=== PATIENT | female | born 1995 | race Caucasian/White ===

== ENCOUNTER 2022-03-11 05:21 | Emergency (ER) | payer BC, MEDICAID, SELFPAY ==
[2022-03-11 05:24] VITALS: BP 110/74; PULSE 99; RESP 16; TEMP 36.9; O2SAT 98; BMI 30.9
--- NOTE | 2022-03-11 05:40 | XR_ITS ---
PROCEDURE INFORMATION: Exam: XR Chest Exam date and time: 03/11/2022 5:35 AM Age: 27 years old Clinical indication: Cough and fever TECHNIQUE: Imaging protocol: Radiologic exam of the chest. Views: 2 views. COMPARISON: No relevant prior studies available. FINDINGS: Lungs: There is some peribronchial cuffing which may be seen with reactive airway disease. There is no focal consolidation/pneumonia. Pleural spaces: No pleural effusion. No pneumothorax. Heart/Mediastinum: No cardiomegaly. Bones/joints: Unremarkable for age. IMPRESSION: There is no focal consolidation/pneumonia.
[2022-03-11 05:46] LABS: Coronavirus 19, PCR Not Detected (NotDetected); Influenza B, PCR Not Detected (NotDetected)
--- NOTE | 2022-03-11 05:49 | HMH.EDURI ---
Discharge Plan Disposition Patient Disposition: Home, Self-Care Prescriptions Prescriptions: New benzonatate 100 mg Capsule 100 mg PO Q8H Qty: 20 0RF prednisone [prednisone] 20 mg tablet 20 mg PO BID Qty: 10 0RF oseltamivir [Tamiflu] 75 mg capsule 75 mg PO BID 5 Days Qty: 10 0RF Referrals Follow up/Referrals: Anita Faye [Primary Care Provider] - See instructions Clinical Impressions Clinical Impression: Influenza A Instructions Patient Instructions: DI for Influenza -- Adult Discharge ED Provider: Edin Head URI/Sore Throat HPI General Chief Complaint: Upper Respiratory Infection Stated Complaint: SOA, fever, body aches Time Seen by Provider: 03/11/22 05:49 Mode of Arrival: Ambulatory Source of Information: Patient and Medical Record Limitations: No Limitations Description of Symptoms (Recalled from ER Triage Doc. by RN): Pt c/o cough, congestion, body aches, fever of 103 since thursday. Pt has had known contact with flu+ relative. Pt denies N/V/D, chest pain, SOA. Pt reports taking tylenol and hour ago and motrin at 1230. History of Present Illness HPI Narrative: uri sx with cough and achey with temp elevated MD Complaint: fever, cough and nasal congestion Onset (ago): day(s) Severity: moderate Context: sick contacts Associated symptoms: denies other symptoms Treatments prior to arrival: none Related Data Previous Rx's Medication Instructions Recorded benzonatate 100 mg capsule 100 mg PO Q8H #20 caps 03/11/22 oseltamivir 75 mg capsule (Tamiflu) 75 mg PO BID 5 days #10 caps 03/11/22 prednisone 20 mg tablet 20 mg PO BID #10 tabs 03/11/22 Allergies Allergy/AdvReac Type Severity Reaction Status Date / Time acetaminophen [From Percocet] AdvReac Verified 03/11/22 05:40 oxycodone [From Percocet] AdvReac Verified 03/11/22 05:40 PFSH PFSH Social History Smoking Status: Current every day smoker alcohol intake: never current occupational status: employed Travel in the last 8 weeks: None ROS Obtained: Yes All systems reviewed & no additional complaints except as documented Physical Exam General General appearance: alert Head Head exam: normocephalic Eye Eye exam: Present PERRL and EOMI ENT ENT exam: Present mucous membranes moist Neck Neck exam: Present trachea midline Respiratory Respiratory exam: Present other (rhonchi ); Absent respiratory distress Cardiovascular Cardiovascular exam: Present regular rate Abdominal Exam Abdominal exam: Present soft Extremities Exam Extremities exam: Present full ROM Neurological Exam Neurological exam: Present alert, oriented X3 and CN II-XII intact Psychiatric Psychiatric exam: Present normal affect Skin Skin exam: Absent rash Medical Decision Making Medical Records Medical records reviewed: Yes I reviewed the patient's medical records. John Inquiry Pt receiving controlled substance: No Vital Signs: 03/11/22 05:24 Temperature 98.4 F Temperature Source Oral Pulse Rate [Right Radial] 99 H Respiratory Rate 16 Blood Pressure [Right Arm] 110/74 Blood Pressure Mean [Right Arm] 86 Blood Pressure Source [Right Arm] Automatic Cuff Blood Pressure Position [Right Arm] Supine 02 Sat by Pulse Oximetry 98 Oxygen Delivery Method Room Air Lab Data Lab results reviewed: Yes I reviewed the patient's lab results. Lab Results 03/11/22 05:33: SARS-CoV-2 (PCR) Not detected, Influenza A Untype (PCR) Detected A, Influenza Type B (PCR) Not detected Orders (Tests/Meds): ED MEDICATIONS Generic Name Dose Route Start Last Admin Trade Name Freq PRN Reason Stop Dose Admin Albuterol Sulfate 2 puff 03/11/22 06:00 Albuterol-Hfa 90mcg/Puff Inhaler 8gm 04/10/22 05:59 Q6RT GABO Discontinued Medications Generic Name Dose Route Start Last Admin Trade Name Freq PRN Reason Stop Dose Admin Levalbuterol HCl 1.25 mg 03/11/22 05:48 Levalbuterol 1.25mg/3ml Neb 03/11/22 05:49 ONCE O
[2022-03-11 06:54] LABS: Influenza A, PCR Detected (NotDetected)
[2022-03-11 07:03] VITALS: BP 110/74; PULSE 97; RESP 16; TEMP 36.9; O2SAT 100
== END 2022-03-11 07:08 | disposition home or self-care (01) ==
PROVIDERS: Emergency Provider Emergency Medicine; PCP Nurse Practitioner Family
DX: J10.1 Influenza due to other identified influenza virus with other respiratory manifestations (principal); R50.9 Fever, unspecified; R05.9 Cough, unspecified; M79.10 Myalgia, unspecified site; F17.200 Nicotine dependence, unspecified, uncomplicated; Z79.52 Long term (current) use of systemic steroids; Z88.5 Allergy status to narcotic agent; Z88.6 Allergy status to analgesic agent
CPT/HCPCS: 71046; 99283; C9803; U0003; U0005

== ENCOUNTER 2022-04-02 19:37 | Emergency (ER) | payer OTHER, MEDICAID, SELFPAY ==
[2022-04-02 19:39] VITALS: BP 150/106; PULSE 96; RESP 18; TEMP 36.9; O2SAT 98; BMI 30.9
--- NOTE | 2022-04-02 20:06 | HMH.EDGENADL ---
Discharge Plan Disposition Patient Disposition: Home, Self-Care Condition: Good Prescriptions Prescriptions: No Action benzonatate 100 mg Capsule 100 mg PO Q8H Qty: 20 0RF prednisone [prednisone] 20 mg tablet 20 mg PO BID Qty: 10 0RF oseltamivir [Tamiflu] 75 mg capsule 75 mg PO BID 5 Days Qty: 10 0RF Referrals Follow up/Referrals: Anita Faye [Primary Care Provider] - See instructions Clinical Impressions Clinical Impression: Concussion Instructions Patient Instructions: DI for Concussion Discharge ED Provider: Shalom Helms General Adult HPI General Chief complaint: Headache Stated complaint: WC [id number]@2300 injured Head Time Seen by Provider: 04/02/22 19:50 Mode of Arrival: Ambulatory Source of Information: Patient Limitations: No Limitations Description of Symptoms (Recalled from ER Triage Doc. by RN): pt was struck by a machine in the head thursday night and was seen at s [place] [facility] and diagnosed with a concussion, pt c/o Ledesma, dizziness and nauesa and was told by workplace to be reeveluatetd. History of Present Illness HPI narrative: Patient is a 27-year-old female with no pertinent past medical history who presents with headache, dizziness, nausea. She says that on Thursday she was at [employer] at work when she subsequently hit her head on a piece of machinery. She said she felt very dizzy and lightheaded and started to get a headache. She did not have a loss consciousness. She was sent to [facility] for evaluation where she had a CT scan which was ultimately negative. She says that she tried to go back to work today and started to have return of her symptoms. She says she continues to feel very nauseous. She feels dizzy and has a headache. She was told to come back here for evaluation. She denies any numbness or tingling to her extremities. Denies any neck pain. Related Data Previous Rx's Medication Instructions Recorded benzonatate 100 mg capsule 100 mg PO Q8H #20 caps 03/11/22 oseltamivir 75 mg capsule (Tamiflu) 75 mg PO BID 5 days #10 caps 03/11/22 prednisone 20 mg tablet 20 mg PO BID #10 tabs 03/11/22 Allergies Allergy/AdvReac Type Severity Reaction Status Date / Time acetaminophen [From Percocet] AdvReac Verified 03/11/22 05:40 oxycodone [From Percocet] AdvReac [facility]11[facility]22 [facility]: The information contained in this section may have been updated after the patient was seen, as this information can be updated by other users. Social History (Updated 03/11/22 @ 07:02 by Edin Head MD) Smoking Status: Current every day smoker alcohol intake: never current occupational status: employed Travel in the last 8 weeks: None ROS Obtained: Yes All systems reviewed & no additional complaints except as documented A 14 point review of system was obtained and otherwise negative except per HPI Physical Exam General General appearance: alert and in no apparent distress Head Head exam: atraumatic, normocephalic and normal inspection Eye Eye exam: Present normal appearance, PERRL and EOMI ENT ENT exam: Present normal exam, normal oropharynx, mucous membranes moist, TM's normal bilaterally and normal external ear exam Neck Neck exam: Present normal inspection, full ROM and trachea midline; Absent meningismus or lymphadenopathy Chest Chest inspection: Present normal inspection and symmetric chest wall rise; Absent tenderness Respiratory Respiratory exam: Present normal lung sounds bilaterally; Absent respiratory distress Cardiovascular Cardiovascular exam: Present regular rate and normal rhythm; Absent JVD Abdominal Exam Abdominal exam: Present soft and normal bowel sounds; Absent distention, tenderness or guarding Extremities Exam Extremities exam: Present normal inspection, full ROM and normal capillary refill; Absent calf tenderness Back Exam Back exam: Present normal inspection; Absent tenderness Neurological Exam Neurol
[2022-04-02 20:32] VITALS: BP 150/89; PULSE 81; RESP 18; TEMP 36.9; O2SAT 98
== END 2022-04-02 20:33 | disposition home or self-care (01) ==
PROVIDERS: Emergency Provider Student in an Organized Health Care Education/Training Program; PCP Nurse Practitioner Family
DX: R51.9 Headache, unspecified (principal); R42 Dizziness and giddiness; R11.2 Nausea with vomiting, unspecified; F17.200 Nicotine dependence, unspecified, uncomplicated; Z79.52 Long term (current) use of systemic steroids; Z79.899 Other long term (current) drug therapy; Z88.5 Allergy status to narcotic agent; Z88.6 Allergy status to analgesic agent
CPT/HCPCS: 99283

== ENCOUNTER 2022-08-13 22:33 | Emergency (ER) | payer BC, MEDICAID, SELFPAY ==
[2022-08-13 22:33] VITALS: BMI 31.6
--- NOTE | 2022-08-13 22:35 | CT_ITS ---
PROCEDURE INFORMATION: Exam: CT Head Without Contrast Exam date and time: 08/13/2022 11:15 PM Age: 27 years old Clinical indication: Injury or trauma; Fall; Additional info: Trauma r/t to falling down 15 steps TECHNIQUE: Imaging protocol: Computed tomography of the head without contrast. Radiation optimization: All CT scans at this facility use at least one of these dose optimization techniques: automated exposure control; mA and/or kV adjustment per patient size (includes targeted exams where dose is matched to clinical indication); or iterative reconstruction. REPORTING DATA: Count of CT and Cardiac NM exams in prior 12 months: This patient has received 0 known CTs and 0 known cardiac nuclear medicine studies in the 12 months prior to the current study. COMPARISON: No relevant prior studies available. FINDINGS: Brain: Normal. No hemorrhage. Unremarkable white matter. No mass effect. Cerebral ventricles: No ventriculomegaly. Paranasal sinuses: Moderate mucosal thickening in the right maxillary sinus. No air-fluid levels. Mastoid air cells: Visualized mastoid air cells are well aerated. Bones/joints: No acute fracture. Postsurgical changes in the anterior wall of both maxillary sinuses. Soft tissues: Unremarkable. IMPRESSION: No acute intracranial abnormality.
--- NOTE | 2022-08-13 22:35 | CT_ITS ---
PROCEDURE INFORMATION: Exam: CT Abdomen And Pelvis With Contrast Exam date and time: 08/13/2022 11:28 PM Age: 27 years old Clinical indication: Injury or trauma; Fall; Additional info: Trauma r/t to falling down 15 steps TECHNIQUE: Imaging protocol: Computed tomography of the abdomen and pelvis with contrast. Radiation optimization: All CT scans at this facility use at least one of these dose optimization techniques: automated exposure control; mA and/or kV adjustment per patient size (includes targeted exams where dose is matched to clinical indication); or iterative reconstruction. Contrast material: ISOVUE; Contrast volume: 75 ml; Contrast route: IV; REPORTING DATA: Count of CT and Cardiac NM exams in prior 12 months: This patient has received 0 known CTs and 0 known cardiac nuclear medicine studies in the 12 months prior to the current study. COMPARISON: CR XR PELVIS 1-2V 08/13/2022 11:28 PM FINDINGS: Liver: Hepatomegaly measures 25 cm. Gallbladder and bile ducts: Normal. No calcified stones. No ductal dilation. Pancreas: Normal. No ductal dilation. Spleen: Normal. No splenomegaly. Adrenal glands: Normal. No mass. Kidneys and ureters: Normal. No hydronephrosis. Stomach and bowel: There is colonic intramural fat deposition likely secondary to prior inflammatory change. No acute pericolonic inflammation. Appendix: Normal appendix. Intraperitoneal space: Unremarkable. No free air. No significant fluid collection. Vasculature: Unremarkable. No abdominal aortic aneurysm. Lymph nodes: Unremarkable. No enlarged lymph nodes. Urinary bladder: Unremarkable as visualized. Reproductive: Unremarkable as visualized. Bones/joints: Unremarkable. No acute fracture. Soft tissues: Small fat containing umbilical hernia. IMPRESSION: No acute abnormality.
--- NOTE | 2022-08-13 22:35 | CT_ITS ---
PROCEDURE INFORMATION: Exam: CT Lumbar Spine Without Contrast Exam date and time: 08/13/2022 11:22 PM Age: 27 years old Clinical indication: Injury or trauma; Fall; Additional info: Trauma r/t to falling down 15 steps TECHNIQUE: Imaging protocol: Computed tomography of the lumbar spine without contrast. Radiation optimization: All CT scans at this facility use at least one of these dose optimization techniques: automated exposure control; mA and/or kV adjustment per patient size (includes targeted exams where dose is matched to clinical indication); or iterative reconstruction. REPORTING DATA: Count of CT and Cardiac NM exams in prior 12 months: This patient has received 0 known CTs and 0 known cardiac nuclear medicine studies in the 12 months prior to the current study. COMPARISON: CT THORACIC SPINE WO CON 08/13/2022 11:19 PM FINDINGS: Bones/joints: No acute fracture. Normal alignment. No significant disc bulge or herniation. No severe spinal canal stenosis. No significant neural foraminal narrowing. Soft tissues: Unremarkable. IMPRESSION: No acute findings.
--- NOTE | 2022-08-13 22:35 | XR_ITS ---
PROCEDURE INFORMATION: Exam: XR Pelvis Exam date and time: 08/13/2022 11:28 PM Age: 27 years old Clinical indication: Injury or trauma; Fall; Blunt trauma (contusions or hematomas); Left; Hip and pelvic region; Additional info: Trauma r/t to falling down 15 steps TECHNIQUE: Imaging protocol: Radiologic exam of the pelvis. Views: 1 or 2 view. COMPARISON: CT LUMBAR SPINE WO CON 08/13/2022 11:22 PM FINDINGS: Bones/joints: Unremarkable. No acute fracture. Soft tissues: Unremarkable. Organs: There is contrast within both ureters. Contrast within the urinary bladder. IMPRESSION: No acute osseous abnormality.
--- NOTE | 2022-08-13 22:35 | XR_ITS ---
PROCEDURE INFORMATION: Exam: XR Chest Exam date and time: 08/13/2022 11:27 PM Age: 27 years old Clinical indication: Injury or trauma; Fall; Blunt trauma (contusions or hematomas); Additional info: Trauma r/t to falling down 15 steps TECHNIQUE: Imaging protocol: Radiologic exam of the chest. Views: 1 view. COMPARISON: CT CHEST WO CON 08/13/2022 11:24 PM FINDINGS: Lungs: Unremarkable. No consolidation. Pleural spaces: Unremarkable. No pleural effusion. No pneumothorax. Heart/Mediastinum: Unremarkable. No cardiomegaly. Bones/joints: Unremarkable. Soft tissues: Bilateral nipple rings. Organs: Bilateral renal excretion of contrast. IMPRESSION: No acute process.
--- NOTE | 2022-08-13 22:35 | CT_ITS ---
PROCEDURE INFORMATION: Exam: CT Cervical Spine Without Contrast Exam date and time: 08/13/2022 11:17 PM Age: 27 years old Clinical indication: Injury or trauma; Fall; Additional info: Trauma r/t to falling down 15 steps TECHNIQUE: Imaging protocol: Computed tomography of the cervical spine without contrast. Radiation optimization: All CT scans at this facility use at least one of these dose optimization techniques: automated exposure control; mA and/or kV adjustment per patient size (includes targeted exams where dose is matched to clinical indication); or iterative reconstruction. REPORTING DATA: Count of CT and Cardiac NM exams in prior 12 months: This patient has received 0 known CTs and 0 known cardiac nuclear medicine studies in the 12 months prior to the current study. COMPARISON: CT HEAD/BRAIN WO CON 08/13/2022 11:15 PM FINDINGS: Bones/joints: Vertebral body height and AP alignment is preserved. No acute cervical spine fracture. No definite significant central canal stenosis within limitations of technique. Lungs: Lung apices are normal. Pleural spaces: No visible pneumothorax. Soft tissues: Unremarkable. IMPRESSION: No acute cervical spine fracture.
--- NOTE | 2022-08-13 22:35 | CT_ITS ---
PROCEDURE INFORMATION: Exam: CT Chest Without Contrast; Diagnostic Exam date and time: 08/13/2022 11:24 PM Age: 27 years old Clinical indication: Injury or trauma; Fall; Patient HX: C/O left side pain; Additional info: Trauma r/t to falling down 15 steps TECHNIQUE: Imaging protocol: Diagnostic computed tomography of the chest without contrast. Radiation optimization: All CT scans at this facility use at least one of these dose optimization techniques: automated exposure control; mA and/or kV adjustment per patient size (includes targeted exams where dose is matched to clinical indication); or iterative reconstruction. REPORTING DATA: Count of CT and Cardiac NM exams in prior 12 months: This patient has received 0 known CTs and 0 known cardiac nuclear medicine studies in the 12 months prior to the current study. COMPARISON: CR XR CHEST 2V 03/11/2022 5:35 AM FINDINGS: Lungs: Right middle lobe pulmonary nodule measures 4 mm. Minimal bilateral posterior dependent hypoventilatory change. No airspace consolidation. No pulmonary contusion or laceration. Pleural spaces: Unremarkable. No pneumothorax. No pleural effusion. Heart: Unremarkable. No cardiomegaly. No pericardial effusion. Coronary arteries: No coronary artery calcification. Lymph nodes: Unremarkable. No enlarged lymph nodes. Vasculature: Unremarkable. No aortic aneurysm. Bones/joints: Unremarkable. No acute fracture. Soft tissues: Unremarkable. IMPRESSION: 1. No acute abnormality involving the chest. 2. 4 mm right middle lobe pulmonary nodule. If the patient does not have known cancer, follow up should be based on clinical information because of the low risk of cancer in this age group. (Reference: Sascha) REFERENCES: Sascha Gonzalez, et al. Guidelines for Management of Incidental Pulmonary Nodules Detected on CT Images: From the Fleischner Society 2017. Radiology. 2017;284(1):228-243.
--- NOTE | 2022-08-13 22:35 | CT_ITS ---
PROCEDURE INFORMATION: Exam: CT Thoracic Spine Without Contrast Exam date and time: 08/13/2022 11:19 PM Age: 27 years old Clinical indication: Injury or trauma; Fall; Additional info: Trauma r/t to falling down 15 steps TECHNIQUE: Imaging protocol: Computed tomography of the thoracic spine without contrast. Radiation optimization: All CT scans at this facility use at least one of these dose optimization techniques: automated exposure control; mA and/or kV adjustment per patient size (includes targeted exams where dose is matched to clinical indication); or iterative reconstruction. REPORTING DATA: Count of CT and Cardiac NM exams in prior 12 months: This patient has received 0 known CTs and 0 known cardiac nuclear medicine studies in the 12 months prior to the current study. COMPARISON: CT CERVICAL SPINE WO CON 08/13/2022 11:17 PM FINDINGS: Bones/joints: No acute fracture. Normal alignment. No significant disc bulge or herniation. No severe spinal canal stenosis. No significant neural foraminal narrowing. Soft tissues: Unremarkable. IMPRESSION: Unremarkable CT Spine.
[2022-08-13 22:45] VITALS: BP 119/82; PULSE 90; RESP 16; TEMP 36.6; O2SAT 98; BMI 30.9
[2022-08-13 22:48] VITALS: BP 119/82; PULSE 94; O2SAT 98
[2022-08-13 22:49] LABS: Blood Urea Nitrogen 13 mg/dl (7-17); Creatinine Clearance Estimated 214 mL/min (50-200); Estimated Glomerular Filt Rate 146 ml/min (>60); GFR (African American) 177 ML/MIN (>60)
--- NOTE | 2022-08-13 22:51 | XR_ITS ---
PROCEDURE INFORMATION: Exam: XR Left Knee Exam date and time: 08/13/2022 11:29 PM Age: 27 years old Clinical indication: Injury or trauma; Fall; Blunt trauma; Knee; Left TECHNIQUE: Imaging protocol: Radiologic exam of the left knee. Views: 3 views. COMPARISON: No relevant prior studies available. FINDINGS: Bones/joints: Normal. Soft tissues: Normal. IMPRESSION: No acute findings.
[2022-08-13 22:57] LABS: Basophils # 0.1 K/mm3 (0-0.2); Basophils % 1.1 % (0.1-2.0); Chloride 101 mmol/L (98-107); Eosinophils # 0.5 K/mm3 (0.0-0.4); Eosinophils % 3.8 % (0.1-12.0); Hemoglobin 14.8 g/dL (12.2-16.2); Lymphocytes # 4.8 K/mm3 (0.7-4.5); Lymphocytes % 36.4 % (10-50); Mean Corpuscular HGB Conc 34.5 g/dL (31.8-35.4); Mean Corpuscular Hemoglobin 31.3 pg (27.0-31.2); Mean Corpuscular Volume 90.8 fl (81-99); Monocytes # 0.8 K/mm3 (0.1-1.0); Monocytes % 5.9 % (1.7-9.3); Neutrophils % 52.9 % (37.0-80.0); Platelet Count 355 K/mm3 (142-424); Red Blood Count 4.74 M/mm3 (4.20-5.40); Red Cell Distribution Width 12.6 % (11.5-17.5); White Blood Count 13.3 K/mm3 (4.8-10.8)
[2022-08-13 22:58] LABS: Potassium 4.2 mmoL/L (3.5-5.1); Sodium 135 mmol/L (136-145)
[2022-08-13 23:00] VITALS: BP 127/86; PULSE 98; O2SAT 97
[2022-08-13 23:00] LABS: Alanine Aminotransferase 62 U/L (12-78); Albumin Level 4.3 g/dl (3.5-5.0); Albumin/Globulin Ratio 1.4 (1.1-1.8); Alkaline Phosphatase 80 U/L (38-126); Anion Gap 15.2 mEq/L (5-15); Aspartate Amino Transferase 48 U/L (14-36); Bilirubin,Total 0.5 mg/dl (0.2-1.3); Blood Urea Nitrogen 13 mg/dl (7-17); Carbon Dioxide 23 mmol/L (22.0-30.0); Creatinine Clearance Estimated 214 mL/min (50-200); Estimated Glomerular Filt Rate 146 ml/min (>60); GFR (African American) 177 ML/MIN (>60); Globulin 3.1 g/dL (1.3-3.2); Total Protein,Serum 7.4 g/dl (6.3-8.2)
[2022-08-13 23:01] LABS: Glucose 323 mg/dl (74-100)
[2022-08-13 23:03] LABS: HCG Qualitative, Serum Negative (Negative)
--- NOTE | 2022-08-13 23:59 | HMH.EDFALL ---
Discharge Plan Disposition Patient Disposition: Home, Self-Care Chief Complaint: Fall Prescriptions Prescriptions: No Action atorvastatin 40 mg tablet 40 mg PO DAILY Label Comments: TAKE 1 TABLET BY MOUTH ONCE DAILY atenolol 100 mg tablet 100 mg PO DAILY Label Comments: TAKE 1 TABLET BY MOUTH ONCE DAILY norethindrone ac-eth estradiol [Microgestin 1.5 (21)] 1.5-30 mg-mcg tablet 1 tab PO DAILY Label Comments: TAKE 1 TABLET BY MOUTH ONCE DAILY amitriptyline 10 mg tablet 10 mg PO HS Label Comments: TAKE 1 TABLET BY MOUTH ONCE DAILY AT BEDTIME FOR 30 DAYS levothyroxine 150 mcg tablet 150 mcg PO AM Label Comments: TAKE 1 TABLET BY MOUTH ONCE DAILY losartan 25 mg tablet 25 mg PO DAILY Label Comments: TAKE 1 TABLET BY MOUTH ONCE DAILY ergocalciferol (vitamin D2) 1,250 mcg (50,000 unit) capsule 1,250 mcg PO WEEKLY Label Comments: TAKE 1 CAPSULE BY MOUTH ONCE A WEEK escitalopram oxalate 20 mg tablet 20 mg PO DAILY Label Comments: TAKE 1 TABLET BY MOUTH ONCE DAILY duloxetine 60 mg capsule,delayed release(DR/EC) 60 mg PO DAILY Label Comments: TAKE 1 CAPSULE BY MOUTH ONCE DAILY DO NOT CRUSH OR CHEW fenofibrate nanocrystallized 145 mg tablet 145 mg PO DAILY Label Comments: TAKE 1 TABLET BY MOUTH ONCE DAILY Referrals Follow up/Referrals: Krystina Bear [Primary Care Provider] - See instructions Annamaria Gallegos DPM [Staff Physician] - See instructions Clinical Impressions Clinical Impression: Concussion, Fall, Foot fracture, left, Lumbar back sprain, Concussion without loss of consciousness Instructions Patient Instructions: Foot Fracture Discharge ED Provider: Adilene YoungED)Edin Fall HPI General Chief Complaint: Fall Stated Complaint: Fell down 15 steps Time Seen by Provider: 08/13/22 23:59 Mode of Arrival: Ambulatory Source of Information: Patient, Spouse and Medical Record Limitations: No Limitations Description of Symptoms (Recalled from ER Triage Doc. by RN): Pt states that she was carrying a basket of laundry into her basement when she tripped and fell down 15 steps. States that she didnt lose consciousness. Does report that a bottle of bleach opened and spilled on her and into her mouth and eyes. States that she didnt ingest any bleach and immediately bathed and rinsed her eyes. Denies any eye pain or vision deficits. History of Present Illness HPI Narrative: trip injury nd fell down basement steps has lt foot/neck and back injury - no loc - has head and llt knee pain MD complaint: fall Onset (ago): hour(s) Fall from: down stairs (#) Fall witnessed: yes, by family Place fall occurred: home Loss of consciousness: none Prolonged down time: no Context: tripped/slipped Location of injury: head, neck and back Location of injury - extremities: Left: knee and foot Severity: severe Related Data Home Medications Medication Instructions Recorded Confirmed amitriptyline 10 mg tablet 10 mg PO HS Insomnia 08/13/22 08/13/22 atenolol 100 mg tablet 100 mg PO DAILY Heart rhythm 08/13/22 08/13/22 atorvastatin 40 mg tablet 40 mg PO DAILY Cholesterol 08/13/22 08/13/22 duloxetine 60 mg capsule,delayed 60 mg PO DAILY Mood 08/13/22 08/13/22 release ergocalciferol (vitamin D2) 1,250 1,250 mcg PO WEEKLY Supplement 08/13/22 08/13/22 mcg (50,000 unit) capsule escitalopram oxalate 20 mg tablet 20 mg PO DAILY Mood 08/13/22 08/13/22 fenofibrate nanocrystallized 145 145 mg PO DAILY Cholesterol 08/13/22 08/13/22 mg tablet levothyroxine 150 mcg tablet 150 mcg PO AM Thyroid 08/13/22 08/13/22 losartan 25 mg tablet 25 mg PO DAILY High blood pressure 08/13/22 08/13/22 norethindrone acetate 1.5 1 tab PO DAILY control 08/13/22 08/13/22 mg-ethinyl estradiol 30 mcg tablet (Microgestin) Allergies Allergy/AdvReac Type Severity Reaction Status Date / Time acetaminophen [From Percocet] AdvReac
[2022-08-14] VITALS: BP 114/78; PULSE 106; O2SAT 97
--- NOTE | 2022-08-14 00:24 | XR_ITS ---
PROCEDURE INFORMATION: Exam: XR Left Foot Exam date and time: 08/14/2022 1:12 AM Age: 27 years old Clinical indication: Injury or trauma; Fall; Blunt trauma; Toes; Left lesser toe(s); Patient HX: States she hit her 4th digit left foot TECHNIQUE: Imaging protocol: Radiologic exam of the left foot. Views: 3 or more views. COMPARISON: CR XR KNEE LT 3V 08/13/2022 11:29 PM FINDINGS: Bones/joints: There is lucency at the proximal aspect of the 4th digit metatarsal bone imaged on frontal film. Remainder appears intact. Soft tissues: Normal. IMPRESSION: Suspect nondisplaced fracture of the proximal aspect of the 4th metatarsal imaged on the frontal film.
[2022-08-14 00:30] VITALS: BP 114/72; PULSE 96; O2SAT 97
[2022-08-14 01:00] VITALS: BP 112/75; PULSE 94; O2SAT 96
[2022-08-14 01:30] VITALS: BP 128/86; PULSE 92; O2SAT 98
[2022-08-14 02:00] VITALS: BP 125/85; PULSE 89; O2SAT 97
[2022-08-14 02:05] VITALS: BP 134/80; PULSE 81; RESP 18; TEMP 36.8
== END 2022-08-14 02:11 | disposition home or self-care (01) ==
PROVIDERS: Emergency Provider Emergency Medicine; PCP Nurse Practitioner Family
DX: S06.0X0A Concussion without loss of consciousness, initial encounter (principal); S33.5XXA Sprain of ligaments of lumbar spine, initial encounter; S92.302A Fracture of unspecified metatarsal bone(s), left foot, initial encounter for closed fracture; W10.9XXA Fall (on) (from) unspecified stairs and steps, initial encounter
CPT/HCPCS: 70450; 71045; 71250; 72125; 72128; 72131; 72170; 73562; 73630; 74177; 80053; 82565; 84520; 84703; 85025; 96374; 96375; 96376; 99285; J2405; Q9967

== ENCOUNTER → 2022-08-15 13:13 | Outpatient (CLI) | payer BC, MEDICAID, SELFPAY ==
--- NOTE | 2022-08-15 13:17 | XR_ITS ---
FINAL REPORT CLINICAL HISTORY: Left wrist pain COMPARISON: None FINDINGS: LEFT WRIST Three views demonstrate no acute fracture or dislocation. The visualized joint spaces are normally aligned. The soft tissues are unremarkable. IMPRESSION: No acute bony abnormality. Reviewed, Interpreted and Dictated by Guilherme iRncon III, MD Transcribed by Fernanda Rivera Authenticated and [facility]
== END ==
PROVIDERS: PCP Nurse Practitioner Family; Visit Provider Orthopaedic Surgery
DX: M25.532 Pain in left wrist (principal)
CPT/HCPCS: 73110

== ENCOUNTER 2022-08-15 13:29 | Outpatient (RCR) | payer BC, MEDICAID, SELFPAY | END 2022-08-15 14:25 | disposition home or self-care (01) | LOC: PT 13:29 | PROVIDERS: Visit Provider Orthopaedic Surgery | DX: M79.672 Pain in left foot (principal); S92.902A Unspecified fracture of left foot, initial encounter for closed fracture | CPT/HCPCS: 97760 ==

== ENCOUNTER 2022-08-25 11:00 | Outpatient (RCR) | payer OTHER, SELFPAY | END 2022-08-25 11:05 | disposition home or self-care (01) | LOC: OT 11:00 | PROVIDERS: Visit Provider Plastic Surgery Surgery of the Hand | DX: M79.641 Pain in right hand (principal); S69.91XA Unspecified injury of right wrist, hand and finger(s), initial encounter | CPT/HCPCS: 97010; 97014; 97035; 97110; 97140; 97166; 97530; G0283 ==

== ENCOUNTER → 2022-08-29 08:52 | Outpatient (CLI) | payer OTHER, MEDICAID, SELFPAY ==
--- NOTE | 2022-08-29 08:55 | XR_ITS ---
FINAL REPORT CLINICAL HISTORY: f/u left foot fx COMPARISON: None available FINDINGS: Three views of the left foot show no evidence of acute displaced fracture or dislocation of the visualized bony architecture. Previously described fracture 4th metatarsal not appreciated on the current exam. The joint spaces appear normal. IMPRESSION: Unremarkable exam Reviewed, Interpreted and Dictated by Dwayne Jones MD Transcribed by Fernanda Rivera Authenticated and [facility]
== END ==
PROVIDERS: PCP Nurse Practitioner Family; Visit Provider Orthopaedic Surgery
DX: M79.672 Pain in left foot (principal); S92.902A Unspecified fracture of left foot, initial encounter for closed fracture
CPT/HCPCS: 73630

== ENCOUNTER 2022-09-06 23:22 | Emergency (ER) | payer BC, MEDICAID, SELFPAY ==
[2022-09-06 23:24] VITALS: BP 110/67; PULSE 101; RESP 17; TEMP 36.5; O2SAT 100; BMI 26.6
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
--- NOTE | 2022-09-07 00:52 | PC.NURSE ---
pt finger stick is 309 at this time
[2022-09-07 00:58] LABS: POC Glucose,Bedside 309 (70-110)
[2022-09-07 01:12] VITALS: BP 121/63; PULSE 73; RESP 19; TEMP 36.8; O2SAT 98
== END 2022-09-07 01:27 | disposition home or self-care (01) ==
PROVIDERS: Emergency Provider Emergency Medicine; PCP Nurse Practitioner Family
DX: M54.16 Radiculopathy, lumbar region (principal); E11.9 Type 2 diabetes mellitus without complications
CPT/HCPCS: 82962; 96372; 99283; 99284

== ENCOUNTER → 2022-10-08 08:26 | Outpatient (POV) | payer BC, MEDICAID, SELFPAY ==
--- NOTE | 2022-10-08 08:43 | EXP.PAIN.OV ---
HPI Data of Consult Patient: new to practice Consult date: 10/08/22 Requesting Physician: Christy Jama APRN Consult Narrative Reason for consult: Low back pain History of present illness: Ms. Friedman is a 27 year old female who presents today as a new patient. She is a referral from [facility]. Today she rates her pain a 7 out of 10. Patient states her pain is all in her low back with some radiating symptoms to her buttocks. Patient does describe this as a constant achy, throbbing sensation that is worse with increased activity. Patient states she did have a fall that initially started the symptoms back on August 14. Patient states that she fell down her stairs and hit her lower back on the bottom. Patient states she had no prior issues to this event. She does state the pain interferes with her ability perform activities of daily living such as cooking and cleaning. Patient denies any prior surgery. She does state that occasionally she feels like her back just needs to be popped and that with adding pressure onto her back the pain does seem to help. She does state that her pain is worse when she is standing or walking. She does state with this fall she did have a hairline fracture to her wrist as well as a fracture to her foot and a contusion however she states these of all healed except for her back. Patient has tried [id number] medications such as Tylenol and ibuprofen along with heat and ice and topicals with no additional relief. She states she has even had muscle relaxer cyclobenzaprine however she has not noticed significant relief with this either patient is currently in physical therapy and states she has not noticed any additional improvement. Patient is prescribed gabapentin 300 mg twice a day and was also given Stewart 7.5 mg with 30 tablets in August. Patient denies any side effects from these medications. Her John is [phone]. Has been reviewed and appropriate. CC: Christy Jama APRN [facility] Disclaimer: The information contained in this section may have been updated after the patient was seen, as this information can be updated by other users. 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 Foot fracture, left Surgical History History of carpal tunnel release History of facial fracture repair History of left knee surgery History of surgical removal of ganglion cyst History of tonsillectomy and adenoidectomy Social History Smoking Status: Never smoker alcohol intake: never current occupational status: employed Travel in the last 8 weeks: None Review of Systems Review of Systems Review of systems:: pertinent systems reviewed and negative unless documented below Review of systems (narrative): Review of Systems: General: No recent weight changes, no fever, no sleep disturbances Respiratory: No cough, no shortness of air, no recurring pulmonary infections Cardiovascular/peripheral vascular: No chest pain, no palpitations, no edema, no shortness of breath Gastrointestinal: No new onset incontinence, normal bowel movements reported Genitourinary: No new onset incontinence Musculoskeletal: Low back pain Psychiatric: [Normal mood/affect] Neurological: [Denies weakness in extremities], [denies balance issues] Meds Home Medications and Allergies Home Medications Medication Instructions Recorded Confirmed Type amitriptyline 10 mg tablet 10 mg PO HS Insomnia 08/13/22 08/29/22 History atenolol 100 mg tablet 100 mg PO DAILY Heart rhythm 08/13/22 08/29/22 History atorvastatin 40 mg tablet 40 mg PO DAILY Cholesterol 08/13/22 08/29/22 History duloxetine 60 mg capsule,delayed 60 mg PO DAILY Mood 08/13/22 08/29/22 History release ergocalciferol (vitamin D2) 1,250 1,250 mcg PO WEEKLY Supplement 08/13/22 08/29/22 History mcg (50,000 unit) capsule escitalopram
[2022-10-08 09:41] VITALS: BP 138/101; PULSE 100; RESP 18; O2SAT 97; BMI 30.9
== END | disposition home or self-care (01) ==
PROVIDERS: Visit Provider Nurse Practitioner Family
DX: M54.50 Low back pain, unspecified (principal); M54.16 Radiculopathy, lumbar region
CPT/HCPCS: 99202; G0463

== ENCOUNTER → 2022-10-20 14:36 | Outpatient (CLI) | payer BC, SELFPAY | LOC: RT 14:39 | PROVIDERS: PCP Nurse Practitioner Family; Visit Provider Nurse Practitioner Family | DX: R01.1 Cardiac murmur, unspecified (principal) | CPT/HCPCS: 93306 ==

== ENCOUNTER 2023-02-09 21:28 | Emergency (ER) | payer MEDICAID, SELFPAY ==
[2023-02-09 21:28] VITALS: PULSE 107
--- NOTE | 2023-02-09 21:29 | ECG_ITS ---
APPROVED REPORT Exam: Resting ECG HR:103 bpm ECG Measurements Heart Rate 103 AXES ID 134 P 36 QRSd 90 QRS -16 QT 338 T 50 QTc 397 Conclusion SINUS TACHYCARDIA POSSIBLE LEFT ATRIAL ENLARGEMENT [-0.1mV P-WAVE IN V1/V2] POSSIBLE LEFT VENTRICULAR HYPERTROPHY [VOLTAGE CRITERIA PLUS LAE OR QRS WIDENING] ABNORMAL ECG UNCONFIRMED REPORT Electronically signed by : Davis Fink MD 02/10/2023 14:41:16
[2023-02-09 21:31] VITALS: BP 144/97; PULSE 107; RESP 20; TEMP 36.8; O2SAT 99; BMI 31.2
--- NOTE | 2023-02-09 21:33 | PC.NURSE ---
in room talking with patient at this time.
--- NOTE | 2023-02-09 21:36 | XR_ITS ---
PROCEDURE INFORMATION: Exam: XR Chest Exam date and time: 02/09/2023 10:04 PM Age: 27 years old Clinical indication: Sternal or substernal pain; Patient HX: States chest pain started approx. 8pm tonight. HX of heart murmur; Additional info: Cp/soa TECHNIQUE: Imaging protocol: Radiologic exam of the chest. Views: 2 views. COMPARISON: CR XR CHEST PORTABLE 08/13/2022 11:27 PM FINDINGS: Lungs: Normal. Pleural spaces: Normal No pleural effusion. No pneumothorax. Heart/Mediastinum: Normal. No cardiomegaly. Bones/joints: Unremarkable. Soft tissues: Bilateral nipple jewelry in place. IMPRESSION: No acute findings.
--- NOTE | 2023-02-09 21:37 | HMH.EDGENADL ---
Discharge Plan Disposition Patient Disposition: Home, Self-Care Condition: Good Prescriptions Prescriptions: No Action gabapentin 300 mg capsule 300 mg PO HS Ozempic 0.25 mg or 0.5 mg (2 mg/3 mL) pen injector 0.25 mg SQ metformin 1,000 mg tablet 1,000 mg PO BID losartan 100 mg tablet 100 mg PO DAILY carvedilol [Coreg] 12.5 mg tablet 12.5 mg PO BID Qty: 60 3RF Rx Instructions: must administer with a meal/food atorvastatin 40 mg tablet 40 mg PO DAILY Patient Comments: TAKE 1 TABLET BY MOUTH ONCE DAILY amitriptyline 10 mg tablet 10 mg PO HS Patient Comments: TAKE 1 TABLET BY MOUTH ONCE DAILY AT BEDTIME FOR 30 DAYS levothyroxine 150 mcg tablet 150 mcg PO AM Patient Comments: TAKE 1 TABLET BY MOUTH ONCE DAILY ergocalciferol (vitamin D2) 1,250 mcg (50,000 unit) capsule 1,250 mcg PO WEEKLY Patient Comments: TAKE 1 CAPSULE BY MOUTH ONCE A WEEK escitalopram oxalate 20 mg tablet 20 mg PO DAILY Patient Comments: TAKE 1 TABLET BY MOUTH ONCE DAILY duloxetine 60 mg capsule,delayed release(DR/EC) 60 mg PO DAILY Patient Comments: TAKE 1 CAPSULE BY MOUTH ONCE DAILY DO NOT CRUSH OR CHEW fenofibrate nanocrystallized 145 mg tablet 145 mg PO DAILY Patient Comments: TAKE 1 TABLET BY MOUTH ONCE DAILY methocarbamol 500 mg tablet 500 mg PO BID Qty: 28 0RF Referrals Follow up/Referrals: Krystina Bear [Primary Care Provider] - See instructions Activity Restrictions/Add. Instructions Additional Instructions/Restrictions: You were evaluated in the emergency department today. Please keep an eye on your blood sugar at home. Follow-up with your primary care provider over the next 3 days for reassessment. Return to the emergency department for new or worsening symptoms. Clinical Impressions Clinical Impression: Chest pain, Acute dyspnea, Hyperglycemia Instructions Patient Instructions: DI for Atypical Chest Pain Discharge ED Provider: Christy Lindsay General Adult HPI <Theo Soto MD - Last Filed: 02/09/23 23:14> General Chief complaint: Chest Pain Stated complaint: Chest Pain Time Seen by Provider: 02/09/23 21:32 Mode of Arrival: Ambulatory Source of Information: Patient Limitations: No Limitations Description of Symptoms (Recalled from ER Triage Doc. by RN): Patient started having Chest pain that started tonight aroung 2000 that is minsternal. History of Present Illness HPI narrative: Patient is a 27-year-old female with past medical history of hypertension, chronic tachycardia of undetermined etiology who presents emergency department for evaluation of chest pain. Onset was acute, occurring at approximately 8 PM, substernal with associated shortness of breath. No other acute complaints at this time. Related Data Home Medications Medication Instructions Recorded Confirmed amitriptyline 10 mg tablet 10 mg PO HS Insomnia 08/13/22 10/13/22 atorvastatin 40 mg tablet 40 mg PO DAILY Cholesterol 08/13/22 10/13/22 duloxetine 60 mg capsule,delayed 60 mg PO DAILY Mood 08/13/22 10/13/22 release ergocalciferol (vitamin D2) 1,250 1,250 mcg PO WEEKLY Supplement 08/13/22 10/13/22 mcg (50,000 unit) capsule escitalopram oxalate 20 mg tablet 20 mg PO DAILY Mood 08/13/22 10/13/22 fenofibrate nanocrystallized 145 145 mg PO DAILY Cholesterol 08/13/22 10/13/22 mg tablet levothyroxine 150 mcg tablet 150 mcg PO AM Thyroid 08/13/22 10/13/22 gabapentin 300 mg capsule 300 mg PO HS 10/13/22 10/13/22 losartan 100 mg tablet 100 mg PO DAILY 10/13/22 10/13/22 metformin 1,000 mg tablet 1,000 mg PO BID 10/13/22 10/13/22 semaglutide 0.25 mg or 0.5 mg (2 0.25 mg SQ 10/13/22 10/13/22 mg/3 mL) subcutaneous pen injector (Ozempic) Previous Rx's Medication Instructions Recorded methocarbamol 500 mg tablet 500 mg PO BID #28 tabs 10/08/22 carvedilol 12.5 mg tablet (Coreg) 12.5 mg PO BID #60 tabs 10/13/22
[2023-02-09 21:46] LABS: Basophils # 0.1 K/mm3 (0-0.2); Basophils % 1.1 % (0.1-2.0); Eosinophils # 0.4 K/mm3 (0.0-0.4); Eosinophils % 4.1 % (0.1-12.0); Hematocrit 38.6 % (37.0-47.0); Hemoglobin 14.8 g/dL (12.2-16.2); Lymphocytes # 3.6 K/mm3 (0.7-4.5); Lymphocytes % 38.2 % (10-50); Mean Corpuscular HGB Conc 38.3 g/dL (31.8-35.4); Mean Corpuscular Hemoglobin 34.2 pg (27.0-31.2); Mean Corpuscular Volume 89.3 fl (81-99); Mean Platelet Volume 7.9 fl (7.4-10.4); Monocytes # 0.5 K/mm3 (0.1-1.0); Monocytes % 5.5 % (1.7-9.3); Neutrophils # 4.8 K/mm3 (1.8-7.8); Neutrophils % 51.1 % (37.0-80.0); Platelet Count 290 K/mm3 (142-424); Red Blood Count 4.32 M/mm3 (4.20-5.40); Red Cell Distribution Width 12.5 % (11.5-17.5); White Blood Count 9.5 K/mm3 (4.8-10.8)
[2023-02-09 21:53] LABS: D-Dimer 2.88 ug/mL (0.0-0.5)
[2023-02-09 21:58] LABS: Alanine Aminotransferase 54 U/L (12-78); Albumin Level 4.2 g/dl (3.5-5.0); Albumin/Globulin Ratio 1.4 (1.1-1.8); Alkaline Phosphatase 83 U/L (38-126); Anion Gap 18.3 mEq/L (5-15); Aspartate Amino Transferase 45 U/L (14-36); Bilirubin,Total 0.4 mg/dl (0.2-1.3); Blood Urea Nitrogen 11 mg/dl (7-17); Carbon Dioxide 18 mmol/L (22.0-30.0); Chloride 103 mmol/L (98-107); Creatinine Clearance Estimated 270 mL/min (50-200); Estimated Glomerular Filt Rate 189 ml/min (>60); GFR (African American) 228 ML/MIN (>60); Globulin 3.1 g/dL (1.3-3.2); Glucose 282 mg/dl (74-100); NT Pro Brain Natriuretic Pep. 68.6 pg/mL (0-125); Potassium 4.3 mmoL/L (3.5-5.1); Sodium 135 mmol/L (136-145); Total Protein,Serum 7.3 g/dl (6.3-8.2)
--- NOTE | 2023-02-09 22:31 | CT_ITS ---
PROCEDURE INFORMATION: Exam: CTA Chest With Contrast Exam date and time: 02/09/2023 10:48 PM Age: 27 years old Clinical indication: Abnormal findings; Abnormal diagnostic tests; Elevated d-dimer; Patient HX: HX heart murmur; Additional info: Chest pain, tachy, elevated dimer TECHNIQUE: Imaging protocol: Computed tomographic angiography of the chest with contrast. Exam focused on the arteries. 3D rendering (Not supervised by radiologist): MIP and/or 3D reconstructed images were created by the technologist. Radiation optimization: All CT scans at this facility use at least one of these dose optimization techniques: automated exposure control; mA and/or kV adjustment per patient size (includes targeted exams where dose is matched to clinical indication); or iterative reconstruction. Contrast material: ISOVUE; Contrast volume: 70 ml; Contrast route: INTRAVENOUS (IV); REPORTING DATA: Count of CT and Cardiac NM exams in prior 12 months: This patient has received 6 known CTs and 0 known cardiac nuclear medicine studies in the 12 months prior to the current study. COMPARISON: CT CHEST WO CON 08/13/2022 11:24 PM FINDINGS: Pulmonary arteries: Normal. No pulmonary emboli. Aorta: Unremarkable. No aortic aneurysm. No aortic dissection. Lungs: Unremarkable. No consolidation. No masses. Pleural spaces: Unremarkable. No pneumothorax. No pleural effusion. Heart: Unremarkable. No cardiomegaly. No pericardial effusion. Lymph nodes: Unremarkable. No enlarged lymph nodes. Liver: Hepatic steatosis. Bones/joints: Unremarkable. No acute fracture. Soft tissues: Unremarkable. IMPRESSION: 1. No acute findings. 2. Large amount of food in the stomach.
[2023-02-09 23:32] LABS: Troponin I < 0.01 ng/ml (0.00-0.034)
[2023-02-09 23:33] LABS: VBG Base Excess -5.4 mmol/L (-2.4-2.3); VBG HCO3 19.9 mmol/L (23-30); VBG Oxygen Saturation 95.3 % (50-70); VBG PCO2 35.7 mmol/L (35-51); VBG PH 7.37 mmol/L (7.31-7.41); VBG PO2 77.6 mmol/L (28-40)
[2023-02-10 00:34] LABS: Troponin I < 0.01 ng/ml (0.00-0.034)
--- NOTE | 2023-02-10 00:43 | PC.NURSE ---
in room talking with patient at this time.
[2023-02-10 00:48] VITALS: BP 117/78; PULSE 85; RESP 18; TEMP 36.6; O2SAT 97
== END 2023-02-10 00:49 | disposition home or self-care (01) ==
PROVIDERS: Emergency Medicine; Emergency Provider Emergency Medicine; PCP Nurse Practitioner Family
DX: R07.89 Other chest pain (principal); R00.0 Tachycardia, unspecified; R06.02 Shortness of breath; I10 Essential (primary) hypertension; E78.5 Hyperlipidemia, unspecified; F17.210 Nicotine dependence, cigarettes, uncomplicated
CPT/HCPCS: 71046; 71275; 80053; 82803; 83880; 84484; 85025; 85378; 93005; 96360; 99285; Q9967

== ENCOUNTER 2023-05-08 16:18 | Emergency (ER) | payer MEDICAID, SELFPAY ==
[2023-05-08 16:19] VITALS: BP 142/94; PULSE 87; RESP 17; TEMP 36.8; O2SAT 98; BMI 30.9
[2023-05-08] MEDS: IBUPROFEN 600 MG TABLET PO (17:11)
[2023-05-08] MEDS: ACETAMINOPHEN 500MG TAB 1000 MG PO (17:11)
[2023-05-08] MEDS: ONDANSETRON 4MG ODT 4 MG SL (17:12)
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
[2023-05-08 17:53] VITALS: BP 131/97; PULSE 82; RESP 18; TEMP 36.8; O2SAT 96
== END 2023-05-08 17:54 | disposition home or self-care (01) ==
PROVIDERS: Emergency Provider Emergency Medicine; PCP Nurse Practitioner Family
DX: S09.8XXA Other specified injuries of head, initial encounter (principal); R51.9 Headache, unspecified; R42 Dizziness and giddiness; R11.10 Vomiting, unspecified; E78.5 Hyperlipidemia, unspecified; I10 Essential (primary) hypertension; R01.1 Cardiac murmur, unspecified; F17.200 Nicotine dependence, unspecified, uncomplicated; Y04.0XXA Assault by unarmed brawl or fight, initial encounter
CPT/HCPCS: 99283

== ENCOUNTER 2023-06-20 17:10 | Emergency (ER) | payer MEDICAID, SELFPAY ==
[2023-06-20 17:40] VITALS: BP 150/95; PULSE 91; RESP 19; TEMP 36.7; O2SAT 99; BMI 30.7
[2023-06-20 18:00] VITALS: BP 150/95; PULSE 91; RESP 19; TEMP 36.7; O2SAT 98
[2023-06-20 18:00] LABS: UTC Strep Screen (Rapid) Negative (Negative)
--- NOTE | 2023-06-20 18:07 | ED_ITS ---
Discharge Plan Disposition Patient Disposition: Home, Self-Care Condition: Good Prescriptions Prescriptions: New amoxicillin [amoxicillin] 500 mg tablet 500 mg PO BID 10 Days Qty: 20 0RF fluconazole [Diflucan] 100 mg tablet 100 mg PO DAILY Qty: 1 0RF Rx Instructions: take one tab after completing antibiotics No Action gabapentin 300 mg capsule 300 mg PO HS Ozempic 0.25 mg or 0.5 mg (2 mg/3 mL) pen injector 0.25 mg SQ metformin 1,000 mg tablet 1,000 mg PO BID losartan 100 mg tablet 100 mg PO DAILY carvedilol [Coreg] 12.5 mg tablet 12.5 mg PO BID Qty: 60 3RF Rx Instructions: must administer with a meal/food atorvastatin 40 mg tablet 40 mg PO DAILY Patient Comments: TAKE 1 TABLET BY MOUTH ONCE DAILY amitriptyline 10 mg tablet 10 mg PO HS Patient Comments: TAKE 1 TABLET BY MOUTH ONCE DAILY AT BEDTIME FOR 30 DAYS levothyroxine 150 mcg tablet 150 mcg PO AM Patient Comments: TAKE 1 TABLET BY MOUTH ONCE DAILY ergocalciferol (vitamin D2) 1,250 mcg (50,000 unit) capsule 1,250 mcg PO WEEKLY Patient Comments: TAKE 1 CAPSULE BY MOUTH ONCE A WEEK escitalopram oxalate 20 mg tablet 20 mg PO DAILY Patient Comments: TAKE 1 TABLET BY MOUTH ONCE DAILY duloxetine 60 mg capsule,delayed release(DR/EC) 60 mg PO DAILY Patient Comments: TAKE 1 CAPSULE BY MOUTH ONCE DAILY DO NOT CRUSH OR CHEW fenofibrate nanocrystallized 145 mg tablet 145 mg PO DAILY Patient Comments: TAKE 1 TABLET BY MOUTH ONCE DAILY methocarbamol 500 mg tablet 500 mg PO BID Qty: 28 0RF ondansetron 4 mg tablet,disintegrating 4 mg PO Q6H PRN (Reason: nausea and vomiting) Qty: 10 0RF Referrals Follow up/Referrals: Provider,Referral, MD [Primary Care Provider] - See instructions Activity Restrictions/Add. Instructions Additional Instructions/Restrictions: Start antibiotic as soon as possible and be sure to take as ordered for full length of time even though he should start feeling better in 24-48 hours. Tylenol or Motrin as needed for pain or fever Encourage fluids, water, Gatorade, Powerade, Pedialyte if /toddler/child Warm compresses often helps when placed over ear Return immediately for new or worsening symptoms no noticeable improvement in 48-72 hours and in 10-14 days to ensure the ears are return to baseline. Follow-up with primary care Clinical Impressions Clinical Impression: Strep sore throat Otitis media Qualifiers: Otitis media type: suppurative Chronicity: acute Laterality: left Recurrence: non-recurrent Spontaneous tympanic membrane rupture: without spontaneous rupture Qualified Code(s): H66.002 - Acute suppurative otitis media without spontaneous rupture of ear drum, left ear Stand Alone Forms Stand Alone Forms: Work/School Release Instructions Patient Instructions: Middle Ear Infection, Sore Throat Discharge ED Provider: Mariah ([facility])Kem [facility] HPI General Stated complaint: Left earache,sore throat Mode of Arrival: Ambulatory Source of Information: Patient Limitations: No Limitations Time Seen by Provider: 06/20/23 18:07 Description of Symptoms (Recalled from Triage Doc. by RN): PATIENT C/O SORE THROAT ALL WEEK AND LEFT EAR PAIN THAT STARTED THIS MORNING HEENT Symptoms (Recalled from RN notes): Yes Resp Symptoms (Recalled from RN notes): No Skin Symptoms (Recalled from RN notes): No MS Symptoms (Recalled from RN notes): No Functional Status (Recalled from RN notes): WNL History of Present Illness Provider Complaint: 28 yr old female presents for sore throat and left ear pain that started this am Related Data Home Medications Medication Instructions Recorded Confirmed amitriptyline 10 mg tablet 10 mg PO HS Insomnia 08/13/22 10/13/22 atorvastatin 40 mg tablet 40 mg PO DAILY Cholesterol 08/13/22 10/13/22 duloxetine 60 mg capsule,delayed 60 mg PO DAILY Mood 08/13/22 10/13/22 release ergocalciferol (vitamin D2) 1,250 1,250 mcg PO WEEKLY Supplement 08/13/22 10/13/22 mcg (50,000 unit) capsule escitalopram oxalate 20 mg tablet 20 mg PO DAILY Mood 08/13/22 10/13/22 fenofibrate nanocrystallized 145 145 mg PO DAILY Cholesterol 08/13/22 10/13/22 mg tablet levothyroxine 150 mcg tablet 150 mcg PO AM Thyroid 08/13/22 10/13/22 gabapentin 300 mg capsule 300 mg PO HS 10/13/22 10/13/22 losartan 100 mg tablet 100 mg PO DAILY 10/13/22 10/13/22 metformin 1,000 mg tablet 1,000 mg PO BID 10/13/22 10/13/22 semaglutide 0.25 mg or 0.5 mg (2 0.25 mg SQ 10/13/22 10/13/22 mg/3 mL) subcutaneous pen injector (Ozempic) Previous Rx's Medication Instructions Recorded methocarbamol 500 mg tablet 500 mg PO BID #28 tabs 10/08/22 carvedilol 12.5 mg tablet (Coreg) 12.5 mg PO BID #60 tabs 10/13/22 ondansetron 4 mg disintegrating 4 mg PO Q6H PRN nausea and 05/08/23 tablet vomiting #10 tabs amoxicillin 500 mg tablet 500 mg PO BID 10 days #20 tabs 06/20/23 fluconazole 100 mg tablet 100 mg PO DAILY #1 tab 06/20/23 (Diflucan) Allergies Allergy/AdvReac Type Severity Reaction Status Date / Time acetaminophen [From Percocet] AdvReac Verified 10/13/22 11:51 oxycodone [From Percocet] AdvReac Verified 10/13/22 11:51 Worker's Comp Is this a Worker's Comp case?: No [facility] Disclaimer: The information contained in this section may have been updated after the patient was seen, as this information can be updated by other users. 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) Smoking Status: Current every day smoker alcohol intake: never current occupational status: employed Travel in the last 8 weeks: None ROS Obtained: Yes All systems reviewed & no additional complaints except as documented Constitutional Constitutional: Reports system reviewed and no additional complaints, except as documented and Reports as per HPI Eyes Eyes: Reports system reviewed and no additional complaints, except as documented ENT Ears, Nose, Mouth, and Throat: Reports system reviewed and no additional complaints, except as documented, Reports as per HPI, Reports otalgia and Repor ts sore throat Cardiovascular Cardiovascular: Reports system reviewed and no additional complaints, except as documented Respiratory Respiratory: Reports system reviewed and no additional complaints, except as documented Gastrointestinal Gastrointestingal: Reports system reviewed and no additional complaints, except as documented Integumentary/Breasts Skin/Breast: Reports system reviewed and no additional complaints, except as documented Neurologic Neurologic: Reports system reviewed and no additional complaints, except as documented Endocrine Endocrine: Reports system reviewed and no additional complaints, except as documented Hematologic/Lymphatic Henatologic/Lymphatic: Reports system reviewed and no additional complaints, except as documented Allergic/Immunologic Allergic/Immunologic: Reports system reviewed and no additional complaints, except as documented Physical Exam General General appearance: alert and in no apparent distress Head Head exam: atraumatic Eye Eye exam: Present normal appearance and PERRL ENT ENT exam: Present mucous membranes moist Expanded ENT Exam TM/Canal exam: Left TM: erythema, bulging and loss of landmarks Comment: pharynx red and exudate Respiratory Respiratory exam: Present normal lung sounds bilaterally Cardiovascular Cardiovascular exam: Present regular rate and normal rhythm Neurological Exam Neurological exam: Present alert and oriented X3 Skin Skin exam: Present warm Medical Decision Making Medical Records Medical records reviewed: Yes I reviewed the patient's medical records. John Inquiry Pt receiving controlled substance: No John was queried for this patient: No Vital Signs: 06/20/23 17:40 06/20/23 18:00 Temperature 98.1 F 98.1 F Temperature Source Oral Pulse Rate 91 H Pulse Rate [Left Brachial] 91 H Respiratory Rate 19 19 Blood Pressure 150/95 H Blood Pressure [Left Arm] 150/95 H Blood Pressure Mean [Left Arm] 113 Blood Pressure Source [Left Arm] Automatic Cuff Blood Pressure Position [Left Arm] Sitting 02 Sat by Pulse Oximetry 99 Oxygen Delivery Method Room Air Lab Data Lab results reviewed: Yes I reviewed the patient's lab results. Lab Results 06/20/23 17:45: Strep Scn Rapid Clinic Negative Orders (Tests/Meds): ORDERS Category Date Time Status Strep Screen Confirmation Stat Micro 06/20/23 17:45 Received
--- NOTE | 2023-06-22 09:28 | PC.NURSE ---
Spoke with lab no sample okay to cancel
== END 2023-06-20 18:18 | disposition home or self-care (01) ==
PROVIDERS: Emergency Provider Nurse Practitioner Family
DX: H66.002 Acute suppurative otitis media without spontaneous rupture of ear drum, left ear (principal); R07.0 Pain in throat; H92.02 Otalgia, left ear; F17.210 Nicotine dependence, cigarettes, uncomplicated; E78.5 Hyperlipidemia, unspecified; I10 Essential (primary) hypertension
CPT/HCPCS: 87880; 99204; 99212; G0463

== ENCOUNTER 2023-12-11 13:25 | Emergency (ER) | payer MEDICAID, SELFPAY ==
[2023-12-11] VITALS (9 sets, daily range): BP systolic 121–131; BP diastolic 82–102; PULSE 78–89; RESP 16–18; TEMP 36.7–36.9; O2SAT 95–100; BMI 30.9
--- NOTE | 2023-12-11 13:41 | CT_ITS ---
FINAL REPORT TECHNIQUE: Axial images were obtained of the lumbar spine by computed tomography. Coronal and sagittal reconstruction process performed. This study was performed with techniques to keep radiation doses as low as reasonably achievable (ALARA). Individualized dose reduction techniques using automated exposure control or adjustment of mA and/or kV according to the patient's size were employed. CLINICAL HISTORY: fall, low back pain COMPARISON: None FINDINGS: Lumbar vertebrae show normal height. Disc spaces are well-preserved. There is no malalignment. The facets are properly aligned. Note is made of partial lumbarization of the S1 segment. IMPRESSION: No acute bony abnormality identified. Reviewed, Interpreted and Dictated by Mark Diggs MD Transcribed by Samantha Almazan Authenticated and [facility]
--- NOTE | 2023-12-11 13:41 | CT_ITS ---
FINAL REPORT TECHNIQUE: Axial images through the pelvis were performed by computed tomography. Sagittal and coronal reconstruction images were performed. This study was performed with techniques to keep radiation doses as low as reasonably achievable (ALARA). Individualized dose reduction techniques using automated exposure control or adjustment of mA and/or kV according to the patient's size were employed. CLINICAL HISTORY: fall, sacral pain FINDINGS: CT PELVIS: Note is made of a transitional segment with partial lumbarization of the S1 segment. No fracture is identified. No dislocation identified. There is mild sclerosis of the right sacroiliac joint. The sacral arches are intact. No soft tissue abnormality. IMPRESSION: Mild sclerosis of the right sacroiliac joint. No acute bony abnormality identified. Reviewed, Interpreted and Dictated by Mark Diggs MD Transcribed by Samantha Almaazn Authenticated and [facility]
--- NOTE | 2023-12-11 15:05 | HMH.EDGENADL ---
Discharge Plan Disposition Patient Disposition: Home, Self-Care Chief Complaint: Back Pain/Injury Prescriptions Prescriptions: No Action gabapentin 300 mg capsule 300 mg PO HS Ozempic 0.25 mg or 0.5 mg (2 mg/3 mL) pen injector 0.25 mg SQ metformin 1,000 mg tablet 1,000 mg PO BID losartan 100 mg tablet 100 mg PO DAILY carvedilol [Coreg] 12.5 mg tablet 12.5 mg PO BID Qty: 60 3RF Rx Instructions: must administer with a meal/food atorvastatin 40 mg tablet 40 mg PO DAILY Patient Comments: TAKE 1 TABLET BY MOUTH ONCE DAILY amitriptyline 10 mg tablet 10 mg PO HS Patient Comments: TAKE 1 TABLET BY MOUTH ONCE DAILY AT BEDTIME FOR 30 DAYS levothyroxine 150 mcg tablet 150 mcg PO AM Patient Comments: TAKE 1 TABLET BY MOUTH ONCE DAILY ergocalciferol (vitamin D2) 1,250 mcg (50,000 unit) capsule 1,250 mcg PO WEEKLY Patient Comments: TAKE 1 CAPSULE BY MOUTH ONCE A WEEK escitalopram oxalate 20 mg tablet 20 mg PO DAILY Patient Comments: TAKE 1 TABLET BY MOUTH ONCE DAILY duloxetine 60 mg capsule,delayed release(DR/EC) 60 mg PO DAILY Patient Comments: TAKE 1 CAPSULE BY MOUTH ONCE DAILY DO NOT CRUSH OR CHEW fenofibrate nanocrystallized 145 mg tablet 145 mg PO DAILY Patient Comments: TAKE 1 TABLET BY MOUTH ONCE DAILY methocarbamol 500 mg tablet 500 mg PO BID Qty: 28 0RF ondansetron 4 mg tablet,disintegrating 4 mg PO Q6H PRN (Reason: nausea and vomiting) Qty: 10 0RF amoxicillin [amoxicillin] 500 mg tablet 500 mg PO BID 10 Days Qty: 20 0RF fluconazole [Diflucan] 100 mg tablet 100 mg PO DAILY Qty: 1 0RF Rx Instructions: take one tab after completing antibiotics Referrals Follow up/Referrals: Anita Faye [Primary Care Provider] - See instructions Activity Restrictions/Add. Instructions Additional Instructions/Restrictions: Take Tylenol 1000 mg every 6 hours (4 times daily) and ibuprofen 400 mg every 6 hours (4 times daily) as needed with food and water to prevent GI upset and kidney damage. Call your family doctor to establish care for this visit to the emergency department and schedule follow-up within 48 hours to ensure improvement. If you have any worsening of your condition or any other concerning signs or symptoms, return to the emergency department or your primary care doctor for further evaluation. Clinical Impressions Clinical Impression: Back pain, Fall Instructions Patient Instructions: DI for Low Back Pain Print Language Print Language: Bruneian Discharge ED Provider: Bijan Lizarraga General Adult HPI <Maikel Magana MD - Last Filed: 12/11/23 16:43> General Chief complaint: Back Pain/Injury Stated complaint: AO 12/10/23, fell down stairs, inj. back Time Seen by Provider: 12/11/23 13:41 Mode of Arrival: Ambulatory Source of Information: Patient Limitations: No Limitations Description of Symptoms (Recalled from ER Triage Doc. by RN): pt c/o pt states she fell down 3 steps last night and landed on her lower back. pt reports aching back pain accross her lower back that is an 8/10 pt reports falling down a flight of stairs in July 2022 and has chronic pain from the injury. History of Present Illness HPI narrative: This is a 28-year-old female with history of type 2 diabetes and hypertension who presents with low back and sacral pain after falling down her basement stairs last night. States that she slipped on a dish towel and landed on her butt and that her low back hit a step. Denies hitting her head or loss conscious. Has been ambulatory. Presented to work today, however had worsening pain while she was on her feet. Denies any numbness/tingling in lower extremities. Denies any other injuries. Related Data Home Medications ?Medication ?Instructions ?Recorded ?Confirmed amitriptyline 10 mg tablet 10 mg PO HS Insomnia 08/13/22 10/13/22 atorvastatin 40 mg
[2023-12-11 15:30] LABS: Urine Pregnancy, HCG Qual. Negative (Negative)
== END 2023-12-11 19:00 | disposition home or self-care (01) ==
PROVIDERS: Student in an Organized Health Care Education/Training Program; Emergency Provider Emergency Medicine; PCP Nurse Practitioner Family
DX: M54.59 Other low back pain (principal); W10.8XXA Fall (on) (from) other stairs and steps, initial encounter
CPT/HCPCS: 72131; 72192; 81025; 96372; 99284; J1100

== ENCOUNTER 2024-05-02 17:47 | Emergency (ER) | payer MEDICAID, SELFPAY ==
[2024-05-02 18:00] VITALS: BP 143/86; PULSE 117; RESP 19; TEMP 38.2; O2SAT 97; BMI 30.4
--- NOTE | 2024-05-02 18:15 | EXP.UTC ---
Discharge Plan Disposition Patient Disposition: Home, Self-Care Condition: Good Prescriptions Prescriptions: New oseltamivir [Tamiflu] 75 mg capsule 75 mg PO BID 5 Days Qty: 10 0RF No Action atenolol 100 mg tablet 100 mg PO BID Patient Comments: TAKE 1 TABLET BY MOUTH TWICE DAILY amlodipine 5 mg tablet 5 mg PO DAILY metformin 1,000 mg tablet 1,000 mg PO BID Patient Comments: TAKE 1 TABLET BY MOUTH TWICE DAILY FOR 90 DAYS levothyroxine 150 mcg tablet 150 mcg PO DAILY Patient Comments: TAKE 1 TABLET BY MOUTH ONCE DAILY escitalopram oxalate 10 mg tablet 10 mg PO DAILY Patient Comments: TAKE 1 TABLET BY MOUTH ONCE DAILY duloxetine 60 mg capsule,delayed release(DR/EC) 60 mg PO DAILY Patient Comments: TAKE 1 CAPSULE BY MOUTH ONCE DAILY DO NOT CRUSH OR CHEW Ozempic 1 mg/dose (4 mg/3 mL) pen injector 1 mg SQ WEEKLY Patient Comments: INJECT 1 MG SUBCUTANEOUSLY ONCE A WEEK Referrals Follow up/Referrals: Anita Faye [Primary Care Provider] - See instructions Activity Restrictions/Add. Instructions Additional Instructions/Restrictions: Start Tamiflu today if you are going to take it. Discussed risk and possible benefits. Lots of rest Increase Fluids water, Gatorade, powerade, pedialyte,if infant/toddler/child Alternate Tylenol and / or ibuprofen as discussed for fever, aches, chills Follow up IMMEDIATELY with your family doctor for new or worsening Symptoms OR no noticeable improvement over the next 48-72 hours, 911 for difficulty or breathing You or your child area contagious until no fever, aches, chills for 24 hours with medication for symptoms Help Prevent the spread of influenza: ?Wash your hands often. Use soap and water. Wash your hands after you use the bathroom, change a child's diapers, or sneeze. Wash your hands before you prepare or eat food. Use gel hand cleanser that has 60% alcohol, when soap and water are not available. Do not touch your eyes, nose, or mouth unless you have washed your hands first. Cover your mouth when you sneeze or cough. Cough into a tissue or the bend of your arm. If you use a tissue, throw it away immediately and wash your hands. Clean shared items with a germ-killing floor cleaner. Clean table surfaces, doorknobs, and light switches. Do not share towels, silverware, and dishes with people who are sick. Wash bed sheets, towels, silverware, and dishes with soap and water. Wear a mask over your mouth and nose if you are sick. The face mask may help protect others from becoming infected with the flu. Wear the mask when in common areas of your home or if you seek care with a healthcare provider. Stay away from others if you are sick. Stay at home until 24 hours after your fever and symptoms are gone. Clinical Impressions Clinical Impression: Influenza A Stand Alone Forms Stand Alone Forms: Work/School Release Instructions Patient Instructions: DI for Influenza -- Adult, Oseltamivir Print Language Print Language: Cypriot Discharge ED Provider: Marie Casas [facility] HPI General Stated complaint: body aches, fever,sore throat,CARLISLE Mode of Arrival: Ambulatory Source of Information: Patient Limitations: No Limitations Time Seen by Provider: 05/02/24 18:15 Description of Symptoms (Recalled from Triage Doc. by RN): PATIENT C/O BODY ACHES, FEVER, SORE THROAT, DIZZINESS, CHILLS, AND SWEATS THAT STARTED LAST NIGHT HEENT Symptoms (Recalled from RN notes): Yes Resp Symptoms (Recalled from RN notes): No Skin Symptoms (Recalled from RN notes): No MS Symptoms (Recalled from RN notes): No Functional Status (Recalled from RN notes): WNL History of Present Illness Provider Complaint: Patient states that she started feeling bad last night States that she started with fever, chills, body aches, headache, dizziness, sore throat and over all not feeling well States she feels like she has flu or COVID Related Data Home Medications ?Medication ?Instructions ?Recorded ?Confirmed amlodipine 5 mg tablet 5 mg PO DAILY 05/02/24 05/02/24 atenolol 100 mg tablet 100 mg PO BID 05/02/24 05/02/24 duloxetine 60 mg capsule,delayed 60 mg PO DAILY 05/02/24 05/02/24 release escitalopram oxalate 10 mg tablet 10 mg PO DAILY 05/02/24 05/02/24 levothyroxine 150 mcg tablet 150 mcg PO DAILY 05/02/24 05/02/24 metformin 1,000 mg tablet 1,000 mg PO BID 05/02/24 05/02/24 semaglutide 1 mg/dose (4 mg/3 mL) 1 mg SQ WEEKLY 05/02/24 05/02/24 subcutaneous pen injector (Ozempic) Previous Rx's ?Medication ?Instructions ?Recorded oseltamivir 75 mg capsule (Tamiflu) 75 mg PO BID 5 days #10 caps 05/02/24 Allergies Allergy/AdvReac Type Severity Reaction Status Date / Time No Known Allergies Allergy Verified 12/11/23 14:07 Worker's Comp Is this a Worker's Comp case?: No [facility] Disclaimer: The information contained in this section may have been updated after the patient was seen, as this information can be updated by other users. 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) History of carpal tunnel release History of facial fracture repair History of left knee surgery History of surgical removal of ganglion cyst History of tonsillectomy and adenoidectomy Social History (Reviewed 06/20/23 @ 18:08 by Kem Lemus ([facility]), SOFT SUGAR SUPERVISOR) Smoking Status: Current every day smoker alcohol intake: never current occupational status: employed Travel in the last 8 weeks: None Have you lived/traveled outside [place] in past 30 days?: No Contact w/someone who lives/traveled outside US past 30 days?: No Exposure to someone with infectious disease in past 14 days?: No Do you have a fever (greater than 100.4 F or 38 C)?: Yes Have you tested positive for COVID-19: No Exposed to someone with COVID-19 in past 14 days?: No Do you have a sore throat?: Yes Do you have a cough?: Yes Do you have any weakness?: Yes Do you have any diarrhea?: No Are you experiencing any unusual bleeding?: No Do you have any muscle aches/pain?: Yes Do you have any abdominal pain?: No Are you experiencing loss of taste or smell?: No ROS Obtained: Yes All systems reviewed & no additional complaints except as documented and Yes Systems reviewed as appropriate & no additional complaints except as documented Constitutional Constitutional: Reports system reviewed and no additional complaints, except as documented, Reports as per HPI, Reports body ache, Reports chills, Reports fever(s) and Reports headache(s) ENT Ears, Nose, Mouth, and Throat: Reports system reviewed and no additional complaints, except as documented, Reports as per HPI, Reports headache(s), Reports nasal congestion and Reports sore throat Cardiovascular Cardiovascular: Reports system reviewed and no additional complaints, except as documented and Reports as per HPI Respiratory Respiratory: Reports system reviewed and no additional complaints, except as documented and Reports as per HPI Gastrointestinal Gastrointestingal: Reports system reviewed and no additional complaints, except as documented and as per HPI Neurologic Neurologic: Reports headache(s) Physical Exam General General appearance: alert and in no apparent distress ENT ENT exam: Present mucous membranes moist Expanded ENT Exam Nose exam: Absent sinus tenderness Throat exam: Present other (mild pharyngeal erythema) Respiratory Respiratory exam: Present normal lung sounds bilaterally; Absent respiratory distress or wheezes Cardiovascular Cardiovascular exam: Present regular rate, normal rhythm and tachycardia Abdominal Exam Abdominal exam: Present soft and normal bowel sounds; Absent distention or tenderness Neurological Exam Neurological exam: Present alert, oriented X3 and normal gait Medical Decision Making Medical Records Screening: Per USPSTF and CDC recommendations, given the prevalence of disease in our region, it is our hospital?s policy to screen for HIV and viral Hepatitis for all patients aged 18 and over and those with ongoing risk factors. John Inquiry Pt receiving controlled substance: No John was queried for this patient: No Vital Signs: 05/02/24 18:00 Temperature 100.8 F H Temperature Source Oral Pulse Rate [Left Brachial] 117 H Respiratory Rate 19 Blood Pressure [Left Arm] 143/86 H Blood Pressure Mean [Left Arm] 105 Blood Pressure Source [Left Arm] Automatic Cuff Blood Pressure Position [Left Arm] Sitting 02 Sat by Pulse Oximetry 97 Oxygen Delivery Method Room Air Lab Data Lab results reviewed: Yes I reviewed the patient's lab results.
[2024-05-02 18:23] LABS: UTC Influenza A Antigen Positive (Negative); UTC Strep Screen (Rapid) Negative (Negative)
[2024-05-02 18:24] VITALS: BP 143/86; PULSE 117; RESP 19; TEMP 38.2; O2SAT 97
[2024-05-02 18:24] LABS: UTC Influenza B Antigen Negative (Negative)
== END 2024-05-02 18:27 | disposition home or self-care (01) ==
PROVIDERS: Emergency Provider Nurse Practitioner; PCP Nurse Practitioner Family
DX: J10.1 Influenza due to other identified influenza virus with other respiratory manifestations (principal)
CPT/HCPCS: 87804; 87880; 99213; G0381

== ENCOUNTER 2024-05-06 18:04 | Emergency (ER) | payer MEDICAID, SELFPAY ==
[2024-05-06 18:15] VITALS: BP 118/88; PULSE 85; RESP 18; TEMP 36.9; O2SAT 97; BMI 29.5
--- NOTE | 2024-05-06 18:19 | ED_ITS ---
Discharge Plan Disposition Patient Disposition: Home, Self-Care Condition: Good Prescriptions Prescriptions: New amoxicillin 500 mg tablet 500 mg PO TID 10 Days Qty: 30 0RF methylprednisolone 4 mg Tablets,Dose Pack 4 mg PO DIRECTED 6 Days Qty: 21 0RF Rx Instructions: Take 1 pack as directed for 6 days [id number] [Bromfed DM] 2-30-10 mg/5 mL Syrup 5 ml PO Q6H PRN (Reason: Cough) Qty: 240 0RF No Action atenolol 100 mg tablet 100 mg PO BID Patient Comments: TAKE 1 TABLET BY MOUTH TWICE DAILY amlodipine 5 mg tablet 5 mg PO DAILY metformin 1,000 mg tablet 1,000 mg PO BID Patient Comments: TAKE 1 TABLET BY MOUTH TWICE DAILY FOR 90 DAYS levothyroxine 150 mcg tablet 150 mcg PO DAILY Patient Comments: TAKE 1 TABLET BY MOUTH ONCE DAILY escitalopram oxalate 10 mg tablet 10 mg PO DAILY Patient Comments: TAKE 1 TABLET BY MOUTH ONCE DAILY duloxetine 60 mg capsule,delayed release(DR/EC) 60 mg PO DAILY Patient Comments: TAKE 1 CAPSULE BY MOUTH ONCE DAILY DO NOT CRUSH OR CHEW Ozempic 1 mg/dose (4 mg/3 mL) pen injector 1 mg SQ WEEKLY Patient Comments: INJECT 1 MG SUBCUTANEOUSLY ONCE A WEEK oseltamivir [Tamiflu] 75 mg capsule 75 mg PO BID 5 Days Qty: 10 0RF Referrals Follow up/Referrals: Anita Faye [Primary Care Provider] - See instructions Activity Restrictions/Add. Instructions Additional Instructions/Restrictions: Drink plenty of fluids. Take tylenol or ibuprofen for pain or fever. Take the medications as directed. Follow up with your regular doctor. GO TO THE ER FOR ANY WORSENING SYMPTOMS Clinical Impressions Clinical Impression: Otitis media, Pharyngitis Stand Alone Forms Stand Alone Forms: Work/School Release Instructions Patient Instructions: Middle Ear Infection Print Language Print Language: Peruvian Discharge ED Provider: Armin Frank [facility] [place] [facility] General Stated complaint: pain in both ears, sore throat Time Seen by Provider: 05/06/24 18:19 Related Data Home Medications ?Medication ?Instructions ?Recorded ?Confirmed amlodipine 5 mg tablet 5 mg PO DAILY 05/02/24 05/02/24 atenolol 100 mg tablet 100 mg PO BID 05/02/24 05/02/24 duloxetine 60 mg capsule,delayed 60 mg PO DAILY 05/02/24 05/02/24 release escitalopram oxalate 10 mg tablet 10 mg PO DAILY 05/02/24 05/02/24 levothyroxine 150 mcg tablet 150 mcg PO DAILY 05/02/24 05/02/24 metformin 1,000 mg tablet 1,000 mg PO BID 05/02/24 05/02/24 semaglutide 1 mg/dose (4 mg/3 mL) 1 mg SQ WEEKLY 05/02/24 05/02/24 subcutaneous pen injector (Ozempic) Previous Rx's ?Medication ?Instructions ?Recorded oseltamivir 75 mg capsule (Tamiflu) 75 mg PO BID 5 days #10 caps 05/02/24 amoxicillin 500 mg tablet 500 mg PO TID 10 days #30 tabs 05/06/24 uhqscqbtsbmlpgb-[id number]-[id number] 5 ml PO Q6H PRN Cough #240 mL 05/06/24 2 mg-30 mg-10 mg/5 mL oral syrup (Bromfed DM) methylprednisolone 4 mg tablets in 4 mg PO DIRECTED 6 days #21 tabs 05/06/24 a dose pack Allergies Allergy/AdvReac Type Severity Reaction Status Date / Time No Known Allergies Allergy Verified 12/11/23 14:07 [facility] Disclaimer: The information contained in this section may have been updated after the yoana jefferson was seen, as this information can be updated by other users. 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) Smoking Status: Current every day smoker alcohol intake: never current occupational status: employed Travel in the last 8 weeks: None Have you lived/traveled outside [place] in past 30 days?: No Contact w/someone who lives/traveled outside US past 30 days?: No Exposure to someone with infectious disease in past 14 days?: Yes Do you have a fever (greater than 100.4 F or 38 C)?: No Have you tested positive for COVID-19: No Exposed to someone with COVID-19 in past 14 days?: Yes Do you have a sore throat?: Yes Do you have a cough?: No Do you have any weakness?: No Do you have any diarrhea?: No Are you experiencing any unusual bleeding?: No Do you have any muscle aches/pain?: No Do you have any abdominal pain?: No Are you experiencing loss of taste or smell?: No ROS Obtained: Yes All systems reviewed & no additional complaints except as documented Constitutional Constitutional: Denies chills, Reports fever(s) and Reports poor appetite Eyes Eyes: Denies eye discharge ENT Ears, Nose, Mouth, and Throat: Denies ear discharge, Reports otalgia, Denies h earing loss, Denies sinus pain and Reports sore throat Cardiovascular Cardiovascular: Denies chest pain and Denies dyspnea Respiratory Respiratory: Denies chest congestion, Reports cough and Denies dyspnea Gastrointestinal Gastrointestingal: Denies abdominal pain, diarrhea, nausea or vomiting Musculoskeletal Musculoskeletal: Denies arthralgias Integumentary/Breasts Skin/Breast: Denies rash Physical Exam General General appearance: alert and in no apparent distress Head Head exam: atraumatic, normocephalic and normal inspection Eye Eye exam: Present normal appearance; Absent PERRL or EOMI ENT ENT exam: Present mucous membranes moist and normal external ear exam Expanded ENT Exam TM/Canal exam: Bilateral TM: erythema, bulging and effusion Nose exam: Absent sinus tenderness Nasal speculum exam: Bilateral: normal Mouth exam: Present normal external inspection and other; Absent drooling Teeth exam: Present normal inspection Throat exam: Present tonsillar erythema and tonsillomegaly Neck Neck exam: Present normal inspection, full ROM and trachea midline; Absent tenderness, meningismus or lymphadenopathy Chest Chest inspection: Present normal inspection and symmetric chest wall rise; Absent tenderness Respiratory Respiratory exam: Present normal lung sounds bilaterally; Absent respiratory distress, wheezes or stridor Cardiovascular Cardiovascular exam: Present regular rate, normal rhythm and normal heart sounds; Absent tachycardia or irregular rhythm Abdominal Exam Abdominal exam: Present soft and normal bowel sounds; Absent distention, tenderness, guarding, rebound or rigidity Extremities Exam Extremities exam: Present normal inspection and normal capillary refill; Absent tenderness, joint swelling or calf tenderness Back Exam Back exam: Present normal inspection and full ROM; Absent tenderness, CVA tenderness (R) or CVA tenderness (L) Neurological Exam Neurological exam: Present alert, oriented X3, CN II-XII intact, normal gait and reflexes normal; Absent motor sensory deficit Psychiatric Psychiatric exam: Present normal affect and normal mood Skin Skin exam: Present warm, dry, intact and normal color Lymphatic Lymphatic Findings: no adenopathy Medical Decision Making Medical Records Medical records reviewed: No I reviewed the patient's medical records. Screening: Per USPSTF and CDC recommendations, given the prevalence of disease in our region, it is our hospital?s policy to screen for HIV and viral Hepatitis for all patients aged 18 and over and those with ongoing risk factors. John Inquiry Pt receiving controlled substance: No Orders (Tests/Meds): ORDERS Category Date Time Status Covid-19 Nasal PCR ([facility]) Routine Lab 05/06/24 18:12 Ordered
[2024-05-06 18:36] LABS: UTC Strep Screen (Rapid) Negative (Negative)
[2024-05-06 18:52] VITALS: BP 118/88; PULSE 85; RESP 18; TEMP 36.9; O2SAT 97
== END 2024-05-06 18:55 | disposition home or self-care (01) ==
PROVIDERS: Emergency Provider Nurse Practitioner Family; PCP Nurse Practitioner Family
DX: J02.9 Acute pharyngitis, unspecified (principal); H66.90 Otitis media, unspecified, unspecified ear
CPT/HCPCS: 87635; 87880; 99213; G0381

== ENCOUNTER 2024-05-17 17:09 | Emergency (ER) | payer MEDICAID, SELFPAY ==
[2024-05-17 17:30] VITALS: BP 122/87; PULSE 75; RESP 20; TEMP 36.9; O2SAT 98; BMI 28.8
--- NOTE | 2024-05-17 17:59 | ED_ITS ---
Discharge Plan Disposition Patient Disposition: Home, Self-Care Condition: Good Prescriptions Prescriptions: New ciprofloxacin-dexamethasone 0.3-0.1 % drops,suspension 4 drp otic (ear) BID 7 Days Qty: 7.5 0RF Rx Instructions: in left ear as directed fluticasone propionate [Flonase Allergy Relief] 50 mcg/actuation spray,suspension 2 spray intranasal DAILY Qty: 16 0RF Rx Instructions: administer into each nostril daily No Action amoxicillin 500 mg tablet 500 mg PO TID 10 Days Qty: 30 0RF methylprednisolone 4 mg Tablets,Dose Pack 4 mg PO DIRECTED 6 Days Qty: 21 0RF Rx Instructions: Take 1 pack as directed for 6 days xrccewjmxjrdsxo-[id number] [Bromfed DM] 2-30-10 mg/5 mL Syrup 5 ml PO Q6H PRN (Reason: Cough) Qty: 240 0RF atenolol 100 mg tablet 100 mg PO BID Patient Comments: TAKE 1 TABLET BY MOUTH TWICE DAILY amlodipine 5 mg tablet 5 mg PO DAILY metformin 1,000 mg tablet 1,000 mg PO BID Patient Comments: TAKE 1 TABLET BY MOUTH TWICE DAILY FOR 90 DAYS levothyroxine 150 mcg tablet 150 mcg PO DAILY Patient Comments: TAKE 1 TABLET BY MOUTH ONCE DAILY escitalopram oxalate 10 mg tablet 10 mg PO DAILY Patient Comments: TAKE 1 TABLET BY MOUTH ONCE DAILY duloxetine 60 mg capsule,delayed release(DR/EC) 60 mg PO DAILY Patient Comments: TAKE 1 CAPSULE BY MOUTH ONCE DAILY DO NOT CRUSH OR CHEW Ozempic 1 mg/dose (4 mg/3 mL) pen injector 1 mg SQ WEEKLY Patient Comments: INJECT 1 MG SUBCUTANEOUSLY ONCE A WEEK oseltamivir [Tamiflu] 75 mg capsule 75 mg PO BID 5 Days Qty: 10 0RF Referrals Follow up/Referrals: Anita Faye [Primary Care Provider] - See instructions Activity Restrictions/Add. Instructions Additional Instructions/Restrictions: Use ear drops as prescribed Follow up with your Family Doctor if no improvement or any worsening of symptoms Use Flonase as prescribed Return if needed Clinical Impressions Clinical Impression: Otitis externa Instructions Patient Instructions: How to Use Ear Drops, Ciprofloxacin and Dexamethasone Otic Print Language Print Language: Burundian Discharge ED Provider: Marie Casas [facility] General Stated complaint: left ear pain Mode of Arrival: Ambulatory Source of Information: Patient Limitations: No Limitations Time Seen by Provider: 05/17/24 18:00 Description of Symptoms (Recalled from Triage Doc. by RN): PATIENT C/O LEFT EAR PAIN THAT STARTED YESTERDAY HEENT Symptoms (Recalled from RN notes): Yes Resp Symptoms (Recalled from RN notes): No Skin Symptoms (Recalled from RN notes): No MS Symptoms (Recalled from RN notes): No Functional Status (Recalled from RN notes): WNL History of Present Illness Provider Complaint: Patient states that she was recently seen and treated for double ear infection State that she finished the oral antibiotic yesterday and then her ear started feeling sore and hurting and hurting when she would touch it and feeling like it was hurting down into her neck so today she came in to get it checked again worried the medication didnt clear up the infection Related Data Home Medications ?Medication ?Instructions ?Recorded ?Confirmed amlodipine 5 mg tablet 5 mg PO DAILY 05/02/24 05/02/24 atenolol 100 mg tablet 100 mg PO BID 05/02/24 05/02/24 duloxetine 60 mg capsule,delayed 60 mg PO DAILY 05/02/24 05/02/24 release escitalopram oxalate 10 mg tablet 10 mg PO DAILY 05/02/24 05/02/24 levothyroxine 150 mcg tablet 150 mcg PO DAILY 05/02/24 05/02/24 metformin 1,000 mg tablet 1,000 mg PO BID 05/02/24 05/02/24 semaglutide 1 mg/dose (4 mg/3 mL) 1 mg SQ WEEKLY 05/02/24 05/02/24 subcutaneous pen injector (Ozempic) Previous Rx's ?Medication ?Instructions ?Recorded oseltamivir 75 mg capsule (Tamiflu) 75 mg PO BID 5 days #10 caps 05/02/24 amoxicillin 500 mg tablet 500 mg PO TID 10 days #30 tabs 05/06/24 hyqmxdscksojnok-sghbgzhkepmiirs-XJ 5 ml PO Q6H PRN Cough #240 mL 05/06/24 2 mg-30 mg-10 mg/5 mL oral syrup (Bromfed DM) methylprednisolone 4 mg tablets in 4 mg PO DIRECTED 6 days #21 tabs 05/06/24 a dose pack ciprofloxacin 0.3 %-dexamethasone 4 drp otic (ear) BID 7 days #7.5 mL 05/17/24 0.1 % ear drops,suspension fluticasone propionate 50 2 spray intranasal DAILY #16 grams 05/17/24 mcg/actuation nasal spray,suspension (Flonase Allergy Relief) Allergies Allergy/AdvReac Type Severity Reaction Status Date / Time No Known Allergies Allergy Verified 12/11/23 14:07 Worker's Comp Is this a Worker's Comp case?: No [facility] Disclaimer: The information contained in this section may have been updated after the patient was seen, as this information can be updated by other users. 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) Smoking Status: Current every day smoker alcohol intake: never current occupational status: employed Travel in the last 8 weeks: None Have you lived/traveled outside [place] in past 30 days?: No Contact w/someone who lives/traveled outside US past 30 days?: No Exposure to someone with infectious disease in past 14 days?: No Do you have a fever (greater than 100.4 F or 38 C)?: No Have you tested positive for COVID-19: No Exposed to someone with COVID-19 in past 14 days?: No Do you have a sore throat?: No Do you have a cough?: No Do you have any weakness?: No Do you have any diarrhea?: No Are you experiencing any unusual bleeding?: No Do you have any muscle aches/pain?: No Do you have any abdominal pain?: No Are you experiencing loss of taste or smell?: No ROS Obtained: Yes All systems reviewed & no additional complaints except as documented and Yes Systems reviewed as appropriate & no additional complaints except as documented Constitutional Constitutional: Reports system reviewed and no additional complaints, except as documented, Reports as per HPI, Denies body ache, Denies chills and Denies headache(s) ENT Ears, Nose, Mouth, and Throat: Reports system reviewed and no additional complaints, except as documented, Reports as per HPI, Reports otalgia and Denies headache(s) Cardiovascular Cardiovascular: Reports system reviewed and no additional complaints, except as documented and Reports as per HPI Respiratory Respiratory: Reports system reviewed and no additional complaints, except as documented and Reports as per HPI Gastrointestinal Gastrointestingal: Reports system reviewed and no additional complaints, except as documented and as per HPI Neurologic Neurologic: Denies headache(s) Physical Exam General General appearance: alert and in no apparent distress ENT ENT exam: Present mucous membranes moist Expanded ENT Exam External ear exam: Present pain with movement (left) and external tenderness (left) TM/Canal exam: Bilateral TM: bulging Respiratory Respiratory exam: Present normal lung sounds bilaterally; Absent respiratory distress or wheezes Cardiovascular Cardiovascular exam: Present regular rate, normal rhythm and normal heart sounds Abdominal Exam Abdominal exam: Present soft and normal bowel sounds; Absent distention or tenderness Neurological Exam Neurological exam: Present alert, oriented X3 and normal gait Medical Decision Making Medical Records Screening: Per USPSTF and CDC recommendations, given the prevalence of disease in our region, it is our hospital?s policy to screen for HIV and viral Hepatitis for all patients aged 18 and over and those with ongoing risk factors. John Inquiry Pt receiving controlled substance: No John was queried for this patient: No Vital Signs: 05/17/24 17:30 Temperature 98.5 F Temperature Source Oral Pulse Rate [Left Brachial] 75 Respiratory Rate 20 Blood Pressure [Left Arm] 122/87 Blood Pressure Mean [Left Arm] 98 Blood Pressure Source [Left Arm] Automatic Cuff Blood Pressure Position [Left Arm] Sitting 02 Sat by Pulse Oximetry 98 Oxygen Delivery Method Room Air
[2024-05-17 18:10] VITALS: BP 122/87; PULSE 75; RESP 20; TEMP 36.9; O2SAT 98
== END 2024-05-17 18:14 | disposition home or self-care (01) ==
PROVIDERS: Emergency Provider Nurse Practitioner; PCP Nurse Practitioner Family
DX: H60.312 Diffuse otitis externa, left ear (principal)
CPT/HCPCS: 99212; G0381

== ENCOUNTER 2024-05-23 17:35 | Emergency (ER) | payer MEDICAID, SELFPAY ==
[2024-05-23 19:34] VITALS: BP 133/98; PULSE 85; RESP 18; TEMP 36.8; O2SAT 96; BMI 29.2
--- NOTE | 2024-05-23 19:39 | ED_ITS ---
Discharge Plan Disposition Patient Disposition: Home, Self-Care Condition: Good Prescriptions Prescriptions: New azithromycin [Zithromax] 250 mg tablet 250 mg PO UD DOSE PK Qty: 6 0RF Rx Instructions: Take two (2) tablets today, then one (1) tablet days #2 thru #5 methylprednisolone 4 mg Tablets,Dose Pack 4 mg PO DIRECTED 6 Days Qty: 21 0RF Rx Instructions: Take 1 pack as directed for 6 days pseudoephedrine HCl 30 mg tablet 30 mg PO Q6HP PRN (Reason: Congestion) Qty: 30 0RF fluconazole 150 mg tablet 150 mg PO ONCE Qty: 1 3RF No Action amoxicillin 500 mg tablet 500 mg PO TID 10 Days Qty: 30 0RF methylprednisolone 4 mg Tablets,Dose Pack 4 mg PO DIRECTED 6 Days Qty: 21 0RF Rx Instructions: Take 1 pack as directed for 6 days ivdskyhpjknozgz-qlfvpmyen-GU [Bromfed DM] 2-30-10 mg/5 mL Syrup 5 ml PO Q6H PRN (Reason: Cough) Qty: 240 0RF atenolol 100 mg tablet 100 mg PO BID Patient Comments: TAKE 1 TABLET BY MOUTH TWICE DAILY amlodipine 5 mg tablet 5 mg PO DAILY metformin 1,000 mg tablet 1,000 mg PO BID Patient Comments: TAKE 1 TABLET BY MOUTH TWICE DAILY FOR 90 DAYS levothyroxine 150 mcg tablet 150 mcg PO DAILY Patient Comments: TAKE 1 TABLET BY MOUTH ONCE DAILY escitalopram oxalate 10 mg tablet 10 mg PO DAILY Patient Comments: TAKE 1 TABLET BY MOUTH ONCE DAILY duloxetine 60 mg capsule,delayed release(DR/EC) 60 mg PO DAILY Patient Comments: TAKE 1 CAPSULE BY MOUTH ONCE DAILY DO NOT CRUSH OR CHEW Ozempic 1 mg/dose (4 mg/3 mL) pen injector 1 mg SQ WEEKLY Patient Comments: INJECT 1 MG SUBCUTANEOUSLY ONCE A WEEK oseltamivir [Tamiflu] 75 mg capsule 75 mg PO BID 5 Days Qty: 10 0RF ciprofloxacin-dexamethasone 0.3-0.1 % drops,suspension 4 drp otic (ear) BID 7 Days Qty: 7.5 0RF Rx Instructions: in left ear as directed fluticasone propionate [Flonase Allergy Relief] 50 mcg/actuation spray,suspension 2 spray intranasal DAILY Qty: 16 0RF Rx Instructions: administer into each nostril daily Referrals Follow up/Referrals: Soren Rausch MD [Physician] - See instructions Anita Faye [Primary Care Provider] - See instructions Activity Restrictions/Add. Instructions Additional Instructions/Restrictions: Drink plenty of fluids. Take tylenol or ibuprofen for pain or fever. Take the medications as directed. Follow up with your regular doctor. GO TO THE ER FOR ANY WORSENING SYMPTOMS Follow up with the ENT physician (Dr. Rausch) if you keep having these symptoms. I put in a referral but you will need to call and schedule an appointment. His office phone number will be on this paperwork. Clinical Impressions Clinical Impression: Serous otitis media Stand Alone Forms Stand Alone Forms: Work/School Release Instructions Patient Instructions: Middle Ear Infection Print Language Print Language: Yakut Discharge ED Provider[place] Armin [place] [facility] [place] General Stated complaint: earaches,sore throat,fever 101 Mode of Arrival: Ambulatory Source of Information: Patient Limitations: No Limitations Time Seen by Provider: 05/23/24 19:39 Description of Symptoms (Recalled from Triage Doc. by RN): PT REPORTS SEVERE PAIN IN BOTH EARS, SORE THRAOT, DIZZINESS, AND CONTINUED FLU SYMPTOMS FOR 2 WEEKS, DX WITH FLU 3 WEEKS AGO, DX WITH STREP AND DOUBLE EAR INFECTION 1 WK AGO, STATES SHE HAS BEEN TO THE [facility] 4 TIMES RECENTLY FOR THE SAME THING WITH NO RELIEF HEENT Symptoms (Recalled from RN notes): Yes (EAR, THROAT) Resp Symptoms (Recalled from RN notes): No Skin Symptoms (Recalled from RN notes): No MS Symptoms (Recalled from RN notes): No Functional Status (Recalled from RN notes): WNL Related Data Home Medications ?Medication ?Instructions ?Recorded ?Confirmed amlodipine 5 mg tablet 5 mg PO DAILY 05/02/24 05/23/24 atenolol 100 mg tablet 100 mg PO BID 05/02/24 05/23/24 duloxetine 60 mg capsule,delayed 60 mg PO DAILY 05/02/24 05/23/24 release escitalopram oxalate 10 mg tablet 10 mg PO DAILY 05/02/24 05/23/24 levothyroxine 150 mcg tablet 150 mcg PO DAILY 05/02/24 05/23/24 metformin 1,000 mg tablet 1,000 mg PO BID 05/02/24 05/23/24 semaglutide 1 mg/dose (4 mg/3 mL) 1 mg SQ WEEKLY 05/02/24 05/23/24 subcutaneous pen injector (Ozempic) Previous Rx's ?Medication ?Instructions ?Recorded oseltamivir 75 mg capsule (Tamiflu) 75 mg PO BID 5 days #10 caps 05/02/24 amoxicillin 500 mg tablet 500 mg PO TID 10 days #30 tabs 05/06/24 ofttkhmttqijrwv-mvzidwlyjtecxut-AY 5 ml PO Q6H PRN Cough #240 mL 05/06/24 2 mg-30 mg-10 mg/5 mL oral syrup (Bromfed DM) methylprednisolone 4 mg tablets in 4 mg PO DIRECTED 6 days #21 tabs 05/06/24 a dose pack ciprofloxacin 0.3 %-dexamethasone 4 drp otic (ear) BID 7 days #7.5 mL 05/17/24 0.1 % ear drops,suspension fluticasone propionate 50 2 spray intranasal DAILY #16 grams 05/17/24 mcg/actuation nasal spray,suspension (Flonase Allergy Relief) azithromycin 250 mg tablet 250 mg PO UD DOSE PK #6 tabs 05/23/24 (Zithromax) fluconazole 150 mg tablet 150 mg PO ONCE 1 dose #1 tab 05/23/24 methylprednisolone 4 mg tablets in 4 mg PO DIRECTED 6 days #21 tabs 05/23/24 a dose pack pseudoephedrine HCl 30 mg tablet 30 mg PO Q6HP PRN Congestion #30 05/23/24 tabs Allergies Allergy/AdvReac Type Severity Reaction Status Date / Time No Known Allergies Allergy Verified 05/23/24 19:38 Worker's Comp Is this a Worker's Comp case?: No Is this an H Worker's Comp?: No Is this a [place] Worker's Comp?: No [facility] Disclaimer: The information contained in this section may have been updated after the patient was seen, as this information can be updated by other users. 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) History of carpal tunnel release History of facial fracture repair History of left knee surgery History of surgical removal of ganglion cyst History of tonsillectomy and adenoidectomy Social History Smoking Status: Current every day smoker alcohol intake: never current occupational status: employed Travel in the last 8 weeks: None Have you lived/traveled outside [place] in past 30 days?: No Contact w/someone who lives/traveled outside US past 30 days?: No Exposure to someone with infectious disease in past 14 days?: No Do you have a fever (greater than 100.4 F or 38 C)?: Yes Have you tested positive for COVID-19: No Exposed to someone with COVID-19 in past 14 days?: No Do you have a sore throat?: Yes Do you have a cough?: No Do you have any weakness?: No Do you have any diarrhea?: No Are you experiencing any unusual bleeding?: No Do you have any muscle aches/pain?: No Do you have any abdominal pain?: No Are you experiencing loss of taste or smell?: No ROS Obtained: Yes All systems reviewed & no additional complaints except as documented Constitutional Constitutional: Denies chills, Reports fever(s) and Reports poor appetite Eyes Eyes: Denies eye discharge ENT Ears, Nose, Mouth, and Throat: Denies ear discharge, Reports otalgia, Denies hearing loss, Denies sinus pain and Reports sore throat Cardiovascular Cardiovascular: Denies chest pain and Denies dyspnea Respiratory Respiratory: Denies chest congestion, Reports cough and Denies dyspnea Gastrointestinal Gastrointestingal: Denies abdominal pain, diarrhea, nausea or vomiting Musculoskeletal Musculoskeletal: Denies arthralgias Integumentary/Breasts Skin/Breast: Denies rash Physical Exam General General appearance: alert and in no apparent distress Head Head exam: atraumatic, normocephalic and normal inspection Eye Eye exam: Present normal appearance; Absent PERRL or EOMI ENT ENT exam: Present mucous membranes moist and normal external ear exam Expanded ENT Exam TM/Canal exam: Bilateral TM: erythema, bulging and effusion Nose exam: Absent sinus tenderness Nasal speculum exam: Bilateral: normal Mouth exam: Present normal external inspection and other; Absent drooling Teeth exam: Present normal inspection Throat exam: Present tonsillar erythema and tonsillomegaly Neck Neck exam: Present normal inspection, full ROM and trachea midline; Absent tenderness, meningismus or lymphadenopathy Chest Chest inspection: Present normal inspection and symmetric chest wall rise; Absent tenderness Respiratory Respiratory exam: Present normal lung sounds bilaterally; Absent respiratory distress, wheezes or stridor Cardiovascular Cardiovascular exam: Present regular rate, normal rhythm and normal heart sounds; Absent tachycardia or irregular rhythm Abdominal Exam Abdominal exam: Present soft and normal bowel sounds; Absent distention, tenderness, guarding, rebound or rigidity Extremities Exam Extremities exam: Present normal inspection and normal capillary refill; Absent tenderness, joint swelling or calf tenderness Back Exam Back exam: Present normal inspection and full ROM; Absent tenderness, CVA tenderness (R) or CVA tenderness (L) Neurological Exam Neurological exam: Present alert, oriented X3, CN II-XII intact, normal gait and reflexes normal; Absent motor sensory deficit Psychiatric Psychiatric exam: Present normal affect and normal mood Skin Skin exam: Present warm, dry, intact and normal color Lymphatic Lymphatic Findings: no adenopathy Medical Decision Making Medical Records Medical records reviewed: No I reviewed the patient's medical records. Screening: Per USPSTF and CDC recommendations, given the prevalence of disease in our region, it is our hospital?s policy to screen for HIV and viral Hepatitis for all patients aged 18 and over and those with ongoing risk factors. John Inquiry Pt receiving controlled substance: No Vital Signs: 05/23/24 19:34 Temperature 98.3 F Temperature Source Oral Pulse Rate [Left Radial] 85 Respiratory Rate 18 Blood Pressure [Right Arm] 133/98 H Blood Pressure Mean [Right Arm] 109 Blood Pressure Source [Right Arm] Automatic Cuff Blood Pressure Position [Right Arm] Sitting 02 Sat by Pulse Oximetry 96 Oxygen Delivery Method Room Air Lab Data Lab results reviewed: Yes I reviewed the patient's lab results.
[2024-05-23 20:07] VITALS: BP 133/98; PULSE 85; RESP 18; TEMP 36.8
== END 2024-05-23 20:08 | disposition home or self-care (01) ==
PROVIDERS: Emergency Provider Nurse Practitioner Family; PCP Nurse Practitioner Family
DX: H65.90 Unspecified nonsuppurative otitis media, unspecified ear (principal)
CPT/HCPCS: 99212; G0381

== ENCOUNTER 2024-08-09 12:14 | Emergency (ER) | payer MEDICAID, SELFPAY ==
--- OUTSIDE RECORDS SUMMARY | 2024-08-09 12:19 | XMS_ITS | Clinical Summary ---
Author Organization [facility] , [facility] Address [address] [place] [address] Phone Care Team Providers Care Automatic Developer Name Role Phone Ping Cai APRN Jeff Primary Care Provider [phone] Luc SNELL, Aquilino Coats [phone] Reason for Visit and Chief Complaint [Patient Encounter] Problems Includes: Problems addressed during this encounter and other active Problems All Visits Onset Date Resolved Date Provider Condition S tatus Joint Pain Fingers of Right Hand 08/01/2022 Kaleb Rose MD Active Last Documented On 3 9:55AM ; [facility], [facility] Joint Pain in the Left Knee 06/25/2017 Aquilino Calle MD Active Last Documented On 8 11:22AM ; [facility] Plan of Treatment No Plan of Treatment Recorded Assessments Includes: Assessments from this encounter No Assessments Recorded Medical Equipment - Implanted Devices Includes: Current Devices No Medical Equipment Recorded Medications Includes: Medications discussed during this encounter and other current Medications New / Renewed during this visit Aquilino Calle MD on 04/22/2018 [place] 7.5-325MG Oral Tablet Provider: Aquilino Calle MD 30 day supply: 30 tablet, 0 refills Diagnosis: 1 tab every 6 hrs prn pain Pharmacy: [facility] #[id number] - [address], [id number] - Last Documented On 3 9:55AM By Vicenta Banegas ; [facility], [facility] Current Medications (continue as prescribed) Amitriptyline HCl 10 MG Oral Tablet 07/06/2022 Provi feliz: Esha Oconnell DO Diagnosis: Last Documented On 3 9:55AM By Vicenta Banegas ; [facility], [facility] Atenolol 100 MG Oral Tablet 07/06/2022 Provider: Krystina Bear HAND CANDY CUTTER Diagnosis: Last Documented On 3 9:55AM By Vicenta Banegas ; [facility], [facility] Escitalopram Oxalate 20 MG Oral Tablet 07/06/2022 Pr ovider: Krystina Mahaffey HAND CANDY CUTTER Diagnosis: Last Documented On 3 9:55AM By Vicenta Banegas ; [facility], [facility] Fenofibrate 145 MG Oral Tablet 07/06/2022 Provider: Krystina Bear HAND CANDY CUTTER Diagnosis: Last Documented On 3 9:55AM By Vicenta Banegas ; [facility], [facility] Levothyroxine Sodium 150 MCG Oral Tablet 07/06/2022 Provider: Krystina Brannonum HAND CANDY CUTTER Diagnosis: Last Documented On 3 9:55AM By Vicenta Banegas ; [facility], [facility] Losartan Potassium 25 MG Oral Tablet 07/06/2022 Prov ider: Krystina Brannonum HAND CANDY CUTTER Diagnosis: Last Documented On 3 9:55AM By Vicenta Banegas ; [facility], [facility] Microgestin 1.5/30 1.5-30 MG-MCG Oral Tablet 3 Provider: Krystina Brannonum HAND CANDY CUTTER Diagnosis: Last Documented On 3 9:55AM By Vicenta Banegas ; [facility], [facility] DULoxetine HCl 60 MG Oral Ca psule Delayed Release Particles 05/22/2022 Provider: Krystina Crum HAND CANDY CUTTER Diagnosis: Last Documented On 3 9:55AM By Vicenta Banegas ; [facility], [facility] Medications Administered Includes: Administered Medications from this encounter No Administered Medications Recorded Results Includes: Results discussed during this encounter No Results Recorded For Specified Dates History of Present Illness Includes: History of Present Illness from this encounter No History of Present Illness Recorded Social History No Social History Recorded - Smoking Status Unknown 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 Includes: 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 addressed during this encounter No 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 Recorded Family History Includes: Family History addressed during this encounter No Family History Recorded Review of Systems Includes: Review of Systems from this encounter No Review of Systems Recorded Mental Status Includes: Mental Status from this encounter No Mental Status Recorded Functional Status Includes: Functional Status from this encounter No Functional Status Recorded Physical Exam Includes: Physical Exam from this encounter No Physical Exam Recorded Allergies Includes: Active Allergies Substance Type Reaction Onset Date Resolved Date Statu s Percocet Allergy 06/25/2017 Active Last Documented On 3 8:31AM ; [facility], [facility] Encounters Encounter Provider Location Date Check-In Time Check-Out Time Diagnosis [Patient Encounter] Aquilino Calle MD [facility] 04/22/19 19 4:02PM 11:59PM Insurance Includes: Active Insurance Policies Plan Name Member ID Group # Subscriber Relationship Effect rosangela Dates 1 - [facility] [id number] Arlen Martinaann marie Friedman Self 07/17/2022 - Unknown 2 - [facility] [id number] Arlen Friedman Self 04/20/2017 - Unknown Clinical Notes Includes: Clinical Notes from this encounter No Clinical Notes Recorded
--- OUTSIDE RECORDS SUMMARY | 2024-08-09 12:19 | XMS_ITS | Clinical Summary ---
Author Organization [facility] , [facility] Address [address] [place] [address] Phone Care Team Providers Care Master Fire Control Technician Name Role Phone Ping Cai APRN Primary Care Provider [phone] Luc SNELL, Aquilino Hernandez Unavailable [phone] Reason for Visit and Chief Complaint The Chief Complaint is: Bilateral knee pain Problems Includes: Problems addressed during this encounter and other active Problems All Visits Onset Date Resolved Date Provider Condition S tatus Joint Pain Fingers of Right Hand 08/01/2022 Kaleb Rose MD Active Last Documented On 3 9:55AM ; [facility] Joint Pain in the Left Knee 06/25/2017 Aquilino Calle MD Active Last Documented On 8 11:22AM ; [facility] Plan of Treatment there is a suggestion of some lateral alignment of the right patella. No damage to the retropatellar surface is apparent. there is signs of possible plica issues on this knee. She is also a few weeks following arthroscopy of the left knee so I suggested an injection of cortisone to help settle this down. The risks of the procedure were explained and verbally acknowledged by the patient and a verbal consent was obtained. The knee was prepped in a sterile manner. Using a 3 cc syringe with a mixture containing 2 cc of 1% Lidocaine and 40mg Depo-Medrol. The knee was then put in flexed position and the intercondylar notch was palpated. The needle was gently introduced toward the intercondylar notch to enter the synovial cavity. Upon entering the synovial cavity, the medication was injected. The needle was carefully withdrawn and a Band-Aid was applied. There were no complications, and the patient tolerated the procedure well. under sterile conditions we injected the plica at the right knee. We'll see how she gets on with this. - Last Documented On 03/25/2018 1:21PM ; [facility] Instructions to patient Intervention and counseling on cessation of tobacco use Last Documented On 8 4:53PM ; [facility] Lose weight Last Documented On 8 4:53PM ; [facility] Education and Decision Aids were provided during visit for: Health seminar on smoking ce ssation Last Documented On 8 4:53PM ; [facility] Assessments Includes: Assessments from this encounter No Assessments Recorded Instructions Includes: Instructions from this encounter Instructions to patient Intervention and counseling on cessation of tobacco use Last Documented On 8 4:53PM ; [facility] Lose weight Last Documented On 8 4:53PM ; [facility] Education and Decision Aids were provided during visit for: Health seminar on smoking ce ssation Last Documented On 8 4:53PM ; [facility] Medical Equipment - Implanted Devices Includes: Current Devices No Medical Equipment Recorded Medications Includes: Medications discussed during this encounter and other current Medications Discontinued / Stopped on this date Aquilino Calle MD on 08/31/2017 [place] 10-325MG Oral Tablet Provider: Flip Calle MD Diagnosis: Last Documented On 8 4:52PM By Joyce Walters ; [facility] Promethazine HCl 25MG Oral Tablet Provide r: Aquilino Calle MD Diagnosis: Last Documented On 8 4:52PM By Joyce Walters ; [facility] Current Medications (continue as prescribed) Amitriptyline HCl 10 MG Oral Tablet 07/06/2022 Provi feliz: Esha Oconnell DO Diagnosis: Last Documented On 3 9:55AM By Vicenta Banegas ; [facility] Atenolol 100 MG Oral Tablet 07/06/2022 Provider: Krystina Chema TECHNICAL ASST Diagnosis: Last Documented On 3 9:55AM By Vicenta Banegas ; [facility], [facility] Escitalopram Oxalate 20 MG Oral Tablet 07/06/2022 Pr ovider: Krystina Bear TECHNICAL ASST Diagnosis: Last Documented On 3 9:55AM By Vicenta Banegas ; [facility], [facility] Fenofibrate 145 MG Oral Tablet 07/06/2022 Provider: Krystina Kinston TECHNICAL ASST Diagnosis: Last Documented On 3 9:55AM By Vicenta Banegas ; [facility], [facility] Levothyroxine Sodium 150 MCG Oral Tablet 07/06/2022 Provider: Krystina Kinston TECHNICAL ASST Diagnosis: Last Documented On 3 9:55AM By Vicenta Banegas ; [facility], [facility] Losartan Potassium 25 MG Oral Tablet 07/06/2022 Prov ider: Krystina Brannonum TECHNICAL ASST Diagnosis: Last Documented On 3 9:55AM By Vicenta Banegas ; [facility], [facility] Microgestin 1.5/30 1.5-30 MG-MCG Oral Tablet 3 Provider: Krystina Chema TECHNICAL ASST Diagnosis: Last Documented On 3 9:55AM By Vicenta Banegas ; [facility], [facility] DULoxetine HCl 60 MG Oral Ca psule Delayed Release Particles 05/22/2022 Provider: Krystina Chema TECHNICAL ASST Diagnosis: Last Documented On 3 9:55AM By Vicenta Banegas ; [facility], [facility] Medications Administered Includes: Administered Medications from this encounter No Administered Medications Recorded Vital Signs Includes: Vital Signs from this encounter Vital Name 03/18/2018 04:53P Height (in) 63 Note: ad Last Documented: On 03/18/2018 4:54PM ; [facility], [facility] Results Includes: Results discussed during this encounter No Results Recorded For Specified Dates History of Present Illness Includes: History of Present Illness from this encounter HPI Arlen Friedman is a 23 year old female. - Medication list reviewed with patient. She is here for follow-up of her knees. She continues to have symptoms of aching in the left knee. [facility] Social History Description Last Updated Caffeine use 07/06/2017 Last Documented On 8 4:53PM ; [facility] Current smoker 07/06/2017 Last Documented On 8 4:53PM ; [facility], [facility] Exercising regularly 07/06/2017 Last Documented On 8 4:53PM ; [facility] No recent change in diet 07/06/2017 Last Documented On 8 4:53PM ; [facility] Not using alcohol 07/06/2017 Last Documented On 8 4:53PM ; [facility], [facility] Not using drugs 07/06/2017 Last Documented On 8 4:53PM ; [facility] Smoking status Current every day smoker 07/06/2017 Last Documented On 8 4:53PM ; [facility] Tobacco use 07/06/2017 Last Documented On 8 4:53PM ; [facility] Procedures and Surgical History Includes: Procedures from this encounter Procedures Code Diagnosis Performing Provider Service L ocation Service Date history of orthopedic options: physical therapy Last Documented On 8 4:53PM ; [facility], [facility] intervention and 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 Last Documented On 8 4:53PM ; [facility] Clinical summary provided to patient Last Documented On 8 4:53PM ; [facility] 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 Includes: 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 addressed during this encounter Description Last Updated Facial Reconstruction ~Tonsilectomy 06/18 Last Documented On 8 4:53PM ; [facility] Intermittent hypertension 07/06/2017 Last Documented On 8 4:53PM ; [facility], [facility] Family History Includes: Family History addressed during this encounter Description Last Updated Paternal history of diabetes mellitus Last Documented On 8 4:53PM ; [facility] Review of Systems Includes: Review of Systems from this encounter Systemic: Not feeling tired (fatigue), no recent weight loss, and no recent weight gain. No edema. Head: No headache and no sinus pain. Eyes: No vision problems and no glaucomatous visual field defect. Otolaryngeal: No hearing loss and no tinnitus. No nasal symptoms. Cardiovascular: No chest pain or discomfort and no palpitations. Pulmonary: No daytime asthma symptoms, no cough, and no chronic cough. No wheezing. Gastrointestinal: No heartburn and no abdominal pain. Endocrine: No hot flashes and no muscle weakness. Hematologic: No easy bleeding and no tendency for easy bruising. Musculoskeletal: No lower back pain. No soft tissue swelling and no localized joint pain. Neurological: No dizziness, no convulsions, and no numbness. Psychological: No anxiety, no emotional lability, no depression, and no insomnia. Not crying for no reason. Skin: No dry skin, no rash, and no ulcers. Allergic and Immunologic: No complaint of seasonal allergic reaction. Mental Status Includes: Mental Status from this encounter Description No anxiety Functional Status Includes: Functional Status from this encounter No Functional Status Recorded Physical Exam Includes: Physical Exam from this encounter Allergies Includes: Active Allergies Substance Type Reaction Onset Date Resolved Date Statu s Percocet Allergy 06/25/2017 Active Last Documented On 3 8:31AM ; [facility], [facility] Encounters Encounter Provider Location Date Check-In Time Check- Out Time Diagnosis Follow Up Aquilino Calle MD [facility] 8 4:51PM 5:20PM Insurance Includes: Active Insurance Policies Plan Name Member ID Group # Subscriber Relationship Effect rosangela Dates 1 - [facility] [employer] [facility] [id number] Arlen Friedmna Self 07/17/2022 - Unknown 2 - [facility] [id number] Arlen Friedman Self 04/20/2017 - Unknown Clinical Notes Includes: Clinical Notes from this encounter No Clinical Notes Recorded
[2024-08-09 12:20] VITALS: BP 123/89; PULSE 109; RESP 18; TEMP 36.8; O2SAT 98; BMI 28.3
--- OUTSIDE RECORDS SUMMARY | 2024-08-09 12:20 | XMS_ITS ---
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 Name Role Phone Ping Cai APRN Jeff Primary Care Provider [phone] Luc SNELL, Aquilino Hernandez Unavailable [phone] Problems Includes: Active, inactive, and resolved Problems All Visits Onset Date Resolved Date Provider Condition S tatus Joint Pain Fingers of Right Hand 08/01/2022 Kaleb Rose MD Active Last Documented On 3 9:55AM ; [facility] Joint Pain in the Left Knee 06/25/2017 Aquilino Calle MD Active Last Documented On 8 11:22AM ; [facility] Plan of Treatment Instructions to patient Intervention and counseling on cessation of tobacco use Last Documented On 3 8:32AM ; [facility] Lose weight Last Documented On 3 8:32AM ; [facility] Intervention and counseling on cessation of tobacco use Last Documented On 3 10:01AM ; [facility] Lose weight Last Documented On 3 10:01AM ; [facility] Intervention and counseling on cessation of tobacco use Last Documented On 8 4:53PM ; [facility] Lose weight Last Documented On 8 4:53PM ; [facility] Intervention and counseling on cessation of tobacco use Last Documented On 8 2:11PM ; [facility] Lose weight Last Documented On 8 2:11PM ; [facility] Intervention and counseling on cessation of tobacco use Last Documented On 8 1:38PM ; [facility] Lose weight Last Documented On 8 1:38PM ; [facility] Intervention and counseling on cessation of tobacco use Last Documented On 8 2:06PM ; [facility] Lose weight Last Documented On 8 2:06PM ; [facility] Intervention and counseling on cessation of tobacco use Last Documented On 8 11:22AM ; [facility] Lose weight Last Documented On 8 11:22AM ; [facility] Education and Decision Aids were provided during visit for: Health seminar on smoking ce ssation Last Documented On 8 4:53PM ; [facility] Health seminar on smoking ce ssation Last Documented On 8 2:11PM ; [facility] Health seminar on smoking ce ssation Last Documented On 8 1:38PM ; [facility] Health seminar on smoking ce ssation Last Documented On 8 2:06PM ; [facility] Health seminar on smoking ce ssation Last Documented On 8 11:22AM ; [facility] Assessments Includes: Assessments for all patient encounters No Assessments Recorded Instructions Includes: Instructions for all patient encounters Instructions to patient Intervention and counseling on cessation of tobacco use Last Documented On 3 8:32AM ; [facility] Lose weight Last Documented On 3 8:32AM ; [facility] Intervention and counseling on cessation of tobacco use Last Documented On 3 10:01AM ; [facility] Lose weight Last Documented On 3 10:01AM ; [facility] Intervention and counseling on cessation of tobacco use Last Documented On 8 4:53PM ; [facility] Lose weight Last Documented On 8 4:53PM ; [facility] Intervention and counseling on cessation of tobacco use Last Documented On 8 2:11PM ; [facility] Lose weight Last Documented On 8 2:11PM ; [facility] Intervention and counseling on cessation of tobacco use Last Documented On 8 1:38PM ; [facility] Lose weight Last Documented On 8 1:38PM ; [facility] Intervention and counseling on cessation of tobacco use Last Documented On 8 2:06PM ; [facility] Lose weight Last Documented On 8 2:06PM ; [facility] Intervention and counseling on cessation of tobacco use Last Documented On 8 11:22AM ; [facility] Lose weight Last Documented On 8 11:22AM ; [facility] Education and Decision Aids were provided during visit for: Health seminar on smoking ce ssation Last Documented On 8 4:53PM ; [facility] Health seminar on smoking ce ssation Last Documented On 8 2:11PM ; [facility] Health seminar on smoking ce ssation Last Documented On 8 1:38PM ; [facility] Health seminar on smoking ce ssation Last Documented On 8 2:06PM ; [facility] Health seminar on smoking ce ssation Last Documented On 8 11:22AM ; [facility] Medical Equipment - Implanted Devices Includes: Current and historical Devices No Medical Equipment Recorded Medications Includes: Current and historical Medications Current Medications (continue as prescribed) Amitriptyline HCl 10 MG Oral Tablet 07/06/2022 Provi feliz: Esha Oconnell DO Diagnosis: Last Documented On 3 9:55AM By Vicenta Banegas ; [facility] Atenolol 100 MG Oral Tablet 07/06/2022 Provider: Krystina Bear APRN Diagnosis: Last Documented On 3 9:55AM By Vicenta Banegas ; [facility] Escitalopram Oxalate 20 MG Oral Tablet 07/06/2022 Pr ovider: Krystina Bear [employer] Diagnosis: Last Documented On 3 9:55AM By Vicenta Banegas ; [facility] Fenofibrate 145 MG Oral Tablet 07/06/2022 Provider: Krystina Brannonum [employer] Diagnosis: Last Documented On 3 9:55AM By Vicenta Banegas ; [facility] Levothyroxine Sodium 150 MCG Oral Tablet 07/06/2022 Provider: Krystina Brannonum [employer] Diagnosis: Last Documented On 3 9:55AM By Vicenta Banegas ; [facility] Losartan Potassium 25 MG Oral Tablet 07/06/2022 Prov ider: Krystina Brannonum [employer] Diagnosis: Last Documented On 3 9:55AM By Vicenta Banegas ; [facility] Microgestin 1.5/30 1.5-30 MG-MCG Oral Tablet 3 Provider: Krystina Chema [employer] Diagnosis: Last Documented On 3 9:55AM By Vicenta Banegas ; [facility] DULoxetine HCl 60 MG Oral Ca psule Delayed Release Particles 05/22/2022 Provider: Krystina Bear [employer] Diagnosis: Last Documented On 3 9:55AM By Vicenta Banegas ; [facility] Past Medications on file Mason 7.5-325MG Oral Tablet 04/22/2018 - 08/01/2022 Pr ovider: Aquilino Calle MD Diagnosis: 1 tab every 6 hrs prn pain Last Documented On 3 9:55AM By Vicenta Banegas ; [facility] Requip 1MG Oral Tablet 04/21/2018 - 08/01/2022 Provide r: Aquilino Calle MD Diagnosis: 1 every bedtime Last Documented On 3 9:55AM By Vicenta Banegas ; [facility] Requip 0.25MG Oral Tablet 03/17/2018 - 08/01/2022 Prov ider: Aquilino Calle MD Diagnosis: .25mg x 2 days, then 0.5mg x 5 days, then 1 mg a day Last Documented On 3 9:55AM By Vicenta Banegas ; [facility] Naproxen 500MG Oral Tablet 08/31/2017 - 08/01/2022 Pro vider: Aquilino Calle MD Diagnosis: twice a day Last Documented On 3 9:55AM By Vicenta Banegas ; [facility] Mason 10-325MG Oral Tablet 08/31/2017 - 03/18/2018 Pro vider: Aquilino Calle MD Diagnosis: 1 every 4 - 6 hours as needed for pain Last Documented On 8 4:52PM By Joyce Walters ; [facility] Promethazine HCl 25MG Oral Tablet 08/31/2017 - 03/18/2018 Provider: Aquilino mosley MD Diagnosis: 1 every 6 hours prn nausea Last Documented On 8 4:52PM By Joyce Walters ; [facility] Promethazine HCl 25MG Oral Tablet 08/18/2017 - 03/18/2018 Provider: Aquilino mosley MD Diagnosis: 1 every 6 hours prn nausea Last Documented On 8 4:52PM By Joyce Walters ; [facility] Mason 10-325MG Oral Tablet 08/18/2017 - 03/18/2018 Pro vider: Aquilino Calle MD Diagnosis: 1 every 4 - 6 hours as needed for pain Last Documented On 8 4:52PM By Joyce Walters ; [facility] DULoxetine HCl 40MG Oral Cap gold Delayed Release Particles 06/25/2017 - 08/01/2022 Provider: Diagnosis: Last Documented On 3 9:55AM By Vicenta Banegas ; [facility] Atenolol 100MG Oral Tablet 06/25/2017 - 08/01/2022 Pro vider: Diagnosis: Last Documented On 3 9:55AM By Vicenta Banegas ; [facility] Lexapro 20MG Oral Tablet 06/25/2017 - 08/01/2022 Provi feliz: Diagnosis: Last Documented On 3 9:55AM By Vicenta Banegas ; [facility] Medications Administered Includes: Administered Medications in patient's chart No Administered Medications Recorded Results Includes: Results from 08/10/2023 through 08/09/2024 No Results Recorded For Specified Dates History of Present Illness History of Present Illness not supported for this document type No History of Present Illness Recorded Social History Description Last Updated No recent change in diet 08/01/2022 Last Documented On 3 12:32PM ; [facility] Yes, current smoker. 08/01/2022 Last Documented On 3 12:32PM ; [facility] Caffeine use 07/06/2017 Last Documented On 8 10:30AM ; [facility] Current smoker 07/06/2017 Last Documented On 8 10:30AM ; [facility] Exercising regularly 07/06/2017 Last Documented On 8 10:30AM ; [facility] No recent change in diet 07/06/2017 Last Documented On 8 10:30AM ; [facility] Not using alcohol 07/06/2017 Last Documented On 8 10:30AM ; [facility] Not using drugs 07/06/2017 Last Documented On 8 10:30AM ; [facility] Smoking status Current every day smoker 07/06/2017 Last Documented On 8 10:30AM ; [facility] Tobacco use 07/06/2017 Last Documented On 8 10:30AM ; [facility] 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 Includes: 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 in patient's chart Description Last Updated History of depression 08/01/2022 Last Documented On 3 12:32PM ; [facility] History of diabetes mellitus 08/01/2022 Last Documented On 3 12:32PM ; [facility] History of Heartburn / Acid Reflux 08/01 Last Documented On 3 12:32PM ; [facility] History of History of Blood Clots 2022 Last Documented On 3 12:32PM ; [facility] History of Hypertension 08/01/2022 Last Documented On 3 12:32PM ; [facility] History of Irregular Heartbeat 3 Last Documented On 3 12:32PM ; [facility] History of Thyroid Disease 08/01/2022 Last Documented On 3 12:32PM ; [facility] Facial Reconstruction ~Tonsilectomy 06/18 Last Documented On 8 10:30AM ; [facility] Intermittent hypertension 07/06/2017 Last Documented On 8 10:30AM ; [facility] Family History Includes: Family History in patient's chart Description Last Updated Diabetes mellitus 08/01/2022 Last Documented On 3 12:32PM ; [facility] Family history of systemic hypertension 08/01/2022 Last Documented On 3 12:32PM ; [facility] Paternal history of diabetes mellitus Last Documented On 8 10:30AM ; [facility] Review of Systems Review of Systems not supported for this document type No Review of Systems Recorded Mental Status Description Anxiety Functional Status No Functional Status Recorded Physical Exam Physical Exam not supported for this document type No Physical Exam Recorded Immunizations Includes: Immunizations in patient's chart Vaccine Dose # Date Site Reaction(s) Status Source Influenza 1 08/01/2022 Complete (Refused - Patient objection) [facility] Last Documented On 3 10:01AM ; [facility] PCV (Pneumovax 23) 1 08/01/2022 Complete (Refused - Patient objection) [facility] Last Documented On 3 10:01AM ; [facility] Td 1 08/01/2022 Complete (Refused - Patient objection) [facility] Last Documented On 3 10:01AM ; [facility] Allergies Includes: Active, inactive, and resolved Allergies Substance Type Reaction Onset Date Resolved Date Statu s Percocet Allergy 06/25/2017 Active Last Documented On 3 8:31AM ; [facility] Insurance Includes: Active Insurance Policies Plan Name Member ID Group # Subscriber Relationship Effect rosangela Dates 1 - [facility] [id number] Arlen Friedman Self 07/17/2022 - Unknown 2 - [facility] [id number] Arlen Friedman Self 04/20/2017 - Unknown Clinical Notes Includes: Signed Clinical Notes starting from 04/03/2022 No Clinical Notes Recorded
--- OUTSIDE RECORDS SUMMARY | 2024-08-09 12:20 | XMS_ITS | Clinical Summary ---
Author Organization [facility] [[email or web address]] [facility] , [facility] Address [address] [place] [address] Phone Care Team Providers Care Economic Analyst Name Role Phone Ping Cai APRN Jeff Primary Care Provider [phone] Luc SNELL, Aquilino Hernandez Unavailable [phone] Reason for Visit and Chief Complaint The Chief Complaint is: RIF pain Problems Includes: Problems addressed during this encounter and other active Problems Current Visit Onset Date Resolved Date Provider Condpashao n Status Joint Pain Fingers of Right Hand 08/01/2022 Kaleb Rose MD Active Last Documented On 3 9:55AM ; [facility], [facility] Past Visits Onset Date Resolved Date Provider Condition Status Joint Pain in the Left Knee 06/25/2017 Aquilino Calle MD Active Last Documented On 8 11:22AM ; [facility], [facility] Plan of Treatment I explained to the patient I do not see fracture on xray. Given the fact she felt she was unable to bend the finger for one week post injury, she may have sustained a tendon injury to the RIF however she is able to flex and extend the digit well at this time. I recommended OT for ROM and strengthening today and no use of the RUE at work. We will see her back in 2 weeks for recheck. - Last Documented On 08/01/2022 12:32PM ; [facility], [facility] Instructions to patient Intervention and counseling on cessation of tobacco use Last Documented On 3 10:01AM ; [facility] Lose weight Last Documented On 3 10:01AM ; [facility] Assessments Includes: Assessments from this encounter Findings possible tendon injury RIF - Last Documented On 08/01/2022 12:32PM ; [facility] Instructions Includes: Instructions from this encounter Instructions to patient Intervention and counseling on cessation of tobacco use Last Documented On 3 10:01AM ; [facility], [facility] Lose weight Last Documented On 3 10:01AM ; [facility], [facility] Medical Equipment - Implanted Devices Includes: Current Devices No Medical Equipment Recorded Medications Includes: Medications discussed during this encounter and other current Medications Discontinued / Stopped on this date Aquilino Calle MD on 04/22/2018 [place] 7.5-325MG Oral Tablet Provider: Aquilino Calle MD Diagnosis: Last Documented On 3 9:55AM By Vicenta Banegas ; [facility], [facility] Requip 1MG Oral Tablet Provider: Chuck Calle MD Diagnosis: Last Documented On 3 9:55AM By Vicenta Banegas ; [facility], [facility] Requip 0.25MG Oral Tablet Provider: Elroy Calle MD Diagnosis: Last Documented On 3 9:55AM By Vicenta Banegas ; [facility], [facility] Naproxen 500MG Oral Tablet Provider: Flip Calle MD Diagnosis: Last Documented On 3 9:55AM By Vicenta Banegas ; [facility], [facility] DULoxetine HCl 40MG Oral Capsule Delayed Release Parti cles Provider: Diagnosis: Last Documented On 3 9:55AM By Vicenta Banegas ; [facility], [facility] Atenolol 100MG Oral Tablet Provider: Diagnosis: Last Documented On 3 9:55AM By Vicenta Banegas ; [facility], [facility] Lexapro 20MG Oral Tablet Provider: Diagnosis: Last Documented On 3 9:55AM By Vicenta Banegas ; [facility], [facility] Current Medications (continue as prescribed) Amitriptyline HCl 10 MG Oral Tablet 07/06/2022 Provi feliz: Esha Oconnell DO Diagnosis: Last Documented On 3 9:55AM By Vicenta Banegas ; [facility] Atenolol 100 MG Oral Tablet 07/06/2022 Provider: Krystina Bear MAINTENANCE SPECIALIST Diagnosis: Last Documented On 3 9:55AM By Vicenta Banegas ; [facility], [facility] Escitalopram Oxalate 20 MG Oral Tablet 07/06/2022 Pr ovider: Krystina Chema MAINTENANCE SPECIALIST Diagnosis: Last Documented On 3 9:55AM By Vicenta Banegas ; [facility], [facility] Fenofibrate 145 MG Oral Tablet 07/06/2022 Provider: Krystina Bear MAINTENANCE SPECIALIST Diagnosis: Last Documented On 3 9:55AM By Vicenta Banegas ; [facility], [facility] Levothyroxine Sodium 150 MCG Oral Tablet 07/06/2022 Provider: Krystina Bera MAINTENANCE SPECIALIST Diagnosis: Last Documented On 3 9:55AM By Vicenta Banegas ; [facility], [facility] Losartan Potassium 25 MG Oral Tablet 07/06/2022 Prov ider: Krystina Brannonum MAINTENANCE SPECIALIST Diagnosis: Last Documented On 3 9:55AM By Vicenta Banegas ; [facility], [facility] Microgestin 1.5/30 1.5-30 MG-MCG Oral Tablet 3 Provider: Krystina Bear MAINTENANCE SPECIALIST Diagnosis: Last Documented On 3 9:55AM By Vicenta Banegas ; [facility], [facility] DULoxetine HCl 60 MG Oral Ca psule Delayed Release Particles 05/22/2022 Provider: Krystina Bear MAINTENANCE SPECIALIST Diagnosis: Last Documented On 3 9:55AM By Vicenta Banegas ; [facility], [facility] Medications Administered Includes: Administered Medications from this encounter No Administered Medications Recorded Vital Signs Includes: Vital Signs from this encounter Vital Name 08/01/2022 09:57A Height (in) 64 Weight (lb) 180 Body Mass Index 30.9 Body Surface Area 1.9 Note: [facility] Last Documented: On 08/01/2022 10:01A M ; [facility] Results Includes: Results discussed during this encounter No Results Recorded For Specified Dates History of Present Illness Includes: History of Present Illness from this encounter HPI Arlen Friedman is a 27 year old female. - Allergy list reviewed - Problem list reviewed - Medication list reviewed - Previous history of new onset pain 07/17/2022 Work Injury - Pain is dull, aching - Patient pain level from 1-10: 6 - Yes, previous treatment. Patient is a 27 year old female that is here today with complaints of pain in the RIF. She states on 07/17/2022 she was at work when she went to hang a jig when she jammed her RIF. She noticed swelling, bruising, and pain with flexion. She did sustain an abrasion as well that is healing. She feels her symptoms are improving. She has been off of work. Social History Description Last Updated No recent change in diet 08/01/2022 Last Documented On 3 12:32PM ; [facility] Yes, current smoker. 08/01/2022 Last Documented On 3 12:32PM ; [email or web address] Caffeine use 07/06/2017 Last Documented On 3 9:56AM ; [facility] Current smoker 07/06/2017 Last Documented On 3 9:56AM ; [facility] Exercising regularly 07/06/2017 Last Documented On 3 9:56AM ; [facility] No recent change in diet 07/06/2017 Last Documented On 3 9:56AM ; [facility] Not using alcohol 07/06/2017 Last Documented On 3 9:56AM ; [facility] Not using drugs 07/06/2017 Last Documented On 3 9:56AM ; [email or web address] Smoking status Current every day smoker 07/06/2017 Last Documented On 3 9:56AM ; [facility] Tobacco use 07/06/2017 Last Documented On 3 9:56AM ; [email or web address] Procedures and Surgical History Includes: Procedures from this encounter Procedures Code Diagnosis Performing Provider Service L ocation Service Date intervention and counseling on cessation of tobacco use 4000F Last Documented On 3 10:01AM ; [facility] use of tobacco assessment performed 1000F Last Documented On 3 10:01AM ; [facility] an X-ray was performed 45214 Last Documented On 3 10:37AM ; [facility], [facility] 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 Includes: 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 addressed during this encounter Description Last Updated History of depression 08/01/2022 Last Documented On 3 12:32PM ; [facility], [facility] History of diabetes mellitus 08/01/2022 Last Documented On 3 12:32PM ; [facility] History of Heartburn / Acid Reflux 08/01 Last Documented On 3 12:32PM ; [facility] History of History of Blood Clots 2022 Last Documented On 3 12:32PM ; [facility] History of Hypertension 08/01/2022 Last Documented On 3 12:32PM ; [facility] History of Irregular Heartbeat 3 Last Documented On 3 12:32PM ; [facility] History of Thyroid Disease 08/01/2022 Last Documented On 3 12:32PM ; [facility] Facial Reconstruction ~Tonsilectomy 06/18 Last Documented On 3 9:56AM ; [facility] Intermittent hypertension 07/06/2017 Last Documented On 3 9:56AM ; [facility] Family History Includes: Family History addressed during this encounter Description Last Updated Diabetes mellitus 08/01/2022 Last Documented On 3 12:32PM ; [facility] Family history of systemic hypertension 08/01/2022 Last Documented On 3 12:32PM ; [facility] Paternal history of diabetes mellitus Last Documented On 3 9:56AM ; [facility] Review of Systems Includes: Review of Systems from this encounter Systemic: Not feeling tired, no recent weight loss, and no recent weight gain. Head: Headache. No sinus pain. Eyes: No vision problems and no Cataracts. Glasses/Contacts. No Glaucoma. Otolaryngeal: No hearing loss and no tinnitus. Cardiovascular: No chest pain or discomfort and no palpitations. Hypertension. No High Cholesterol. Pulmonary: No daytime asthma symptoms and no chronic cough. No wheezing. Gastrointestinal: Heartburn. No abdominal pain. No Indigestion. Acid Reflux. No Peptic Ulcer, no GI Stomach Bleed, and no Ulcers. Endocrine: No hot flashes and no muscle weakness. Diabetes and Hypothyroid. No Hyperthyroid. Hematologic: No easy bleeding, no tendency for easy bruising, and no Anemia. Musculoskeletal: No Arthritis and no lower back pain. No soft tissue swelling and no localized joint pain. Neurological: No dizziness, no convulsions, and no numbness. Psychological: Anxiety. No emotional lability. Depression. No insomnia. Not crying for no reason. Skin: No dry skin. No Ulcers, no Scars, and no rash. Allergic and Immunologic: No complaint of seasonal allergic reaction. The patient is awake alert oriented in time place and person. Has normal mood and affect. Is neatly dressed. Has normal gait and station. Pupils are equal and react to light normally. Eyes move normally. Mucous membranes are moist. The patient has no trouble with speech. Normal circulation. Normal sensation. No thenar or intrinsic atrophy. Normal strength. Good flexion and extension of the fingers. Patient has an abrasion just distal to the MPJ radial aspect RIF. No sign of infection. Mental Status Includes: Mental Status from this encounter Description Anxiety Functional Status Includes: Functional Status from this encounter No Functional Status Recorded Physical Exam Includes: Physical Exam from this encounter Immunizations Includes: Immunizations addressed during this encounter Vaccine Dose # Date Site Reaction(s) Status Source Influenza 1 08/01/2022 Complete (Refused - Patient objection) [facility] Last Documented On 3 10:01AM ; [facility] PCV (Pneumovax 23) 1 08/01/2022 Complete (Refused - Patient objection) [facility] Last Documented On 3 10:01AM ; [facility] Td 1 08/01/2022 Complete (Refused - Patient objection) [facility] Last Documented On 3 10:01AM ; [facility] Allergies Includes: Active Allergies Substance Type Reaction Onset Date Resolved Date Statu s Percocet Allergy 06/25/2017 Active Last Documented On 3 8:31AM ; [facility] Encounters Encounter Provider Location Date Check-In Time Check-Out Time Diagnosis NEW PATIENT Kaleb Rose MD [facility] 08/02/19 23 9:53AM 10:28AM Insurance Includes: Active Insurance Policies Plan Name Member ID Group # Subscriber Relationship Effect rosangela Dates 1 - [facility] - [facility] [id number] Arlen Friedman Self 07/17/2022 - Unknown 2 - [facility] [id number] Arlen Friedman Self 04/20/2017 - Unknown Clinical Notes Includes: Clinical Notes from this encounter * Progress note Date Encounter Last Documented by 08/01/2022 NEW PATIENT Last documented on 08/01/2022; 12:32 PM, Kaleb Rose MD; [facility] Active Problems & Conditions - Joint Pain Fingers of Right Hand - Joint Pain in the Left Knee Chief Complaint The Chief Complaint is: RIF pain. Referred Here Referred by Sigifredo. History of Present Illness Arlen Friedman is a 27 year old female. - Allergy list reviewed - Problem list reviewed - Medication list reviewed - Previous history of new onset pain 07/17/2022 Work Injury - Pain is dull, aching - Patient pain level from 1-10: 6 - Yes, previous treatment. Patient is a 27 year old female that is here today with complaints of pain in the RIF. She states on 07/17/2022 she was at work when she went to hang a jig when she jammed her RIF. She noticed swelling, bruising, and pain with flexion. She did sustain an abrasion as well that is healing. She feels her symptoms are improving. She has been off of work. Current Medication - Amitriptyline HCl 10 MG Oral Tablet 30 days, 0 refills - Atenolol 100 MG Oral Tablet 90 days, 0 refills - DULoxetine HCl 60 MG Oral Capsule Delayed Release Particles 90 days, 0 refills - Escitalopram Oxalate 20 MG Oral Tablet 90 days, 0 refills - Fenofibrate 145 MG Oral Tablet 90 days, 0 refills - Levothyroxine Sodium 150 MCG Oral Tablet 90 days, 0 refills - Losartan Potassium 25 MG Oral Tablet 90 days, 0 refills - Microgestin 1.5/30 1.5-30 MG-MCG Oral Tablet 63 days, 0 refills Past Medical/Surgical History Reported: Medical: Intermittent hypertension. Diagnoses: History of Blood Clots Irregular Heartbeat Heartburn / Acid Reflux Thyroid Disease Hypertension. Diabetes mellitus. Depression Facial Reconstruction Tonsilectomy. Social History Yes, current smoker. Current diet: No recent change in diet. No recent change in diet. Caffeine use: Caffeine use. Tobacco use: Current smoker and smoking status: Current everyday smoker. Alcohol: Not using alcohol. Drug Use: Not using drugs. Habits: Exercising regularly. Allergies - Percocet Family History Diabetes mellitus Systemic hypertension Paternal: Diabetes mellitus Review Of Systems Systemic: Not feeling tired, no recent weight loss, and no recent weight gain. Head: Headache. No sinus pain. Eyes: No vision problems and no Cataracts. Glasses/Contacts. No Glaucoma. Otolaryngeal: No hearing loss and no tinnitus. Cardiovascular: No chest pain or discomfort and no palpitations. Hypertension. No High Cholesterol. Pulmonary: No daytime asthma symptoms and no chronic cough. No wheezing. Gastrointestinal: Heartburn. No abdominal pain. No Indigestion. Acid Reflux. No Peptic Ulcer, no GI Stomach Bleed, and no Ulcers. Endocrine: No hot flashes and no muscle weakness. Diabetes and Hypothyroid. No Hyperthyroid. Hematologic: No easy bleeding, no tendency for easy bruising, and no Anemia. Musculoskeletal: No Arthritis and no lower back pain. No soft tissue swelling and no localized joint pain. Neurological: No dizziness, no convulsions, and no numbness. Psychological: Anxiety. No emotional lability. Depression. No insomnia. Not crying for no reason. Skin: No dry skin. No Ulcers, no Scars, and no rash. Allergic and Immunologic: No complaint of seasonal allergic reaction. The patient is awake alert oriented in time place and person. Has normal mood and affect. Is neatly dressed. Has normal gait and station. Pupils are equal and react to light normally. Eyes move normally. Mucous membranes are moist. The patient has no trouble with speech. Normal circulation. Normal sensation. No thenar or intrinsic atrophy. Normal strength. Good flexion and extension of the fingers. Patient has an abrasion just distal to the MPJ radial aspect RIF. No sign of infection. Physical Findings - Vitals taken 08/01/2022 09:57 am kn Height 64 in 60 - 75 Weight 180 lbs 98 - 183 Body Mass Index 30.9 kg/m2 Body Surface Area 1.9 m2 Standard Measurements: - Patient was overweight. Tests Xray 2 views of the R hand taken in office today and reviewed with the patient is negative Assessment possible tendon injury RIF Previous Tests Imaging: X-Ray: An X-ray was performed. Therapy - Intervention and counseling on cessation of tobacco use. Vaccinations - Td Dose #1 Status: Refused Patient Objection Date: 08/01/2022 - Influenza Dose #1 Status: Refused Patient Objection Date: 08/01/2022 - PCV (Pneumovax 23) Dose #1 Status: Refused Patient Objection Date: 08/01/2022 Counseling/Education - Lose weight Plan I explained to the patient I do not see fracture on xray. Given the fact she felt she was unable to bend the finger for one week post injury, she may have sustained a tendon injury to the RIF however she is able to flex and extend the digit well at this time. I recommended OT for ROM and strengthening today and no use of the RUE at work. We will see her back in 2 weeks for recheck. Practice Management Use of tobacco assessment performed. Care Team - MICHELLE Land - [employer] Notes This dictation was done with voice recognition software and may contain errors and omissions. transcribed by Jeff Banegas
--- OUTSIDE RECORDS SUMMARY | 2024-08-09 12:20 | XMS_ITS | Clinical Summary ---
Author Organization [facility] Address [address] [place] [address] Phone Care Team Providers Care Fruit Or Nut Farmer Name Role Phone Trell EUSEBIOPing Jeff Primary Care Provider [phone] Luc SNELL, Aquilino Hernandez Unavailable [phone] Reason for Visit and Chief Complaint Xray Problems Includes: Problems addressed during this encounter and other active Problems All Visits Onset Date Resolved Date Provider Condition S tatus Joint Pain Fingers of Right Hand 08/01/2022 Kaleb Rose MD Active Last Documented On 3 9:55AM ; [facility], [facility] Joint Pain in the Left Knee 06/25/2017 Aquilino Calle MD Active Last Documented On 8 11:22AM ; [facility], [facility] Plan of Treatment No Plan of Treatment Recorded Assessments Includes: Assessments from this encounter No Assessments Recorded Medical Equipment - Implanted Devices Includes: Current Devices No Medical Equipment Recorded Medications Includes: Medications discussed during this encounter and other current Medications Current Medications (continue as prescribed) Amitriptyline HCl 10 MG Oral Tablet 07/06/2022 Provi feliz: Esha Oconnell DO Diagnosis: Last Documented On 3 9:55AM By Vicenta Banegas ; [facility] Atenolol 100 MG Oral Tablet 07/06/2022 Provider: Krystina Bear APRN Diagnosis: Last Documented On 3 9:55AM By Vicenta Banegas ; [facility] Escitalopram Oxalate 20 MG Oral Tablet 07/06/2022 Pr ovider: Krystina Bear WARNING ANALYST Diagnosis: Last Documented On 3 9:55AM By Vicenta Banegas ; [facility], [facility] Fenofibrate 145 MG Oral Tablet 07/06/2022 Provider: Krystina Brannonum WARNING ANALYST Diagnosis: Last Documented On 3 9:55AM By Vicenta Banegas ; [facility], [facility] Levothyroxine Sodium 150 MCG Oral Tablet 07/06/2022 Provider: Krystina Bear WARNING ANALYST Diagnosis: Last Documented On 3 9:55AM By Vicenta Banegas ; [facility] Losartan Potassium 25 MG Oral Tablet 07/06/2022 Prov ider: Krystina Brannonum WARNING ANALYST Diagnosis: Last Documented On 3 9:55AM By Vicenta Banegas ; [facility] Microgestin 1.5/30 1.5-30 MG-MCG Oral Tablet 3 Provider: Krystina Bear WARNING ANALYST Diagnosis: Last Documented On 3 9:55AM By Vicenta Banegas ; [facility] DULoxetine HCl 60 MG Oral Ca psule Delayed Release Particles 05/22/2022 Provider: Krystina Bear WARNING ANALYST Diagnosis: Last Documented On 3 9:55AM By Vicenta Banegas ; [facility] Medications Administered Includes: Administered Medications from [...] Active Last Documented On 3 8:31AM ; [facility] Encounters Encounter Provider Location Date Check-In Time Check-Out Time Diagnosis Xray [facility] 03/17/2018 4:45PM 11:59PM Insurance Includes: Active Insurance Policies Plan Name Member ID Group # Subscriber Relationship Effect rosangela Dates 1 - [facility] [id number] Arlen Friedman Self 07/17/2022 - Unknown 2 - [facility] [id number] Arlen Friedman Self 04/20/2017 - Unknown Clinical Notes Includes: Clinical Notes from this encounter No Clinical Notes Recorded
--- OUTSIDE RECORDS SUMMARY | 2024-08-09 12:20 | XMS_ITS | Clinical Summary ---
Author Organization [facility] Address [address] [place] [address] Phone Care Team Providers Care Plastic Printer Name Role Phone Ping Cai APRN Jeff Primary Care Provider [phone] Luc SNELL, Aquilino Hernandez Unavailable [phone] Reason for Visit and Chief Complaint The Chief Complaint is: RIF pain Problems Includes: Problems addressed during this encounter and other active Problems All Visits Onset Date Resolved Date Provider Condition S tatus Joint Pain Fingers of Right Hand 08/01/2022 Kaleb Rose MD Active Last Documented On 3 9:55AM ; [facility], [facility] Joint Pain in the Left Knee 06/25/2017 Aquilino Calle MD Active Last Documented On 8 11:22AM ; [facility], [facility] Plan of Treatment Patient is doing well and feels her symptoms have resolved. We will release her to full duty work. We will see her back as needed. - Last Documented On 09/19/2022 9:28AM ; [facility], [facility] Instructions to patient Intervention and counseling on cessation of tobacco use Last Documented On 3 8:32AM ; [facility], [facility] Lose weight Last Documented On 3 8:32AM ; [facility], [facility] Assessments Includes: Assessments from this encounter Findings possible tendon injury RIF - Last Documented On 09/19/2022 9:28AM ; [facility] Instructions Includes: Instructions from this encounter Instructions to patient Intervention and counseling on cessation of tobacco use Last Documented On 3 8:32AM ; [facility] Lose weight Last Documented On 3 8:32AM ; [facility], [facility] Medical Equipment - Implanted Devices Includes: Current Devices No Medical Equipment Recorded Medications Includes: Medications discussed during this encounter and other current Medications Current Medications (continue as prescribed) Amitriptyline HCl 10 MG Oral Tablet 07/06/2022 Provi feliz: Esha Oconnell DO Diagnosis: Last Documented On 3 9:55AM By Vicenta Banegas ; [facility], [facility] Atenolol 100 MG Oral Tablet 07/06/2022 Provider: Krystina Bear APRN Diagnosis: Last Documented On 3 9:55AM By Vicenta Banegas ; [facility], [facility] Escitalopram Oxalate 20 MG Oral Tablet 07/06/2022 Pr ovider: Krystina Bear RANGE MECHANIC Diagnosis: Last Documented On 3 9:55AM By Vicenta Banegas ; [facility], [facility] Fenofibrate 145 MG Oral Tablet 07/06/2022 Provider: Krystina Bear RANGE MECHANIC Diagnosis: Last Documented On 3 9:55AM By Vicenta Banegas ; [facility], [facility] Levothyroxine Sodium 150 MCG Oral Tablet 07/06/2022 Provider: Krystina Bear RANGE MECHANIC Diagnosis: Last Documented On 3 9:55AM By Vicenta Banegas ; [facility], [facility] Losartan Potassium 25 MG Oral Tablet 07/06/2022 Prov ider: Krystina Bear RANGE MECHANIC Diagnosis: Last Documented On 3 9:55AM By Vicenta Banegas ; [facility], [facility] Microgestin 1.5/30 1.5-30 MG-MCG Oral Tablet 3 Provider: Krystina Bear RANGE MECHANIC Diagnosis: Last Documented On 3 9:55AM By Vicenta Banegas ; [facility], [facility] DULoxetine HCl 60 MG Oral Ca psule Delayed Release Particles 05/22/2022 Provider: Krystina Bear RANGE MECHANIC Diagnosis: Last Documented On 3 9:55AM By Vicenta Banegas ; [facility], [facility] Medications Administered Includes: Administered Medications from this encounter No Administered Medications Recorded Vital Signs Includes: Vital Signs from this encounter Vital Name 09/19/2022 08:36A Height (in) 64 Weight (lb) 180 Body Mass Index 30.9 Body Surface Area 1.9 Note: cb Last Documented: On 09/19/2022 8:36AM ; [facility] Results Includes: Results discussed during this encounter [...] 6 - Yes, previous treatment. Patient is here today for her tendinous injury to the right index finger. She is doing well today. She states her pain has resolved. She has been attending occupational therapy which she feels has improved her symptoms. Her injury occurred on 07/17/2022. Social History Description Last Updated No recent change in diet 08/01/2022 Last Documented On 3 8:32AM ; [facility] Yes, current smoker. 08/01/2022 Last Documented On 3 8:32AM ; [facility], [facility] Caffeine use 07/06/2017 Last Documented On 3 8:32AM ; [facility], [facility] Current smoker 07/06/2017 Last Documented On 3 8:32AM ; [facility], [facility] Exercising regularly 07/06/2017 Last Documented On 3 8:32AM ; [facility], [facility] No recent change in diet 07/06/2017 Last Documented On 3 8:32AM ; [facility], [facility] Not using alcohol 07/06/2017 Last Documented On 3 8:32AM ; [facility], [facility] Not using drugs 07/06/2017 Last Documented On 3 8:32AM ; [facility], [facility] Smoking status Current every day smoker 07/06/2017 Last Documented On 3 8:32AM ; [facility], [facility] Tobacco use 07/06/2017 Last Documented On 3 8:32AM ; [facility], [facility] Procedures and Surgical History Includes: Procedures from this encounter Procedures Code Diagnosis Performing Provider Service L ocation Service Date intervention and counseling on cessation of tobacco use 4000F Last Documented On 3 8:32AM ; [facility], [facility] use of tobacco assessment performed 1000F Last Documented On 3 8:32AM ; [facility], [facility] 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 Includes: 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 addressed during this encounter Description Last Updated History of depression 08/01/2022 Last Documented On 3 8:32AM ; [facility], [facility] History of diabetes mellitus 08/01/2022 Last Documented On 3 8:32AM ; [facility], [facility] History of Heartburn / Acid Reflux 08/01 Last Documented On 3 8:32AM ; [facility], [facility] History of History of Blood Clots 2022 Last Documented On 3 8:32AM ; [facility], [facility] History of Hypertension 08/01/2022 Last Documented On 3 8:32AM ; [facility], [facility] History of Irregular Heartbeat 3 Last Documented On 3 8:32AM ; [facility] History of Thyroid Disease 08/01/2022 Last Documented On 3 8:32AM ; [facility], [facility] Facial Reconstruction ~Tonsilectomy 06/18 Last Documented On 3 8:32AM ; [facility], [facility] Intermittent hypertension 07/06/2017 Last Documented On 3 8:32AM ; [facility], [facility] Family History Includes: Family History addressed during this encounter Description Last Updated Diabetes mellitus 08/01/2022 Last Documented On 3 8:32AM ; [facility], [facility] Family history of systemic hypertension 08/01/2022 Last Documented On 3 8:32AM ; [facility] Paternal history of diabetes mellitus Last Documented On 3 8:32AM ; [facility] Review of Systems Includes: Review of [...] No thenar or intrinsic atrophy. Normal strength. Full flexion and extension of the fingers. Mental Status Includes: Mental Status from this encounter Description Anxiety Functional Status Includes: Functional Status from this encounter No Functional Status Recorded Physical Exam Includes: Physical Exam from this encounter Allergies Includes: Active Allergies Substance Type Reaction Onset Date Resolved Date Statu s Percocet Allergy 06/25/2017 Active Last Documented On 3 8:31AM ; [facility], [facility] Encounters Encounter Provider Location Date Check-In Time Check-Out Time Diagnosis WC FOLLOW UP/EST Kaleb Rose MD [facility] 09/20/19 23 8:31AM 8:45AM Insurance Includes: Active Insurance Policies Plan Name Member ID Group # Subscriber Relationship Effect rosangela Dates 1 - [facility] [employer] [id number] Arlen Friedman Self 07/17/2022 - Unknown 2 - [facility] [id number] Arlen Friedman Self 04/20/2017 - Unknown Clinical Notes Includes: Clinical Notes from this encounter * Progress note Date Encounter Last Documented by 09/19/2022 WC FOLLOW UP/EST Last documented on 09/19/2022; 9:28 AM, Kaleb Rose MD; [facility] Active Problems & Conditions - Joint [...] 6 - Yes, previous treatment. Patient is here today for her tendinous injury to the right index finger. She is doing well today. She states her pain has resolved. She has been attending occupational therapy which she feels has improved her symptoms. Her injury occurred on 07/17/2022. Current Medication - Amitriptyline HCl 10 MG [...] Tablet 90 days, 0 refills - Microgestin 1.5 1.5-30 MG-MCG Oral Tablet 63 days, 0 [...] No thenar or intrinsic atrophy. Normal strength. Full flexion and extension of the fingers. Physical Findings - Vitals taken 09/19/2022 08:36 am cb Height 64 in 60 - 75 Weight 180 lbs 98 - 183 Body Mass Index 30.9 kg/m2 Body Surface Area 1.9 m2 Standard Measurements: - Patient was overweight. Assessment possible tendon injury RIF Therapy - Intervention and counseling on cessation of tobacco use. Counseling/Education - Lose weight Plan Patient is doing well and feels her symptoms have resolved. We will release her to full duty work. We will see her back as needed. Practice Management Use of tobacco assessment performed. Care Team - MICHELLE Land - JOB ORDER CLERK Notes This dictation was done with voice recognition software and may contain errors and omissions. transcribed by Jeff Banegas
--- OUTSIDE RECORDS SUMMARY | 2024-08-09 12:20 | XMS_ITS ---
Care Plan - [facility] Created on: August 09, 2024 Arlen Friedman : 1995 Sex: Female Author Organization [facility] Address [address] [place] [address] Phone Care Team Providers Care Svp Of Digital Name Role Phone Ping Cai APRN Primary Care Provider [phone] Luc SNELL, Aquilino Hernandez [facility] [phone]
--- NOTE | 2024-08-09 12:32 | ED_ITS ---
<Statement entered by Christy Lindsay DO - 08/09/24 15:02> I was consulted by the MITA, and we discussed the complexity of the problems being addressed. I approved the treatment and management plan for this patient's care in the emergency department, thus performing a substantive portion of the medical decision making. Christy Lnidsay DO Discharge Plan Disposition Patient Disposition: Home, Self-Care Condition: Good Chief Complaint: Headache Prescriptions Prescriptions: No Action amoxicillin 500 mg tablet 500 mg PO TID 10 Days Qty: 30 0RF methylprednisolone 4 mg Tablets,Dose Pack 4 mg PO DIRECTED 6 Days Qty: 21 0RF Rx Instructions: Take 1 pack as directed for 6 days xcpqerzvrmbzwrh-ieshaflii-BB [Bromfed DM] 2-30-10 mg/5 mL Syrup 5 ml PO Q6H PRN (Reason: Cough) Qty: 240 0RF azithromycin [Zithromax] 250 mg tablet 250 mg PO UD DOSE PK Qty: 6 0RF Rx Instructions: Take two (2) tablets today, then one (1) tablet days #2 thru #5 methylprednisolone 4 mg Tablets,Dose Pack 4 mg PO DIRECTED 6 Days Qty: 21 0RF Rx Instructions: Take 1 pack as directed for 6 days pseudoephedrine HCl 30 mg tablet 30 mg PO Q6HP PRN (Reason: Congestion) Qty: 30 0RF fluconazole 150 mg tablet 150 mg PO ONCE Qty: 1 3RF atenolol 100 mg tablet 100 mg PO BID Patient Comments: TAKE 1 TABLET BY MOUTH TWICE DAILY amlodipine 5 mg tablet 5 mg PO DAILY metformin 1,000 mg tablet 1,000 mg PO BID Patient Comments: TAKE 1 TABLET BY MOUTH TWICE DAILY FOR 90 DAYS levothyroxine 150 mcg tablet 150 mcg PO DAILY Patient Comments: TAKE 1 TABLET BY MOUTH ONCE DAILY escitalopram oxalate 10 mg tablet 10 mg PO DAILY Patient Comments: TAKE 1 TABLET BY MOUTH ONCE DAILY duloxetine 60 mg capsule,delayed release(DR/EC) 60 mg PO DAILY Patient Comments: TAKE 1 CAPSULE BY MOUTH ONCE DAILY DO NOT CRUSH OR CHEW Ozempic 1 mg/dose (4 mg/3 mL) pen injector 1 mg SQ WEEKLY Patient Comments: INJECT 1 MG SUBCUTANEOUSLY ONCE A WEEK oseltamivir [Tamiflu] 75 mg capsule 75 mg PO BID 5 Days Qty: 10 0RF ciprofloxacin-dexamethasone 0.3-0.1 % drops,suspension 4 drp otic (ear) BID 7 Days Qty: 7.5 0RF Rx Instructions: in left ear as directed fluticasone propionate [Flonase Allergy Relief] 50 mcg/actuation spray,suspension 2 spray intranasal DAILY Qty: 16 0RF Rx Instructions: administer into each nostril daily Referrals Follow up/Referrals: Anita Faye [Primary Care Provider] - See instructions Activity Restrictions/Add. Instructions Additional Instructions/Restrictions: Please return to the emergency department any worsening signs or symptoms, please follow-up with PCP for management of your migraine headaches. Clinical Impressions Clinical Impression: Migraine with aura Stand Alone Forms Stand Alone Forms: Work/School Release Instructions Patient Instructions: DI for Migraine, DI for Headache Print Language Print Language: Togolese Discharge ED Provider: Christy Lindsay General Adult HPI General Chief complaint: Headache Stated complaint: migraine for 2 days Time Seen by Provider: 08/09/24 12:19 Mode of Arrival: Ambulatory Source of Information: Patient Description of Symptoms (Recalled from ER Triage Doc. by RN): pt has had a migraine for 48 hours. has been vomiting with it and blurred vision. History of Present Illness HPI narrative: 29-year-old female presents emergency department with migrainous type headache that started 48 hours ago, located on the top of my head , radiating to the back of the head, she admits to feeling lightheaded , she also admits to several episodes of nausea and vomiting, and some blurry vision , at times, she does not have a history of migrainous type headache, this headache is lasted longer than her typical headaches, however she does have family history of migrainous type headaches (mother), who is on topiramate for this. Patient denies any fever chills chest pain shortness of breath, denies any abdominal pain, denies any constipation, diarrhea, denies any upper or lower extremity weakness, denies any numbness tingling urinary bladder or bowel dysfunction, denies any real neck pain, denies any urinary type symptomatology. Other past medical history consistent with, hypertension, hyperlipidemia, chronic lower lumbar spine pain, type 2 diabetes, patient has utilized ibuprofen and Tylenol with little to no relief of her symptomatology, she is a current everyday smoker, denies any alcohol or drug use initial triage vitals are unremarkable. Onset (ago): day(s) Related Data Home Medications ?Medication ?Instructions ?Recorded ?Confirmed amlodipine 5 mg tablet 5 mg PO DAILY 05/02/24 05/23/24 atenolol 100 mg tablet 100 mg PO BID 05/02/24 05/23/24 duloxetine 60 mg capsule,delayed 60 mg PO DAILY 05/02/24 05/23/24 release escitalopram oxalate 10 mg tablet 10 mg PO DAILY 05/02/24 05/23/24 levothyroxine 150 mcg tablet 150 mcg PO DAILY 05/02/24 05/23/24 metformin 1,000 mg tablet 1,000 mg PO BID 05/02/24 05/23/24 semaglutide 1 mg/dose (4 mg/3 mL) 1 mg SQ WEEKLY 05/02/24 05/23/24 subcutaneous pen injector (Ozempic) Previous Rx's ?Medication ?Instructions ?Recorded oseltamivir 75 mg capsule (Tamiflu) 75 mg PO BID 5 days #10 caps 05/02/24 amoxicillin 500 mg tablet 500 mg PO TID 10 days #30 tabs 05/06/24 idxlyozehogyeiz-qbdcxjzsnuiqhyg-NN 5 ml PO Q6H PRN Cough #240 mL 05/06/24 2 mg-30 mg-10 mg/5 mL oral syrup (Bromfed DM) methylprednisolone 4 mg tablets in 4 mg PO DIRECTED 6 days #21 tabs 05/06/24 a dose pack ciprofloxacin 0.3 %-dexamethasone 4 drp otic (ear) BID 7 days #7.5 mL 05/17/24 0.1 % ear drops,suspension fluticasone propionate 50 2 spray intranasal DAILY #16 grams 05/17/24 mcg/actuation nasal spray,suspension (Flonase Allergy Relief) azithromycin 250 mg tablet 250 mg PO UD DOSE PK #6 tabs 05/23/24 (Zithromax) fluconazole 150 mg tablet 150 mg PO ONCE 1 dose #1 tab 05/23/24 methylprednisolone 4 mg tablets in 4 mg PO DIRECTED 6 days #21 tabs 05/23/24 a dose pack pseudoephedrine HCl 30 mg tablet 30 mg PO Q6HP PRN Congestion #30 05/23/24 tabs Allergies Allergy/AdvReac Type Severity Reaction Status Date / Time No Known Allergies Allergy Verified 05/23/24 19:38 PFSH [facility] Disclaimer: The information contained in this section may have been updated after the patient was seen, as this information can be updated by other users. 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) History of carpal tunnel release History of facial fracture repair History of left knee surgery History of surgical removal of ganglion cyst History of tonsillectomy and adenoidectomy Social History Smoking Status: Current every day smoker alcohol intake: never current occupational status: employed Travel in the last 8 weeks: None Have you lived/traveled outside US in past 30 days?: No Contact w/someone who lives/traveled outside US past 30 days?: No Exposure to someone with infectious disease in past 14 days?: No Do you have a fever (greater than 100.4 F or 38 C)?: No Have you tested positive for COVID-19: No Exposed to someone with COVID-19 in past 14 days?: No Do you have a sore throat?: No Do you have a cough?: No Do you have any weakness?: No Do you have any diarrhea?: No Are you experiencing any unusual bleeding?: No Do you have any muscle aches/pain?: No Do you have any abdominal pain?: No Are you experiencing loss of taste or smell?: No Other 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 Have you received the Flu Vaccine for this season: No Have you received the Pneumonia Vaccine: Yes ROS Obtained: Yes All systems reviewed & no additional complaints except as documented Physical Exam General General appearance: alert and in no apparent distress Head Head exam: atraumatic and normocephalic Eye Eye exam: Present PERRL and EOMI ENT ENT exam: Present mucous membranes moist Neck Neck exam: Present normal inspection Chest Chest inspection: Present normal inspection and symmetric chest wall rise Respiratory Respiratory exam: Present normal lung sounds bilaterally; Absent respiratory distress Cardiovascular Cardiovascular exam: Present regular rate and normal rhythm Abdominal Exam Abdominal exam: Present soft; Absent tenderness Extremities Exam Extremities exam: Present normal inspection Neurological Exam Neurological exam: Present alert and oriented X3 Psychiatric Psychiatric exam: Present normal affect Skin Skin exam: Present warm and dry Medical Decision Making Medical Records Medical records reviewed: Yes I reviewed the patient's medical records. Screening: Per USPSTF and CDC recommendations, given the prevalence of disease in our region, it is our hospital?s policy to screen for HIV and viral Hepatitis for all patients aged 18 and over and those with ongoing risk factors. John Inquiry Pt receiving controlled substance: No John was queried for this patient: No Vital Signs: 08/09/24 12:20 Temperature 98.2 F Temperature Source Oral Pulse Rate [Right] 109 H Respiratory Rate 18 Blood Pressure [Right Arm] 123/89 Blood Pressure Mean [Right Arm] 100 02 Sat by Pulse Oximetry 98 Oxygen Delivery Method Room Air Lab Data Lab Results 08/09/24 12:25: Serum HCG, Qual Negative Orders (Tests/Meds): ED MEDICATIONS Discontinued Medications Generic Name Dose Route Start Last Admin Trade Name Freq PRN Reason Stop Dose Admin Dexamethasone Sodium Phosphate 10 mg 08/09/24 12:33 08/09/24 12:41 Dexamethasone 4mg/Ml 1ml Vial IV 08/09/24 12:34 10 mg ONCE ONE Administration Diphenhydramine HCl 25 mg 08/09/24 12:33 08/09/24 12:41 Diphenhydramine 50mg/Ml Vial IV 08/09/24 12:34 25 mg ONCE ONE Administration Sodium Chloride 1,000 mls @ 999 mls/hr 08/09/24 12:34 08/09/24 12:41 Sod Chlor 0.9% 1000ml Bag IV 08/09/24 13:34 999 mls/hr .Q1H1M ONE Administration Ketorolac Tromethamine 15 mg 08/09/24 12:33 08/09/24 12:41 Ketorolac 30mg/Ml Vial IV 08/09/24 12:34 15 mg ONCE ONE Administration Prochlorperazine Edisylate 10 mg 08/09/24 12:33 08/09/24 12:41 Prochlorperazine 10mg/2ml Vial IV 08/09/24 12:34 10 mg ONCE ONE Administration ORDERS Category Date Time Status CT head/brain wo con Stat Cat Scan 08/09/24 12:33 Taken HIV Combo Stat Lab 08/09/24 12:25 Received Hepatitis C Ab Qual. W/ RFX Stat Lab 08/09/24 12:25 Received Serum [HCG Qualitative, Serum] Stat Lab 08/09/24 12:25 Completed Urinalysis and Microscopic Stat Lab 08/09/24 13:17 Ordered Urine , HCG Qual. Stat Lab 08/09/24 13:17 Ordered Medical Decision Narrative: 29-year-old female presents emergency department with a migrainous type headache for the last 48 hours, differential diagnosis, including but not limited to migraine with aura, migraine without aura, tension headache, cluster headache, ophthalmologic migraine among others. I discussed with case with attending physician Dr. Lindsay Will give 10 mg IV Compazine, 25 mg IV Benadryl, 10 mg IV Decadron, 50 mg IV Toradol for migrainous type cocktail, will give 1 L IV NS, will obtain urinalysis and urine hCG. hCG negative Preliminary repeat the patient's CT head without contrast, shows no acute intracranial abnormality, I reviewed and interpreted the CT head myself, reexamination of the patient at approximately 2:30 PM, patient would like to be discharged home to self-care, migraine is improved, no acute symptomatology, I did offer to provide prescription for abortive therapy to include sumatriptan, patient denied at this time would like to pursue outpatient treatment for this. Shared she is making utilized, patient and family voiced understand agree with current treatment plan/discharge plan. Strict ED return precautions given. Patient follow-up PCP as directed. Will forego urinalysis. As patient has not have any urinary type symptomatology. Critical Care Critical Care Time Critical Care Time: No
--- NOTE | 2024-08-09 12:33 | CT_ITS ---
FINAL REPORT TECHNIQUE: Axial CT images were performed through the head. Coronal and sagittal reformatted images were submitted. This study was performed with techniques to keep radiation doses as low as reasonably achievable (ALARA). Individualized dose reduction techniques using automated exposure control or adjustment of mA and/or kV according to the patient's size were employed. CLINICAL HISTORY: headache, N, V, visual disturbance COMPARISON: 08/13/2022 FINDINGS: The ventricles are normal in size. There is no evidence of hemorrhage. There is no mass or edema identified. There is no abnormal extra-axial fluid seen. There is mucoperiosteal thickening in the right maxillary sinus again noted, although improved since the prior exam. IMPRESSION: No acute intracranial process. Reviewed, Interpreted and Dictated by Mark Diggs MD Transcribed by Samantha Almazan Authenticated and [facility]
[2024-08-09] MEDS: DEXAMETHASONE 4MG/ML 1ML VIAL 10 MG IV (12:41)
[2024-08-09] MEDS: 0.9 % SODIUM CHLORIDE 1000ML 1,000 ML 999 ML IV (12:41)
[2024-08-09] MEDS: diphenhydrAMINE 50MG/ML VIAL 25 MG IV (12:41)
[2024-08-09] MEDS: KETOROLAC 30MG/ML VIAL 15 MG IV (12:41)
[2024-08-09] MEDS: PROCHLORPERAZINE 10MG/2ML VIAL 10 MG IV (12:41)
[2024-08-09 13:59] LABS: HCG Qualitative, Serum Negative (Negative)
--- NOTE | 2024-08-09 14:01 | PC.NURSE ---
pt to ct scan via wheelchair
--- NOTE | 2024-08-09 14:06 | PC.NURSE ---
pt returned from ct scan.
[2024-08-09 14:40] VITALS: BP 119/83; PULSE 102; RESP 16; TEMP 36.9
[2024-08-09 14:40] LABS: Hepatitis C Ab Qual. W/ RFX NEGATIVE (Negative)
[2024-08-11 11:00] LABS: HIV Combo NEGATIVE (Negative)
== END 2024-08-09 14:44 | disposition home or self-care (01) ==
PROVIDERS: Physician Assistant; Emergency Provider Emergency Medicine; PCP Nurse Practitioner Family
DX: G43.109 Migraine with aura, not intractable, without status migrainosus (principal); R11.2 Nausea with vomiting, unspecified; Z11.59 Encounter for screening for other viral diseases; Z11.4 Encounter for screening for human immunodeficiency virus [HIV]
CPT/HCPCS: 70450; 84703; 86803; 87389; 96361; 96374; 96375; 99284; J0780; J1100; J1200; J1885; J7030

== ENCOUNTER 2024-09-19 16:06 | Emergency (ER) | payer SELFPAY ==
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
[2024-09-19 16:18] VITALS: BP 119/88; PULSE 95; RESP 19; TEMP 36.7; O2SAT 98; BMI 26.6
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
[2024-09-19 16:40] LABS: Basophils # 0.1 K/mm3 (0-0.2); Basophils % 1.2 % (0.1-2.0); Eosinophils # 1.4 Kmm3 (0.0-0.4); Hematocrit 40.8 % (37.0-47.0); Hemoglobin 14.5 g/dL (12.2-16.2); Immature Granulocytes # 0.03 10^3uL; Immature Granulocytes % 0.3 %; Lymphocytes # 3.7 K/mm3 (0.7-4.5); Lymphocytes % 31.4 % (10-50); Mean Corpuscular HGB Conc 35.5 g/dL (31.8-35.4); Mean Corpuscular Hemoglobin 30.9 pg (27.0-31.2); Mean Platelet Volume 9.4 fl (7.4-10.4); Monocytes # 0.8 K/mm3 (0.1-1.0); Monocytes % 6.3 % (1.7-9.3); Neutrophils # 5.8 K/mm3 (1.8-7.8); Neutrophils % 48.8 % (37.0-80.0); Nucleated Red Blood Cells # 0 10^3/uL; Nucleated Red Blood Cells % 0 %; Platelet Count 311 K/mm3 (142-424); Red Blood Count 4.69 M/mm3 (4.20-5.40); Red Cell Distribution Width 11.8 % (11.5-17.5); Red Cell Distribution Width-SD 37.6 fL; White Blood Count 11.8 K/mm3 (4.8-10.8)
[2024-09-19 16:50] LABS: Alanine Aminotransferase 24 U/L (12-78); Albumin Level 4.6 g/dl (3.5-5.0); Albumin/Globulin Ratio 1.5 (1.1-1.8); Alkaline Phosphatase 63 U/L (38-126); Anion Gap 9.9 mEq/L (5-15); Aspartate Amino Transferase 22 U/L (14-36); Bilirubin,Total 0.5 mg/dl (0.2-1.3); Blood Urea Nitrogen 9 mg/dl (7-17); Calcium 9.4 mg/dl (8.4-10.2); Carbon Dioxide 28 mmol/L (22.0-30.0); Chloride 105 mmol/L (98-107); Creatinine Clearance Estimated 226 mL/min (50-200); Estimated Glomerular Filt Rate 186 ml/min (>60); GFR (African American) 225 ML/MIN (>60); Globulin 3.1 g/dL (1.3-3.2); Glucose 121 mg/dl (74-100); Potassium 3.9 mmoL/L (3.5-5.1); Sodium 139 mmol/L (136-145); Total Protein,Serum 7.7 g/dl (6.3-8.2)
[2024-09-19 17:02] LABS: HCG Qualitative, Serum Negative (Negative)
[2024-09-19] MEDS: METHOCARBAMOL 500MG TABLET 1500 MG PO (17:16)
[2024-09-19] MEDS: ONDANSETRON 4MG/2ML VIAL 4 MG IV (17:18)
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
[2024-09-19] MEDS: KETOROLAC 30MG/ML VIAL 15 MG IV (17:19)
[2024-09-19] MEDS: MORPHINE 4MG/ML SYRINGE 4 MG IV (17:19)
[2024-09-19] MEDS: IOPAMIDOL-370 (76%);100ML BOTTLE 80 ML IV (17:26)
[2024-09-19] MEDS: SODIUM CHLORIDE 0.9% 10ML SYR (RAD ONLY) 10 ML IV (17:26)
[2024-09-19] MEDS: 0.9 % SODIUM CHLORIDE 50 ML VIAL IV (17:26)
[2024-09-19 18:18] VITALS: BP 125/88; PULSE 81; RESP 19; TEMP 37.1; O2SAT 98
== END 2024-09-19 18:19 | disposition home or self-care (01) ==
PROVIDERS: Emergency Provider Emergency Medicine; PCP Nurse Practitioner Family
DX: S16.1XXA Strain of muscle, fascia and tendon at neck level, initial encounter (principal); R11.2 Nausea with vomiting, unspecified; V47.5XXA Car driver injured in collision with fixed or stationary object in traffic accident, initial encounter; Y92.410 Unspecified street and highway as the place of occurrence of the external cause
CPT/HCPCS: 70450; 70496; 70498; 72125; 80053; 84703; 85025; 96374; 96375; 99285; J1885; J2270; J2405; Q9967

== ENCOUNTER 2024-10-31 15:23 | Emergency (ER) | payer MEDICAID, SELFPAY ==
[2024-10-31 15:25] VITALS: BP 120/86; PULSE 88; RESP 18; TEMP 36.8; O2SAT 98; BMI 26.6
--- NOTE | 2024-10-31 15:30 | PC.NURSE ---
FSBS 144, Rn notified
--- OUTSIDE RECORDS SUMMARY | 2024-10-31 16:25 | XMS_ITS | Data Portability ---
Author Organization [facility] - Jarrett arzate MD, Main Office Address [address] [place] [address], [facility] [place] [address] Care Team Providers Care Clinical Lab Clerk Name Role Phone EDER LI Fur Dressing Supervisor [phone] Assessment No assessment recorded. Plan of Treatment Reminders Order Date Submit Date Provider Last Modified By Organization Details Last Modified Time Details Appointments None record ed. Lab None record ed. Referral None record ed. Procedures None record ed. Surgeries None record ed. Imaging None record ed. Medication Orders None record ed. Patient TargetsNo targets recorded. Patient Instructions Encounter Date Encounter Id Patient Instructions Last Modified By Organization Details Last Modified Time 05/23/2020 [id number] carpal tunnel syndrome: care instructions Not available 05/23/2020 10:36:47 carpal tunnel syndrome: exercises Not available 05/23/2020 10:36:47 Reason for Referral None Reported. Results Created Date Observation Date Name Description Value Unit Range Abnormal Flag Note LastModifiedBy Organization Detail LastModifiedTime 05/23/19 21 05/23/2020 elect romyo gram + nerve condu ction study No observ ation record ed. BARCODE Not Available 2020 10:28:30 Result Notes None recorded. Problems No Known Problems Procedures Surgical History Date Name Laterality Status Provider Name and Address Organization Details Recorded Time 05/23/2020 NCV/EMG completed Riley Ashby MD 05/23/2020 10:17:47 Imaging Results None recorded. Procedure Notes None recorded. Medical Equipment None Reported. Allergies No known drug allergies Medications Name Sig Start Date Stop Date Status Note LastModified by Organization Details LastModified Time cyclobenzaprin e 10 mg tablet TAKE 1 TABLET BY MOUTH TWICE DAILY NEEDED active Not Available Not Available No t Available metformin 500 mg tablet TAKE 1 TABLET BY MOUTH TWICE DAILY active Not Available Not Available No t Available fluconazole 150 mg tablet active Not Available Not Availabl e Not Available sulfamethoxazo le 800 mg-trimethopri m 160 mg tablet active Not Available Not Available Not Available tramadol 50 mg tablet TAKE 1 TABLET BY MOUTH THREE TIMES DAILY active Not Available Not Available No t Available Euthyrox 125 mcg tablet TAKE 1 TABLET BY MOUTH ONCE DAILY DIRECTED active Not Available Not Available No t Available Euthyrox 75 mcg tablet TAKE 1 TABLET BY MOUTH ONCE DAILY IN THE MORNING ON AN EMPTY STOMACH 30 TO 60 MINUTES BEFORE MEAL active Not Available Not Available No t Available dicyclomine 20 mg tablet active Not Available Not Available No t Available hydrocodone 7.5 mg-acetaminoph en 325 mg tablet TAKE 1 TABLET BY MOUTH EVERY 4 TO 6 HOURS NEEDED FOR PAIN active Not Available Not Available No t Available progesterone micronized 200 mg capsule TAKE 1 CAPSULE BY MOUTH ONCE DAILY active Not Available Not Available No t Available Euthyrox 50 mcg tablet TAKE 1 TABLET BY MOUTH ONCE DAILY active Not Available Not Available No t Available mupirocin 2 % topical ointment active Not Available Not Available Not Available letrozole 2.5 mg tablet active Not Available Not Available No t Available hydroxyzine HCl 10 mg tablet TAKE 1 TABLET BY MOUTH THREE TIMES DAILY NEEDED active Not Available Not Available No t Available atenolol 50 mg tablet TAKE 1 TABLET BY MOUTH ONCE DAILY active Not Available Not Available No t Available escitalopram 10 mg tablet TAKE 1 TABLET BY MOUTH ONCE DAILY active Not Available Not Available No t Available duloxetine 30 mg capsule,delaye d release TAKE 1 CAPSULE BY MOUTH ONCE DAILY active Not Available Not Available No t Available duloxetine 60 mg capsule,delaye d release TAKE 1 CAPSULE BY MOUTH ONCE DAILY active Not Available Not Available No t Available Vitals None Recorded Social History None recorded. Functional Status None recorded. Mental Status None recorded. Family History Nothing Reported. 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 No medical history recorded. Gynecological HistoryNo gynecological history recorded. Obstetrics History GPAL:G 0 P 0 0 0 0 Past Encounters Encounter ID Performer Location Encounter Start Date Encounter Closed Date Diagnosis/Indication Diagnosis SNOMED-CT Code Diagnosis ICD10 Code Diagnosis Note [id number] Jarrett Ashby MD Main Office [address] [facility] [address] [place] [address] 05/23/2020 09:24:36 05/23/2020 10:22:22 Carpal tunnel syndrome of right wrist [id number] 30869 G56.01 Mild right CTS. Health Concerns Section Related Observation LastModified by Organization Detai ls LastModified Time None Recorded Concern Status LastModified by Organization Details LastModified Time None Recorded Advance Directives Directive None Recorded Payers Insurance Date Sequence Insurance Name Policy Number Policy Alves Covered Member ID Alves Member ID Guarantor Name 04/22/2022 CHUYITA Friedman 04/22/2022 [facility] Arlen Friedman OBGyn Episode No OBEpisode recorded.
--- OUTSIDE RECORDS SUMMARY | 2024-10-31 16:25 | XMS_ITS | Encounter Summary ---
Author Organization Healthcare Address [address] [place] [address] Care Team Providers Care Living Skills Advisor Name Role Phone Anita Faye APRN Primary Care Provider [phone] Reason for Visit * Reason Comments Med Refill Encounter Details Date Type Department Care Team (Late st Contact Info) Description 09/15/2024 Refill [facility] [address] [place] [address] Anita Faye APRN [address] [place] [address] Muscle spasm Social History Tobacco Use Types Packs/Day Years Used Date Smoking Tobacco: Some Days Cigarettes 1 14.5 Started: 2010 Passive Smoke Exposure: Current Smokeless Tobacco: Current Comments:vape Alcohol Use Standard Drinks/Week Comments Never 0 (1 standard drink = 0.6 oz pur e alcohol) Humiliation, Afraid, Rape, and Kick questionnair e Answer Date Recorded Within the last year, have y ou been afraid of your partner or ex-partner? No 06/22/2024 Within the last year, have y ou been humiliated or emotionally abused in other ways by your partner or ex-partner? No Within the last year, have y ou been kicked, hit, slapped, or otherwise physically hurt by your partner or ex-partner? No 06/22/2024 Within the last year, have y ou been raped or forced to have any kind of sexual activity by your partner or ex-partner? No 06/22/2024 PHQ-2 Answer Date Recorded Patient Health Questionnaire-2 Score 6 06/22/2024 Hunger Vital Sign Answer Date Recorded Within the past 12 months, y ou worried that your food would run out before you got the money to buy more. Never true 06/23/19 Within the past 12 months, t he food you bought just didn't last and you didn't have money to get more. Never true 06/22/2024 PRAPARE - Transportation Answer Date Re corded In the past 12 months, has l ack of transportation kept you from medical appointments or from getting medications? No 08/2024 In the past 12 months, has l ack of transportation kept you from meetings, work, or from getting things needed for daily living? No 06/22/2024 Housing Stability Vital Sign Answer Juaquin e Recorded In the last 12 months, was t here a time when you were not able to pay the mortgage or rent on time? Yes 12/16/2023 In the last 12 months, how many places have you lived? 1 12/16/2023 In the last 12 months, was t here a time when you did not have a steady place to sleep or slept in a long term (including now)? No 12/16/2023 PHQ-9 Answer Date Recorded Patient Health Questionnaire-9 Score 22 06/22/2024 Housing Stability Vital Sign Answer Juaquin e Recorded In the last 12 months, was t here a time when you were not able to pay the mortgage or rent on time? No 06/22/2024 In the past 12 months, how m any times have you moved where you were living? 0 06/22/2024 At any time in the past 12 m [facility], were you homeless or living in a long term (including now)? No 06/22/2024 Utilities Answer Date Recorded In the past 12 months has th e electric, gas, oil, or water company threatened to shut off services in your home? No 06/22/2024 PHQ-2A Answer Date Recorded Patient Health Questionnaire-2 Score 0 03/18/2023 Comments No Sex and Gender Information Value Date Recorded Sex Assigned at Female 12/13/2023 12:44 PM EDT Legal Sex Female 8:53 PM EDT Gender Identity Female 12/13/2023 12:44 PM EDT Sexual Orientation Not on file documented as of this encounter Miscellaneous Notes * Telephone Encounter - Comfort Byrne, Lana - 09/19/2024 10:11 AM EDT 1 medication(s) has been approved per protocol. documented in this encounter Plan of Treatment Not on file documented as of this encounter Visit Diagnoses Diagnosis Muscle spasm Spasm of muscle documented in this encounter Additional Health Concerns Assessment Noted Time PHQ-9 Depression Total Score: 22 025 8:53 AM EST A fall risk assessment has been complete d for the patient 12/17/2023 3:21 PM EDT A Body Mass Index follow-up plan has been documented for the patient 06/22/2024 9:53 AM EST documented as of this encounter Care Teams Living Skills Advisor Relationship Specialty Start Date End Date Anita Faye APRN [address] [place] [phone] PCP - General Family Medicine 07/09/23 documented as of this encounter
--- OUTSIDE RECORDS SUMMARY | 2024-10-31 16:25 | XMS_ITS | Encounter Summary ---
Author Organization Healthcare Address [address] [place] [address] Care Team Providers Care Access Service Representative Name Role Phone Anita Faye APRN Primary Care Provider [phone] Reason for Visit * Reason Comments Med Refill Encounter Details Date Type Department Care Team (Late st Contact Info) Description 07/12/2023 Refill Obstetrics & Gynecology [address] [place] [address] Ruthie Foote APRN, DNP [address] [place] [address] Family planning education, guidance, and counseling Social History Tobacco Use Types Packs/Day Years [...] afraid of your partner or ex-partner? No 07/09/2023 Within the last year, have y ou been humiliated or emotionally abused in other ways by your partner or ex-partner? No Within the last year, have y ou been kicked, hit, slapped, or otherwise physically hurt by your partner or ex-partner? No 07/09/2023 Within the last year, have y ou been raped or forced to have any kind of sexual activity by your partner or ex-partner? No 07/09/2023 PHQ-2 Answer Date Recorded Patient Health Questionnaire-2 Score 0 07/09/2023 Hunger Vital Sign Answer Date Recorded Within the past 12 months, y ou worried that your food would run out before you got the money to buy more. Patient declined Within the past 12 months, t he food you bought just didn't last and you didn't have money to get more. Patient declined PRAPARE - Transportation Answer Date Re corded In the past 12 months, has l ack of transportation kept you from medical appointments or from getting medications? Patient declined 07/09/2023 In the past 12 months, has l ack of transportation kept you from meetings, work, or from getting things needed for daily living? Patient declined 07/09/2023 Housing Stability Vital Sign Answer Juaquin e Recorded In the last 12 months, was t here a time when you were not able to pay the mortgage or rent on time? Patient refused 07/09/19 24 Number of Places Lived in the Last Year Not on f ile 07/09/2023 In the last 12 months, was t here a time when you did not have a steady place to sleep or slept in a longterm (including now)? Patient refused 07/09/2023 Utilities Answer Date Recorded In the past 12 months has th e electric, gas, oil, or water company threatened to shut off services in your home? Patient refused 07/09/2023 PHQ-2A Answer Date Recorded Patient Health Questionnaire-2 Score 0 03/18/2023 Comments No Sex and Gender Information Value Date Recorded Sex Assigned at Female 12/13/2023 12:44 PM EDT Legal Sex Female 8:53 PM EDT Gender Identity Female 12/13/2023 12:44 PM EDT Sexual Orientation Not on file documented as of this encounter Plan of Treatment Not on file documented as of this encounter Visit Diagnoses Diagnosis Family planning education, guidance, and counseling Other general counseling and advice for contraceptive management documented in this encounter Additional Health Concerns Assessment Noted Time A fall risk assessment has been complete d for the patient 05/06/2023 9:52 AM EST A Body Mass Index follow-up plan has been documented for the patient 07/09/2023 8:54 AM EDT documented as of this encounter Care Teams Access Service Representative Relationship Specialty Start Date End Date Anita Faye DOOR CLOSER [address] [place] [address] PCP - General Family Medicine 07/09/23 documented as of this encounter
--- OUTSIDE RECORDS SUMMARY | 2024-10-31 16:25 | XMS_ITS | Clinical Summary ---
Author Organization Healthcare Address [address] [place] [address] Care Team Providers Care Orbitread Operator Name Role Phone YunierAnita TAXICAB DISPATCHER Primary Care Provider Allergies Active Allergy Reactions Criticality Noted Date Comments Oxycodone-Acetaminophen Hives Medium 09/29/2014 Medications Blood Glucose Monitoring Suppl (Accu-Chek Alicia Plus) w/Device kitIndications:Ty pe 2 diabetes mellitus with hyperglycemia, without long-term current use of insulin (CMS/HCC) 1 Bag 2 (two) times a day. 1 kit 021 Active nicotine (Nicoderm CQ) 21 MG/24HR patchIndications: Encounter for smoking cessation counseling Place 1 patch on the skin 1 (one) time each day at the same time. 30 patch 1 024 Active lidocaine (Lidoderm) 5 % patch Apply 1 patch topically daily. Remove & discard patch within 12 hours or as directed by MD. Active levothyroxine (Synthroid, Levoxyl) 150 MCG tabletIndications :Adult hypothyroidism Take 1 tablet by mouth once daily 90 tablet 2 024 Active ondansetron ODT (Zofran-ODT) 8 MG disintegrating tablet DISSOLVE 1 TABLET IN MOUTH EVERY 8 HOURS NEEDED FOR NAUSEA FOR VOMITING 20 tablet 025 Active metFORMIN (Glucophage) 1000 MG tabletIndications :Type 2 diabetes mellitus without complication, without long-term current use of insulin Take 1 tablet (1,000 mg) by mouth 2 (two) times a day. 180 tablet 3 025 Active atenolol (Tenormin) 100 MG tabletIndications :Essential hypertension Take 1 tablet (100 mg) by mouth 2 (two) times a day. 180 tablet 3 025 2025 Active escitalopram (Lexapro) 20 MG tabletIndications :Anxiety and depression Take 1 tablet (20 mg) by mouth daily. 90 tablet 3 025 2025 Active amLODIPine (Norvasc) 5 MG tabletIndications :Primary hypertension Take 1 tablet (5 mg) by mouth daily. 90 tablet 3 025 2025 Active DULoxetine (Cymbalta) [address] capsuleIndication s:Anxiety and depression Take 1 capsule (60 mg) by mouth daily. DO NOT CRUSH OR CHEW 90 capsule 2 Active traMADol (Ultram) 50 MG tabletIndications :Lumbar back pain Take 1 tablet (50 mg) by mouth every 6 hours as needed for severe pain for up to 42 doses. 21 tablet 1 Active cyclobenzaprine (Flexeril) 10 MG tabletIndications :Muscle spasm Take 1 tablet by mouth 2 times a day as needed for muscle spasms. 60 tablet 025 Active Ozempic, 1 MG/DOSE, 4 MG/3ML solution pen-injectorIndic ations:Type 2 diabetes mellitus without complication, without long-term current use of insulin INJECT 1MG SUBCUTANEOUSLY ONCE A WEEK 3 mL 025 Active hydrOXYzine HCl (Atarax) 10 MG tabletIndications :Generalized anxiety disorder Take 1 tablet by mouth 3 times a day as needed for anxiety. 90 tablet 1 025 Active Ozempic, 1 MG/DOSE, 4 MG/3ML solution pen-injectorIndic ations:Type 2 diabetes mellitus without complication, without long-term current use of insulin Inject 1 mg as directed 1 (one) time per week. 3 mL 2 025 2024 Discontinued hydrOXYzine HCl (Atarax) 10 MG tabletIndications :Generalized anxiety disorder Take 1 tablet (10 mg) by mouth 3 (three) times a day as needed for anxiety. 90 tablet 1 025 2024 Discontinued Active Problems Problem Noted Date Diagnosed Date Viral infection, unspecified 03/27/2023 Hyperlipidemia, unspecified 03/18/2023 Pure hyperglyceridemia 03/18/2023 Atypical squamous cells shelley ot exclude high grade squamous intraepithelial lesion on cytologic smear of cervix (ASC-H) 03/06/2023 Inflammatory disease of cervix uteri 03/06/2023 Concussion without loss of consciousness 023 02/25/2023 Diabetes mellitus 02/25/2023 02/25/2023 Fall 02/25/2023 02/25/2023 Foot fracture, left 02/25/2023 02/25/2023 Heart murmur 02/25/2023 02/25/2023 Lumbar back sprain 02/25/2023 02/25/2023 Nausea 02/25/2023 Chest pain, unspecified 02/09/2023 Precordial pain 02/09/2023 Shortness of breath 02/09/2023 Tachycardia, unspecified 02/09/2023 Abnormal electrocardiogram (ECG) (EKG) Dyspnea, unspecified 10/13/2022 Pain in left shoulder 09/16/2022 Pain in left wrist 09/16/2022 Other muscle spasm 08/15/2022 Generalized anxiety disorder 01/13/2022 Major depressive disorder, recurrent, moderate 0 01/13/2022 Type 2 diabetes mellitus wit hout complication, without long-term current use of insulin 11/03/2019 Hypothyroidism 11/03/2019 IBS (irritable bowel syndrome) 11/03/2019 Persistent headaches 10/18/2019 Restless legs syndrome (RLS) 06/04/2018 Anxiety and depression 05/22/2015 Hypertension 09/29/2014 Encounters Date Type Department Care Team Description 10/08/2024 Refill [facility] [address] [place] [address] Anita Faye APRN Generalized anxiety disorder 10/01/2024 Refill [facility] [address] [place] [address] Anita Faye APRN Type 2 diabetes mellitus without complication, without long-term current use of insulin 09/15/2024 Refill [facility] [address] [place] [address] Anita Faye APRN Muscle spasm from Last 3 Months Immunizations Immunization Administration Dates Next Due Hep A, Adult 12/08/2012 Influenza, injectable, quadrivalent 12/23/2017,0 12/31/2016 Influenza, injectable, quadrivalent, preservativ e free 03/18/2023,02/01/2019 Influenza, live, intranasal 12/08/2012 Meningococcal MCV4O 12/08/2012 PPD Skin Test (TB Skin Test) 11/17/2017,10/28/19 17 Coin COVID-19 Vaccine (Purple Cap) 12 + 01/09/2021,12/18/2020 Tdap 07/18/2022,12/08/2012 Family History 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 Relation Name Comments Hypertension Father Liver cancer Maternal Grandfather Lupus Mother Relation Name Status Comments Father Maternal Grandfather Mother Social History Tobacco Use Types Packs/Day Years Used Date Smoking Tobacco: Some Days Cigarettes 1 14.5 Started: 2010 Passive Smoke Exposure: Current Smokeless Tobacco: Current Tobacco Cessation:Ready to Q uit: Not Asked; Counseling Given: Not Answered Comments:vape Alcohol Use Standard Drinks/Week Comments Never [...] money to buy more. Never true 06/23/19 25 Within the past 12 months, t he [...] place to sleep or slept in a detention (including now)? No 12/16/2023 PHQ-9 Answer Date [...] any time in the past 12 m [facility], were you homeless or living in a detention (including now)? No 06/22/2024 Utilities Answer Date [...] PM EDT Sexual Orientation Not on file Last Filed Vital Signs Vital Sign Reading Time Taken Comments Blood Pressure 112/80 06/22/2024 8:52 AM EST Pulse 83 06/22/2024 8:52 AM EST Temperature 36.6 C (97.9 F) 06/22/2024 8:52 AM EST Respiratory Rate 14 12/17/2023 1:10 PM EDT Oxygen Saturation 96% 06/22/2024 8:52 AM EST Inhaled Oxygen Concentration - - Weight 77.5 kg (170 lb 13.7 oz) 06/22/2024 8:52 AM EST Height 162.6 cm (5' 4 ) 06/22/2024 8:52 AM EST Body Mass Index 29.33 06/22/2024 8:52 AM EST Plan of Treatment Health Maintenance Due Date Last Done Comments [facility]-Infant/Child/Adol SDOH Screenings 1993 Diabetes: Dental Exam 2003 HPV Vaccines (1 - 3-dose series) 02/21/2008 [facility]-Hepatitis B Vaccines (1 of 3 - 19+ 3-dose series) 02/21/2012 [facility]-Pneumococcal Vaccine: Pediatrics (0 to 5 Years) and At-Risk Patients (6 to 49 Years) (1 of 2 - PCV) 02/21/2012 [facility]-Varicella Vaccines (1 of 2 - 13+ 2-dose series) 01/05/2013 [facility]-ADTLS-29 Vaccine (3 - Pfizer risk series) 02/06/2021 01/09/2021, 12/18/2020 [facility]-Diabetes: Hemoglobin A1C 09/21/2024 06/22/2024, 12/17/2023, 05/06/2023, Additional history exists [facility]-Influenza Vaccine (#1) 12/19/202403/18, 02/01/2019, 12/23/2017, Additional history exists [facility]- SDOH Screenings 12/23/2024 [facility]-Adult SDOH Screenings 12/23/2024 06/22/2024 [facility]-Depression Screening 06/22/2025 06/22/2024, 03/0 08/2024 [facility]-Pap Smear 12/16/2026 12/17/2023, 10/15/2022 [facility]-Cervical Cancer Screening 12/16/2028 [facility]-HPV/Cotest 12/16/2028 12/17/2023, 10/15/2022 [facility]-DTaP,Tdap,and Td Vaccines (3 - Td or Tdap) 07/18/2032 07/18/2022, 12/08/2012 [facility]-Zoster Vaccines (1 of 2) 2043 [facility]-Hepatitis A Vaccines Aged Out 12/08/2012 No longer eligible based on patient's age to complete this topic [facility]-HIV Screening Completed 02/25/2023, 10/15/2022 [facility]-Hepatitis C Screening Completed 2022, 10/15/2022, 01/05/2018, Additional history exists [facility]-Obesity Intervention Completed 025, 12/17/2023, 12/17/2023, Additional history exists [facility]-HIB Vaccines Aged Out No longer e ligible based on patient's age to complete this topic [facility]-IPV Vaccines Aged Out No longer e ligible based on patient's age to complete this topic [facility]-Rotavirus Vaccines Aged Out No lo nger eligible based on patient's age to complete this topic Procedures Procedure Name Priority Date/Time Associated Diagnosis Comments HEMOGLOBIN A1C Routine 06/22/2024 9:28 AM EST Type 2 diabetes mellitus without complication, without long-term current use of insulin (CMS/HCC) REFERRED THINPREP PAP AND HPV (SO) Routine 12/17/2023 1:41 PM EDT Encounter for gynecological examination (general) (routine) with abnormal findings HEPATITIS C ANTIBODY W/REFLEX TO HCV QUANT PCR Routine 02/25/2023 5:04 PM EST Screening examination for STD (sexually transmitted disease) HIV 1/2 ANTIBODY/ANTIGEN SCREEN WITH REFLEX TO HIV I/II DIFFERENTIATION Routine 02/25/2023 5:04 PM EST Screening examination for STD (sexually transmitted disease) from Last 3 Months or Most Recently Relevant to Health Maintenance Results * (ABNORMAL) Hemoglobin A1c (06/22/2024 9:28 AM EST) Hemoglobin A1c 7.3(H) <5.7 % 06/22/2024 4:57 PM EST [facility] Blood Venous blood specimen / Unknown Venipuncture / Unknown 06/22/2024 9:28 AM EST 06/22/2024 9:28 AM EST Narrative [facility] - 06/22/2024 4:57 PM EST HA1C Interpretive Data: Diagnosis of Diabetes: Diabetic > or = 6.5% Pre-diabetic 5.7 to 6.4% Non-diabetic < or = 5.6% Glycemic Targets for Type I and Type II Diabetics: Non- Adults <7.0% Adults <6.0% Children and Adolescents <7.5% Source: [place] [employer]. Standards of medical care in diabetes,2017. Diabetes Care.2017:40 (suppl 1):S1-S135. HbA1c assay performed by an ion-exchange chromatography method that is certified traceable to the DCCT. Anita Faye TAXICAB DISPATCHER LAB BLOOD ORDERABLES Final Result [facility] [address] [place] [address] * Referred ThinPrep Pap and HPV (SO) (12/17/2023 1:41 PM EDT) Pap, Source Cx/Vagina 12/25/2023 3:39 PM EDT [facility] ([address]) EER Referred ThinPrep Pap and HPV See Note 12/25/2023 3:39 PM EDT [facility] ([address]) PAP, THINPREP Normal 12/25/2023 3:39 PM EDT [facility] ([address]) High Risk HPV Normal 12/25/2023 3:39 PM EDT [facility] ([address]) Swab Vaginal and cervical cytologic material / Unknown Non-blood Collection / Unknown 12/17/2023 1:41 PM EDT 12/17/2023 6:07 PM EDT Narrative [facility] ([address]) - 12/25/2023 3:39 PM EDT Authorized individuals can access the [facility] Enhanced Report using the following link: [email or web address] Performed By: [facility] [address] [place] [id number] Slitter Helper: Ramin Cervantes MD, PhD CLIA Number: [id number] SPECIMEN PART A. Cervical, Endocervical, Vaginal, ThinPrep Pap (Custom Shoe Designer And Maker) CYTOLOGY HX Date of Last Menstrual Period: n FINAL DIAGNOSIS INTERPRETATION: Negative for Intraepithelial Lesion or Malignancy. SPECIMEN ADEQUACY:Satisfactory for evaluation. Endocervical/transformation zone component present. Electronically Signed Out : ctbcn Performed by: [facility] [address] [place] [address] [place] [address] Krystina Garcia MD, HR-HPV: Negative Test performed by the FDA-approved Draftgic (Gen-Probe) APTIMA HPV test, which detects HPV genotypes: 16, 18, 31, 33, 35, 39, 45, 51, 52, 56, 58, 59, 66, and 68. Performed by: [facility] [address] [place] [address] [place] [address] Krystina Garcia MD, Ruthie Foote APRN, DNP LAB REF LAB BLOOD AND F LUID ORD Final Result Performing Organization Address City/[facility] Co de Phone Number [facility] ([facility]) [address] [place] [id number] * HIV 1 & 2 Antibody/Antigen Screen (02/25/2023 5:04 PM EST) HIV 1 & 2 Antibody/Antigen Screen Non Reactive Non Reactive 02/26/2023 2:12 PM EST [facility] Comment:Screening for HIV 1 & 2 antibodies, and P24 antigen is NONREACTIVE. No confirmatory testing is required. Blood Venous blood specimen / Unknown Venipuncture / Unknown 02/25/2023 5:04 PM EST 02/26/2023 1:42 PM EST Ruthie Foote APRN, DNP LAB BLOOD ORDERABLES Fi nal Result Performing Organization Address City/[facility]/ZIP Co de Phone Number [facility] [address] [place] [address] * Hepatitis C Antibody w/Reflex to HCV Quant PCR (02/25/2023 5:04 PM EST) Hepatitis C Antibody Negative Negative 02/26/2023 4:19 PM EST [facility] Blood Venous blood specimen / Unknown Venipuncture / Unknown 02/25/2023 5:04 PM EST 02/26/2023 1:42 PM EST us Ruthie Foote TAXICAB DISPATCHER, DNP LAB BLOOD ORDERABLES Fi nal Result [facility] [address] [place] [address] from Last 3 Months or Most Recently Relevant to Health Maintenance Insurance [employer] [place] Care Teams Orbitread Operator Relationship Specialty Start Date End Date Anita Faye APRN [address] [place] [address] PCP - General Family Medicine 07/09/23
--- OUTSIDE RECORDS SUMMARY | 2024-10-31 16:25 | XMS_ITS | Encounter Summary ---
Author Organization Healthcare Address [address] [place] [address] Care Team Providers Care Product Development Worker Name Role Phone Anita Faye APRN Primary Care Provider [phone] Reason for Visit * Reason Comments Med Refill Encounter Details Date Type Department Care Team (Late st Contact Info) Description 10/01/2024 Refill [facility] [address] [place] [address] Anita Faye APRN [address] [place] [address] Type 2 diabetes mellitus without complication, without long-term current use of insulin Social History Tobacco Use Types Packs/Day Years [...] place to sleep or slept in a penitentiary (including now)? No 12/16/2023 PHQ-9 Answer Date [...] any time in the past 12 m [facility], were you homeless or living in a penitentiary (including now)? No 06/22/2024 Utilities Answer Date [...] as of this encounter Visit Diagnoses Diagnosis Type 2 diabetes mellitus without complication, without long-term current use of insulin documented in this encounter Additional Health Concerns Assessment Noted Time PHQ-9 Depression Total Score: 22 025 8:53 AM EST A fall risk assessment has been complete d for the patient 12/17/2023 3:21 PM EDT A Body Mass Index follow-up plan has been documented for the patient 06/22/2024 9:53 AM EST documented as of this encounter Care Teams Product Development Worker Relationship Specialty Start Date End Date Anita Faye APRN [address] [place] [address] PCP - General Family Medicine 07/09/23 documented as of this encounter
--- OUTSIDE RECORDS SUMMARY | 2024-10-31 16:25 | XMS_ITS | Encounter Summary ---
Author Organization Healthcare Address [address] [place] [address] Care Team Providers Care Fructose Loader Name Role Phone Anita Faye APRN Primary Care Provider [phone] Reason for Visit * Reason Comments Med Refill Encounter Details Date Type Department Care Team (Late st Contact Info) Description 10/08/2024 Refill [facility] [address] [place] [address] Anita Faye APRN [address] [place] [address] Generalized anxiety disorder Social History Tobacco Use Types Packs/Day Years [...] place to sleep or slept in a skilled nursing (including now)? No 12/16/2023 PHQ-9 Answer Date [...] any time in the past 12 m [facility], were you homeless or living in a skilled nursing (including now)? No 06/22/2024 Utilities Answer Date [...] encounter Miscellaneous Notes * Telephone Encounter - Madeline Gautam PharmD - 10/12/2024 10:25 AM EDT 1 medication(s) has been approved per protocol. documented in this encounter Plan of Treatment Not on file documented as of this encounter Visit Diagnoses Diagnosis Generalized anxiety disorder documented in this encounter Additional Health Concerns Assessment Noted Time PHQ-9 Depression Total Score: 22 025 8:53 AM EST A fall risk assessment has been complete d for the patient 12/17/2023 3:21 PM EDT A Body Mass Index follow-up plan has been documented for the patient 06/22/2024 9:53 AM EST documented as of this encounter Care Teams Fructose Loader Relationship Specialty Start Date End Date Anita Faye APRN [address] [place] [address] PCP - General Family Medicine 07/09/23 documented as of this encounter
--- OUTSIDE RECORDS SUMMARY | 2024-10-31 16:26 | XMS_ITS | Clinical Summary ---
Author Organization [facility] Address [address] [place] [address] Phone [email or web address] Care Team Providers Care Custom Designer Name Role Phone Krystina Bear APRN Primary Care Provider [phone] Allergies Active Allergy Reactions Criticality Noted Date Comments Oxycodone-Acetaminophen Hives Medium 09/29/2014 Other reaction(s): Unknown Medications DULoxetine (CYMBALTA) [address] capsule Take 60 mg by mouth 1 (one) time each day. Active metFORMIN (GLUCOPHAGE) 1000 MG tablet Take 1,000 mg by mouth 2 (two) times a day. 1 Active escitalopram (LEXAPRO) 20 MG tablet Take 20 mg by mouth 1 (one) time each day. 1 Active atenolol (TENORMIN) 100 MG tablet 1 Active atorvastatin (LIPITOR) 40 MG tablet Take 40 mg by mouth 1 (one) time each day. 2 Active chlorhexidine (PERIDEX) 0.12 % solution RINSE WITH 15ML FOR 30 SECONDS AND SPIT, USE TWICE DAILY 2 Active cyclobenzaprine (FLEXERIL) 10 MG tablet TAKE 1 TABLET BY MOUTH TWICE DAILY NEEDED FOR MUSCLE SPASM 2 Active fenofibrate (TRICOR) 145 MG tablet Take 145 mg by mouth 1 (one) time each day. 2 Active hydrOXYzine (ATARAX) 10 MG tablet Take 10 mg by mouth 3 times daily as needed. 2 Active levothyroxine (SYNTHROID) 150 MCG tablet Take 150 mcg by mouth 1 (one) time each day. 2 Active losartan (COZAAR) 25 MG tablet Take 25 mg by mouth 1 (one) time each day. 2 Active MICROGESTIN 1.5-30 MG-MCG tablet Take 1 tablet by mouth 1 (one) time each day. 2 Active albuterol HFA 108 (90 Base) MCG/ACT inhaler Inhale 2 puffs every 6 hours as needed. Active ergocalciferol (VITAMIN D2) 1.25 MG (70980 UT) capsule Take 50,000 Units by mouth 1 (one) time per week. 2 Active amitriptyline (ELAVIL) 10 MG tablet 3 Active gabapentin (NEURONTIN) 300 MG capsule Take 300 mg by mouth in the morning and 300 mg before bedtime. Active ondansetron ODT (ZOFRAN-ODT) 8 MG dispersible tablet DISSOLVE 1 TABLET IN MOUTH EVERY 8 HOURS NEEDED FOR NAUSEA AND VOMITING FOR 7 DAYS 3 Active Active Problems Problem Noted Date Diagnosed Date Return to work evaluation 03/26/2022 Immunizations Immunization Administration Dates Next Due Tdap (ADACEL BOOSTRIX) ([id number]) 07/18/2022 Social History Tobacco Use Types Packs/Day Years Used Date Smoking Tobacco: Every Day E-Cigarettes Smokeless Tobacco: Never Tobacco Cessation:Ready to Q uit: Not Asked; Counseling Given: Not Answered Intimate Partner Violence Answer Date R ecorded Insults You Not on file 07/30/2020 Threatens You Not on file 07/30/2020 Screams at You Not on file 07/30/2020 Physically Hurt Not on file 07/30/2020 Intimate Partner Violence Score Not on file 07/30/2020 Depression Answer Date Recorded PHQ Total Score 0 10/13/2022 Stress Answer Date Recorded Stress in your Life 0 05/28/2020 Dealing with Stress Not on file 05/28/2020 Comments Unknown Sex and Gender Information Value Date Recorded Sex Assigned at Not on file Legal 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 Gender Identity Not on file Sexual Orientation Not on file Last Filed Vital Signs Vital Sign Reading Time Taken Comments Blood Pressure 126/81 10/13/2022 4:10 PM EDT Pulse 79 10/13/2022 4:10 PM EDT Temperature 36.2 C (97.1 F) 10/13/2022 4:10 PM EDT Respiratory Rate 18 10/13/2022 4:10 PM EDT Oxygen Saturation 99% 10/13/2022 4:10 PM EDT Inhaled Oxygen Concentration - - Weight 83 kg (183 lb) 03/31/2022 11:55 PM EST Height 165 cm (5' 4.96 ) 03/31/2022 11:55 PM EST Body Mass Index 30.49 03/31/2022 11:55 PM EST Plan of Treatment Health Maintenance Due Date Last Done Comments Dental Cleaning/Exam 1993 Cervical Cancer Screening 2009 Hepatitis B Immunization (1 of 3 - 19+ 3-dose series) 02/21/2012 Covid-19 Immunization ( - season) 2023 01/09/2021, 12/18/2020 Influenza Immunization (#1) 2024 12/08/2012 Tetanus Diphtheria and Pertussis Immunization (3 - Td or Tdap) 07/18/2032 07/18/2022, 12/08/2012 Hepatitis A Immunization Aged Out 12/08/2012 No longer eligible based on patient's age to complete this topic HIB Immunization Aged Out No longer e ligible based on patient's age to complete this topic HPV Immunization Aged Out No longer e ligible based on patient's age to complete this topic Pneumococcal: Ped (0 to 5 Yrs) and At-Risk Member (6 to 64 Yrs) Aged Out No longer eligible b ased on patient's age to complete this topic Polio Immunization Aged Out No longer eligible based on patient's age to complete this topic Varicella Immunization Aged Out No lo nger eligible based on patient's age to complete this topic Insurance OPT OUT NO COPAY NB Care Teams Custom Designer Relationship Specialty Start Date End Date Krystina Bear APRN [address] [place] [id number] PCP - General Accounting Systems Manager 04/05/20
--- OUTSIDE RECORDS SUMMARY | 2024-10-31 16:26 | XMS_ITS | Encounter Summary ---
Author Organization Healthcare Address [address] [place] [address] Care Team Providers Care Speech And Language Assistant Name Role Phone Krystina Bear APRN Primary Care Provider [phone] Anita Faye APRN Primary Care Provider [phone] Encounter Details Date Type Department Care Team (Late st Contact Info) Description 04/01/2022 Outside Procedure External Location [address] [place] [address] Provider, [place] [place] Social History Tobacco Use Types Packs/Day Years Used Date Smoking Tobacco: Some Days Cigarettes 1 14.5 Started: 2010 Smokeless Tobacco: Current Comments:vape PHQ-2 Answer Date Recorded Patient Health Questionnaire-2 Score 2 01/13/2022 Comments Unknown Sex and Gender Information Value Date Recorded Sex Assigned at Female 12/13/2023 12:44 PM EDT Legal Sex Female 8:53 PM EDT Gender Identity Female 12/13/2023 12:44 PM EDT Sexual Orientation Not on file COVID-19 Exposure Response Date Recorded In the last 10 days, have yo u been in contact with someone who was confirmed or suspected to have Coronavirus/COVID-19? No / Unsure 03/19/2022 2:39 PM EST documented as of this encounter Plan of Treatment Not on file documented as of this encounter Procedures Procedure Name Priority Date/Time Associated Diagnosis Comments CT HEAD WO IV CONTRAST 04/01/2022 3:31 AM EST documented in this encounter Results * CT Head wo IV Contrast (04/01/2022 3:31 AM EST) Anatomical Region Laterality Modality Head Computed Tomogra phy 04/01/2022 3:31 AM EST Narrative 04/01/2022 5:42 [place] [address] Name: ARLEN FINNEGAN Exam Date: 04/01/2022 : 1995 Age 27 Gender: F Physician: KWADWO MOORE Facility: [facility] Facility HSV: Outpatient Exam: CT BRAIN W/O FINAL REPORT TECHNIQUE: null CLINICAL HISTORY: Pt states a piece of machinery at work hit her in the head. knot to left side of forehead and top of head COMPARISON: null FINDINGS: EXAM: CT HEAD WITHOUT CONTRAST: COMPARISON: None TECHNIQUE: Helical noncontrast axial images from base of skull to vertex, with coronal reformats. FINDINGS: The ventricles and sulci are within normal limits. No mass, mass-effect, hemorrhage or evidence of infarct is identified. The posterior fossa contents are unremarkable. No abnormality of skull base or calvarium is seen. Mild subcutaneous soft tissue swelling in the left frontal region, without significant scalp hematoma. There is pronounced mucoperiosteal thickening of the right maxillary sinus. The other sinuses are clear. Bilateral anterior maxillary wall surgery noted. Mastoid air cells are clear. IMPRESSION: IMPRESSION: 1. No intracranial hemorrhage or skull fracture. Mild left frontal scalp swelling. 2. Possible right maxillary sinusitis, acute versus chronic. Authenticated and [facility] Dictated By: Jacques Young Transcribed By: Transcribed On: 04/01/2022 5:32 AM Electronically signed by: Jacques Young 04/01/2022 Thank you for referring ARLEN FINNEGAN to [facility]. Legally authenticated by GERRY CRUZ 2022-04-01 05:32:03 Procedure Note Provider, Generic [place] - 04/01/2022 [place] [id number] Name: ARLEN FINNEGAN Exam Date: 04/01/2022 : 1995 Age 27 Gender: F Physician: KWADWO MOORE Facility: [facility] Facility HSV: Outpatient Exam: CT BRAIN W/O FINAL REPORT TECHNIQUE: null CLINICAL HISTORY: Pt states a piece of machinery at work hit her in the head. knot to left side of forehead and top of head COMPARISON: null FINDINGS: EXAM: CT HEAD WITHOUT CONTRAST: COMPARISON: None TECHNIQUE: Helical noncontrast axial images from base of skull to vertex, with coronal reformats. FINDINGS: The ventricles and sulci are within normal limits. No mass, mass-effect, hemorrhage or evidence of infarct is identified. The posterior fossa contents are unremarkable. No abnormality of skull base or calvarium is seen. Mild subcutaneous soft tissue swelling in the left frontal region, without significant scalp hematoma. There is pronounced mucoperiosteal thickening of the right maxillary sinus. The other sinuses are clear. Bilateral anterior maxillary wall surgery noted. Mastoid air cells are clear. IMPRESSION: IMPRESSION: 1. No intracranial hemorrhage or skull fracture. Mild left frontal scalp swelling. 2. Possible right maxillary sinusitis, acute versus chronic. Authenticated and EASTERN Dictated By: Jacques Young Transcribed By: Transcribed On: 04/01/2022 5:32 AM Electronically signed by: Jacques Young 04/01/2022 Thank you for referring ARLEN FINNEGAN to [facility]. Legally authenticated by GERRY CRUZ 2022-04-01 05:32:03 us Generic [place] Provider IMG CT PROCEDURES Fi nal Result documented in this encounter Visit Diagnoses Not on filedocumented in this encounter Additional Health Concerns Assessment Noted Time A fall risk assessment has been complete d for the patient 01/13/2022 7:51 AM EDT documented as of this encounter Care Teams Speech And Language Assistant Relationship Specialty Start Date End Date Krystina Bear APRN [facility] [place] [id number] PCP - General Family Medicine 01/14/22 07/08/23 Anita [place] [id number] PCP - General Family Medicine 07/09/23 documented as of this encounter
--- OUTSIDE RECORDS SUMMARY | 2024-10-31 16:26 | XMS_ITS | Encounter Summary ---
Author Organization Healthcare Address [address] [place] [address] Care Team Providers Care Space Operations Name Role Phone Anita Faye APRN Primary Care Provider [phone] Abby Bruce RN Unavailable [phone] Krystina Bear APRN Primary Care Provider [phone] Anita Faye APRN Primary Care Provider [phone] Reason for Visit * Reason Comments Med Refill Encounter Details Date Type Department Care Team (Late st Contact Info) Description 12/18/2020 Refill [place] [facility] [address] [place] [address] Esha Garcia APRN, [facility] [address] [place] [address] Social History Tobacco Use Types Packs/Day Years Used Date Smoking Tobacco: Every Day Cigarettes 1 14.5 Started: 2010 Smokeless Tobacco: Never PHQ-2 Answer Date Recorded Patient Health Questionnaire-2 Score 2 11/20/2020 Comments Unknown Sex and Gender Information Value Date Recorded Sex Assigned at Female 12/13/2023 12:44 PM EDT Legal Sex Female 8:53 PM EDT Gender Identity Female 12/13/2023 12:44 PM EDT Sexual Orientation Not on file COVID-19 Exposure Response Date Recorded In the last month, have you been in contact with someone who was confirmed or suspected to have Coronavirus / COVID-19? No / Unsure 12/21/2020 7:41 AM EDT documented as of this encounter Functional Status * Calculated C-SSRS Risk Score (Lifetime/Recent) Answer Date of Assessment Author No Risk Indicated 12/21/2020 7:47 AM EDT Pilo Bear * Question Answer Date of Assessment Author 1. Wish to be (Past 1 Month) No 021 7:47 AM EDT Angelina Bear 2. Non-Specific Active Suici ravin Thoughts (Past 1 Month) No 12/21/2020 7:47 AM EDT Angelina Bear 6. Suicidal Behavior (Lifetime) No 7:47 AM EDT Angelina Bear documented as of this encounter Plan of Treatment Not on file documented as of this encounter Visit Diagnoses Not on filedocumented in this encounter Care Teams Space Operations Relationship Specialty Start Date End Date Anita Faye APRN [address] [place] [address] PCP - General 08/31/20 01/13/22 Krystina Bear APRN [address] [place] [address] PCP - General Family Medicine 01/14/22 07/08/23 Anita Faye APRN [address] [place] [address] PCP - General Family Medicine 07/09/23 Abby Bruce, RN [address] [address] [employer] Equipment Operator Internal Medicine 01/14/21 12/21/21 documented as of this encounter
--- OUTSIDE RECORDS SUMMARY | 2024-10-31 16:26 | XMS_ITS | Referral Summary ---
Author Organization [facility] ([place], [place], [place], [place]) Address [address] [place] [address] Care Team Providers Care Financial Data Analyst Name Role Phone Unavailable Primary Care Provider Unavailabl e Social History Tobacco Use Types Packs/Day Years Used Date Smoking Tobacco: Never Assessed Comments Unknown Sex and Gender Information Value Date Recorded Sex Assigned at Female 10/15/2021 8:26 PM CDT Legal Sex Female 8:26 PM CDT Gender Identity Female 10/15/2021 8:26 PM CDT Sexual Orientation Not on file Plan of Treatment Not on file
--- OUTSIDE RECORDS SUMMARY | 2024-10-31 16:26 | XMS_ITS | Data Portability ---
Author Organization [place] - [facility] [place] [facility] [place] BENNY ADMIN Address [address] [place] [phone] Assessment Encounter Date Assessment Date Assessment LastModified by Organization Details LastModified Time 03/27/2023 03/27/2023 Presumed viral illness. Rest, plenty of fluids, OTC symptomatic treatment. Return for failure several days or sooner if worsening. Advised could potentially be too early for positive, if symptoms worsen get rechecked. [email or web address] Not available 03/27/2023 13:55:16 06/05/2023 06/05/2023 Diagnosis Viral infection. Advised to drink plenty of fluids, run a cool-mist humidifier, gargle salt water for sore throat, and get plenty of rest. Patient should avoid over-exertion and reduce exposure to irritants such as smoke, cold, dry air, and dust. Treatment currently involves symptomatic relief. Patient may take acetaminophen or ibuprofen as directed to reduce fever and body aches. Antihistamine and decongestant usage was discussed and recommendations made. Patient understood these instructions and will follow up in the office in 10 days to 2 weeks if symptoms not improving. [email or web address] Not available 06/05/2023 15:04:45 Plan of Treatment Reminders Order Date Submit Date Provider Last Modified By Organization Details Last Modified Time Details Appointments None recorded. Lab rapid flu (A+B) 2023 024 [email or web address] Not available 4 15:03:17 rapid SARS CoV 2 Ag, QL IA, respiratory specimen 2023 024 [email or web address] Not available 4 15:03:42 influenza virus A + B + SARS-CoV-2 (COVID19) Ag panel, rapid IA, upper respiratory specimen 2022 023 [email or web address] Not available 3 11:17:18 influenza virus A + B + SARS-CoV-2 (COVID19) Ag panel, rapid IA, upper respiratory specimen 2022 023 [email or web address] Not available 13:43:07 Referral None recorded. Procedures None recorded. Surgeries None recorded. Imaging None recorded. Medication Orders Paxlovid 300 mg (150 mg x 2)-100 mg tablets in a dose pack 2022 023 [email or web address] [facility], [address], [address], 3 11:17:16 amitriptyli ne 10 mg tablet 2022 023 [facility], [address], [address], 3 03:36:05 Patient TargetsNo targets recorded. Patient InstructionsNo instructions recorded. Reason for Referral None Reported. Results Created Date Observation Date Name Description Value Unit Range Abnormal Flag Note LastModifiedBy Organization Detail LastModifiedTime 03/27/20 23 03/27/2023 influ karla virus A + B + SARS- CoV-2 (COVI D19) Ag panel , rapid IA, upper respi rator y speci men FLU A negati ve Not Available [facility] [address] [facility] [address] [place] [address], [address], 03/27/2023 13:40:10 03/27/20 23 03/27/2023 influ karla virus A + B + SARS- CoV-2 (COVI D19) Ag panel , rapid IA, upper respi rator y speci men FLU B negati ve Not Available [facility] [address] [facility] [address] [place] [address], [phone], 03/27/2023 13:40:10 03/27/20 23 03/27/2023 influ karla virus A + B + SARS- CoV-2 (COVI D19) Ag panel , rapid IA, upper respi rator y speci men SARS COV + SARS OV 2 negati ve Not Available [facility] [email or web address], [place], [address], 03/27/2023 13:40:10 03/29/20 23 03/29/2023 influ karla virus A + B + SARS- CoV-2 (COVI D19) Ag panel , rapid IA, upper respi rator y speci men FLU A negati ve Not Available [facility] [address] [place] [employer] [facility] [address], [place], [address], 03/29/2023 10:22:54 03/29/20 23 03/29/2023 influ karla virus A + B + SARS- CoV-2 (COVI D19) Ag panel , rapid IA, upper respi rator y speci men FLU B negati ve Not Available [facility] [email or web address], [place], [address], 03/29/2023 10:22:54 03/29/20 23 03/29/2023 influ karla virus A + B + SARS- CoV-2 (COVI D19) Ag panel , rapid IA, upper respi rator y speci men SARS COV + SARS OV 2 positi ve Not Available [facility] [address] [place] [facility] [address], [place], [address], 03/29/2023 10:22:54 06/05/19 24 06/05/2023 rapid SARS CoV 2 Ag, QL IA, respi rator y speci men rapid SARS CoV 2 Ag, QL IA, respiratory specimen negati ve Not Available [facility] [email or web address], [place], [address], 06/05/2023 14:46:37 06/05/19 24 06/05/2023 rapid flu (A+B) Flu A negati ve Not Available [facility] [email or web address], [place], [address], 06/05/2023 14:46:28 06/05/19 24 06/05/2023 rapid flu (A+B) Flu B negati ve Not Available [facility] [address] [facility] [address], [place], [address], 06/05/2023 14:46:28 Result Notes None recorded. 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 DENIES LOC. Khalida Hicks null, [place] - [facility] - [place] [facility] [place] 3 07:56:35 Headache 02206603 Active 2021 Khalida Kurt null, [place] - [facility] [place] 3 07:53:32 Dizziness 037551406 Active 2021 Khalida Shahzada null, [place] - [facility] & [place] 3 07:53:49 Feeling irritable 42803865 Active 2021 Khalida Shahzada null, [place] - [facility] & [place] 3 07:53:40 Nausea 980395885 Active 2021 Khalida Shahzada null, [place] - [facility] & [place] 3 07:56:49 Concussion injury of brain 371264054 Active 2022 Esha Oconnell, [address] , [place], [address] , [place] - [facility] & [place] 3 11:13:54 Problem Notes None recorded. Procedures Surgical History Date Name Laterality Status Provider Name and Address Organization Details Recorded Time Carpal tunnel surgery completed Khalida Hicks [place] - [facility] & [place] 05/13/2022 10:52:28 operative procedure on knee completed Khalidaanay Hicks [place] - [facility] & [place] 05/13/2022 10:53:50 reconstruction of mandible completed Khalida DORAN [facility] & [place] 05/13/2022 10:54:05 tonsillectomy and adenoidectomy completed Khalida DORAN [facility] & [place] 05/13/2022 10:54:17 Imaging Results None recorded. Procedure Notes None recorded. Medical Equipment None Reported. Allergies Allergen ID Allergen Name Allergen Category Reaction Reaction Severity Criticality Documentation Date Start Date Code Code System Note Provider Name and Address Organization Details Recorded Time 490084 acetamino phen / oxycodone medicatio n hives Not available low 03/27/2023 64121 3 RxNorm KENYA Delcid [facility] [place] 3 13:18:28 Medications Name Sig Start Date Stop Date Status Note LastModified by Organization Details LastModified Time losartan 50 mg tablet TAKE 1 TABLET BY MOUTH ONCE DAILY active Not Available Not Available No t Available cyclobenzapr ine 10 mg tablet TAKE 1 TABLET BY MOUTH TWICE DAILY NEEDED FOR MUSCLE SPASM active Not Available Not Available No t Available atorvastatin 40 mg tablet TAKE 1 TABLET BY MOUTH ONCE DAILY (MUST KEEP UPCOMING APPOINTMENT 03/18/23 FOR ADDITIONAL REFILLS) active Not Available Not Available No t Available methocarbamo l 500 mg tablet TAKE 1 TABLET BY MOUTH TWICE DAILY active Not Available Not Available No t Available doxycycline hyclate 100 mg capsule TAKE 1 CAPSULE BY MOUTH TWICE DAILY FOR 7 DAYS, TAKE WITH AT LEAST 8 OUNCES (LARGE GLASS) OF WATER, DO NOT LIE DOWN FOR 30 MINUTES AFTER active Not Available Not Available No t Available carvedilol 12.5 mg tablet TAKE 1 TABLET BY MOUTH TWICE DAILY WITH FOOD/MEAL active Not Available Not Available No t Available ibuprofen 800 mg tablet TAKE 1 TABLET BY MOUTH EVERY 8 HOURS NEEDED FOR MILD PAIN active Not Available Not Available No t Available fluconazole 150 mg tablet TAKE 1 TABLET BY MOUTH NOW AND REPEAT IN 7 DAYS IF SYMPTOMS PERSIST active Not Available Not Available No t Available atenolol 100 mg tablet TAKE 1 TABLET BY MOUTH TWICE DAILY active Not Available Not Available No t Available valacyclovir 1 gram tablet TAKE 1 TABLET BY MOUTH TWICE DAILY FOR 10 DAYS active Not Available Not Available No t Available ondansetron HCl 4 mg tablet TAKE 1 TABLET BY MOUTH EVERY 8 HOURS NEEDED FOR NAUSEA OR VOMITING FOR 7 DAYS active Not Available Not Available N ot Available metronidazol e 500 mg tablet TAKE 1 TABLET BY MOUTH TWICE DAILY FOR 7 DAYS active Not Available Not Available No t Available ondansetron 8 mg disintegrati ng tablet DISSOLVE 1 TABLET IN MOUTH EVERY 8 HOURS NEEDED FOR NAUSEA FOR VOMITING active Not Available Not Available No t Available ketorolac 10 mg tablet TAKE 1 TABLET BY MOUTH EVERY 8 HOURS active Not Available Not Available No t Available amitriptylin e 10 mg tablet TAKE 1 TABLET BY MOUTH ONCE DAILY AT BEDTIME FOR 30 DAYS active Not Available Not Available No t Available hydrocodone 7.5 mg-acetamino phen 325 mg tablet TAKE 1 TABLET BY MOUTH EVERY 4 HOURS NEEDED FOR SEVERE PAIN active Not Available Not Available Not Available metformin 1,000 mg tablet TAKE 1 TABLET BY MOUTH TWICE DAILY active Not Available Not Available No t Available levothyroxin e 150 mcg tablet TAKE 1 TABLET BY MOUTH ONCE DAILY active Not Available Not Available No t Available losartan 25 mg tablet TAKE 1 TABLET BY MOUTH ONCE DAILY active Not Available Not Available No t Available gabapentin 300 mg capsule TAKE 1 CAPSULE BY MOUTH TWICE DAILY active Not Available Not Available No t Available ergocalcifer ol (vitamin D2) 1,250 mcg (50,000 unit) capsule TAKE 1 CAPSULE BY MOUTH ONCE A WEEK active Not Available Not Available No t Available losartan 100 mg tablet TAKE 1 TABLET BY MOUTH ONCE DAILY active Not Available Not Available No t Available oxycodone 5 mg tablet TAKE 1 TABLET BY MOUTH EVERY 8 HOURS NEEDED FOR PAIN active Not Available Not Available No t Available escitalopram 20 mg tablet TAKE 1 TABLET BY MOUTH ONCE DAILY (MUST KEEP UPCOMING APPOINTMENT 03/18/23 FOR ADDITIONAL REFILLS) active Not Available Not Available No t Available Microgestin 1.5/30 (21) 1.5 mg-30 mcg tablet TAKE 1 TABLET BY MOUTH ONCE DAILY active Not Available Not Available No t Available duloxetine 60 mg capsule,gold yed release TAKE 1 CAPSULE BY MOUTH ONCE DAILY. DO NOT CRUSH OR CHEW active Not Available Not Available No t Available fenofibrate 160 mg tablet Take 1 tablet every day by oral route. active Not Available Not Available No t Available fenofibrate nanocrystall ized 145 mg tablet TAKE 1 TABLET BY MOUTH ONCE DAILY active Not Available Not Available No t Available Paxlovid 300 mg (150 mg x 2)-100 mg tablets in a dose pack Take as directed active Not Available Not Available No t Available Ozempic 0.25 mg or 0.5 mg (2 mg/3 mL) subcutaneous pen injector INJECT 0.25 MG SUBCUTANEOU SLY ONCE A WEEK active Not Available Not Available No t Available Vitals Date Recorded Body height Body mass index (BMI) Body weight Heart rate Systolic And Diastolic Provider Name and Address Organization Details Last Updated DateTime 05/28/2022 162.56 cm 30.8 kg/m2 87455.19 g 90 /min 128/94 mm[Hg] Khalida Pikeanay DORAN [facility] & [place] 05/28/2022 09:21:33 Date Recorded Body height Body mass index (BMI) Body weight Heart rate Systolic And Diastolic Provider Name and Address Organization Details Last Updated DateTime 06/05/2022 162.56 cm 30.9 kg/m2 98139.63 g 88 /min 133/90 mm[Hg] Khalida Tovar [facility] & [place] 06/05/2022 10:38:23 Date Recorded Body height Body mass index (BMI) Body weight Oxygen saturation Oxygen saturation in Arterial blood by Pulse oximetry Heart rate Heart rate Body temperature Systolic And Diastolic Provider Name and Address Organization Details Last Updated DateTime 4 162.56 cm 31.6 kg/m2 64678 g 97 % 97 % 92 /min 92 /min 98.4 [degF] 140/92 mm[Hg] Frances Tovar [facility] & [place] 4 14:44:43 Date Recorded Body height Body mass index (BMI) Body weight Body temperature Oxygen saturation Oxygen saturation in Arterial blood by Pulse oximetry Heart rate Systolic And Diastolic Provider Name and Address Organization Details Last Updated DateTime 3 162.56 cm 31.2 kg/m2 54504.0 9 g 97.2 [degF] 99 % 99 % 85 /min 120/80 mm[Hg] Herb Sammy Tovar [facility] & [place] 3 13:19:55 Date Recorded Body height Body mass index (BMI) Body weight Body temperature Oxygen saturation Oxygen saturation in Arterial blood by Pulse oximetry Heart rate Systolic And Diastolic Provider Name and Address Organization Details Last Updated DateTime 3 162.56 cm 30.7 kg/m2 94463.3 2 g 98.4 [degF] 96 % 96 % 104 /min 120/91 mm[Hg] Herb Christianson [facility] & [place] 10:16:36 Social History Question Answer Notes LastModified by Organizat ion Details LastModified Time Tobacco Smoking Status Current Every Day Smoker Khalida garrett, [facility] & [place] 05/13/2022 10:50:21 What Is Your Level Of Caffeine Consumption? Occasional Information not available 05/13/2022 How Many Children Do You Have? 0 Information not available 05/13/2022 Do You Have Any Pets? Yes Information not available 05/13/2022 What Is Your Relationship Status? Live With Spouse In A House Information not available 05/13/2022 At What Age Did You Start Smoking Tobacco? 14 Information not available 05/13/2022 How Much Tobacco Do You Smoke? 1 PPW Information not available 05/13/2022 Are You Currently In School? No Assoc. Information not available 05/13/2022 Sex: Unknown Functional Status Question Answer Note LastModified by Organizat ion Details LastModified Time Do you use any illicit or recreational drugs? No Information not available 05/13/2022 What is your level of alcohol consumption? None Information not available 05/13/2022 Are you currently employed? Yes Information not available 05/13/2022 Do you have transportation difficulties? No drives Information not available 05/13/2022 Are you able to care for yourself? Yes Information not available 05/13/2022 What is your occupation? [employer] Information not available 05/13/2022 Mental Status None recorded. Family History Relationship Description Onset Age of this Age Resolved Age Notes LastModified by Organization Details LastModified Time Father Hypertensive disorder ldalla Not available 2022 10:48:16 Mother Lupus erythematosu s ldalla Not available 2022 10:48:39 Mother Headache ldalla Not available 0 05/13/2022 10:48:53 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 Condition Response Diabetes Y Heart Problems Y Anxiety/Depression Y Thyroid Disease Y Migraines Y Reflux/GERD Y Hypertension Y Neurological Problems Y Gynecological History Statement/Question Response Date of LMP 04/24/2023 Obstetrics History GPAL:G 0 P 0 0 0 0 Immunizations Vaccine Type Date Status Note Provider Nam e and Address Organization Details Recorded Time Influenza, split virus, quadrivalent, preservative 8 completed Herb Miles null, [place] [facility] [place] & [place] 03/27/2023 13:18:07 Influenza, split virus, quadrivalent, preservative 7 completed Herb Miles null, [place] [facility] & [place] 03/27/2023 13:18:07 Influenza, live, trivalent, intranasal 3 completed Herb Miles null, [place] [facility] & [place] 03/27/2023 13:18:07 COVID-19, mRNA, LNP-S, PF, 30 mcg/0.3 mL dose 1 completed Herb Sammy null, [place] [facility] & [place] 03/27/2023 13:18:07 COVID-19, mRNA, LNP-S, PF, 30 mcg/0.3 mL dose 1 completed Herb Miles null[place] [facility] & [place] 03/27/2023 13:18:07 Tdap 3 completed Herb Miles null[place] [facility] [place] [facility] & [place] 03/27/2023 13:18:07 Tdap 3 completed Herb Sammy null[place] [facility] & [place] 03/27/2023 13:18:07 TST-PPD intradermal 7 completed Herb Miles null[place] [facility] [place] [facility] & [place] 03/27/2023 13:18:07 TST-PPD intradermal 8 completed Herb Miles null[place] [facility] & [place] 03/27/2023 13:18:07 Hep A, adult 3 completed Herb Miles null[place] [facility] & [place] 03/27/2023 13:18:07 Meningococcal MCV4O 3 completed Herb Miles null[place] [facility] & [place] 03/27/2023 13:18:07 Influenza, split virus, quadrivalent, PF 9 completed KENYA Delcid - [place] & [place] 03/27/2023 13:18:07 Influenza, split virus, quadrivalent, PF 3 completed KENYA Delcid [facility] - [place] & [place] 03/27/2023 13:18:07 Past Encounters Encounter ID Performer Location Encounter Start Date Encounter Closed Date Diagnosis/Indication Diagnosis SNOMED-CT Code Diagnosis ICD10 Code Diagnosis Note [id number] Esha Oconnell DO VAHID [facility] [address] [facility],[address] [place] [address] 05/13/2022 10:36:44 05/13/2022 11:18:14 Concussion injury of brain 185423386 S06.0X0S She has had a good recovery and is cleared from my standpoint . she can return to work with no restrictio ns. I did provide her a medical release to return to work today.If she should become symptomati c once back to work then may need additional restrictio ns or time off. She is instructed to come back if any return of symptoms. [id number] Esha Oconnell DO [place] [facility] [address] [facility],[address] [place] [address] 05/28/2022 09:15:51 05/28/2022 09:58:01 Concussion injury of brain 835306437 S06.0X0S She attempted to go back to work but unfortunat george did not tolerate this as well as hoped. She is currently having persistent daily headaches not controlled with OTC medication s. Her sleep is disrupted and she has poor tolerance to daily activities .She needs longer time to recover from the concussion . She also would benefit from some more aggressive treatment for the headache. Will start elavil. She is educated on the medication and potential side effects. Will keep her off work for the next week and re-evaluat e before she attempts to return to full duty to ensure she has a successful recovery. [id number] Esha Oconnell DO [place] [facility] [address] [facility],[address] [place] [address] 06/05/2022 10:30:36 06/05/2022 10:58:59 Concussion injury of brain 982387386 S06.0X0S She attempted to go back to work after the initial visit but maral vazquez did not tolerate this as well as hoped. With the amitriptyl ine she is having improved sleep and headache control. I feel she will likely be ready to return to full duty by next week. she is given a work release to start 06/09/22.I do want her to continue with the amitriptyl ine for at least the next six weeks.She does not need a refill on her prescripti on today. [id number] Stephan Oconnell MD [facility] [address] [place] [address] 03/27/2023 13:08:40 03/27/2023 13:51:34 Cough 16316747 R05.9 Viral syndrome 804267097 B34.9 [id number] Josh Leon MD [facility] [address] [place] [address] 03/29/2023 09:17:25 03/29/2023 11:07:56 COVID-19 774950928 U07.1 Has now tested here as well. Treat with Paxlovid as she has reviewed drug contraindi cation list and denies being on any of these meds. WOrk excuse given. She should self-isola te through then, if sys are improving and no fever x 24 hrs, may go in public but wear mask for the next 5 days [id number] Danii Oconnell APRN [facility] [address] [place] [address] 06/05/2023 14:29:36 06/05/2023 15:04:31 Fever 352345259 R50.9 Viral syndrome 087868407 B34.9 Health Concerns Section Related Observation LastModified by Organization [place] LastModified Time None Recorded Concern Status LastModified by Organization Details LastModified Time None Recorded Advance Directives Directive None Recorded Payers Insurance Date Sequence Insurance Name Policy Number Policy Alves Covered Member ID Alvse Member ID Guarantor Name 05/12/2023 [employer] [facility] [id number] [employer] Arlen Friedman 06/05/2023 1 [employer] (MEDICAID REPLACEMENT - HMO) [id number] Arlen Friedman [id number] Arlen Friedman Notes Date Note Type Note Provider Name and Address Organization Details Recorded Time 05/28/2022 text/html Arlen comes in t [facility] for follow up. She is accompanied by her . Arlen returned to her normal work duties shortly after the last visit. She reports that she had been back for a few days and then developed a bad headache. She was exposed to bright lights and loud noises for that few days and during this she could feel her headache intensifying. It got to a point she could not tolerating completing her job due to the intensity of her headache. She did see the onsite physician who administered zofran and toradol. She was sent home and recommended she stay off work for a longer time to prevent further flare up of headaches. The injections took a bit of the edge off but did not resolve her headache.She has been in contact with her worker's comp residential case manager who recommended she come in for a follow up. She tells me that she has not gotten rid of the headache since it came on over a week ago. The shots did help her nausea but still with lingering headache and excessive sleepiness. She has been trying to manage the headaches with tylenol and ibuprofen but these do not seem to be helping.She is concerned that these headaches will not get better. She does feel her sleeping is altered due to the headaches. She can't get more than a couple hours at a time since this bad headache started over a week ago. Due to this she is struggling with excessive fatigue and taking unplanned naps. She also finds herself trying to sleep to deal with the headache pain. Her has observed she gets a headache whenever she is active around the house for even a short amount of time. He can tell she does not feel well and it is unlike her to be so inactive. INITIAL VISIT: (05/13/22)27 y/o right handed female here for neurologic consultation requested by Kandi Farmer regarding headaches. Arlen is accompanied by her today. Arlen was working at [facility] [employer] on 03/31/22 when she inadvertently hit her head on a piece of equipment. 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 When she stood up she unexpectedly hit her head on a nut runner. She immediately saw stars but there was no LOC. She developed an acute headache associated with dizziness, blurry vision and nausea.She was evaluated by the medical staff at [facility] and sent via EMS to [facility] ER for further evaluation.In the ER she had CT head which was negative for any intracranial abnormalities. There was left frontal scalp swelling and right maxillary sinusitis reported on the CT head.She was discharged with concussion care instructions and prescription for diclofenac and meclizine. She reports that she went to [facility] ER the following day as her symptoms were still unchanged. She was placed off work initially until 04/07/22.She was re-evaluated by the medical staff at [facility] on 04/07/22 and not released to return to work due to her persistent symptoms.She has been off work since that time. Currently she reports her symptoms have gradually improved. She has had complete resolution of the nausea, dizziness and light sensitivity. She still is having some headaches but these are much less intense. These are mild and do not limit her activities. She is taking tylenol occasionally to manage the headaches which seems to work well. She feels she is able to return to work without restrictions at this point. Eshasebastián Oconnell, DO [address] [facility], [place], [address], [place] - [facility] - [place] & [place] 05/28/2022 12:23:46 06/05/2022 text/html Arlen comes in f or a short term follow up on her headaches. Today she reports that she has tolerated the amitriptyline. She has noticed that she is having less disrupted sleep which has lessened her headaches.She has not needed tylenol in the last 48 hours which is a definite improvement.She has been trying to increase her activity in the last two days and tolerated this so far.She does feel ready to retry return to work. PRIOR VISIT: (05/28/22)Arlen comes in today for follow up. She is accompanied by her . Arlen returned to her normal work duties shortly after the last visit. She reports that she had been back for a few days and then developed a bad headache. She was exposed to bright lights and loud noises for that few days and during this she could feel her headache intensifying. It got to a point she could not tolerating completing her job due to the intensity of her headache. She did see the on site physician who administered zofran and toradol. She was sent home and recommended she stay off work for a longer time to prevent further flare up of headaches. The injections took a bit of the edge off but did not resolve her headache.She has been in contact with her worker's comp residential case manager who recommended she come in for a follow up. She tells me that she has not gotten rid of the headache since it came on over a week ago. The shots did help her nausea but still with lingering headache and excessive sleepiness. She has been trying to manage the headaches with tylenol and ibuprofen but these do not seem to be helping.She is concerned that these headaches will not get better. She does feel her sleeping is altered due to the headaches. She can't get more than a couple hours at a time since this bad headache started over a week ago. Due to this she is struggling with excessive fatigue and taking unplanned naps. She also finds herself trying to sleep to deal with the headache pain. Her has observed she gets a headache whenever she is active around the house for even a short amount of time. He can tell she does not feel well and it is unlike her to be so inactive. INITIAL VISIT: (05/13/22)27 y/o right handed female here for neurologic consultation requested by Kandi Farmer regarding headaches. Arlen is accompanied by her today. Arlen was working at [facility] on 03/31/22 when she inadvertently hit her head on a piece of equipment. 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 When she stood up she unexpectedly hit her head on a nut runner. She immediately saw stars but there was no LOC. She developed an acute headache associated with dizziness, blurry vision and nausea.She was evaluated by the medical staff at [facility] and sent via EMS to [facility] ER for further evaluation.In the ER she had CT head which was negative for any intracranial abnormalities. There was left frontal scalp swelling and right maxillary sinusitis reported on the CT head.She was discharged with concussion care instructions and prescription for diclofenac and meclizine. She reports that she went to [facility] ER the following day as her symptoms were still unchanged. She was placed off work initially until 04/07/22.She was re-evaluated by the medical staff at [facility] on 04/07/22 and not released to return to work due to her persistent symptoms.She has been off work since that time. Currently she reports her symptoms have gradually improved. She has had complete resolution of the nausea, dizziness and light sensitivity. She still is having some headaches but these are much less intense. These are mild and do not limit her activities. She is taking tylenol occasionally to manage the headaches which seems to work well. She feels she is able to return to work without restrictions at this point. Esha Oconnell DO [address], [place], [address], [facility] & [place] 06/05/2022 15:03:55 03/27/2023 text/html Upper Respirator y SymptomsReported bypatient.Location:he ad; chest; nasal Quality:congested;dry cough Severity:mild Onset/Timing:gradual; date of onset: (Yesterday) Context:sick contact Associated Symptoms:no fever;fatigue;malaise Notes:Exposed to both Covid and flu. Stephan Oconnell MD [address], [place], [address], [facility] & [place] 03/27/2023 13:55:46 03/29/2023 text/html 28-year-old whit e female who was seen here on Thursday presents with worsening symptoms. She states she is had cough on night which then by Thursday had headache and fatigue and fever up to 102.3. Apparently she took a home COVID test which was positive but her work wanted her to get a formal one so she came here but her COVID test here was negative. Since then she has developed body aches mucus production and has lost her smell. She has a significant history with COVID having been hospitalized 2 times, once in 2019 and once in 2020. She states she has a heart history as well as diabetes. Unfortunately she is also a smoker. Josh Leon MD [address], [place], [address], [facility] & [place] 03/29/2023 11:17:49 06/05/2023 text/html Upper Respirator y SymptomsReported bypatient.Location:he ad; chest; nasal; face Quality:congested;dry cough;nasal discharge Severity:no pain Duration:symptoms began today Onset/Timing:sudden Context:no foreign travel; non-smoker; exposed to covid and flu Alleviating Factors:tylenol for fever Associated Symptoms:no chest pain; no sputum production; no shortness of breath; no wheezing; no cyanosis; no change in number of pillows needed to sleep at night; no sweats; no morning cough; no sore throat; no vomiting; no diarrhea; no rash; no nausea; no conjunctivitis;fatigu e;fever;headache;chil ls;malaise; fever 101 at home Danii Oconnell APRN [address] [facility], [place], [address], [facility] & [place] 06/05/2023 15:05:21 OBGyn Episode No OBEpisode recorded.
--- OUTSIDE RECORDS SUMMARY | 2024-10-31 16:26 | XMS_ITS | Encounter Summary ---
Author Organization Healthcare Address [address] [place] [address] Care Team Providers Care Sales And Marketing Administrator Name Role Phone Krystina Bear APRN Primary Care Provider [phone] Anita Faye APRN Primary Care Provider [phone] Reason for Visit * Reason Comments Med Refill Encounter Details Date Type Department Care Team (Late st Contact Info) Description 07/07/2023 Refill Family and Community Medicine [address] [place] [address] Krystina Bear APRN [address] [place] [address] Anxiety and depression Social History Tobacco Use Types Packs/Day Years [...] place to sleep or slept in a correction (including now)? Patient refused 07/09/2023 Utilities Answer [...] on file documented as of this encounter Functional Status * Over the past 2 weeks, how often have you been bothered by any of the following problems? Question Answer Date of Assessment Author Little interest or pleasure in doing things Not at all 07/09/2023 8:24 AM EDT Angelina Bear Feeling down, depressed, or hopeless Not at all 06/19 8:24 AM EDT Angelina Bear Patient Health Questionnaire-2 Score 0 06/19 8:24 AM EDT Angelina Bear documented as of this encounter Plan of Treatment Not on file documented as of this encounter Visit Diagnoses Diagnosis Anxiety and depression documented in this encounter Additional Health Concerns Assessment Noted Time A fall risk assessment has been complete d for the patient 05/06/2023 9:52 AM EST A Body Mass Index follow-up plan has been documented for the patient 05/15/2023 8:49 AM EST documented as of this encounter Care Teams Sales And Marketing Administrator Relationship Specialty Start Date End Date Krystina Bear APRN [address] [place] [address] PCP - General Family Medicine 01/14/22 07/08/23 Anita Faye APRN [address] [place] [address] PCP - General Family Medicine 07/09/23 documented as of this encounter
--- OUTSIDE RECORDS SUMMARY | 2024-10-31 16:26 | XMS_ITS | Encounter Summary ---
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 Social History Tobacco Use Types Packs/Day Years [...] as of this encounter Visit Diagnoses Diagnosis 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
--- OUTSIDE RECORDS SUMMARY | 2024-10-31 16:26 | XMS_ITS | Data Portability ---
Author Organization KENYA ALISSA [facility] Address [address] [facility] [address] [place] [address] Care Team Providers Care Manager Customer Service Name Role Phone WON, AKILAH Primary Care Provider EDER LI Income Tax Auditor Unavailable SHAN ONTIVEROS Income Tax Auditor Assessment Encounter Date Assessment Date Assessment LastModified by Organization Details LastModified Time 01/15/2021 01/15/2021 Patient is doing well overall with resolution of preoperative carpal tunnel symptoms and dorsal wrist pain. She will continue work restrictions for the next 1.5 weeks to allow her to finish her work conditioning. Plan to allow for return to work without restrictions on 01/28/21. She will follow-up for final postoperative assessment 5 weeks and if doing well at that time with no setbacks I will declare her MMI. bdevers Not available 01/15/2021 14:57:38 02/26/2021 02/26/2021 Patient reports exacerbation of wrist pain after returning to work full duty on 01/28/21. Patient states she is able to perform job duties while at work but is experiencing pain at the end of her shift. We discussed various treatment plans at length. Rx Medrol dosepak was provided. She will continue full duty work, however, will not declare her MMI at this time. She will return to office to see Dr. Schilling in 2 weeks for recheck. RTO as scheduled or sooner if needed, advised to call office with any questions/concern belen gerber Not available 03/05/2021 19:41:19 03/12/2021 03/12/2021 Patient is once again doing well as she has recovered from her recent mild set back. Ok to continue working without restrictions. She has now reached MMI. Patient will follow up in clinic on an as-needed basis should additional questions or concerns arise. bdevers Not available 03/12/2021 15:32:42 08/27/2021 08/27/2021 Patient has developed exacerbation of her underlying known right carpal tunnel syndrome related to her current work activities. Recommendation was for trial of conservative treatment. I provided her with a Velcro wrist splint in the office to wear at night. Also provided her with referral to therapy. She will continue rytl-fwh-vptiqem anti-inflammatory medication as needed. At her request I provided her with a carpal tunnel injection. She will continue ongoing modified work duty at this time, but will remain off work for the rest of the week due to her tendency towards temporary increased pain following injections. Follow-up again in 6 weeks for repeat assessment. If she should have failed conservative treatment we would then discuss proceeding forward with definitive endoscopic carpal tunnel surgery at that time. bdevers Not available 08/27/2021 15:52:45 10/08/2021 10/08/2021 Patient with complete temporary relief following right carpal tunnel injection at last visit now with some mild recurrent symptoms. Treatment options discussed including continued conservative management versus surgery. Patient would like to continue conservative treatment and requested a repeat injection, which was provided in the office today without complication. 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 Follow-up again in 6 weeks for repeat assessment and if doing well with no recurrent symptoms with return to work I will declare her MMI for this episode. However, if symptoms should persist/recur we would then discuss proceeding forward with definitive endoscopic carpal tunnel surgery at that time. bdevers Not available 10/08/2021 08:55:21 Plan of Treatment Reminders Order Date Submit Date Provider Last Modified By Organization Details Last Modified Time Details Appointments None recorded. Lab None recorded. Referral None recorded. Procedures None recorded. Surgeries None recorded. Imaging None recorded. Medication Orders Medrol (Mello) 4 mg tablets in a dose pack 021 021 DBA_BACKF LA_ [facility] [address] [place], [address], 03:32:42 Patient TargetsNo targets recorded. Patient InstructionsNo instructions recorded. Reason for Referral None Reported. Problems No Known Problems Procedures Surgical History Date Name Laterality Status Provider Name and Address Organization Details Recorded Time 2 Injection Carpal Tunnel completed JL SCHILLING MD [address] [place] [address], [phone], [facility] 10/08/2021 08:53:49 2 Injection Carpal Tunnel completed JL SCHILLING MD [address] [place] [address], [phone], [facility] 08/27/2021 15:51:02 1 Op Note completed JL SCHILLING MD [address] [place] [address], [phone], [facility] 11/12/2020 19:58:05 1 Injection Joint/Bursa, Interm completed JL SCHILLING MD [address] [place] [address], [phone], [facility] 09/27/2020 08:27:46 1 Injection Joint/Bursa, Interm completed JL SCHILLING MD [address] [place] [address], [phone], [facility] 08/16/2020 09:33:07 1 Injection Joint/Bursa, Interm completed JL SCHILLING MD [address] [place] [address], [phone], [facility] 07/03/2020 19:08:23 Imaging Results None recorded. Procedure Notes None recorded. Medical Equipment None Reported. Allergies Allergen ID Allergen Name Allergen Category Reaction Reaction Severity Criticality Documentation Date Start Date Code Code System Note Provider Name and Address Organization Details Recorded Time 271617 acetamino phen / oxycodone medicatio n Not available Not available Not available 06/21/2020 94491 3 [facility] 14:[facility] Medications Name Sig Start Date Stop Date Status Note LastModified by Organization Details LastModified Time metformin 500 mg tablet Take 1 tablet twice a day by oral route. active Not Available Not Available No t Available meloxicam 15 mg tablet Take 1 tablet every day by oral route with meals for 14 days. 01/15 completed Not Available Not Available Not Available Synthroid 125 mcg tablet Take 1 tablet every day by oral route. active Not Available Not Available No t Available Medrol (Mello) 4 mg tablets in a dose pack Take 1 dose pk by oral route as directed. 03/12 completed Not Available Not Available Not Available tramadol 50 mg tablet TAKE 1 TABL PO Q 4-6 HRS PRN FOR SEVERE POST SURGICAL PAIN 11/12 completed Not Available Not Available Not Available meloxicam 7.5 mg tablet TAKE 1 TABLE PO QD WITH FOOD REGARDLESS OF PAIN LEVEL FOR 1 WEEK. THEN TAKE 1 TABLET PO QD ONLY PRN FOR PAIN RELIEF THEREAFTER 01/15 completed Not Available Not Available Not Available Neurontin 100 mg capsule TAKE 1 CAPSULE PO QHS FOR 1 WEEK 01/15 completed Not Available Not Available Not Available [place] 5 mg-325 mg tablet TAKE 1 TAB PO Q 4-6 HRS PRN FOR SEVERE POST SURGICAL PAIN 11/22 completed Not Available Not Available Not Available atenolol 50 mg tablet Take 1 tablet every day by oral route. active Not Available Not Available No t Available Lexapro 20 mg tablet Take 1 tablet every day by oral route. active Not Available Not Available No t Available Cymbalta 60 mg capsule,de layed release Take 1 capsule every day by oral route. active Not Available Not Available No t Available Vitals Date Recorded Body height Body mass index (BMI) Body weight Provider Name and Address Organization Details Last Updated DateTime 08/27/2021 162.56 cm 32.6 kg/m2 69090.55 g Edin Winter [facility] 08/27/2021 15:28:15 Date Recorded Body height Body mass index (BMI) Body weight Provider Name and Address Organization Details Last Updated DateTime 10/08/2021 162.56 cm 32.6 kg/m2 95939.55 g [facility]rem [facility] 10/08/2021 08:12:37 Date Recorded Body height Body mass index (BMI) Body weight Provider Name and Address Organization Details Last Updated DateTime 01/15/2021 162.56 cm 32.6 kg/m2 45076.55 g Emilee Guzman [facility] 01/15/2021 14:09:00 Date Recorded Body height Body mass index (BMI) Body weight Provider Name and Address Organization Details Last Updated DateTime 02/26/2021 162.56 cm 32.6 kg/m2 11578.55 huey Bain [facility] 02/26/2021 09:02:38 Date Recorded Body height Body mass index (BMI) Body weight Provider Name and Address Organization Details Last Updated DateTime 03/12/2021 162.56 cm 32.6 kg/m2 62537.55 g Joyce Lares [facility] 03/12/2021 15:02:56 Social History None recorded. Functional Status None recorded. Mental Status None recorded. Family History Nothing Reported. 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 Condition Response COPD N Arthritis N Blood Clot Y Cancer N Kidney Disease N Heart Conditions N Bleeding Disorder N Included as Review of Systems Y High Cholesterol N Liver Disease N Heart Attack (OK) N Diabetes Y Sleep Apnea N Hypertension Y Gynecological HistoryNo gynecological history recorded. Obstetrics History GPAL:G 0 P 0 0 0 0 Past Encounters Encounter ID Performer Location Encounter Start Date Encounter Closed Date Diagnosis/Indication Diagnosis SNOMED-CT Code Diagnosis ICD10 Code Diagnosis Note [id number] JL SCHILLING MD [facility] [address] [place] [address] 06/21/2020 14:18:49 06/21/2020 16:43:09 Injury of left wrist [id number] 8776230 S69.92XA Normal x-rays of the left wrist with no evidence of underlying fracture/d islocation . No abnormal scapholuna te interval widening on dynamic rib puller view. Carpal yordy santos syndrome 79180283 G56.01 EMG/NCV (05/23/20) demonstrat e mild right carpal tunnel syndrome and abnormal findings within the left upper extremity [id number] JL SCHILLING MD [facility] [address] [place] [address] 07/03/2020 14:31:58 07/03/2020 16:39:54 Injury of left wrist [id number] 9046730 S69.92XA Left wrist CSI: 07/03/20 MRI of the left wrist (07/03/20) was essentiall y normal. No definitive mass lesion. No evidence of scapholuna te ligament injury incidental ly noted was mild tendinosis of the ECU tendon. Normal x-rays of the left wrist with no evidence of underlying fracture/d islocation . No abnormal scapholuna te interval widening on dynamic rib puller view. Carpal yordy santos syndrome [id number] G56.01 EMG/NCV (05/23/20) demonstrat e mild right carpal tunnel syndrome and normal findings within the left upper extremity [id number] JL SCHILLING MD [facility] [address] [place] [address] 08/16/2020 08:58:26 08/16/2020 09:49:03 Injury of left wrist [id number] 5618817 S69.92XA Left wrist CSI: 07/03/20 MRI of the left wrist (07/03/20) was essentiall y normal. No definitive mass lesion. No evidence of scapholuna te ligament injury incidental ly noted was mild tendinosis of the ECU tendon. Normal x-rays of the left wrist with no evidence of underlying fracture/d islocation . No abnormal scapholuna te interval widening on dynamic rib puller view. Carpal yordy santos syndrome [id number] G56.01 EMG/NCV (05/23/20) demonstrat e mild right carpal tunnel syndrome and normal findings within the left upper extremity [id number] JL SCHILLING MD [facility] [address] [place] [address] 09/27/2020 08:00:08 09/27/2020 08:33:10 Injury of left wrist [id number] 1284784 S69.92XA Left wrist CSI: 08/16/20; 07/03/20 MRI of the left wrist (07/03/20) was essentiall y normal. No definitive mass lesion. No evidence of scapholuna te ligament injury incidental ly noted was mild tendinosis of the ECU tendon. Normal x-rays of the left wrist with no evidence of underlying fracture/d islocation . No abnormal scapholuna te interval widening on dynamic rib puller view. Carpal yordy santos syndrome 41694226 G56.01 EMG/NCV (05/23/20) demonstrat e mild right carpal tunnel syndrome and normal findings within the left upper extremity [id number] JL SCHILLING MD SURGERY SCHEDULE [address] [place] [address] 11/12/2020 10:04:39 11/12/2020 10:05:15 [id number] LOBITO SHIELDS PA-C [facility] [address] [address] 11/22/2020 08:56:59 11/22/2020 10:15:50 Postoperative care [id number] Z48.89 s/p Left dorsal carpal ganglion cyst excision with posterior interosseo us nerve neurectomy ; Left endoscopic carpal tunnel release (DOS: 11/12/20) [id number] JL SCHILLING MD [facility] [address] [place] [address] 12/21/2020 09:39:41 12/21/2020 10:44:03 Postoperative care [id number] Z48.89 6 weeks s/p Left dorsal carpal ganglion cyst excision with posterior interosseo us nerve neurectomy ; Left endoscopic carpal tunnel release (DOS: 11/12/20) [id number] JL SCHILLING MD [facility] [address] [place] [address] 01/15/2021 13:43:46 01/15/2021 14:53:07 Postoperative care [id number] Z48.89 9 weeks s/p Left dorsal carpal ganglion cyst excision with posterior interosseo us nerve neurectomy ; Left endoscopic carpal tunnel release (DOS: 11/12/20) [id number] LOBITO SHIELDS PA-C [facility] [address] [place] [address] 02/26/2021 08:51:03 02/26/2021 09:28:22 Postoperative care [id number] Z48.89 15 weeks s/p Left dorsal carpal ganglion cyst excision with posterior interosseo us nerve neurectomy ; Left endoscopic carpal tunnel release (DOS: 11/12/20) [id number] JL SCHILLING MD [facility] [address] [place] [address] 03/12/2021 14:54:43 03/12/2021 15:29:59 Postoperative care [id number] Z48.89 4 months s/p Left dorsal carpal ganglion cyst excision with posterior interosseo us nerve neurectomy ; Left endoscopic carpal tunnel release (DOS: 11/12/20) [id number] JL SCHILLING MD [facility] [address] [place] [address] 08/27/2021 15:05:55 08/27/2021 15:46:56 Postoperative care [id number] Z48.89 Previously s/p Left dorsal carpal ganglion cyst excision with posterior interosseo us nerve neurectomy ; Left endoscopic carpal tunnel release (DOS: 11/12/20) Carpal yordy santos syndrome [id number] G56.01 Right carpal tunnel CSI: 08/27/2021 EMG/NCV (05/23/20) demonstrat e mild right carpal tunnel syndrome and normal findings within the left upper extremity [id number] JL SCHILLING MD [facility] [address] [place] [address] 10/08/2021 08:09:02 10/08/2021 08:48:08 Carpal tunnel syndrome [id number] G56.01 Right carpal tunnel CSI: 08/27/2021 EMG/NCV (05/23/20) demonstrat e mild right carpal tunnel syndrome and normal findings within the left upper extremity Postoperative care [id number] Z48.89 Previously s/p Left dorsal carpal ganglion cyst excision with posterior interosseo us nerve neurectomy ; Left endoscopic carpal tunnel release (DOS: 11/12/20) Health Concerns Section Related Observation LastModified by Organization Detai ls LastModified Time None Recorded Concern Status LastModified by Organization Details LastModified Time None Recorded Advance Directives Directive None Recorded Payers Insurance Date Sequence Insurance Name Policy Number Policy Alves Covered Member ID Alves Member ID Guarantor Name 08/27/2021 [facility] Sigifredo Friedman 07/02/2020 [facility] Arlen Friedman 11/19/2021 INGENIOUSMED (MOVED TO HOLD) Arlen Friedman Notes Date Note Type Note Provider Name and Address Organization Details Recorded Time 01/15/2021 text/html Patient reports continued complete resolution of preoperative numbness and tingling and dorsal wrist pain. Still has some residual soreness in the volar palm and dorsal wrist, but this has significantly improved overall is well. She is working with therapy on work conditioning and has 1.5 weeks left in this regard. 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 Pt reports that everything has been going well since last visit. States that she has completed 1 week of work conditioning and has 1.5 weeks left. JL SCHILLING MD [facility] [place], [address], [facility] 01/15/2021 14:57:48 02/26/2021 text/html Patient returns today for post op follow up visit. She has returned to work full duty and states she is able to perform her expected job duties but is having pain after returning to work. 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 She was placed on a Medrol Dosepak and put back on work restrictions. The symptoms have now resolved and she's been back to work without restrictions with no further setbacks. No new complaints. 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 She states that she is doing well, not having too much pain. ROM getting better. JL SCHILLING MD [address] [place] [address], [phone], [facility] 03/12/2021 15:32:56 08/27/2021 text/html Patient presents back today for new onset symptoms in her right hand starting on 08/05/2021 at work. 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 Symptoms are exactly the same as her carpal tunnel symptoms in her left hand. Symptoms became particularly worse when she was required to start using power tools. Symptoms occasionally wake her up from sleep at night. States that she has to shake out her hand frequently for relief (positive flick sign). She has now been placed on restrictions. She is taking blrc-vnt-lnnvkyf ibuprofen and Tylenol as needed. 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 Patient reports: the Rt wrist is experiencing sharp pain when using tools for work. Pain is achy when resting. ROM is good, just causes pain. Similar symptoms as the Lt hand JL SCHILLING MD [address] [place], [address], [facility] 08/27/2021 15:53:06 10/08/2021 text/html Patient reports complete resolution of right hand carpal tunnel symptoms following injection at last visit, although with some recurrent symptoms over the past week. She has requested repeat injection today to help eliminate her recurrent symptoms. She feels that she will be ready to return to work to begin the reentry process/work conditioning/harde mary next week. She continues to do well in regards to her left hand. In regards to her more recent right hand symptoms, these began starting on 08/05/2021 at work. 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 Symptoms are exactly the same as her carpal tunnel symptoms in her left hand. Symptoms became particularly worse when she was required to start using power tools. Symptoms occasionally wake her up from sleep at night. States that she has to shake out her hand frequently for relief (positive flick sign). She has now been placed on restrictions. She is taking hiag-bdj-ddhlqec ibuprofen and Tylenol as needed. 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 JL SCHILLING MD [address] [place], [address], [facility] 10/08/2021 08:55:40 OBGyn Episode No OBEpisode recorded.
--- OUTSIDE RECORDS SUMMARY | 2024-10-31 16:26 | XMS_ITS | Encounter Summary ---
Author Organization Healthcare Address [address] [place] [address] Care Team Providers Care Hand Cigar Making Supervisor Name Role Phone Anita Faye APRN Primary Care Provider [phone] Abby Bruce RN Unavailable [phone] Krystina Bear APRN Primary Care Provider [phone] Anita Faye APRN Primary Care Provider [phone] Encounter Details Date Type Department Care Team (Late st Contact Info) Description 12/27/2020 Outside Procedure External Location [address] [place] [id number] Provider, [place] Social History Tobacco Use Types Packs/Day Years [...] AM EDT documented as of this encounter Plan of Treatment Not on file documented as of this encounter Procedures Procedure Name Priority Date/Time Associated Diagnosis Comments XR CHEST 1 VIEW 12/27/2020 9:39 PM EDT documented in this encounter Results * XR Chest 1 View (12/27/2020 9:39 PM EDT) Anatomical Region Laterality Modality Chest Radiographic Patricia ging 12/27/2020 9:39 PM EDT Narrative 12/28/2020 7:41 [place] [address] Name: ARLEN FINNEGAN Exam Date: 12/27/2020 : 1995 Age 25 Gender: F Physician: TIGRE MONTANEZ Facility: [facility] Facility HSV: Outpatient Exam: CHEST PORTABLE CHEST, 1 view HISTORY: Chest pain COMPARISON: August 30, 2014. FINDINGS: Electrodes overlie the chest. The lungs are clear. There is no evidence of effusion. The mediastinum has a normal appearance. The cardiac silhouette is unremarkable. No acute osseous changes. IMPRESSION: No acute cardiopulmonary process. Continued follow-up recommended. Dictated By: Danny Weiss Transcribed By: Danny Weiss Transcribed On: 12/28/2020 7:29 AM Electronically signed by: Danny Weiss 12/28/2020 Thank you for referring ARLEN FINNEGAN to [facility]. Legally authenticated by POPE DANNY Dewitt 2020-12-28 07:29:49 Procedure Note Provider, Generic [place] - 12/28/2020 [place] [address] Name: ARLEN FINNEGAN Exam Date: 12/27/2020 : 1995 Age 25 Gender: F Physician: TIGRE MONTANEZ Facility: [facility] Facility HSV: Outpatient Exam: CHEST PORTABLE CHEST, 1 view HISTORY: Chest pain COMPARISON: August 30, 2014. FINDINGS: Electrodes overlie the chest. The lungs are clear. There is no evidence of effusion. The mediastinum has a normal appearance.The cardiac silhouette is unremarkable. No acute osseous changes. IMPRESSION: No acute cardiopulmonary process. Continued follow-up recommended. Dictated By: Danny Weiss Transcribed By: Danny Weiss Transcribed On: 12/28/2020 7:29 AM Electronically signed by: Danny Weiss 12/28/2020 Thank you for referring ARLEN FINNEGAN to [facility]. Legally authenticated by POPE DANNY Dewitt 2020-12-28 07:29:49 Generic [place] Provider IMG XR PROCEDURES Fi nal Result documented in this encounter Visit Diagnoses Not on filedocumented in this encounter Care Teams Hand Cigar Making Supervisor Relationship Specialty Start Date End Date Anita Faye APRN [address] [place] [address] PCP - General 08/31/20 01/13/22 Krystina Bear APRN [address] [place] [address] PCP - General Family Medicine 01/14/22 07/08/23 Anita Faye APRN [address] [place] [address] PCP - General Family Medicine 07/09/23 Abby Bruce, NOLAN [address] [phone] Scraper Tender Internal Medicine 01/14/21 12/21/21 documented as of this encounter
--- OUTSIDE RECORDS SUMMARY | 2024-10-31 16:26 | XMS_ITS | Encounter Summary ---
Author Organization [employer] ([place], [place], [place], [place]) Address [address] [place] [address] Care Team Providers Care Legal Instructor Name Role Phone Unavailable Primary Care Provider Unavailabl e Encounter Details Date Type Department Care Team (Late st Contact Info) Description 06/23/2018 Transcribed Document [facility] [place] [facility] [place] [address] ProviderEsdras MD [address] [place] [address] Social History Tobacco Use Types Packs/Day Years Used Date Smoking Tobacco: Never Assessed Comments Unknown Sex and Gender Information Value Date Recorded Sex Assigned at Female 10/15/2021 8:26 PM CDT Legal Sex Female 8:26 PM CDT Gender Identity Female 10/15/2021 8:26 PM CDT Sexual Orientation Not on file documented as of this encounter Miscellaneous Notes * Cerner Conversion Note - Esdras ProviderMD - 06/23/2018 11:33 AM [facility]ER ED Assessment Entered On: 06/23/2018 11:50 EST Performed On: 06/23/2018 11:50 EST by Debo Nash RN ED Quick Look Assessment Level of Consciousness : Alert, Awake Affect/Behavior : Appropriate, Calm, Cooperative Orientation : Oriented x 4 Skin Temperature : Warm Debo Nash RN - 06/23/2018 11:50 EST ED General-Functional Assess Information Obtained From : Patient Communication Barrier : None Primary Language : Cambodian Any Spiritual/Cultural Needs or Requests : No Currently in Unsafe Situation : No Debo Nash RN - 06/23/2018 11:50 EST Social Habits Smoking Status : Never (less than 100 in lifetime; none in last 30 days) Smokeless Tobacco Status : Never Desires Tobacco Cessation Calc : 0 Debo Nash RN - 06/23/2018 11:50 EST Social History (As Of: 06/23/2018 11:50:35 EST) Neurologic ASMT, ED Neurologic Assessment WDL : WDL with exceptions Neurological Symptoms : Headache Debo Nash, RN - 06/23/2018 11:50 EST Electronically signed by Kendall Saha Conversion Managing Consultant Clinical Professor Cerner at 08/03/2022 7:29 PM CDT documented in this encounter Plan of Treatment Not on file documented as of this encounter Visit Diagnoses Not on filedocumented in this encounter
--- OUTSIDE RECORDS SUMMARY | 2024-10-31 16:26 | XMS_ITS | Encounter Summary ---
Author Organization [employer] ([place], [place], [place], [place]) Address [address] [place] [address] Care Team Providers Care Saddle Stitching Machine Operator Name Role Phone Unavailable Primary Care Provider Unavailabl e Encounter Details Date Type Department Care Team (Late st Contact Info) Description 06/23/2018 Transcribed Document [facility] [place] Family Medicine Counts include 234 beds at the [facility] [place] [address] ProviderEsdras MD [address] [place] [address] Social History Tobacco Use Types [...] Conversion Note - Esdras ProviderMD - 06/23/2018 3:39 PM CLOTHES SEPARATOR [address] [place] [address] PERSON INFORMATION Name ARLEN FINNEGAN Age 23 Years 1995 Sex Female Language Turkmen PCP AKILAH UPTON NP-JOVANA Marital Status Med Service Emergency Medicine Acct# Arrival 06/23/2018 11:33:00 Visit Reason Closed head injury with LOC; PASSED OUT Acuity 2 - Emergent LOS 000 04:06 Depart Date: 06/23/18 03:38 PM Address: [facility] [address] Comment: PROVIDER INFORMATION Provider Role Assigned Unassigned Debo Nash, SOLAR PROJECT MANAGER Nurse 06/23/2018 11:51:05 DEWEY GRAJEDA MD-EMR ED Physician 06/23/2018 11:51:12 DIAGNOSIS Cervical strain PHYS DOC NOTES VITALS INFORMATION Vital Sign Triage Latest Temp Source Oral Oral Temp Mode Fahrenheit Fahrenheit Temp Fahrenheit 98 Deg F 98 Deg F Temp Celsius 02 Sat 99 % 98 % Respiratory Rate 18 Breaths/Min 18 Breaths/Min Peripheral Pulse Rate 79 bpm 79 bpm Apical Heart Rate Blood Pressure 146 mmHg / 94 mmHg 139 mmHg / 107 mmHg Comment: MEDICAL INFORMATION Allergy Info: Percocet 5/325 Medications: Prescription Display acetaminophen-hydrocodone ([place]den 5 mg-325 mg oral tablet) 1 Tab, Oral, TID, PRN for pain, X 3 Day(s), # 10 Tab, 0 Refill(s) cyclobenzaprine (cyclobenzaprine 10 mg oral tablet) 1 Tab, Oral, TID, PRN for spasm, # 30 Tab, 0 Refill(s) Comment: DISCHARGE INFORMATION Discharge Disposition: Home Discharge Location: PATIENT EDUCATION INFORMATION Instructions: Syncope, [id number]; Cervical Sprain Follow up: With: Address: When: NOEMI WILHELM [address] [place], [place] [id number] Business (1) Within 2 to 3 days Comments: cardiology referral for follow up on syncope isssue, which liekly realtes to orthostatic and dehydration symptoms With: Address: When: AKILAH UPTON [address] [place] [address] Business (1) Within 2 to 3 days Comment: Electronically signed by Kendall Saha Conversion Railroad Wheels And Axles Inspector Cerner at 08/03/2022 7:41 PM CDT documented in this encounter Plan of Treatment Not on file documented as of this encounter Visit Diagnoses Not on filedocumented in this encounter
--- OUTSIDE RECORDS SUMMARY | 2024-10-31 16:26 | XMS_ITS | Encounter Summary ---
Author Organization Healthcare Address [address] [place] [address] Care Team Providers Care Java Project Manager Name Role Phone Anita Faye APRN Primary Care Provider [phone] Abby Bruce RN Unavailable [phone] Krystina Bear APRN Primary Care Provider [phone] Anita Faye APRN Primary Care Provider [phone] Reason for Visit * Reason Comments Med Refill Encounter Details Date Type Department Care Team (Late st Contact Info) Description 11/12/2020 Refill Family and Community Medicine [address] [place] [address] Anita Faye APRN [address] [place] [address] Social History Tobacco Use Types Packs/Day Years Used Date Smoking Tobacco: Every Day Comments Unknown Sex and Gender Information Value Date Recorded Sex Assigned at Female 12/13/2023 12:44 PM EDT Legal Sex Female 8:53 PM EDT Gender Identity Female 12/13/2023 12:44 PM EDT Sexual Orientation Not on file documented as of this encounter Miscellaneous Notes * Telephone Encounter - Marly Guerrier, PharmD - 11/12/2020 5:27 PM EDT documented in this encounter Plan of Treatment Not on file documented as of this encounter Visit Diagnoses Not on filedocumented in this encounter Care Teams Java Project Manager Relationship Specialty Start Date End Date Anita Faye APRN [address] [place] [address] PCP - General 08/31/20 01/13/22 Krystina Bear APRN [address] [place] [address] PCP - General Family Medicine 01/14/22 07/08/23 Anita Faye APRN [address] [place] [address] PCP - General Family Medicine 07/09/23 Abby Bruce RN [address] [address] Critical Care Specialist Internal Medicine 01/14/21 12/21/21 documented as of this encounter
--- OUTSIDE RECORDS SUMMARY | 2024-10-31 16:26 | XMS_ITS | Encounter Summary ---
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 No / Unsure 01/13/2021 10:27 PM EDT documented as of this encounter Miscellaneous Notes * Telephone Encounter - Arlen Burnette PharmD - 02/02/2021 8:53 AM EDT Refill request does not meet protocol. Sending to clinic triage for further review. 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
--- OUTSIDE RECORDS SUMMARY | 2024-10-31 16:26 | XMS_ITS | Encounter Summary ---
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 Name Role Phone Unavailable Primary Care Provider Unavailabl e Encounter Details Date Type Department Care Team (Late st Contact Info) Description 06/23/2018 Transcribed Document [facility] [place] [facility] [place] [address] ProviderEsdras MD [address] [place] [address] Social History Tobacco Use Types Packs/Day Years Used Date Smoking Tobacco: Never Assessed Comments Unknown Sex and Gender Information Value Date Recorded Sex Assigned at Female 10/15/2021 8:26 PM CDT Legal Sex Female 8:26 PM CDT Gender Identity Female 10/15/2021 8:26 PM CDT Sexual Orientation Not on file documented as of this encounter Miscellaneous Notes * Cerner Conversion Note - Historical ProviderMD - 06/23/2018 3:39 PM OBIEE CONSULTANT [facility] [address] [place] [address] Patient Information Name: ARLEN FINNEGAN Age: 23 Years Date of : 1995 Arrival Time: 06/23/2018 11:33:00 Diagnosis Cervical strain Primary Care Physician: AKILAH UPTON NP-JOVANA Provider Information Primary Provider: DEWEY GRAJEDA Secondary Provider: ARLEN FINNEGAN has been given the following list of patient education materials, prescriptions and follow-up instructions: Follow-up Instructions: With: Address: When: NOEMI WILHELM [facility] [address] [place] [address] CTB Group (1) Within 2 to 3 days Comments: cardiology referral for follow up on syncope isssue, which liekly realtes to orthostatic and dehydration symptoms With: Address: When: [place] [address] CTB Group (1) Within 2 to 3 days Patient Education Materials: Syncope, orthostatic Introduction Syncope is when you lose temporarily pass out (faint). Signs that you may be about to pass out include: ??? Feeling dizzy or light-headed. ??? Feeling sick to your stomach (nauseous). ??? Seeing all white or all black. ??? Having cold, clammy skin. If you passed out, get help right away. Call your local emergency services (911 in the [place] Do not drive yourself to the hospital. Follow these instructions at home: Pay attention to any changes in your symptoms. Take these actions to help with your condition: ??? Have someone stay with you until you feel stable. ??? Do notdrive, use machinery, or play sports until your doctor says it is okay. ??? Keep all follow-up visits as told by your doctor. This is important. ??? If you start to feel like you might pass out, lie down right away and raise (elevate) your feet above the level of your heart. Breathe deeply and steadily. Wait until all of the symptoms are gone. ??? Drink enough fluid to keep your pee (urine) clear or pale yellow. ??? If you are taking blood pressure or heart medicine, get up slowly and spend many minutes getting ready to sit and then stand. This can help with dizziness. ??? Take fqga-hqv-rcuycoy and prescription medicines only as told by your doctor. Get help right away if: ??? You have a very bad headache. ??? You have unusual pain in your chest, tummy, or back. ??? You are bleeding from your mouth or rectum. ??? You have black or tarry poop (stool). ??? You have a very fast or uneven heartbeat (palpitations). ??? It hurts to breathe. ??? You pass out once or more than once. ??? You have jerky movements that you cannot control (seizure). ??? You are confused. ??? You have trouble walking. ??? You are very weak. ??? You have vision problems. These symptoms may be an emergency. Do not wait to see if the symptoms will go away. Get medical help right away. Call your local emergency services (911 in the [place] Do not drive yourself to the hospital. This information is not intended to replace advice given to you by your health care provider. Make sure you discuss any questions you have with your health care provider. Document Released: 09/22/2008 Document Revised: 09/11/2016 Document Reviewed: 12/19/2015 ?? 2017 [employer] Cervical Sprain A cervical sprain is a stretch or tear in one or more of the tough, cord-like tissues that connect bones (ligaments) in the neck. Cervical sprains can range from mild to severe. Severe cervical sprains can cause the spinal bones (vertebrae) in the neck to be unstable. This can lead to spinal cord damage and can result in serious nervous system problems. The amount of time that it takes for a cervical sprain to get better depends on the cause and extent of the injury. Most cervical sprains heal in 4?6 weeks. What are the causes? Cervical sprains may be caused by an injury (trauma), such as from a motor vehicle accident, a fall, or sudden forward and backward whipping movement of the head and neck (whiplash injury). Mild cervical sprains may be caused by wear and tear over time, such as from poor posture, sitting in a chair that does not provide support, or looking up or down for long periods of time. What increases the risk? The following factors may make you more likely to develop this condition: ??? Participating in activities that have a high risk of trauma to the neck. These include contact sports, auto racing, gymnastics, and diving. ??? Taking risks when driving or riding in a motor vehicle, such as speeding. ??? Having osteoarthritis of the spine. ??? Having poor strength and flexibility of the neck. ??? A previous neck injury. ??? Having poor posture. ??? Spending a lot of time in certain positions that put stress on the neck, such as sitting at a computer for long periods of time. What are the signs or symptoms? Symptoms of this condition include: ??? Pain, soreness, stiffness, tenderness, swelling, or a burning sensation in the front, back, or sides of the neck. ??? Sudden tightening of neck muscles that you cannot control (muscle spasms). ??? Pain in the shoulders or upper back. ??? Limited ability to move the neck. ??? Headache. ??? Dizziness. ??? Nausea. ??? Vomiting. ??? Weakness, numbness, or tingling in a hand or an arm. Symptoms may develop right away after injury, or they may develop over a few days. In some cases, symptoms may go away with treatment and return (recur) over time. How is this diagnosed? This condition may be diagnosed based on: ??? Your medical history. ??? Your symptoms. ??? Any recent injuries or known neck problems that you have, such as arthritis in the neck. ??? A physical exam. ??? Imaging tests, such as: ? X-rays. ? MRI. ? CT scan. How is this treated? This condition is treated by resting and icing the injured area and doing physical therapy exercises. Depending on the severity of your condition, treatment may also include: ??? Keeping your neck in place (immobilized) for periods of time. This may be done using: ? A cervical collar. This supports your chin and the back of your head. ? A cervical traction device. This is a sling that holds up your head. This removes weight and pressure from your neck, and it may help to relieve pain. ??? Medicines that help to relieve pain and inflammation. ??? Medicines that help to relax your muscles (muscle relaxants). ??? Surgery. This is rare. Follow these instructions at home: If you have a cervical collar: ??? Wear it as told by your health care provider. Do not remove the collar unless instructed by your health care provider. ??? Ask your health care provider before you make any adjustments to your collar. ??? If you have long hair, keep it outside of the collar. ??? Ask your health care provider if you can remove the collar for cleaning and bathing. If you are allowed to remove the collar for cleaning or bathing: ? Follow instructions from your health care provider about how to remove the collar safely. ? Clean the collar by wiping it with mild soap and water and drying it completely. ? If your collar has removable pads, remove them every 1?2 days and wash them by hand with soap and water. Let them air-dry completely before you put them back in the collar. ? Check your skin under the collar for irritation or sores. If you see any, tell your health care provider. Managing pain, stiffness, and swelling ??? If directed, use a cervical traction device as told by your health care provider. ??? If directed, apply heat to the affected area before you do your physical therapy or as often as told by your health care provider. Use the heat source that your health care provider recommends, such as a moist heat pack or a heating pad. ? Place a towel between your skin and the heat source. ? Leave the heat on for 20?30 minutes. ? Remove the heat if your skin turns bright red. This is especially important if you are unable to feel pain, heat, or cold. You may have a greater risk of getting burned. ??? If directed, put ice on the affected area: ? Put ice in a plastic bag. ? Place a towel between your skin and the bag. ? Leave the ice on for 20 minutes, 2?3 times a day. Activity ??? Do notdrive while wearing a cervical collar. If you do not have a cervical collar, ask your health care provider if it is safe to drive while your neck heals. ??? Do notdrive or use heavy machinery while taking prescription pain medicine or muscle relaxants, unless your health care provider approves. ??? Do notlift anything that is heavier than 10 lb (4.5 kg) until your health care provider tells you that it is safe. ??? Rest as directed by your health care provider. Avoid positions and activities that make your symptoms worse. Ask your health care provider what activities are safe for you. ??? If physical therapy was prescribed, do exercises as told by your health care provider or physical therapist. General instructions ??? Take wklx-sey-jftgmkz and prescription medicines only as told by your health care provider. ??? Do notuse any products that contain nicotine or tobacco, such as cigarettes and e-cigarettes. These can delay healing. If you need help quitting, ask your health care provider. ??? Keep all follow-up visits as told by your health care provider or physical therapist. This is important. How is this prevented? To prevent a cervical sprain from happening again: ??? Use and maintain good posture. Make any needed adjustments to your workstation to help you use good posture. ??? Exercise regularly as directed by your health care provider or physical therapist. ??? Avoid risky activities that may cause a cervical sprain. Contact a health care provider if: ??? You have symptoms that get worse or do not get better after 2 weeks of treatment. ??? You have pain that gets worse or does not get better with medicine. ??? You develop new, unexplained symptoms. ??? You have sores or irritated skin on your neck from wearing your cervical collar. Get help right away if: ??? You have severe pain. ??? You develop numbness, tingling, or weakness in any part of your body. ??? You cannot move a part of your body (you have paralysis). ??? You have neck pain along with: ? Severe dizziness. ? Headache. Summary ??? A cervical sprain is a stretch or tear in one or more of the tough, cord-like tissues that connect bones (ligaments) in the neck. ??? Cervical sprains may be caused by an injury (trauma), such as from a motor vehicle accident, a fall, or sudden forward and backward whipping movement of the head and neck (whiplash injury). ??? Symptoms may develop right away after injury, or they may develop over a few days. ??? This condition is treated by resting and icing the injured area and doing physical therapy exercises. This information is not intended to replace advice given to you by your health care provider. Make sure you discuss any questions you have with your health care provider. Document Released: 02/01/2008 Document Revised: 12/03/2016 Document Reviewed: 12/03/2016 [employer] Patient Education ? 2017 [employer] Allergies: Percocet 5/325 Medication Information: Prescription Display acetaminophen-hydrocodone ([place] 5 mg-325 mg oral tablet) 1 Tab, Oral, TID, PRN for pain, X 3 Day(s), # 10 Tab, 0 Refill(s) cyclobenzaprine (cyclobenzaprine 10 mg oral tablet) 1 Tab, Oral, TID, PRN for spasm, # 30 Tab, 0 Refill(s) Laboratory or Other Results This Visit (last charted value for your 06/23/2018 visit) Hematology 06/23/18 12:31:00 WBC: 9.4 K/uL -- Normal range between ( 3.9 and 10.0 ) RBC: 4.50 Million/uL -- Normal range between ( 3.93 and 5.22 ) Hct: 40.4 % -- Normal range between ( 34.1 and 44.9 ) Hgb: 13.6 Gram/dL -- Normal range between ( 11.2 and 15.7 ) Platelet Count: 255 K/uL -- Normal range between ( 163 and 369 ) MCH: 30.2 pg -- Normal range between ( 25.6 and 32.2 ) MCHC: 33.7 Gram/dL -- Normal range between ( 32.3 and 36.5 ) MCV: 89.8 fL -- Normal range between ( 79.0 and 94.8 ) Slide Review: No Eos %: 2.9 % -- Normal range between ( 1.0 and 7.0 ) Armstrong #: 0.78 K/uL -- Normal range between ( 0.24 and 0.82 ) Eos #: 0.27 K/uL -- Normal range between ( 0.04 and 0.54 ) Armstrong %: 8.3 % -- Normal range between ( 4.7 and 12.5 ) Baso %: 0.7 % -- Normal range between ( 0.0 and 1.0 ) Baso #: 0.07 K/uL -- Normal range between ( 0.01 and 0.08 ) RDW: 11.9 % -- Normal range between ( 11.6 and 14.4 ) Neut %: 55.9 % -- Normal range between ( 34.0 and 71.0 ) Neut #: 5.23 K/uL -- Normal range between ( 1.56 and 6.13 ) Lymph %: 32.0 % -- Normal range between ( 19.3 and 53.0 ) Lymph #: 3.00 K/uL -- Normal range between ( 1.18 and 3.74 ) MPV: 9.9 fL -- Normal range between ( 9.4 and 12.4 ) IG#: 0 x10(3)/uL IG%: 0 % -- Normal range between ( 0 and 1 ) General Chemistry 06/23/18 12:31:00 Creatinine Level: 0.53 mg/dL -- Normal range between ( 0.55 and 1.02 ) Sodium Level: 140 mmol/L -- Normal range between ( 136 and 146 ) Potassium Level: 3.7 mmol/L -- Normal range between ( 3.5 and 5.1 ) Chloride Level: 106 mmol/L -- Normal range between ( 102 and 112 ) Carbon Dioxide Level: 27 mmol/L -- Normal range between ( 21 and 32 ) Anion Gap: 11 -- Normal range between ( 9 and 20 ) Bilirubin Total: 0.4 mg/dL -- Normal range between ( 0.2 and 1.3 ) A/G Ratio: 1.2 -- Normal range between ( 1.1 and 2.5 ) ALT: 44 Units/Liter -- Normal range between ( 12 and 78 ) AST: 22 Units/Liter -- Normal range between ( 5 and 37 ) Globulin: 3.2 Gram/dL -- Normal range between ( 1.5 and 4.5 ) Alk Phos: 70 Units/Liter -- Normal range between ( 27 and 136 ) Bun/Creatinine: 18.9 -- Normal range between ( 8.0 and 20.0 ) Calcium Level: 8.6 mg/dL -- Normal range between ( 8.5 and 10.1 ) eGFR : >60 mL/min/1.73m2 eGFR NonAfrican: >60 mL/min/1.73m2 Glucose Level: 101 mg/dL -- Normal range between ( 74 and 106 ) Blood Urea Nitrogen: 10 mg/dL -- Normal range between ( 7 and 22 ) Protein Total: 7.0 Gram/dL -- Normal range between ( 6.4 and 8.2 ) Albumin Level: 3.8 Gram/dL -- Normal range between ( 3.4 and 5.0 ) Lipase Level: 126 Units/Liter -- Normal range between ( 73 and 393 ) Endocrinology 06/23/18 12:31:00 HCG Serum Quant: <1.0 mIU/mL Computed Tomography 06/23/18 11:41:02 CT Head WO: CT Head WO Medication Comment: Procedures: Laboratory Orders Name Status AutoDiff Completed CBCD Completed CMP Completed HCGQT Completed LIPASE Completed [id number] Ordered UHCG Ordered Radiology Orders Name Status CR Spine Cervical [address] Head WO Completed Cardiology Orders No cardiology orders were placed. This statement is to verify that ARLEN FINNEGAN was seen at [facility] Emergency Department on ,06/23/2018 15:39:05. This is not a work excuse, if a work excuse was needed it will be in addition to this statement as a separate form. IMPORTANT: The examination and treatment you have received in the Emergency Department has been done to provide an appropriate evaluation and stabilizing treatment on an emergency basis only. Given the limited resources, it is not meant to be a substitute for complete medical care. The follow-up doctor you named will receive a copy of your records and all test reports. IT IS IMPORTANT THAT YOU SCHEDULE A FOLLOW-UP APPOINTMENT AND ARE RE-EVALUATED. You should report any new complaints, symptoms, or remaining problems at that time. IT IS IMPOSSIBLE FOR THE EMERGENCY DEPARTMENT TO RECOGNIZE AND TREAT ALL ELEMENTS OF INJURY OR ILLNESS IN A SINGLE VISIT. If you have been referred to a specialist physician, it means that we believe you may have a condition that requires the expertise of a specialist. KEEP IN MIND THAT THE SPECIALIST HAS HIS/HER OWN OFFICE POLICIES WHICH MAY REQUIRE PROPER INSURANCE OR PAYMENT UP FRONT BEFORE THE SPECIALIST WILL SEE YOU. It is your responsibility to call the specialist physician to make an appointment. We do not have the ability to identify specialists/physicians that work with specific insurance companies. Please be advised that all financial charges or billing practices are determined by that practice, not the hospital. If your insurance company requires that you see a specialist from their approved list, it is your responsibility to contact your insurance company to make those arrangements. It is also your responsibility to follow any other requirements of your insurance company necessary to obtain coverage for claims submitted. If you had special tests, such as EKG???s or X-rays, the interpretation of your tests given to you by the Emergency Dept. Physician is a preliminary report. Some fractures and illnesses fail to show up on preliminary tests. We will review them again within 24-48 hours. We will call you if there are any new suggestions. If your symptoms continue notify your physician. After you leave, you should follow the instructions below. In all events, you may obtain a copy of your Emergency Department visit from Medical Records. Please call to be directed to this department. We will bill your insurance; however, you are responsible today for any co-pay amounts. You will receive a separate bill for any services you may have received including: emergency, radiology, or pathology physicians. Please be sure we have an accurate contact phone number and address, should we need to call you for any reason. CIGARETTE SMOKING: The facts are clear; cigarette smoking will shorten your life. Smoking can cause many illnesses along the way. As a healthcare provider, [facility] recommends that you stop smoking. Assistance with quitting is available by contacting 9-967-KTPK-NOW. This is a free resource providing counseling, support, and referral. Or you may contact your personal physician. As part of your treatment plan, your physician may have prescribed a limited course of a controlled substance. This medication may be given to help people with moderate or severe pain or for other medical conditions, but there are risks involved with treatment. Common side effects may include nausea, constipation, drowsiness, sweating, itching, dry mouth, and rash. More serious side effects may include cognitive and motor impairment, like problems with thinking, concentrating, alertness, and movement (e.g. slowed reflexes), and driving and operating heavy machinery can be dangerous. It is important for you to talk to your physician if you have these side effects or questions. These controlled substances can produce physical dependence and be habit-forming if taken for an extended period of time, which means that the body has gotten used to them and may experience withdrawal symptoms if they are abruptly stopped. Withdrawal symptoms can include runny nose, sweating, goose bumps, diarrhea, abdominal cramping, rapid heartbeat, difficulty sleeping, and nervousness. The home medications listed are only as accurate as the information you provided. Please continue taking all of your medications prescribed by your Primary Care Provider unless specifically told to change or discontinue the medication. Please direct any questions regarding your home medications to your Primary Care Provider. YOU ARE THE MOST IMPORTANT FACTOR IN YOUR RECOVERY. ?? Follow your instructions carefully ?? Take your medicines as prescribed ?? Most important, see a provider as discussed. If you do not have a provider, we can provide a list of clinics Confidential This message and accompanying documents are covered by Electronic Communications Privacy Act 18 U.S.C. ???Sections 4030-9562,?? and contain information intended for the specified individual(s) only. This information is confidential. If you are not the intended recipient or an agent responsible for delivering it to the intended recipient, you are hereby notified that you have received the document in error and that any review, dissemination, copying, or the taking of any action based on the contents of this information is strictly prohibited. If you have received this communication in error, please notify us immediately by email, and delete the original message. 4 WAYS TO GET AHEAD OF SEPSIS SEPSIS is a MEDICAL EMERGENCY. Time matters! Infections put you and your family at risk for a life-threatening condition called sepsis. Sepsis is the body???s extreme response to an infection. It is life-threatening, and without timely treatment, sepsis can rapidly lead to tissue damage, organ failure, and . Sepsis happens when an infection you already have???in your skin, lungs, urinary tract or somewhere else???triggers a chain reaction throughout your body. 1 PREVENT INFECTIONS Take good care of chronic conditions. Talk to your doctor about getting the recommended vaccines. 2 PRACTICE GOOD HYGIENE Wash your hands frequently. Keep cuts or open sores clean and covered until they are healed. 3 KNOW THE SYMPTOMS Confusion or disorientation Shortness of breath High heart rate Fever, shivering, or feeling very cold Extreme pain or discomfort Clammy or sweaty skin 4 ACT FAST Get medical care IMMEDIATELY if you suspect sepsis or if you have an infection that???s not getting better or is getting worse. To learn more about sepsis and how to prevent infections, visit www.cdc.gov/sepsis. STROKE is an EMERGENCY Every Minute Counts ACT F.A.S.T! FACE ?? Facial droop ?? Uneven smile ARM ?? Arm numbness ?? Arm weakness SPEECH ?? Slurred speech ?? Difficulty speaking or understanding TIME ?? Call 911 and get to the hospital immediately Have the ambulance go to the nearest stroke center. STROKE Risk Factors High blood pressure High cholesterol Heart Disease Diabetes Smoking Heavy alcohol use Physical inactivity and obesity Atrial Fibrillation (irregular heartbeat) Family history of stroke Acknowledgment I hereby acknowledge receipt of these instructions and information above. I understand that I have received Emergency Treatment only which is not a substitute for complete medical care and acknowledge that all of my medical problems may not be known, identified, or treated prior to my release. I UNDERSTAND THE NEED TO ARRANGE FOLLOW-UP CARE WITH THE PHYSICIAN INDICATED. I UNDERSTAND THAT I SHOULD CONTACT MY PHYSICIAN IMMEDIATELY OR RETURN TO THE EMERGENCY DEPARTMENT IF MY CONDITION WORSENS, FAILS TO IMPROVE, OR NEW SYMPTOMS APPEAR. Vital Signs B/P PULSE RESP. RATE TEMPERATURE PULSE OX Signature of Emergency Provider Date / Time Signature of Emergency Nurse Date / Time Reminder: Be sure to sign up for the [facility] patient portal, which gives you 10/11 access to your medical information ??? including these discharge instructions ??? using your computer, smartphone, or tablet. Just go to [employer] to get started. Questions? Call . Acknowledgment I hereby acknowledge receipt of these instructions and information above. I understand that I have received Emergency Treatment only which is not a substitute for complete medical care and acknowledge that all of my medical problems may not be known, identified, or treated prior to my release. I UNDERSTAND THE NEED TO ARRANGE FOLLOW-UP CARE WITH THE PHYSICIAN INDICATED. I UNDERSTAND THAT I SHOULD CONTACT MY PHYSICIAN IMMEDIATELY OR RETURN TO THE EMERGENCY DEPARTMENT IF MY CONDITION WORSENS, FAILS TO IMPROVE, OR NEW SYMPTOMS APPEAR. Signature of Patient / Responsible Person Date / Time Please provide a telephone number where you can be reached. The best time to call is between: It is permissible to leave a message if no answer: Yes____ No____ Nurse Providing Instructions: Emergency Physician: documented in this encounter Plan of Treatment Not on file documented as of this encounter Visit Diagnoses Not on filedocumented in this encounter
--- OUTSIDE RECORDS SUMMARY | 2024-10-31 16:26 | XMS_ITS | Encounter Summary ---
Author Organization [employer] ([place], [place], [place], [place]) Address [address] [place] [address] Care Team Providers Care Wrapper Hands Sprayer Name Role Phone Unavailable Primary Care Provider Unavailabl e Encounter Details Date Type Department Care Team (Late st Contact Info) Description 06/23/2018 Transcribed Document [facility] Radiology [address] [place] [address] Espinoza Grajeda MD [address] [place] [address] Dept[place] [address] Social History Tobacco Use Types Packs/Day Years Used Date Smoking Tobacco: Never Assessed Comments Unknown Sex and Gender Information Value Date Recorded Sex Assigned at Female 10/15/2021 8:26 PM CDT Legal Sex Female 8:26 PM CDT Gender Identity Female 10/15/2021 8:26 PM CDT Sexual Orientation Not on file documented as of this encounter Miscellaneous Notes * Cerner Conversion Note - Espinoza Grajeda MD - 06/23/2018 5:30 PM EST CR Spine Cervical 2 or 3 Vws Ordered: 06/23/2018 Auth (Verified) Reason for Exam: c spine injury 06/23/2018 16:11 06/23/2018 16:30 (ESPINOZA GRAJEDA MD-EMR) Reviewed by Provider, No further action required x1 documented in this encounter Plan of Treatment Not on file documented as of this encounter Visit Diagnoses Not on filedocumented in this encounter
--- OUTSIDE RECORDS SUMMARY | 2024-10-31 16:26 | XMS_ITS | Encounter Summary ---
Author Organization [employer] ([place], [place], [place], [place]) Address [address] [place] [address] Care Team Providers Care Still Photographer Name Role Phone Unavailable Primary Care Provider Unavailabl e Encounter Details Date Type Department Care Team (Late st Contact Info) Description 06/23/2018 Transcribed Document [facility] Radiology 1 [place] [address] Espinoza Sullivan MD [address] [place] [address] Dept. [place] [address] Social History Tobacco Use Types Packs/Day Years Used Date Smoking Tobacco: Never Assessed Comments Unknown Sex and Gender Information Value Date Recorded Sex Assigned at Female 10/15/2021 8:26 PM CDT Legal Sex Female 8:26 PM CDT Gender Identity Female 10/15/2021 8:26 PM CDT Sexual Orientation Not on file documented as of this encounter Miscellaneous Notes * Cerner Conversion Note - Espinoza Sullivan MD - 06/23/2018 4:26 PM EST Electronically signed by Maria A [facility] Conversion Manager Mass Cerner at 08/03/2022 7:44 PM CDT documented in this encounter Plan of Treatment Not on file documented as of this encounter Visit Diagnoses Not on filedocumented in this encounter
--- OUTSIDE RECORDS SUMMARY | 2024-10-31 16:26 | XMS_ITS | Clinical Summary ---
Author Organization [employer] ([place], [place], [place], [place]) Address [address] [place] [address] Care Team Providers Care Truck Safety Inspector Name Role Phone Unavailable Primary Care Provider [...]
--- OUTSIDE RECORDS SUMMARY | 2024-10-31 16:26 | XMS_ITS | Encounter Summary ---
Author Organization [employer] ([place], [place], [place], [place]) Address [address] [place] [address] Care Team Providers Care Director Of Home Care Hospice Name Role Phone Unavailable Primary Care Provider Unavailabl e Encounter Details Date Type Department Care Team (Late st Contact Info) Description 06/23/2018 Transcribed Document [facility] Family Medicine [facility] [place] [address] ProviderEsdras MD [address] [place] [address] Social History Tobacco Use Types [...] Conversion Note - Historical ProviderMD - 06/23/2018 3:37 PM PRODUCT DEVELOPMENT DIRECTOR ED Discharge Entered On: 06/23/2018 15:38 EST Performed On: 06/23/2018 15:37 EST by Debo Nash RN Discharge Process Patient Disposition : Discharge Personal Belongings With Patient : Yes Patient Education Completed : Yes Teaching Evaluation : Verbalizes understanding IV Discontinued : Yes Nursing Documentation Completed : Yes Debo Nash RN - 06/23/2018 15:37 EST ED Discharge Discharge To : Home with ambulatory/outpatient follow-up Mode Of Departure : Ambulatory Accompanied By : Sibling Discharge Instructions Reviewed With, Opportunity For Questions Given : Patient Prescriptions Given to Patient : Yes Debo Nash RN - 06/23/2018 15:37 EST Electronically signed by Maria A [facility] Conversion Flue Gas Analyst Cerner at 08/03/2022 7:47 PM CDT documented in this encounter Plan of Treatment Not on file documented as of this encounter Visit Diagnoses Not on filedocumented in this encounter
--- OUTSIDE RECORDS SUMMARY | 2024-10-31 16:26 | XMS_ITS | Encounter Summary ---
Author Organization [employer] ([place], [place], [place], [place]) Address [address] [place] [address] Care Team Providers Care Instructor Looping Name Role Phone Unavailable Primary Care Provider Unavailabl e Encounter Details Date Type Department Care Team (Late st Contact Info) Description 07/01/2018 Transcribed Document [facility] Radiology [address] [place] [address] Espinoza Grajeda MD [address] [place] [address] Dept. of Emergency [place] [address] Social History Tobacco Use Types [...] Conversion Note - Espinoza Grajeda MD - 07/01/2018 10:54 AM EDT Patient: ARLEN FINNEGAN Age: 23 years Sex: Female : 1995 Associated Diagnoses: Cervical strain; Syncope Author: ESPINOZA GRAJEDA MD-EMR History of Present Illness The patient presents with syncope. The onset was getting up from chair at work, prodromal symptoms of dizziness, fell and neck strain pain after hitting on way down.. The course/duration of symptoms is improving. Review of Systems Additional review of systems information: All other systems reviewed and otherwise negative. Health Status Allergies: Allergic Reactions (Selected) Severity Not Documented Percocet 5/325- No reactions were documented.. Medications: (Selected) Prescriptions Prescribed Xarelto 15 mg oral tablet: 1 Tab, Oral, BID, for 21 Day(s), 42 Tab, 0 Refill(s) cyclobenzaprine 10 mg oral tablet: 1 Tab, Oral, TID, PRN: for spasm, 30 Tab, 0 Refill(s) Documented Medications Documented Xarelto 20 mg oral tablet: 1 Tab, Oral, QPM, 30 Tab, 0 Refill(s) atenolol 50 mg oral tablet: 1 Tab, Oral, BID, 180 Tab, 0 Refill(s) escitalopram 20 mg oral tablet: 0 Refill(s) rOPINIRole 0.25 mg oral tablet: 1 Tab, Oral, TID, 270 Tab, 0 Refill(s) zzerxduloxetine 60 mg oral delayed release capsule: 0 Refill(s). Past Medical/ Family/ Social History Medical history Reviewed as documented in chart. Surgical history: No active procedure history items have been selected or recorded.. Family history: No family history items have been selected or recorded.. Social history: Social & Psychosocial Habits No Data Available , Reviewed as documented in chart. Problem list: Per nurse's notes. Physical Examination General: Alert, no acute distress. Vital Signs Skin: Dry. Head: Atraumatic. Neck: Trachea midline, no JVD, cervical muscle tender. Eye: Pupils are equal, round and reactive to light, normal conjunctiva. Ears, nose, mouth and throat: Oral mucosa moist. Cardiovascular: Normal peripheral perfusion. Respiratory: Respirations are non-labored. Chest wall: No deformity. Back: Normal alignment. Musculoskeletal: No deformity. Genitourinary: Exam deferred. Neurological: Alert and oriented to person, place, time, and situation. Psychiatric: Cooperative. Medical Decision Making Electrocardiogram: Normal sinus rhythm. Results review: hcg neg. Radiology results: X-ray, without contrast, reveals no acute disease process. Impression and Plan Diagnosis Cervical strain - Discharge, Emergency medicine, Medical Syncope - Discharge, Emergency medicine, Medical documented in this encounter Plan of Treatment Not on file documented as of this encounter Visit Diagnoses Not on filedocumented in this encounter
--- OUTSIDE RECORDS SUMMARY | 2024-10-31 16:26 | XMS_ITS | Encounter Summary ---
Author Organization [employer] ([place], [place], [place], [place]) Address [address] [place] [address] Care Team Providers Care K 9 Handler/ Deputy Name Role Phone Unavailable Primary Care Provider Unavailabl e Encounter Details Date Type Department Care Team (Late st Contact Info) Description 06/23/2018 Transcribed Document [facility] [place] [facility] [place] [address] ProviderEsdras MD [address] [place] [address] Social History Tobacco Use Types [...] - Esdras ProviderMD - 06/23/2018 11:33 AM FISHING TOOL SUPERVISOR ED Triage Entered On: 06/23/2018 11:49 EST Performed On: 06/23/2018 11:46 EST by Debo Nash RN ED Triage Across the Room Triage Date/Time : 06/23/2018 11:46 EST Chief Complaint : Pt reports that she was at work and got hot feeling tried to get to chair feeling dizzy and passed out. hit head on metal stool and on blood thinners. States has head ache Debo Nash RN - 06/23/2018 11:46 EST DCP GENERIC CODE Tracking Acuity : 2 - Emergent Tracking Group : [facility] ED [facility] Debo Nash RN - 06/23/2018 11:46 EST Mode of Arrival : Stretcher Transported to ED by : Ambulance/ALS EMS Service : [facility] To Room Via : Stretcher Accompanied By : Sibling ED Vital Signs : Document Height & Weight : Document ED Allergies : Document ED Reason for Visit : Document Debo Nash RN - 06/23/2018 11:46 EST Infectious Disease History Infectious Disease History : Influenza, Mononucleosis, MRSA Fever/Chills Last 48 Hours : No Travel To Regions with Travel Advisories : No Travel Outside [place] Within Last 30 Days : No Contact With Traveler to Advisory Region : No Tuberculosis Symptoms : None Debo Nash RN - 06/23/2018 11:46 EST Vital Signs ED Temperature Source : Oral Temperature Mode : Fahrenheit Temperature, Fahrenheit : 98 Deg F ED Pain : Yes Clinical Temperature, C : 36.7 Deg C Oxygen Therapy Mode : Room air Peripheral Pulse Rate : 79 bpm Respiratory Rate : 18 Breaths/Min Systolic Blood Pressure : 146 mmHg (HI) Diastolic Blood Pressure : 94 mmHg (HI) Oxygen Saturation : 99 % Debo Nash RN - 06/23/2018 11:46 EST Allergy (As Of: 06/23/2018 11:49:59 EST) Allergies (Active) Percocet 5/325 Estimated Onset Date: Unspecified ; Created By: Tiara Jones RN; Reaction Status: Active ; Category: Drug ; Substance: Percocet 5/325 ; Type: Allergy ; Updated By: Tiara Jones RN; Reviewed Date: 06/23/2018 11:49 EST Diagnosis Control ED (As Of: 06/23/2018 11:49:59 EST) Diagnoses(Active) Closed head injury with LOC Date: 06/23/2018 ; Diagnosis Type: Reason For Visit ; Confirmation: Complaint of ; Clinical Dx: Closed head injury with LOC ; Classification: Medical ; Clinical Service: Non-Specified ; Code: PNED ; Probability: 0 ; Diagnosis Code: [id number] ED Height and Weight Height Source : Stated Height Entry Format : [place] Height, Feet : 5 ft(Converted to: 152 cm, 60 Inch) Height, Inches : 4 Inch(Converted to: 0 ft 4 Inch, 10.16 cm) Clinical Height : 162.56 cm Weight Source, ED : Critical estimated dosing weight Weight Entry Format : [place] Weight, Pounds : 190 lb Clinical Dosing Weight : 86.36 kg Body Surface Area (BSA) : 1.92 m2 Body Mass Index : 32.7 kg/m2 (HI) [place] Body Weight (IBW) : 54.3 kg Debo Nash RN - 06/23/2018 11:46 EST Pain Assessment Pain Assessment : Initial assessment Pain Scale Used : 0-10 Scale Location : Head Debo Nash RN - 06/23/2018 11:46 EST Pain Scale Intensity : 4 Debo Nash RN - 06/23/2018 11:46 EST Image 4 - Images currently included in the form version of this document have not been included in the text rendition version of the form. documented in this encounter Plan of Treatment Not on file documented as of this encounter Visit Diagnoses Not on filedocumented in this encounter
--- OUTSIDE RECORDS SUMMARY | 2024-10-31 16:26 | XMS_ITS | Encounter Summary ---
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
--- OUTSIDE RECORDS SUMMARY | 2024-10-31 16:26 | XMS_ITS | Encounter Summary ---
Author Organization Healthcare Address [address] [place] [address] Care Team Providers Care Automotive Design Layout Drafter Name Role Phone Anita Faye APRN Primary Care Provider [phone] Abby Bruce RN Unavailable [phone] Krystina Bear APRN Primary Care Provider [phone] Anita Faye APRN Primary Care Provider [phone] Reason for Visit * Reason Comments Med Refill Encounter Details Date Type Department Care Team (Late st Contact Info) Description 11/15/2020 Refill Family and Community Medicine [address] [place] [address] Anita Faye APRN [address] [place] [address] Social History Tobacco Use Types Packs/Day Years Used Date Smoking Tobacco: Every Day Comments Unknown Sex and Gender Information Value Date Recorded Sex Assigned at Female 12/13/2023 12:44 PM EDT Legal Sex Female 8:53 PM EDT Gender Identity Female 12/13/2023 12:44 PM EDT Sexual Orientation Not on file documented as of this encounter Miscellaneous Notes * Telephone Encounter - Fernanda Willis MA - 11/19/2020 12:31 PM EDT Approving, but needs appt for additional refills. * Telephone Encounter - Arlen Burnette, PharmD - 11/17/2020 7:00 AM EDT Refill request does not meet protocol. Sending to clinic triage for further review. Additional info: Last seen by FM 11/01/19 documented in this encounter Plan of Treatment Not on file documented as of this encounter Visit Diagnoses Not on filedocumented in this encounter Care Teams Automotive Design Layout Drafter Relationship Specialty Start Date End Date Anita Faye APRN [address] [place] [address] PCP - General 08/31/20 01/13/22 Krystina Bear APRN [address] [place] [address] PCP - General Family Medicine 01/14/22 07/08/23 Anita Faye APRN [address] [place] [address] PCP - General Family Medicine 07/09/23 Abby Bruce RN [address] [address] Program Evaluator Internal Medicine 01/14/21 12/21/21 documented as of this encounter
--- OUTSIDE RECORDS SUMMARY | 2024-10-31 16:26 | XMS_ITS | Encounter Summary ---
Author Organization Healthcare Address [address] [place] [address] Care Team Providers Care Career Representative Name Role Phone Krystina Bear APRN Primary Care Provider [phone] Anita Faye APRN Primary Care Provider [phone] Encounter Details Date Type Department Care Team (Late st Contact Info) Description 07/18/2022 Outside Procedure External Location [address] [place] [address] Provider, [facility] Social History Tobacco Use Types Packs/Day Years [...] Name Priority Date/Time Associated Diagnosis Comments XR HAND RIGHT 3+ VIEWS 07/18/2022 6:33 PM EDT documented in this encounter Results * XR Hand Right 3+ Views (07/18/2022 6:33 PM EDT) Anatomical Region Laterality Modality Upper Extremities, Hand Right Digital Radiography 07/18/2022 6:33 PM EDT Narrative 07/19/2022 8:58 AM EDT [address] [address] Name: ARLEN FINNEGAN Exam Date: 07/18/2022 : 1995 Age 27 Gender: F Physician: SEAN OSEI Facility: [facility] Facility HSV: Outpatient Exam: HAND RT 3V FINAL REPORT CLINICAL HISTORY: Right hand injury last night, 2nd digit pain. FINDINGS: RIGHT HAND 3 views were obtained. There is no acute fracture or dislocation. The joint spaces are intact. There is no soft tissue abnormality. IMPRESSION: No acute bony abnormality. If symptoms persist, consider MRI. Reviewed, Interpreted and Dictated by Danny Weiss DO Transcribed by Perla Palomino Authenticated and [facility] Dictated By: Danny Weiss DO Transcribed By: Transcribed On: 07/19/2022 8:46 AM Electronically signed by: Danny Weiss DO 07/19/2022 Thank you for referring ARLEN FINNEGAN to [facility]. Legally authenticated by POPE DANNY Dewitt 2022-07-19 08:46:50 Procedure Note Provider, Ora Cummaquid - 07/19/2022 [place] [address] Name: ARLEN FINNEGAN Exam Date: 07/18/2022 : 1995 Age 27 Gender: F Physician: SEAN OSEI Facility: [facility] Facility HSV: Outpatient Exam: HAND RT 3V FINAL REPORT CLINICAL HISTORY: Right hand injury last night, 2nd digit pain. FINDINGS: RIGHT HAND 3 views were obtained. There is no acute fracture or dislocation. The joint spaces are intact. There is no soft tissue abnormality. IMPRESSION: No acute bony abnormality. If symptoms persist, consider MRI. Reviewed, Interpreted and Dictated by Danny Weiss DO Transcribed by Perla Palomino Authenticated and [employer]AST[employer] Dictated By: Danny Weiss DO Transcribed By: Transcribed On: 07/19/2022 8:46 AM Electronically signed by: Danny Weiss DO 07/19/2022 Thank you for referring ARLEN FINNEGAN to [facility]. Legally authenticated by POPE DANNY Dewitt 2022-07-19 08:46:50 Generic Cummaquid Provider IMG XR PROCEDURES Fi nal Result documented in this encounter Visit Diagnoses Not on filedocumented in this encounter Additional Health Concerns Assessment Noted Time A fall risk assessment has been complete d for the patient 01/13/2022 7:51 AM EDT documented as of this encounter Care Teams Career Representative Relationship Specialty Start Date End Date Krystina Bear APRN [address] [place] [address] PCP - General Family Medicine 01/14/22 07/08/23 Anita Faye APRN [address] [place] [address] PCP - General Family Medicine 07/09/23 documented as of this encounter
--- NOTE | 2024-10-31 16:32 | ED_ITS ---
<Statement entered by Christy Lindsay DO - 10/31/24 19:32> I was consulted by the MITA, and we discussed the complexity of the problems being addressed. I approved the treatment and management plan for this patient's care in the emergency department, thus performing a substantive portion of the medical decision making. Christy Lindsay DO Discharge Plan Disposition Patient Disposition: Home, Self-Care Condition: Good Prescriptions Prescriptions: No Action amoxicillin 500 mg tablet 500 mg PO TID 10 Days Qty: 30 0RF methylprednisolone 4 mg Tablets,Dose Pack 4 mg PO DIRECTED 6 Days Qty: 21 0RF Rx Instructions: Take 1 pack as directed for 6 days czdflpawcpeeckv-zgkfmzzfo-RP [Bromfed DM] 2-30-10 mg/5 mL Syrup 5 ml PO Q6H PRN (Reason: Cough) Qty: 240 0RF azithromycin [Zithromax] 250 mg tablet 250 mg PO UD DOSE PK Qty: 6 0RF Rx Instructions: Take two (2) tablets today, then one (1) tablet days #2 thru #5 methylprednisolone 4 mg Tablets,Dose Pack 4 mg PO DIRECTED 6 Days Qty: 21 0RF Rx Instructions: Take 1 pack as directed for 6 days pseudoephedrine HCl 30 mg tablet 30 mg PO Q6HP PRN (Reason: Congestion) Qty: 30 0RF fluconazole 150 mg tablet 150 mg PO ONCE Qty: 1 3RF methocarbamol 750 mg tablet 750 mg PO TID PRN (Reason: muscle pain) 30 Days Qty: 90 0RF ketorolac 10 mg tablet 10 mg PO Q8H PRN (Reason: pain) 14 Days Qty: 30 0RF atenolol 100 mg tablet 100 mg PO BID Patient Comments: TAKE 1 TABLET BY MOUTH TWICE DAILY amlodipine 5 mg tablet 5 mg PO DAILY metformin 1,000 mg tablet 1,000 mg PO BID Patient Comments: TAKE 1 TABLET BY MOUTH TWICE DAILY FOR 90 DAYS levothyroxine 150 mcg tablet 150 mcg PO DAILY Patient Comments: TAKE 1 TABLET BY MOUTH ONCE DAILY escitalopram oxalate 10 mg tablet 10 mg PO DAILY Patient Comments: TAKE 1 TABLET BY MOUTH ONCE DAILY duloxetine 60 mg capsule,delayed release(DR/EC) 60 mg PO DAILY Patient Comments: TAKE 1 CAPSULE BY MOUTH ONCE DAILY DO NOT CRUSH OR CHEW Ozempic 1 mg/dose (4 mg/3 mL) pen injector 1 mg SQ WEEKLY Patient Comments: INJECT 1 MG SUBCUTANEOUSLY ONCE A WEEK oseltamivir [Tamiflu] 75 mg capsule 75 mg PO BID 5 Days Qty: 10 0RF ciprofloxacin-dexamethasone 0.3-0.1 % drops,suspension 4 drp otic (ear) BID 7 Days Qty: 7.5 0RF Rx Instructions: in left ear as directed fluticasone propionate [Flonase Allergy Relief] 50 mcg/actuation spray,suspension 2 spray intranasal DAILY Qty: 16 0RF Rx Instructions: administer into each nostril daily Referrals Follow up/Referrals: Guilherme Faye III, MD [Primary Care Provider, Medical] - See inst ructions Activity Restrictions/Add. Instructions Additional Instructions/Restrictions: Please return to the emergency department for any worsening signs or symptoms, please continue to take all your medications at home as prescribed, please follow-up with your PCP in the upcoming days/weeks. Clinical Impressions Clinical Impression: Hyperglycemia due to type 2 diabetes mellitus Stand Alone Forms Stand Alone Forms: Work/School Release Instructions Patient Instructions: DI for Hyperglycemia -- Adult Print Language Print Language: Thai Discharge ED Provider: Christy Lindsay General Adult HPI General Chief complaint: Hyper/Hypoglycemia Stated complaint: High blood sugar Time Seen by Provider: 10/31/24 16:16 Mode of Arrival: Ambulatory Source of Information: Patient Description of Symptoms (Recalled from ER Triage Doc. by RN): PT REPORTS ELEVATED BLOOD GLUCOSE THIS AM 317, STATES SHE GOT HER SUGAR TO GO DOWN, BUT WANTS TO GET CHECKED OUT PT REPORTS NAUSEA AT THIS TIME. FSBS 144 History of Present Illness HPI narrative: 29-year-old female presents to the emergency department with concern for hyperglycemia , patient is a type II diabetic rbs-qkdgdiw-enskygyyr, notices morning she had some nausea fatigue and 1 episode of vomiting, she checked her blood glucose this a.m. and her at home glucose monitor read 317 , she states she started feeling better, however she tells me that her employer wanted me to get checked out before coming back to work . Patient denies any fever chills chest pain shortness of breath cough congestion, no recent illness, no further episodes of nausea vomiting abdominal pain no constipation no diarrhea no urinary cosmetology, patient currently a smoker, denies alcohol or drug use, initial triage vitals are grossly unremarkable, other past medical history is consistent with hypertension, WINIFRED/MDD, hypothyroidism, patient tells me her last A1c was 7.7, she is been working with her family physician to lower her blood glucose levels. Of note POC glucose at the bedside upon triage is 144. Patient is has tolerated p.o. intake. Has no other acute symptomatology at the time my examination. Onset (ago): hour(s) Related Data Home Medications ?Medication ?Instructions ?Recorded ?Confirmed amlodipine 5 mg tablet 5 mg PO DAILY 05/02/2405/23 atenolol 100 mg tablet 100 mg PO BID 05/02/2405/23 duloxetine 60 mg capsule,delayed 60 mg PO DAILY 05/23/24 release escitalopram oxalate 10 mg tablet 10 mg PO DAILY 05/0205/23/24 levothyroxine 150 mcg tablet 150 mcg PO DAILY 05/02/24 05/23/24 metformin 1,000 mg tablet 1,000 mg PO BID 05/02/2407/12 semaglutide 1 mg/dose (4 mg/3 mL) 1 mg SQ WEEKLY 05/0205/23/24 subcutaneous pen injector (Ozempic) Previous Rx's ?Medication ?Instructions ?Recorded oseltamivir 75 mg capsule (Tamiflu) 75 mg PO BID 5 day s #10 caps 05/02/24 amoxicillin 500 mg tablet 500 mg PO TID 10 days #30 ta bs 05/06/24 mtdpiwyesvynbdl-hcdzryinixkrodm-DL 5 ml PO Q6H PRN Cou gh #240 mL 05/06/24 2 mg-30 mg-10 mg/5 mL oral syrup (Bromfed DM) methylprednisolone 4 mg tablets in 4 mg PO DIRECTED 6 days #21 tabs 05/06/24 a dose pack ciprofloxacin 0.3 %-dexamethasone 4 drp otic (ear) BID 7 days #7.5 mL 05/17/24 0.1 % ear drops,suspension fluticasone propionate 50 2 spray intranasal DAILY #16 grams 05/17/24 mcg/actuation nasal spray,suspension (Flonase Allergy Relief) azithromycin 250 mg tablet 250 mg PO UD DOSE PK #6 tab s 05/23/24 (Zithromax) fluconazole 150 mg tablet 150 mg PO ONCE 1 dose #1 tab 05/23/24 methylprednisolone 4 mg tablets in 4 mg PO DIRECTED 6 days #21 tabs 05/23/24 a dose pack pseudoephedrine HCl 30 mg tablet 30 mg PO Q6HP PRN Con gestion #30 05/23/24 tabs ketorolac 10 mg tablet 10 mg PO Q8H PRN pain 14 day s #30 09/19/24 tabs methocarbamol 750 mg tablet 750 mg PO TID PRN muscle p ain 30 09/19/24 days #90 tabs Allergies Allergy/AdvReac Type Severity Reaction Status Date / Time No Known Allergies Allergy Verified 05/23/24 19:38 [facility] Disclaimer: The information contained in this section may have been updated after the patient was seen, as this information can be updated by other users. 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) History of carpal tunnel release History of facial fracture repair History of left knee surgery History of surgical removal of ganglion cyst History of tonsillectomy and adenoidectomy Social History Smoking Status: Current every day smoker alcohol intake: never current occupational status: employed Travel in the last 8 weeks?: None Have you lived/traveled outside US in past 30 days?: No Contact w/someone who lives/traveled outside US past 30 days?: No Exposure to someone with infectious disease in past 14 days?: No Do you have a fever (greater than 100.4 F or 38 C)?: No Have you tested positive for COVID-19?: No Exposed to someone with COVID-19 in past 14 days?: No Do you have a sore throat?: No Do you have a cough?: No Do you have any weakness?: No Do you have any diarrhea?: No Are you experiencing any unusual bleeding?: No Do you have any muscle aches/pain?: No Do you have any abdominal pain?: No Are you experiencing loss of taste or smell?: No Other 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 Have you received the Flu Vaccine for this season: No Have you received the Pneumonia Vaccine: Yes ROS Obtained: Yes All systems reviewed & no additional complaints except as documented Physical Exam General General appearance: alert and in no apparent distress Head Head exam: atraumatic and normocephalic Eye Eye exam: Present PERRL and EOMI ENT ENT exam: Present mucous membranes moist Neck Neck exam: Present normal inspection Chest Chest inspection: Present normal inspection and symmetric chest wall rise Respiratory Respiratory exam: Present normal lung sounds bilaterally; Absent respiratory distress Cardiovascular Cardiovascular exam: Present regular rate and normal rhythm Abdominal Exam Abdominal exam: Present soft; Absent tenderness Extremities Exam Extremities exam: Present normal inspection Neurological Exam Neurological exam: Present alert and oriented X3 Psychiatric Psychiatric exam: Present normal affect Skin Skin exam: Present warm and dry Medical Decision Making Medical Records Medical records reviewed: Yes I reviewed the patient's medical records. Screening: Per USPSTF and CDC recommendations, given the prevalence of disease in our region, it is our hospital?s policy to screen for HIV and viral Hepatitis for all patients aged 18 and over and those with ongoing risk factors. John Inquiry Pt receiving controlled substance: No John was queried for this patient: No Vital Signs: 10/31/24 15:25 Temperature 98.3 F Temperature Source Oral Pulse Rate [Radial] 88 Respiratory Rate 18 Blood Pressure [Left Arm] 120/86 Blood Pressure Mean [Left Arm] 97 Blood Pressure Source [Left Arm] Automatic Cuff Blood Pressure Position [Left Arm] Sitting 02 Sat by Pulse Oximetry 98 Oxygen Delivery Method Room Air Lab Data Lab results reviewed: Yes I reviewed the patient's lab results. Orders (Tests/Meds): ORDERS Category Date Time Status POC Glucose,Bedside Stat Lab 10/31/24 16:24 Ordered Medical Decision Narrative: 29-year-old female presents emergency department with hyperglycemia, differential diagnose include but not limited to, hypoglycemic episode, medication noncompliance, among others. I discussed this patient's case in depth with the attending physician Patient is currently asymptomatic, shared decision-making was utilized, and laboratory studies were deferred at this time as patient's POC glucose is trending downward, POC glucose upon discharge was around 117, patient has no acute complaints is able to tolerate p.o. intake, no further episodes of nausea or vomiting, patient was given very strict ED return precautions, patient will follow-up with her PCP, in the upcoming days/weeks, patient voiced understanding and agreed with current treatment plan/discharge plan. Critical Care Critical Care Time Critical Care Time: No
[2024-10-31 16:53] VITALS: BP 126/79; PULSE 85; RESP 15; TEMP 36.8; O2SAT 98
== END 2024-10-31 16:55 | disposition home or self-care (01) ==
PROVIDERS: Physician Assistant; Emergency Provider Emergency Medicine; PCP Orthopaedic Surgery Orthopaedic Surgery of the Spine
DX: R11.0 Nausea (principal); E11.65 Type 2 diabetes mellitus with hyperglycemia; I10 Essential (primary) hypertension; E78.5 Hyperlipidemia, unspecified; F17.210 Nicotine dependence, cigarettes, uncomplicated
CPT/HCPCS: 99282

== ENCOUNTER 2024-11-29 15:20 | Outpatient (CLI) | payer MEDICAID, SELFPAY ==
[2024-11-29 19:56] LABS: Coronavirus 19, PCR Not Detected (NotDetected); Influenza A, PCR Not Detected (NotDetected); Influenza B, PCR Not Detected (NotDetected)
--- OUTSIDE RECORDS SUMMARY | 2024-11-30 10:59 | XMS_ITS | Encounter Summary ---
Author Organization Healthcare Address [address] [facility] [place] [address] Care Team Providers Care Power Chisel Operator Name Role Phone Anita Faye APRN Primary Care Provider [phone] Reason for Visit * Reason Comments Med Refill Encounter Details Date Type Department Care Team (Late st Contact Info) Description 10/01/2024 Refill [facility] [address] [place] [address] Anita Faye APRN [address] [place] [address] Type 2 diabetes mellitus without complication, without long-term current use of insulin Social History Tobacco Use Types Packs/Day Years Used Date Smoking Tobacco: Some Days Cigarettes 1 14.6 Started: 2010 Passive Smoke Exposure: Current Smokeless [...] or slept in a longterm (including now)? No 12/16/2023 PHQ-9 Answer Date [...] time in the past 12 m [facility], were you homeless or living in a longterm (including now)? No 06/22/2024 Utilities Answer Date [...] documented as of this encounter Care Teams Power Chisel Operator Relationship Specialty Start Date End Date Anita Faye APRN [address] [place] [address] PCP - General Family Medicine 07/09/23 documented as of this encounter
--- OUTSIDE RECORDS SUMMARY | 2024-11-30 10:59 | XMS_ITS | Encounter Summary ---
Author Organization Healthcare Address [address] [place] [address] Care Team Providers Care Tooth Cutter Spur Name Role Phone Anita Faye APRN Primary Care Provider [phone] Abby Bruce RN Unavailable [phone] Krystina Bear APRN Primary Care Provider [phone] Anita Faye APRN Primary Care Provider [phone] Encounter Details Date Type Department Care Team (Late st Contact Info) Description 12/27/2020 Outside Procedure External Location [address] [place] [id number] Provider, [place] Social History Tobacco Use Types Packs/Day Years Used Date Smoking Tobacco: Every Day Cigarettes 1 14.6 Started: 2010 Smokeless Tobacco: Never PHQ-2 Answer [...] PM EDT Narrative 12/28/2020 7:41 [place] [address] Name: ARLEN FINNEGAN Exam Date: 12/27/2020 : 1995 Age 25 Gender: F Physician: TIGRE MONTANEZ Facility: [facility] Facility HSV: Outpatient Exam: CHEST PORTABLE CHEST, [...] Thank you for referring ARLEN FINNEGAN to [facility]. Legally authenticated by POPE DANNY Dewitt 2020-12-28 07:29:49 Procedure Note Provider, Generic [facility] - 12/28/2020 [place] [address] Name: ARLEN FINNEGAN Exam Date: 12/27/2020 : 1995 Age 25 Gender: F Physician: TIGRE MONTANEZ Facility: [facility] Facility HSV: Outpatient Exam: CHEST PORTABLE CHEST, [...] Thank you for referring ARLEN FINNEGAN to [facility]. Legally authenticated by POPE DANNY Dewitt 2020-12-28 07:29:49 Generic [facility] Provider IMG XR PROCEDURES Fi nal Result documented in this encounter Visit Diagnoses Not on filedocumented in this encounter Care Teams Tooth Cutter Spur Relationship Specialty Start Date End Date Anita Faye APRN [address] [place] [address] PCP - General 08/31/20 01/13/22 Krystina Bear APRN [address] [place] [address] PCP - General Family Medicine 01/14/22 07/08/23 Anita Faye APRN [address] [place] [address] PCP - General Family Medicine 07/09/23 Abby Bruce, NOLAN [address] [id number] Supervisor Show Operations Internal Medicine 01/14/21 12/21/21 documented as of this encounter
--- OUTSIDE RECORDS SUMMARY | 2024-11-30 10:59 | XMS_ITS | Encounter Summary ---
Author Organization Healthcare Address [address] [place] [address] Care Team Providers Care Pocket And Pulley Machine Operator Name Role Phone Anita Faye APRN Primary Care Provider [phone] Abby Bruce RN Unavailable [phone] Krystina Bear APRN Primary Care Provider [phone] Anita Faye APRN Primary Care Provider [phone] Reason for Visit * Reason Comments Med Refill Encounter Details Date Type Department Care Team (Late st Contact Info) Description 11/26/2021 [facility] [address] [place] [address] Anita Faye APRN [address] [place] [address] 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
--- OUTSIDE RECORDS SUMMARY | 2024-11-30 10:59 | XMS_ITS | Clinical Summary ---
Author Organization Healthcare Address [address] [place] [address] Care Team Providers Care Straw Boss Name Role Phone YunierAnita APRN Primary Care Provider Allergies Active Allergy Reactions [...] once daily 90 tablet 2 024 Active metFORMIN (Glucophage) 1000 MG tabletIndications :Type [...] as needed for muscle spasms. 60 tablet Active hydrOXYzine HCl (Atarax) 10 MG tabletIndications :Generalized anxiety disorder Take 1 tablet by mouth 3 times a day as needed for anxiety. 90 tablet 1 Active Ozempic, 1 MG/DOSE, 4 MG/3ML solution pen-injectorIndic ations:Type 2 diabetes mellitus without complication, without long-term current use of insulin INJECT 1 MG SUBCUTANEOUSLY ONCE A WEEK 3 mL 2 Active ondansetron ODT (Zofran-ODT) 8 MG disintegrating tablet DISSOLVE 1 TABLET IN MOUTH EVERY 8 HOURS NEEDED FOR NAUSEA FOR VOMITING 18 tablet 025 Active ondansetron ODT (Zofran-ODT) 8 MG disintegrating tablet DISSOLVE 1 TABLET IN MOUTH EVERY 8 HOURS NEEDED FOR NAUSEA FOR VOMITING 20 tablet 025 2024 Discontinued Ozempic, 1 MG/DOSE, 4 MG/3ML solution pen-injectorIndic ations:Type 2 diabetes mellitus without complication, without long-term current use of insulin INJECT 1MG SUBCUTANEOUSLY ONCE A WEEK 3 mL 025 2024 Discontinued Active Problems Problem Noted [...] Encounters Date Type Department Care Team Description 11/04/2024 Refill [facility] [address] [place] [address] Roxie Lr MD 11/04/2024 Refill [facility] [address] [place] [address] Anita Faye APRN Type 2 diabetes mellitus without complication, without long-term current use of insulin 10/08/2024 Refill [facility] [address] [place] [address] Anita Faye APRN Generalized anxiety disorder 10/01/2024 Refill [facility] [address] [place], [place] [address] Anita Faye APRN Type 2 diabetes mellitus without complication, without long-term current use of insulin 09/15/2024 Refill [facility] [address] [place] [address] Anita Faye APRN Muscle spasm from Last 3 Months Immunizations Immunization Administration Dates Next Due Hep A, Adult 12/08/2012 Influenza, injectable, quadrivalent 12/23/2017,0 12/31/2016 Influenza, injectable, quadrivalent, preservativ e free 03/18/2023,02/01/2019 Influenza, live, intranasal 12/08/2012 Meningococcal MCV4O 12/08/2012 PPD Skin Test (TB Skin Test) 11/17/2017,10/28/19 17 Spoqa COVID-19 Vaccine (Purple Cap) 12 + 01/09/2021,12/18/2020 [...] place to sleep or slept in a fpc (including now)? No 12/16/2023 PHQ-9 Answer Date [...] any time in the past 12 m [facility], were you homeless or living in a fpc (including now)? No 06/22/2024 Utilities Answer Date [...] Health Maintenance Due Date Last Done Comments [facility]-/Child/Adol SDOH Screenings 1993 Diabetes: Dental Exam 2003 [facility]-Hepatitis B Vaccines (1 of 3 - 19+ 3-dose series) 02/21/2012 [facility]-Pneumococcal Vaccine: Pediatrics (0 to 5 Years) and At-Risk Patients (6 to 49 Years) (1 of 2 - PCV) 02/21/2012 [facility]-Varicella Vaccines (1 of 2 - 13+ 2-dose series) 01/05/2013 HPV Vaccines (1 - 3-dose SCDM series) 02/21/2020 [id number] Vaccine (3 - Pfizer risk series) 02/06/2021 01/09/2021, 12/18/2020 [facility]-Diabetes: Hemoglobin A1C 09/21/2024 06/22/2024, 12/17/2023, 05/06/2023, Additional history exists [facility]-Influenza Vaccine (#1) 12/19/202403/18, 02/01/2019, 12/23/2017, Additional history exists [facility]- SDOH Screenings 12/23/2024 [facility]-Adult SDOH Screenings 12/23/2024 06/22/2024 [facility]-Depression Screening 06/22/2025 06/22/2024, 03/0 08/2024 [facility]-Pap Smear 12/16/2026 12/17/2023, 10/15/2022 [facility]-Cervical Cancer Screening 12/16/2028 [facility]-HPV/Cotest 12/16/2028 12/17/2023, 07/1 04/2022, 10/15/2022 [facility]-DTaP,Tdap,and Td Vaccines (3 - Td [...] complication, without long-term current use of insulin ([facility]) REFERRED THINPREP PAP AND HPV (SO) Routine [...] 7.3(H) <5.7 % 06/22/2024 4:57 PM EST [facility] Blood Venous blood specimen / Unknown Venipuncture / Unknown 06/22/2024 9:28 AM EST 06/22/2024 9:28 AM EST Narrative [facility] - 06/22/2024 4:57 PM EST HA1C Interpretive Data: Diagnosis of Diabetes: Diabetic > or = 6.5% Pre-diabetic 5.7 to 6.4% Non-diabetic < or = 5.6% Glycemic Targets for Type I and Type II Diabetics: Non- Adults <7.0% Adults <6.0% Children and Adolescents <7.5% Source: [place] [employer]. Standards of medical care in diabetes,2017. Diabetes Care.2017:40 (suppl 1):S1-S135. HbA1c assay performed by an ion-exchange chromatography method that is certified traceable to the DCCT. Anita Faye [facility] BLOOD ORDERABLES Final Result [facility] [address] [place] [address] * Referred ThinPrep Pap and HPV (SO) (12/17/2023 1:41 PM EDT) Pap, Source Cx/Vagina 12/25/2023 3:39 PM EDT [facility] (sharing[facility]it) EER Referred ThinPrep Pap and HPV See Note 12/25/2023 3:39 PM EDT [facility] (sharing[facility]) PAP, THINPREP Normal 12/25/2023 3:39 PM EDT [facility] ([facility]) High Risk HPV Normal 12/25/2023 3:39 PM EDT [facility] ([facility]) Swab Vaginal and cervical cytologic material / Unknown Non-blood Collection / Unknown 12/17/2023 1:41 PM EDT 12/17/2023 6:07 PM EDT Narrative [facility] ([facility]it) - 12/25/2023 3:39 PM EDT Authorized individuals can access the [facility] Enhanced Report using the following link: [email or web address] Performed By: [facility] [address] [place] [address] Seamless Tube Drawer: Ramin Cervantes MD, PhD CLIA Number: [id number] SPECIMEN PART A. Cervical, Endocervical, Vaginal, ThinPrep Pap (Pocket Maker) CYTOLOGY HX Date of Last Menstrual Period: n FINAL DIAGNOSIS INTERPRETATION: Negative for Intraepithelial Lesion or Malignancy. SPECIMEN ADEQUACY:Satisfactory for evaluation. Endocervical/transformation zone component present. Electronically Signed Out : ctbcn Performed by: [facility] [address] [place] [address] [place] [address] Krystina Garcia MD, HR-HPV: Negative Test performed by the FDA-approved Hologic (Gen-Probe) APTIMA HPV test, which detects HPV genotypes: 16, 18, 31, 33, 35, 39, 45, 51, 52, 56, 58, 59, 66, and 68. Performed by: [facility] [address] [place] [address] [place] [address] Krystina Garcia MD, us Ruthie Foote APRN, DNP LAB REF LAB BLOOD AND F LUID ORD Final Result [facility] [address] [place] [id number] * HIV 1 & 2 Antibody/Antigen Screen (02/25/2023 5:04 PM EST) HIV 1 & 2 Antibody/Antigen Screen Non Reactive Non Reactive 02/26/2023 2:12 PM EST [facility] Comment:Screening for HIV 1 & 2 antibodies, and P24 antigen is NONREACTIVE. No confirmatory testing is required. Blood Venous blood specimen / Unknown Venipuncture / Unknown 02/25/2023 5:04 PM EST 02/26/2023 1:42 PM EST Ruthie Foote APRN, JAIMIE LAB BLOOD ORDERABLES Fi nal Result Performing Organization Address City/[facility]/ZIP Co de Phone Number [facility] [address] [place] [address] * Hepatitis C Antibody w/Reflex to HCV Quant PCR (02/25/2023 5:04 PM EST) Hepatitis C Antibody Negative Negative 02/26/2023 4:19 PM EST [facility] Blood Venous blood specimen / Unknown Venipuncture / Unknown 02/25/2023 5:04 PM EST 02/26/2023 1:42 PM EST Ruthie Foote APRN, JAIMIE LAB BLOOD ORDERABLES Fi nal Result Performing Organization Address City/[facility] Co de Phone Number [facility] [address] [place] [address] from Last 3 Months or Most Recently Relevant to Health Maintenance Insurance [employer] [place] Care Teams Straw Boss Relationship Specialty Start Date End Date Anita Faye APRN [address] [place] [address] PCP - General Family Medicine 07/09/23
--- OUTSIDE RECORDS SUMMARY | 2024-11-30 10:59 | XMS_ITS | Encounter Summary ---
Author Organization [email or web address] ([place], [place], [place], [place]) Address [address] [place] [address] Care Team Providers Care Paint Roller Covermaker Name Role Phone Unavailable Primary Care Provider Unavailabl e Encounter Details Date Type Department Care Team (Late st Contact Info) Description 06/23/2018 Transcribed Document [facility] [place] [facility] [place] [address] ProviderEsdras MD [address] [place] [address] Social History Tobacco Use Types [...] - Esdras ProviderMD - 06/23/2018 11:33 AM HEALTH CAREERS INSTRUCTOR ED Assessment Entered On: 06/23/2018 11:50 EST Performed On: 06/23/2018 11:50 EST by Debo Nash RN ED Quick Look Assessment Level of Consciousness : Alert, Awake Affect/Behavior : Appropriate, Calm, Cooperative Orientation : Oriented x 4 Skin Temperature : Warm Debo Nash RN - 06/23/2018 11:50 EST ED General-Functional Assess Information Obtained From : Patient Communication Barrier : None Primary Language : Georgian Any Spiritual/Cultural Needs or Requests : No [...] Debo Nash, RN - 06/23/2018 11:50 EST documented in this encounter Plan of Treatment Not on file documented as of this encounter Visit Diagnoses Not on filedocumented in this encounter
--- OUTSIDE RECORDS SUMMARY | 2024-11-30 10:59 | XMS_ITS | Encounter Summary ---
Author Organization [employer] ([place], [place], [place], [place]) Address [address] [place] [address] Care Team Providers Care Senior Service Technician Name Role Phone Unavailable Primary Care Provider Unavailabl e Encounter Details Date Type Department Care Team (Late st Contact Info) Description 06/23/2018 Transcribed Document [facility] Radiology [address] [place] [address] Espinoza Sullivan MD [address] [place] [address] Dept. [place] [address] Social History Tobacco Use Types [...] PM EST Electronically signed by Maria A [facility] Conversion Instrument Maker And Repairer Cerner at 08/03/2022 7:44 PM CDT documented in this encounter Plan of Treatment Not on file documented as of this encounter Visit Diagnoses Not on filedocumented in this encounter
--- OUTSIDE RECORDS SUMMARY | 2024-11-30 10:59 | XMS_ITS | Encounter Summary ---
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
--- OUTSIDE RECORDS SUMMARY | 2024-11-30 10:59 | XMS_ITS | Encounter Summary ---
Author Organization Healthcare Address [address] [facility] [place] [address] Care Team Providers Care Metal Pickling Equipment Operator Name Role Phone Anita Faye APRN Primary Care Provider [phone] Reason for Visit * Reason Comments Med Refill Encounter Details Date Type Department Care Team (Late st Contact Info) Description 11/04/2024 Refill [place] [facility] [address] [place] [address] Anita Faye APRN [address] [place] [address] Type 2 diabetes mellitus without [...] place to sleep or slept in a care home (including now)? No 12/16/2023 PHQ-9 Answer Date [...] any time in the [facility] were you [facility] or living in a care home (including now)? No 06/22/2024 Utilities Answer Date [...] documented as of this encounter Care Teams Metal Pickling Equipment Operator Relationship Specialty Start Date End Date Anita Faye APRN [address] [place] [address] PCP - General Family Medicine 07/09/23 documented as of this encounter
--- OUTSIDE RECORDS SUMMARY | 2024-11-30 10:59 | XMS_ITS | Clinical Summary ---
Author Organization [employer] ([place], [place], [place], [place]) Address [address] [place] [address] Care Team Providers Care Battery Loader Name Role Phone Unavailable Primary Care Provider [...]
--- OUTSIDE RECORDS SUMMARY | 2024-11-30 10:59 | XMS_ITS | Encounter Summary ---
Author Organization Healthcare Address [address] [place] [address] Care Team Providers Care National Sales Associate Name Role Phone Anita Faye APRN Primary Care Provider [phone] Abby Bruce RN Unavailable [phone] Krystina Bear APRN Primary Care Provider [phone] Anita Faye APRN Primary Care Provider [phone] Reason for Visit * Reason Comments Med Refill Encounter Details Date Type Department Care Team (Late st Contact Info) Description 11/15/2020 Refill Family and Community Medicine [address] [place] [address] Anita Faye APRN [address] [place] [address] Social History Tobacco Use Types [...] on filedocumented in this encounter Care Teams National Sales Associate Relationship Specialty Start Date End Date Anita Faye APRN [address] [place] [address] PCP - General 08/31/20 01/13/22 Krystina Bear APRN [address] [place] [address] PCP - General Family Medicine 01/14/22 07/08/23 Anita Faye APRN [address] [place] [address] PCP - General Family Medicine 07/09/23 Abby Bruce RN [address] [address] Load Dispatcher Local Internal Medicine 01/14/21 12/21/21 documented as of this encounter
--- OUTSIDE RECORDS SUMMARY | 2024-11-30 10:59 | XMS_ITS | Encounter Summary ---
Author Organization Healthcare Address [address] [place] [address] Care Team Providers Care Shaft Mechanic Name Role Phone Anita Faye APRN Primary Care Provider [phone] Reason for Visit * Reason Comments Med Refill Encounter Details Date Type Department Care Team (Late st Contact Info) Description 07/12/2023 Refill Obstetrics & Gynecology [address] [place] [address] Ruthie Foote APRN, DNP [address] [place] [address] Family planning education, guidance, and [...] place to sleep or slept in a alf (including now)? Patient refused 07/09/2023 Utilities Answer [...] documented as of this encounter Care Teams Shaft Mechanic Relationship Specialty Start Date End Date Anita Faye SANITARIAN AIDE [address] [place] [address] PCP - General Family Medicine 07/09/23 documented as of this encounter
--- OUTSIDE RECORDS SUMMARY | 2024-11-30 10:59 | XMS_ITS | Encounter Summary ---
Author Organization [employer] ([place], [place], [place], [place]) Address [address] [place] [address] Care Team Providers Care Clothing Patternmaker Name Role Phone Unavailable Primary Care Provider Unavailabl e Encounter Details Date Type Department Care Team (Late st Contact Info) Description 07/01/2018 Transcribed Document [facility] Radiology 1 [place] [address] Espinoza Grajeda MD [address] [place] [address] Dept. of [place] [address] Social History Tobacco Use Types [...]
--- OUTSIDE RECORDS SUMMARY | 2024-11-30 10:59 | XMS_ITS | Encounter Summary ---
Author Organization Healthcare Address [address] [place] [address] Care Team Providers Care Visitor Services Coordinator Name Role Phone YunierAnita EUSEBIO Primary Care Provider [phone] Reason for Visit * Reason Comments Med Refill Encounter Details Date Type Department Care Team (Late st Contact Info) Description 11/04/2024 Refill [facility] [address] [place] [address] Roxie Lr MD [address] [place] [address] Social History Tobacco Use Types [...] place to sleep or slept in a [place] facility (including now)? No 12/16/2023 PHQ-9 Answer Date [...] were you homeless or living in a [place] facility (including now)? No 06/22/2024 Utilities Answer Date [...] documented as of this encounter Care Teams Visitor Services Coordinator Relationship Specialty Start Date End Date Anita Faye APRN [address] [place] [address] PCP - General Family Medicine 07/09/23 documented as of this encounter
--- OUTSIDE RECORDS SUMMARY | 2024-11-30 10:59 | XMS_ITS | Clinical Summary ---
Author Organization [facility] Address [address] [place] [address] Care Team Providers Care Seat Builder Name Role Phone Krystina Bear APRN Primary Care Provider [phone] Allergies Active Allergy Reactions Criticality Noted Date Comments Oxycodone-Acetaminophen Hives 04/17/2018 Medications metFORMIN (GLUCOPHAGE) 1000 MG tablet Take 1 tablet by mouth 2 (Two) Times a Day. Active Ozempic, 0.25 or 0.5 MG/DOSE, 2 MG/3ML solution pen-injector Inject 0.25 mg under the skin into the appropriate area as directed 1 (One) Time Per Week. 04/22/19 24 Active atenolol (TENORMIN) 100 MG tablet Take 1 tablet by mouth 2 (Two) Times a Day. Active levothyroxine (SYNTHROID, LEVOTHROID) 150 MCG tablet Take 1 tablet by mouth Daily. 03/18/20 23 Active ondansetron ODT (ZOFRAN-ODT) [address] 1 tablet on the tongue Every 12 (Twelve) Hours As Needed. 03/18/20 23 Active DULoxetine (CYMBALTA) 60 MG capsule TAKE 1 CAPSULE BY MOUTH ONCE DAILY DO NOT CRUSH OR CHEW Active escitalopram (LEXAPRO) 10 MG tablet Take 1 tablet by mouth Daily. Active amLODIPine (NORVASC) 10 MG tablet Take 1 tablet by mouth Daily. 30 tablet 11 06/01/19 25 Active Active Problems Problem Noted Date Diagnosed Date Hypertension Family History 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 Relation Name Comments No Known Problems Brother Hyperlipidemia Father Hypertension Father Heart disease Maternal Grandfather Heart failure Maternal Grandfather Heart disease Maternal Grandmother Heart failure Maternal Grandmother No Known Problems Mother Heart disease Paternal Grandfather Heart failure Paternal Grandfather Heart disease Paternal Grandmother Heart failure Paternal Grandmother No Known Problems Sister Relation Name Status Comments Brother Alive Father Alive Maternal Grandfather Maternal Grandmother Mother Alive Paternal Grandfather Paternal Grandmother Sister Alive Social History Tobacco Use Types Packs/Day Years Used Date Smoking Tobacco: Every Day Cigarettes 1 10 Smokeless Tobacco: Never Tobacco Cessation:Ready to Q uit: Not Asked; Counseling Given: Not Answered Alcohol Use Standard Drinks/Week Comments Not Currently 0 (1 standard drink = 0.6 oz pur e alcohol) Comments No Sex and Gender Information Value Date Recorded Sex Assigned at Not on file Legal Sex Female 1:42 PM EDT Gender Identity Not on file Sexual Orientation Not on file Last Filed Vital Signs Vital Sign Reading Time Taken Comments Blood Pressure 135/92 05/11/2024 2:14 PM EST Pulse 81 05/11/2024 2:14 PM EST Temperature 37.3 C (99.1 F) 01/16/2021 5:30 PM EDT Respiratory Rate 16 01/16/2021 9:35 PM EDT Oxygen Saturation 95% 05/11/2024 2:14 PM EST Inhaled Oxygen Concentration - - Weight 77 kg (169 lb 12.8 oz) 05/11/2024 2:14 PM EST Height 162.6 cm (5' 4 ) 05/11/2024 2:14 PM EST Body Mass Index 29.15 05/11/2024 2:14 PM EST Plan of Treatment Upcoming Encounters Date Type Department Care Team (Late st Contact Info) Description 05/10/2025 9:15 AM EST Office Visit [facility] [address] [place] [address] Jeannette Correia, MILK HOUSE WORKER [address] [place] [address] Health Maintenance Due Date Last Done Comments Annual Gynecologic Pelvic an d Breast Exam 1993 DIABETIC EYE EXAM 2003 DIABETIC FOOT EXAM 2003 URINE MICROALBUMIN-CREATININ E RATIO (uACR) 2003 Hepatitis B (1 of 3 - 19+ 3- dose series) 02/21/2012 Pneumococcal Vaccine 0-49 (1 of 2 - PCV) 02/21/2012 PAP SMEAR 2014 ANNUAL PHYSICAL 05/04/2023 COVID-19 Vaccine (3 - 2023-2 5 season) 2023 01/09/2021, 12/18/2020 HEMOGLOBIN A1C 06/17/2024 12/17/2023, 11/19, 05/06/2023, Additional history exists INFLUENZA VACCINE 01/18/2025 03/18/2023, , 12/23/2017, Additional history exists TDAP/TD VACCINES (3 - Td or Tdap) 07/18/2032 023, 12/08/2012 HEPATITIS C SCREENING Completed 02/25/2023 , 02/25/2023, 10/15/2022 Insurance PASSPORT BY [employer] Care Teams Seat Builder Relationship Specialty Start Date End Date Krystina Bear APRN [address] [place] [address] PCP - General Family Medicine 04/17/18
--- OUTSIDE RECORDS SUMMARY | 2024-11-30 10:59 | XMS_ITS | Encounter Summary ---
Author Organization Healthcare Address [address] [place] [address] Care Team Providers Care Virtual Office Assistant Name Role Phone Anita Faye APRN Primary Care Provider [phone] Reason for Visit * Reason Comments Med Refill Encounter Details Date Type Department Care Team (Late st Contact Info) Description 10/08/2024 Refill [facility] [address] [place] [address] Anita Faye APRN [address] [place] [address] Generalized anxiety disorder Social History [...] place to sleep or slept in a assisted (including now)? No 12/16/2023 PHQ-9 Answer Date [...] any time in the past 12 m [facility], were you homeless or living in a assisted (including now)? No 06/22/2024 Utilities Answer Date [...] documented as of this encounter Care Teams Virtual Office Assistant Relationship Specialty Start Date End Date Anita Faye APRN [address] [place] [address] PCP - General Family Medicine 07/09/23 documented as of this encounter
--- OUTSIDE RECORDS SUMMARY | 2024-11-30 10:59 | XMS_ITS | Encounter Summary ---
Author Organization [employer] ([place], [place], [place], [place]) Address [address] [place] [address] Care Team Providers Care Dancing Instructor Name Role Phone Unavailable Primary Care Provider Unavailabl e Encounter Details Date Type Department Care Team (Late st Contact Info) Description 06/23/2018 Transcribed Document [facility] Radiology [address] [place] [address] Espinoza Grajeda MD [address] [place] [address] Dept. [place] [address] Social History Tobacco Use Types [...]
--- OUTSIDE RECORDS SUMMARY | 2024-11-30 10:59 | XMS_ITS | Encounter Summary ---
Author Organization Healthcare Address [address] [place] [address] Care Team Providers Care Binder Chainstitch Name Role Phone Krystina Bear APRN Primary Care Provider [phone] Anita Faye APRN Primary Care Provider [phone] Encounter Details Date Type Department Care Team (Late st Contact Info) Description 04/01/2022 Outside Procedure External Location [address] [place] [address] Provider, [place] Social History Tobacco Use Types Packs/Day Years Used Date Smoking Tobacco: Some Days Cigarettes 1 14.6 Started: 2010 Smokeless Tobacco: Current Comments:vape PHQ-2 [...] AM EST Narrative 04/01/2022 5:42 [place] [address] Name: ARLEN FINNEGAN Exam Date: 04/01/2022 : 1995 Age 27 Gender: F Physician: KWADWO MOORE Facility: [facility] Facility HSV: Outpatient Exam: CT BRAIN W/O [...] Thank you for referring ARLEN FINNEGAN to [facility]. Legally authenticated by GERRY CRUZ 2022-04-01 05:32:03 Procedure Note Provider, Generic [place] - 04/01/2022 [place] [id number] Name: ARLEN FINNEGAN Exam Date: 04/01/2022 : 1995 Age 27 Gender: F Physician: KWADWO MOORE Facility: [facility] Facility HSV: Outpatient Exam: CT BRAIN W/O [...] Thank you for referring ARLEN FINNEGAN to [facility]. Legally authenticated by GERRY CRUZ 2022-04-01 05:32:03 us Generic [place] Provider IMG CT PROCEDURES Fi nal Result documented in this encounter Visit Diagnoses Not on filedocumented in this encounter Additional Health Concerns Assessment Noted Time A fall risk assessment has been complete d for the patient 01/13/2022 7:51 AM EDT documented as of this encounter Care Teams Binder Chainstitch Relationship Specialty Start Date End Date Krystina Bear APRN [facility] [place] [address] PCP - General Family Medicine 01/14/22 07/08/23 Anita [place]aye [place] [address] PCP - General Family Medicine 07/09/23 documented as of this encounter
--- OUTSIDE RECORDS SUMMARY | 2024-11-30 10:59 | XMS_ITS | Encounter Summary ---
Author Organization Healthcare Address [address] [place] [address] Care Team Providers Care Event Specialist Name Role Phone Krystina Bear APRN Primary Care Provider [phone] Anita Faye APRN Primary Care Provider [phone] Reason for Visit * Reason Comments Med Refill Encounter Details Date Type Department Care Team (Late st Contact Info) Description 07/07/2023 Refill Family and Community Medicine [address] [place] [address] Krystina Bear APRN [address] [place] [address] Anxiety and depression Social History [...] place to sleep or slept in a retirement (including now)? Patient refused 07/09/2023 Utilities Answer [...] documented as of this encounter Care Teams Event Specialist Relationship Specialty Start Date End Date Krystina Bear APRN [address] [place] [address] PCP - General Family Medicine 01/14/22 07/08/23 Anita Faye APRN [address] [place] [address] PCP - General Family Medicine 07/09/23 documented as of this encounter
--- OUTSIDE RECORDS SUMMARY | 2024-11-30 10:59 | XMS_ITS | Encounter Summary ---
Author Organization [employer] ([place], [place], [place], [place]) Address [address] [place] [address] Care Team Providers Care Cafeteria Counter Attendant Name Role Phone Unavailable Primary Care Provider Unavailabl e Encounter Details Date Type Department Care Team (Late st Contact Info) Description 06/23/2018 Transcribed Document [facility] Family Medicine [facility] [place] [address] ProviderEsdras MD [address] [place] [address] Social History Tobacco Use Types [...] - Esdras ProviderMD - 06/23/2018 3:39 PM CLINICAL TRIAL ASSISTANT [address] [place] [address] PERSON INFORMATION Name ARLEN FINNEGAN Age 23 Years 1995 Sex Female Language Fijian PCP AKILAH UPTON NP-JOVANA Marital Status Med Service Emergency Medicine Acct# Arrival 06/23/2018 11:33:00 Visit Reason Closed head injury with LOC; PASSED OUT Acuity 2 - Emergent LOS 000 04:06 Depart Date: 06/23/18 03:38 PM Address: [address] [facility] [address] Comment: PROVIDER INFORMATION Provider Role Assigned Unassigned Debo Nash, EMBROIDERER Nurse 06/23/2018 11:51:05 DEWEY GRAJEDA MD-EMR ED [...] Info: Percocet 5/325 Medications: Prescription Display acetaminophen-hydrocodone (Reynolds 5 mg-325 mg oral tablet) 1 Tab, Oral, TID, PRN for pain, X 3 Day(s), # 10 Tab, 0 Refill(s) cyclobenzaprine (cyclobenzaprine 10 mg oral tablet) 1 Tab, Oral, TID, PRN for spasm, # 30 Tab, 0 Refill(s) Comment: DISCHARGE INFORMATION Discharge Disposition: Home Discharge Location: PATIENT EDUCATION INFORMATION Instructions: Syncope, [id number]; Cervical Sprain Follow up: With: Address: When: NOEMI WILHELM [address] [place], [place] [id number] Business (1) Within 2 to 3 days Comments: cardiology referral for follow up on syncope isssue, which liekly realtes to orthostatic and dehydration symptoms With: Address: When: AKILAH UPTON [address] [place] [address] Business (1) Within 2 to 3 days Comment: documented in this encounter Plan of Treatment Not on file documented as of this encounter Visit Diagnoses Not on filedocumented in this encounter
--- OUTSIDE RECORDS SUMMARY | 2024-11-30 10:59 | XMS_ITS | Referral Summary ---
Author Organization [employer] ([place], [place], [place], [place]) Address [address] [place] [address] Care Team Providers Care Jewel Hole Driller Name Role Phone Unavailable Primary Care Provider [...]
--- OUTSIDE RECORDS SUMMARY | 2024-11-30 10:59 | XMS_ITS | Clinical Summary ---
Author Organization [facility] Address [address] [place] [address] Phone [email or web address] Care Team Providers Care Store Person Name Role Phone Krystina Bear APRN Primary Care Provider [phone] Allergies Active Allergy Reactions Criticality Noted Date [...] needed. Active ergocalciferol (VITAMIN D2) 1.25 MG (00018 UT) capsule Take 50,000 Units by mouth [...] on file Legal Sex Female 11:45 AM PLANISHING HAMMER OPERATOR Gender Identity Not on file Sexual Orientation [...] Health Maintenance Due Date Last Done Comments Cervical Cancer Screening Combo 1993 Dental Cleaning/Exam 1993 HPV / Cotest 1993 Pap Testing 1993 HPV Immunization (1 - 2-dose series) 02/21/2004 Hepatitis B Immunization (1 of 3 - 19+ 3-dose series) 02/21/2012 Covid-19 Immunization ( season) 2023 01/09/2021, 12/18/2020 Influenza Immunization (#1) [...] OPT OUT NO COPAY NB Care Teams Store Person Relationship Specialty Start Date End Date Krystina Bear [facility] [place] [address] PCP - General Wafer Slicer 04/05/20
--- OUTSIDE RECORDS SUMMARY | 2024-11-30 10:59 | XMS_ITS | Encounter Summary ---
Author Organization [employer] ([place], [place], [place], [place]) Address [address] [place] [address] Care Team Providers Care Foreclosure Specialist Name Role Phone Unavailable Primary Care Provider Unavailabl e Encounter Details Date Type Department Care Team (Late st Contact Info) Description 06/23/2018 Transcribed Document [facility] [place] [facility] [place] [address] ProviderEsdras MD [address] [place] [address] Social History Tobacco Use Types [...] - Historical ProviderMD - 06/23/2018 3:39 PM WOOD PANEL INSPECTOR [facility] [address] [place] [address] Patient Information Name: ARLEN FINNEGAN Age: 23 Years Date of : 1995 Arrival Time: 06/23/2018 11:33:00 Diagnosis Cervical strain Primary Care Physician: AKILAH UPTON NP-JOVANA Provider Information Primary Provider: DEWEY GRAJEDA Secondary Provider: ARLEN FINNEGAN has been given the following list of patient education materials, prescriptions and follow-up instructions: Follow-up Instructions: With: Address: When: NOEMI WILHELM [facility] [address] [place] [address] [employer] (1) Within 2 to 3 days Comments: cardiology referral for follow up on syncope isssue, which liekly realtes to orthostatic and dehydration symptoms With: Address: When: [place] [address] [employer] (1) Within 2 to 3 days Patient [...] This can help with dizziness. ??? Take gals-xcx-teqtkpp and prescription medicines only as told by [...] or physical therapist. General instructions ??? Take ueas-sfu-mdqrouq and prescription medicines only as told by [...] 02/01/2008 Document Revised: 12/03/2016 Document Reviewed: 12/03/2016 [employer] Patient Education ? 2017 [employer] Allergies: Percocet 5/325 Medication Information: Prescription Display acetaminophen-hydrocodone (Sapello 5 mg-325 mg oral tablet) 1 Tab, [...] range between ( 1.0 and 7.0 ) [place] #: 0.78 K/uL -- Normal range between ( 0.24 and 0.82 ) Eos #: 0.27 K/uL -- Normal range between ( 0.04 and 0.54 ) [place] %: 8.3 % -- Normal range between [...] verify that ARLEN FINNEGAN was seen at [facility] Emergency Department on ,06/23/2018 15:39:05. This [...] Assistance with quitting is available by contacting 0-112-IVFZ-NOW. This is a free resource providing counseling, [...] Electronic Communications Privacy Act 18 U.S.C. ???Sections 7823-7369,?? and contain information intended for the specified [...] Be sure to sign up for the [facility] patient portal, which gives you 10/11 access to your medical information ??? including these discharge instructions ??? using your computer, smartphone, or tablet. Just go to [employer] to get started. Questions? Call . Acknowledgment [...]
--- OUTSIDE RECORDS SUMMARY | 2024-11-30 10:59 | XMS_ITS | Encounter Summary ---
Author Organization [employer] ([place], [place], [place], [place]) Address [address] [place] [address] Care Team Providers Care Actuary Name Role Phone Unavailable Primary Care Provider Unavailabl e Encounter Details Date Type Department Care Team (Late st Contact Info) Description 06/23/2018 Transcribed Document [facility] [place] [facility] [place] [address] ProviderEsdras MD [address] [place] [address] Social History Tobacco Use Types [...] - Historical ProviderMD - 06/23/2018 3:37 PM DIRECTOR OF FRONT OFFICE ED Discharge Entered On: 06/23/2018 15:38 EST [...] 15:37 EST Electronically signed by Maria A [facility] Conversion Maintenance Engineer [employer] at 08/03/2022 7:47 PM CDT documented in this encounter Plan of Treatment Not on file documented as of this encounter Visit Diagnoses Not on filedocumented in this encounter
--- OUTSIDE RECORDS SUMMARY | 2024-11-30 10:59 | XMS_ITS | Encounter Summary ---
Author Organization Healthcare Address [address] [place] [address] Care Team Providers Care Procurement Representative Name Role Phone Anita Faye APRN Primary Care Provider [phone] Abby Bruce RN Unavailable [phone] Krystina Bear APRN Primary Care Provider [phone] Anita Faye APRN Primary Care Provider [phone] Reason for Visit * Reason Comments Med Refill Encounter Details Date Type Department Care Team (Late st Contact Info) Description 11/12/2020 Refill Family and Community Medicine [address] [place] [address] Anita Faye APRN [address] [place] [address] Social History Tobacco Use Types [...] on filedocumented in this encounter Care Teams Procurement Representative Relationship Specialty Start Date End Date Anita Faye APRN [address] [place] [address] PCP - General 08/31/20 01/13/22 Krystina Bear APRN [address] [place] [address] PCP - General Family Medicine 01/14/22 07/08/23 Anita Faye APRN [address] [place] [address] PCP - General Family Medicine 07/09/23 Abby Bruce RN [address] [address] Health Evaluator Internal Medicine 01/14/21 12/21/21 documented as of this encounter
--- OUTSIDE RECORDS SUMMARY | 2024-11-30 10:59 | XMS_ITS | Encounter Summary ---
Author Organization Healthcare Address [address] [place] [address] Care Team Providers Care Biofuels Technology Development Manager Name Role Phone Anita Faye APRN Primary Care Provider [phone] Abby Bruce RN Unavailable [phone] Krystina Bear APRN Primary Care Provider [phone] Anita Faye APRN Primary Care Provider [phone] Reason for Visit * Reason Comments Med Refill Encounter Details Date Type Department Care Team (Late st Contact Info) Description 05/12/2021 Refill Family and Community Medicine [address] [place] [address] Anita Faye APRN [address] [place] [address] 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
--- OUTSIDE RECORDS SUMMARY | 2024-11-30 10:59 | XMS_ITS | Encounter Summary ---
Author Organization Healthcare Address [address] [place] [address] Care Team Providers Care Supply Manager Name Role Phone Anita Faye APRN Primary Care Provider [phone] Abby Bruce RN Unavailable [phone] Krystina Bear APRN Primary Care Provider [phone] Anita Faye APRN Primary Care Provider [phone] Reason for Visit * Reason Comments Med Refill Encounter Details Date Type Department Care Team (Late st Contact Info) Description 12/18/2020 Refill [place] [employer] [address] [place] [address] Esha Garcia APRN, [facility] [address] [place] [address] Social History Tobacco Use Types Packs/Day Years [...] on filedocumented in this encounter Care Teams Supply Manager Relationship Specialty Start Date End Date Anita Faye APRN [address] [place] [address] PCP - General 08/31/20 01/13/22 Krystina Bear APRN [address] [place] [address] PCP - General Family Medicine 01/14/22 07/08/23 Anita Faye APRN [address] [place] [address] PCP - General Family Medicine 07/09/23 Abby Bruce, RN [address] [address] Multicultural Internship Internal Medicine 01/14/21 12/21/21 documented as of this encounter
--- OUTSIDE RECORDS SUMMARY | 2024-11-30 10:59 | XMS_ITS | Encounter Summary ---
Author Organization Healthcare Address [address] [place] [address] Care Team Providers Care Associate Creative Director Name Role Phone Krystina Bear APRN Primary Care Provider [phone] Anita Faye APRN Primary Care Provider [phone] Encounter Details Date Type Department Care Team (Late st Contact Info) Description 07/18/2022 Outside Procedure External Location [address] [place] [address] Provider, [facility] Social History Tobacco Use Types Packs/Day Years [...] PM EDT Narrative 07/19/2022 8:58 AM EDT [address] [address] Name: ARLEN FINNEGAN Exam Date: 07/18/2022 : 1995 Age 27 Gender: F Physician: SEAN OSEI Facility: [facility] Facility HSV: Outpatient Exam: HAND RT 3V [...] Thank you for referring ARLEN FINNEGAN to [facility]. Legally authenticated by POPE DANNY Dewitt 2022-07-19 08:46:50 Procedure Note Provider, [facility] - 07/19/2022 [place] [address] Name: ARLEN FINNEGAN Exam Date: 07/18/2022 : 1995 Age 27 Gender: F Physician: SEAN OSEI Facility: [facility] Facility HSV: Outpatient Exam: HAND RT 3V [...] Thank you for referring ARLEN FINNEGAN to [facility]. Legally authenticated by POPE DANNY Dewitt 2022-07-19 08:46:50 Generic [place] Provider IMG XR PROCEDURES Fi nal Result documented in this encounter Visit Diagnoses Not on filedocumented in this encounter Additional Health Concerns Assessment Noted Time A fall risk assessment has been complete d for the patient 01/13/2022 7:51 AM EDT documented as of this encounter Care Teams Associate Creative Director Relationship Specialty Start Date End Date Krystina Bear APRN [address] [place] [address] PCP - General Family Medicine 01/14/22 07/08/23 Anita Faye APRN [address] [place] [address] PCP - General Family Medicine 07/09/23 documented as of this encounter
--- OUTSIDE RECORDS SUMMARY | 2024-11-30 10:59 | XMS_ITS | Encounter Summary ---
Author Organization [employer] ([place], [place], [place], [place]) Address [address] [place] [address] Care Team Providers Care Personal Lines Insurance Advisor Name Role Phone Unavailable Primary Care Provider Unavailabl e Encounter Details Date Type Department Care Team (Late st Contact Info) Description 06/23/2018 Transcribed Document [facility] [place] [facility] [address] ProviderEsdras MD [address] [place] [address] Social History Tobacco Use Types [...] - Esdras ProviderMD - 06/23/2018 11:33 AM IRRIGATOR VALVE PIPE ED Triage Entered On: 06/23/2018 11:49 EST [...] : 2 - Emergent Tracking Group : [facility] ED [facility] Debo Nash RN - 06/23/2018 11:46 EST Mode of Arrival : Stretcher Transported to ED by : Ambulance/ALS EMS Service : [facility] To Room Via : Stretcher Accompanied By [...] PNED ; Probability: 0 ; Diagnosis Code: [id number] ED Height and Weight Height Source : Stated Height Entry Format : [place] Height, Feet : 5 ft(Converted to: 152 cm, 60 Inch) Height, Inches : 4 Inch(Converted to: 0 ft 4 Inch, 10.16 cm) Clinical Height : 162.56 cm Weight Source, ED : Critical estimated dosing weight Weight Entry Format : [place] Weight, Pounds : 190 lb Clinical Dosing Weight : 86.36 kg Body Surface Area (BSA) : 1.92 m2 Body Mass Index : 32.7 kg/m2 (HI) [place] Body Weight (IBW) : 54.3 kg Debo [...]
== END 2024-11-29 23:59 | disposition home or self-care (01) ==
LOC: LAB.DROPOF 11-30 10:53
PROVIDERS: PCP Nurse Practitioner Family; Visit Provider Nurse Practitioner Family
DX: J06.9 Acute upper respiratory infection, unspecified (principal)
CPT/HCPCS: 87631

== ENCOUNTER 2025-01-12 11:18 | Outpatient (CLI) | payer MEDICAID, SELFPAY ==
--- OUTSIDE RECORDS SUMMARY | 2025-01-02 13:20 | XMS_ITS | Encounter Summary ---
Author Organization [facility] Address [address] [place] [address] Care Team Providers Care District Sales Manager Name Role Phone Anita Faye APRN Primary Care Provider [phone] Reason for Referral * Imaging (Urgent) - Authorized Specialty Diagnoses / Procedures Referred By Hayder scott Referred To Contact Diagnoses Pain of right scapula Shortness of breath Acute cough Procedures CT Chest w IV Contrast [place] [address] Phone: tel: fax: Referral ID Status Reason Start Date Expiration Date V isits Requested Visits Authorized [id number] Authorized 01/02/2025 07/04/2026 1 1 Reason for Visit * Reason Comments Shoulder Pain Encounter Details Date Type Department Care Team ([facility] Contact Info) Description 01/02/2025 1:20 PM EDT Office Visit [facility] [address] [place] [address] Iris Bustamante APRN [address] [place] [address] Pain of right scapula (Primary [...] week 01/02/2025 How often do you attend [facility] or faith services? More than 4 times per year 01/02/2025 Do you belong to any clubs o r organizations such as sabianist groups, unions, fraternal or athletic groups, or [...] more drinks on one occasion? Never 01/02/2025 [facility] - Occupational Stress Questionnaire Answer Date Recorded [...] any time in the past 12 m [facility], were you homeless or living in a care home (including now)? No 01/02/2025 Utilities Answer Date Recorded In the past 12 months has th e [employer], gas, oil, or water company threatened to [...] Notes * Progress Notes - Iris Bustamante, INSULATION HELPER - 01/02/2025 1:20 PM EDT Subjective Patient [...] documented as of this encounter Care Teams District Sales Manager Relationship Specialty Start Date End Date Anita Faye APRN [address] [place] [address] PCP - General Family Medicine 07/09/23 documented as of this encounter
--- OUTSIDE RECORDS SUMMARY | 2025-01-03 15:20 | XMS_ITS | Encounter Summary ---
Author Organization [facility] Address [address] [place] [address] Care Team Providers Care Warehouse Distribution Specialist Name Role Phone Yunier Anita Hollis EUSEBIO Primary Care Provider [phone] Reason for Referral * Consultation (Routine) - Authorized Specialty Diagnoses / Procedures Referred By Hayder scott Referred To Contact Physical Therapy Diagnoses Pain of right scapula Adi Caceres MD [address] [place] [address] Phone: tel: fax: Referral ID Status Reason Start Date Expiration Date Visits Requested Visits Authorized [id number] Authorized Consult and Treat 01/05/2025 07/07/2026 1 1 Reason for Visit * Reason Comments right shoulder pain X 3 days Encounter Details Date Type Department Care Team ([facility] st Contact Info) Description 01/03/2025 3:20 PM EDT Office Visit [facility] [address] [place] [address] Adi Caceres MD [address] [place] [address] Pain of right scapula (Primary [...] week 01/02/2025 How often do you attend [facility] or yazdanism services? More than 4 times per year 01/02/2025 Do you belong to any clubs o r organizations such as islam groups, unions, fraternal or athletic groups, or [...] more drinks on one occasion? Never 01/02/2025 [facility] - Occupational Stress [...] time in the past 12 m [facility], were you homeless or living in a detention (including now)? No 01/02/2025 Utilities Answer Date Recorded In the past 12 months has th e [employer], gas, oil, or water [employer] threatened to shut off services in your [...] over the radial, ulnar, median nerve distribution Pressroom Supervisor strength equal, 5/5. Motor testing of the [...] documented as of this encounter Care Teams Warehouse Distribution Specialist Relationship Specialty Start Date End Date Anita Faye APRN [facility] KENYA Garcia [id number] PCP - General Family Medicine 07/09/23 documented as of this encounter
--- OUTSIDE RECORDS SUMMARY | 2025-01-10 15:00 | XMS_ITS | Encounter Summary ---
Author Organization [facility] Address [address] [place] [address] Care Team Providers Care Pastry Decorator Name Role Phone Anita Faye APRN Primary Care Provider [phone] Reason for Visit * Reason Comments Shoulder Pain Right shoulder pain started about a week ago. Saw evangelista Simmons of DVT - clear. Saw Dr. Groves - debbieadol inj & needling. Pain has not resolved. Pain causing nausea. Flu symptoms due to pain, uncomfortable, irritable. ROM has not been altered. Encounter Details Date Type Department Care Team (Late st Contact Info) Description 01/10/2025 3:00 PM EDT Office Visit [facility] [address] [place] [address] Martina Lester, EUSEBIO, DNP [address] [place] [address] Pain of right scapula (Primary Dx) Social History Tobacco Use Types Packs/Day Years Used Date Smoking Tobacco: Some Days Cigarettes 1 14.7 Started: 2010 Passive Smoke Exposure: Current Smokeless Tobacco: Current Tobacco Cessation:Ready to Q uit: No; Counseling Given: No Comments:vape Alcohol Use Standard Drinks/Week Comments Never [...] week 01/02/2025 How often do you attend chur or church services? More than 4 times per year 01/02/2025 Do you belong to any clubs o r organizations such as yarsanism groups, unions, fraternal or athletic groups, or [...] more drinks on one occasion? Never 01/02/2025 [facility] - Occupational Stress [...] any time in the past 12 m [facility], were you homeless or living in a snf (including now)? No 01/02/2025 Utilities Answer Date [...] Sign Reading Time Taken Comments Blood Pressure 124/84 01/10/2025 3:18 PM EDT Pulse 85 01/10/2025 3:18 PM EDT Temperature 37.1 C (98.7 F) 01/10/2025 3:18 PM EDT Respiratory Rate 18 01/10/2025 3:18 PM EDT Oxygen Saturation 98% 01/10/2025 3:18 PM EDT Inhaled Oxygen Concentration - - Weight 69.2 kg (152 lb 8.9 oz) 01/10/2025 3:18 P M EDT Height 162.6 cm (5' 4 ) 01/10/2025 3:18 PM EDT Body Mass Index 26.19 01/10/2025 3:18 PM EDT documented in this encounter Functional Status * Calculated C-SSRS Risk Score (Lifetime/Recent) Answer Date of Assessment Author No Risk Indicated 01/10/2025 3:20 PM EDT Genny Randall * Question Answer Date of Assessment Author 1. Wish to be (Past 1 Month) No 025 3:20 PM EDT Genny Randall 2. Non-Specific Active Suici ravin Thoughts (Past 1 Month) No 01/10/2025 3:20 PM EDT Genny Randall 6. Suicidal Behavior (Lifetime) No 3:20 PM EDT Genny Randall documented as of this encounter Miscellaneous Notes * Progress Notes - Martina Lester, TUMBLER TENDER, DNP - 01/10/2025 3:00 PM EDT Subjective Arlen Friedman Shoulder Pain Ms. Friedman says about a week ago she started having pain in her left shoulder. 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 They were worried about PE initially and did CT scans. They were negative. Patient says that she saw Dr. Groves and she was given trigger point injection and toradol shot. Patient says the pain did not get better with that treatment. Patient says that she has pain when she sits up or moves her right shoulder. Patient says the pain is so bad it makes it her nauseous. Patient says the pain does not radiate down her arm but does radiate up her neck. Patient says the pain is continuous and feels like a knife is sticking in her shoulder. Patient says when she lays down her right hand will go numb. Medical/Surgical/Social/Family History Past 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[1] Surgical History[2] Social History[3] Family History[4] Allergies Oxycodone-acetaminophen Immunizations VACCINE / DOSE DATE DATE DATE DATE DATE Flu 12/08/2012 12/31/2016 12/23/2017 02/01/2019 03/18/2023 Tetanus 12/08/2012 07/18/2022 Pneumovax Shingles Medications Ordered Prior to Encounter[5] Allergies Oxycodone-acetaminophen Health Maintenance Due Topic Date Due Diabetes: Dental Exam Never done [facility]-Hepatitis B Vaccines (1 of 3 - 19+ 3-dose series) Never done [facility]-Pneumococcal Vaccine: Pediatrics (0 to 5 Years) and At-Risk Patients (6 to 49 Years) (1 of 2 - PCV) Never done [facility]-Varicella Vaccines (1 of 2 - 13+ 2-dose series) Never done HPV Vaccines (1 - 3-dose SCDM series) Never done [id number] Vaccine (3 - Pfizer risk series) 02/06/2021 [facility]-Diabetes: Hemoglobin A1C 09/21/2024 [facility]-Influenza Vaccine (1) 12/19/2024 All medications have been reviewed today. The following portions of the patient's chart were reviewed in this encounter and updated as appropriate: past medical history, surgical history, family history, tobacco history, allergies, and medications A 14-point review of systems was completed with pertinent positives and negatives outlined above. Objective Vitals: 01/10/25 1518 BP: 124/84 Pulse: 85 Resp: 18 Temp: 37.1 ??C (98.7 ??F) SpO2: 98% Physical Exam Vitals reviewed. Constitutional: General: She [...] Thought content normal. Judgment: Judgment normal. Assessment/Plan 1. Pain of right scapula (Primary) - predniSONE (Deltasone) 20 MG tablet; Take 3 tabs (60mg) daily for 3 days, then take 2 tabs (40mg)daily for 3 days, then take 1 tab (20mg) daily for 3 days. Dispense: 18 tablet; Refill: 0 - ketorolac (Toradol) injection 30 mg - ketorolac (Toradol) injection 30 mg Educated on risks/benefits of medication. Patient encouraged to stretch and use massage. Encouragedphysical therapy but unable to make work with work schedule. Patient may alternate between heat andice. Will return if symptoms persist. Martina Lester APRN, DNP [1] Past 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: Diagnosis Date Anxiety Attention and concentration deficit Short attention span Depression History of blood clots Pain in left shoulder 09/16/22 Tachycardia, unspecified Tachycardia [2] Past Surgical History: Procedure Laterality Date ADENOIDECTOMY N/A Adenoidectomy from [employer] FACIAL SURGERY N/A Facial surgery from [employer] KNEE SURGERY N/A Knee surgery from [employer] MANDIBLE SURGERY N/A Jaw surgery from [employer] OTHER SURGICAL HISTORY N/A History of oral surgery from [employer] OTHER SURGICAL HISTORY N/A History of tonsillectomy from [employer] [3] Social History Tobacco Use Smoking status: Some Days Current packs/day: 1.00 Average packs/day: 1 pack/day for 14.7 years (14.7 ttl pk-yrs) Types: Cigarettes Start date: 2010 Passive exposure: Current Smokeless tobacco: Current Tobacco comments: vape Vaping Use Vaping status: Every Day Substance Use Topics Alcohol use: Never Drug use: Never [4] Family History Problem Relation Name Age of Onset Lupus Mother Hypertension Father Liver cancer Maternal Grandfather [5] Current Outpatient Medications on File Prior to Visit Medication Sig Dispense Refill amLODIPine (Norvasc) 5 MG tablet Take 1 tablet (5 mg) by mouth daily. 90 tablet 3 atenolol (Tenormin) 100 MG tablet Take 1 tablet (100 mg) by mouth 2 (two) times a day. 180 tablet 3 Blood Glucose Monitoring Suppl (Accu-Chek Alicia Plus) w/Device kit 1 Bag 2 (two) times a day. 1 kit0 cyclobenzaprine (Flexeril) 10 MG tablet Take 1 tablet by mouth 2 times a day as needed for muscle spasms. 60 tablet 0 DULoxetine (Cymbalta) [address] capsule Take 1 capsule (60 mg) by mouth daily. DO NOT CRUSH OR CHEW 90 capsule 2 escitalopram (Lexapro) 20 MG tablet Take 1 tablet (20 mg) by mouth daily. 90 tablet 3 hydrOXYzine HCl (Atarax) 10 MG tablet Take 1 tablet by mouth 3 times a day as needed for anxiety. 90 tablet 3 levothyroxine (Synthroid, Levoxyl) 150 MCG tablet Take 1 tablet by mouth once daily 90 tablet 2 lidocaine (Lidoderm) 5 % patch Apply 1 patch topically daily. Remove & discard patch within 12 hours or as directed by MD. metFORMIN (Glucophage) 1000 MG tablet Take 1 tablet (1,000 mg) by mouth 2 (two) times a day. 180 tablet 3 nicotine (Nicoderm CQ) 21 MG/24HR patch Place 1 patch on the skin 1 (one) time each day at the sametime. 30 patch 1 ondansetron ODT (Zofran-ODT) 8 MG disintegrating tablet DISSOLVE 1 TABLET IN MOUTH EVERY 8 HOURS ASNEEDED FOR NAUSEA FOR VOMITING 18 tablet 0 Ozempic, 1 MG/DOSE, 4 MG/3ML solution pen-injector INJECT 1 MG SUBCUTANEOUSLY ONCE A WEEK 3 mL 2 traMADol (Ultram) 50 MG tablet Take 1 tablet (50 mg) by mouth every 6 hours as needed for severe pain for up to 42 doses. 21 tablet 1 No current facility-administered medications on file prior to visit. documented in this encounter Plan of Treatment Not on file documented as of this encounter Visit Diagnoses Diagnosis Pain of right scapula- Primary documented in this encounter Administered Medications Inactive Administered Medications - up to 3 most recent administrations Medication Order MAR Action Action Date Dose Rate Site ketorolac (Toradol) injection 30 mg 30 mg, Intramuscular, Once, 1 dose, On Thu01/10/25 at 1645, RoutineIndications:Pain of right scapula Given 01/10/2025 4:05 PM EDT 30 mg Righ t Deltoid ketorolac (Toradol) injection 30 mg 30 mg, Intramuscular, Once, 1 dose, On Thu01/10/25 at 1645, RoutineIndications:Pain of right scapula Given 01/10/2025 4:04 PM EDT 30 mg Righ t Deltoid documented in this encounter Additional Health Concerns Assessment Noted Time PHQ-9 Depression Total Score: 22 025 8:53 AM EST A fall risk assessment has been complete d for the patient 12/17/2023 3:21 PM EDT A Body Mass Index follow-up plan has been documented for the patient 01/10/2025 4:15 PM EDT documented as of this encounter Care Teams Pastry Decorator Relationship Specialty Start Date End Date Anita Faye APRN [address] [place] [phone] PCP - General Family Medicine 07/09/23 documented as of this encounter
[2025-01-12 15:02] LABS: Coronavirus 19, PCR Not Detected (NotDetected); Influenza A, PCR Not Detected (NotDetected); Influenza B, PCR Not Detected (NotDetected)
--- OUTSIDE RECORDS SUMMARY | 2025-01-16 09:35 | XMS_ITS | Encounter Summary ---
Author Organization Healthcare Address [address] [place] [address] Care Team Providers Care Mixer Operator Hot Metal Name Role Phone Anita Faye APRN Primary Care Provider [phone] Encounter Details Date Type Department Care Team (Late st Contact Info) Description 01/02/2025 Orders Only External Location [address] [place] [address] Iris Bustamante APRN [address] [place] [address] Social History Tobacco Use Types [...] often do you attend chur ch or orthodox services? More than 4 times per year 01/02/2025 Do you belong to any clubs o r organizations such as jehovah's witness groups, unions, fraternal or athletic groups, or [...] more drinks on one occasion? Never 01/02/2025 [facility] [place] [facility] Occupat ional Health - Occupational Stress [...] time in the past 12 m [facility], were you homeless or living in a long term (including now)? No 01/02/2025 Utilities Answer Date Recorded In the past 12 months has th e [employer], gas, oil, or water company threatened to [...] the days 01/02/2025 1:27 PM EDT Missy Jacksno Thoughts that you would be better off [...] External Sodium 141 136 - 145 mmol/L [facility] External Potassium 3.8 3.6 - 5.0 mmol/L [facility] External Chloride 102 98 - 107 mmol/L [facility] External Carbon Dioxide 28.2 21.0 - 32.0 mmol/L [facility] External Anion Gap (AG) 14.6 [facility] External Glucose 113 70 - 120 mg/dl [facility] External BUN 7 7 - 18 mg/dL [facility] External Creatinine Blood 0.5(L) 0.6 - 1.3 mg/dL [facility] External Estimated GFR 129 60- mlpermin [facility] Comment: GFR LIMITATION: The eGFR equation CKD-EPI 2020 is not applicable for pediatric patients or greater than 90 years of age. The following conditions may alter the GFR result: extremes in body size, malnutrition or obesity, skeletal muscle disease, paraplegia or quadriplegia, vegetarian diet or rapidly changing kiney function. External Osmolality (Calculated) 292 275 - 301 mosm/kg [facility] Comment: OSMOLALITY IS A CALCULATION UTILIZING THE SERUM/PLASMA SODIUM, GLUCOSE AND UREA NITROGEN (BUN) LEVELS. FOR THE MOST ACCURATE RESULT A MEASURED SERUM OSMOLALITY IS SUGGESTED. External Calcium 9.1 8.5 - 10.5 mg/dl [facility] 01/02/2025 3:30 PM EDT 01/02/2025 3:30 PM EDT us Iris Bustamante APRN LAB BLOOD ORDERABLES Final Result [facility] documented in this encounter Visit Diagnoses [...] documented as of this encounter Care Teams Mixer Operator Hot Metal Relationship Specialty Start Date End Date Anita Faye APRN [address] [place] [address] PCP - General Family Medicine 07/09/23 documented as of this encounter
--- OUTSIDE RECORDS SUMMARY | 2025-01-16 09:35 | XMS_ITS | Encounter Summary ---
Author Organization Healthcare Address [address] [place] [address] Care Team Providers Care Glassware Engraver Name Role Phone Anita Faye APRN Primary Care Provider [phone] Encounter Details Date Type Department Care Team (Late st Contact Info) Description 01/02/2025 Outside Procedure External Location [address] [place] [address] Iris Garcia APRN [address] [place] [address] Social History Tobacco Use Types [...] often do you attend chur ch or nondenominational services? More than 4 times per year 01/02/2025 Do you belong to any clubs o r organizations such as zoroastrianism groups, unions, fraternal or athletic groups, or [...] more drinks on one occasion? Never 01/02/2025 [facility] [place] of Occupat ional Health - Occupational Stress [...] any time in the past 12 m [facility], were you homeless or living in a care home (including now)? No 01/02/2025 Utilities Answer Date Recorded In the past 12 months has th e [employer], gas, oil, or water company threatened to [...] PM EDT Narrative 01/02/2025 7:02 [place] [address] Name: ARLEN FINNEGAN Exam Date: 01/02/2025 : 1995 Age 29 years Gender: F Physician: IRIS GARCIA Facility: [facility] Facility HSV: Outpatient Exam: CT CHEST W [...] Thank you for referring ARLEN FINNEGAN to [facility]. Legally authenticated by PORFIRIO TRUJILLO 2025-01-02 18:57:17 Procedure Note Provider, Generic Lutz - 01/02/2025 [place] [address] Name: ARLEN FINNEGAN Exam Date: 01/02/2025 : 1995 Age 29 years Gender: F Physician: IRIS GARCIA Facility: [facility] Facility HSV: Outpatient Exam: CT CHEST W [...] Thank you for referring ARLEN FINNEGAN to [facility]. Legally authenticated by PORFIRIO TRUJILLO 2025-01-02 [...] documented as of this encounter Care Teams Glassware Engraver Relationship Specialty Start Date End Date Anita Faye APRN [address] [place] [address] PCP - General Family Medicine 07/09/23 documented as of this encounter
--- OUTSIDE RECORDS SUMMARY | 2025-01-16 09:35 | XMS_ITS | Clinical Summary ---
Author Organization Healthcare Address [address] [place] [address] Care Team Providers Care Technical Support Manager Name Role Phone YunierAnita APRN Primary Care [...] Description 01/10/2025 3:00 PM EDT Office Visit [facility] [address] [place] [address] Martina Lester APRN, DNP Pain of right scapula (Primary Dx) 01/10/2025 Travel 01/09/2025 Telephone [facility] [address] [place] [address] Adi Caceres MD 01/03/2025 3:20 PM EDT Office Visit [facility] [address] [place] [address] Adi Caceres MD Pain of right scapula (Primary Dx) 01/03/2025 Travel 01/03/2025 Results Follow-Up [facility] [address] [place] [address] Jorge Gacria APRN 01/02/2025 1:20 PM EDT Office Visit [facility] [address] [place] [address] Jorge Garcia APRN Pain of right scapula (Primary Dx); Shortness of breath; Acute cough 01/02/2025 Outside Procedure External Location [address] [place] [address] Jorge Garcia, EUSEBIO 01/02/2025 Orders Only External Location [address] [place] [address] Jorge Garcia APRN 01/02/2025 Travel 12/12/2024 Refill [facility] [address] [place] [address] Anita Faye APRN Anxiety and depression 12/03/2024 Refill [facility] [address] [place] [address] Anita Faye APRN Generalized anxiety disorder 11/04/2024 Refill [facility] [address] [place] [address] Roxie Lr MD 11/04/2024 Refill [facility] [address] [place] [address] Anita Faye APRN Type 2 diabetes mellitus without complication, without long-term current use of insulin from Last 3 Months Immunizations Immunization Administration Dates Next Due Hep A, Adult 12/08/2012 Influenza, injectable, quadrivalent 12/23/2017,0 12/31/2016 Influenza, injectable, quadr ivalent, preservative free 03/18/2023,02/01/2019 Influenza, live, intranasal 12/08/2012 Meningococcal MCV4O 12/08/2012 PPD Skin Test (TB Skin Test) 01/13/2024,11/18/19,10/27/2016 [employer] COVID-19 Vac cine (Purple Cap) 12+ 01/09/2021,12/18/2020 [...] often do you attend chur ch or anabaptist services? More than 4 times per year 01/02/2025 Do you belong to any clubs o r organizations such as amish groups, unions, fraternal or athletic groups, or [...] any time in the past 12 m [facility], were you homeless or living in [...] Vaccines (1 - 3-dose SCDM series) 02/21/2020 [id number] Vaccine (3 - Pfizer risk series) 02/06/2021 [...] External Sodium 141 136 - 145 mmol/L [facility] External Potassium 3.8 3.6 - 5.0 mmol/L [facility] External Chloride 102 98 - 107 mmol/L [facility] External Carbon Dioxide 28.2 21.0 - 32.0 mmol/L [facility] External Anion Gap (AG) 14.6 [facility] External Glucose 113 70 - 120 mg/dl [facility] External BUN 7 7 - 18 mg/dL [facility] External Creatinine Blood 0.5(L) 0.6 - 1.3 mg/dL [facility] External Estimated GFR 129 60- mlpermin [facility] Comment: GFR LIMITATION: The eGFR equation CKD-EPI 2020 is not applicable for pediatric patients or greater than 90 years of age. The following conditions may alter the GFR result: extremes in body size, malnutrition or obesity, skeletal muscle disease, paraplegia or quadriplegia, vegetarian diet or rapidly changing kiney function. External Osmolality (Calculated) 292 275 - 301 mosm/kg [facility] Comment: OSMOLALITY IS A CALCULATION UTILIZING THE SERUM/PLASMA SODIUM, GLUCOSE AND UREA NITROGEN (BUN) LEVELS. FOR THE MOST ACCURATE RESULT A MEASURED SERUM OSMOLALITY IS SUGGESTED. External Calcium 9.1 8.5 - 10.5 mg/dl [facility] 01/02/2025 3:30 PM EDT 01/02/2025 3:30 PM EDT us Jorge Garcia [facility] BLOOD ORDERABLES Final Result [facility] * CT Chest w IV Contrast (01/02/2025 3:23 PM EDT) Anatomical Region Laterality Modality Chest Computed Tomogra phy 01/02/2025 3:23 PM EDT Narrative 01/02/2025 7:02 [place] [address] Name: SIMBA FINNEGAN Exam Date: 01/02/2025 : 1995 Age 29 years Gender: F Physician: JORGE GARCIA Facility: [facility] Facility HSV: Outpatient Exam: CT [...] Thank you for referring SIMBA FINNEGAN to [facility]. Legally authenticated by PORFIRIO TRUJILLO 2025-01-02 18:57:17 Procedure Note Provider, Generic Resighini - 01/02/2025 [place] [address] Name: SIMBA FINNEGAN Exam Date: 01/02/2025 : 1995 Age 29 years Gender: F Physician: JORGE GARCIA Facility: [facility] Facility HSV: Outpatient Exam: CT [...] Thank you for referring SIMBA FINNEGAN to [facility]. Legally authenticated by PORFIRIO TRUJILLO 2025-01-02 18:57:17 us Jorge Garcia [facility] IMG CT PROCEDURES Final Res ult * (ABNORMAL) Hemoglobin A1c (06/22/2024 9:28 AM EST) Hemoglobin A1c 7.3(H) <5.7 % 06/22/2024 4:57 PM EST [facility] Blood Venous blood specimen / Unknown Venipuncture / Unknown 06/22/2024 9:28 AM EST 06/22/2024 9:28 AM EST Narrative [facility] - 06/22/2024 4:57 PM EST HA1C Interpretive Data: Diagnosis of Diabetes: Diabetic > or = 6.5% Pre-diabetic 5.7 to 6.4% Non-diabetic < or = 5.6% Glycemic Targets for Type I and Type II Diabetics: Non- Adults <7.0% Adults <6.0% Children and Adolescents <7.5% Source: [place] [employer]. Standards of medical care in diabetes,2017. Diabetes Care.2017:40 (suppl 1):S1-S135. HbA1c assay performed by an ion-exchange chromatography method that is certified traceable to the DCCT. Anita Shafer Faye [facility] BLOOD ORDERABLES Final Result [facility] [address] [place] [address] * Referred ThinPrep Pap and HPV (SO) (12/17/2023 1:41 PM EDT) Pap, Source Cx/Vagina 12/25/2023 3:39 PM EDT [facility] EER Referred ThinPrep Pap and HPV See Note 12/25/2023 3:39 PM EDT [facility] PAP, THINPREP Normal 12/25/2023 3:39 PM EDT [facility] High Risk HPV Normal 12/25/2023 3:39 PM EDT [facility] Swab Vaginal and cervical cytologic material / Unknown Non-blood Collection / Unknown 12/17/2023 1:41 PM EDT 12/17/2023 6:07 PM EDT Narrative [facility] - 12/25/2023 3:39 PM EDT Authorized individuals can access the [facility] Enhanced Report using the following link: [email or web address] Performed By: [facility] [address] [place] [id number] Canopy Stringer: Ramin Cervantes MD, PhD CLIA Number: [id number] SPECIMEN PART A. Cervical, Endocervical, Vaginal, ThinPrep Pap (Embroiderer) CYTOLOGY HX Date of Last Menstrual Period: n FINAL DIAGNOSIS INTERPRETATION: Negative for Intraepithelial Lesion or Malignancy. SPECIMEN ADEQUACY:Satisfactory for evaluation. Endocervical/transformation zone component present. Electronically Signed Out : ctbcn Performed by: [facility] [address] [place] [address] [place] [address] Krystina Garcia MD, HR-HPV: Negative Test performed by the FDA-approved Bowntygic (Gen-Probe) APTIMA HPV test, which detects HPV genotypes: 16, 18, 31, 33, 35, 39, 45, 51, 52, 56, 58, 59, 66, and 68. Performed by: [facility] [address] [place] [address] [place] [address] Krystina Garcia MD, us Ruthie Foote RN LAB REF LAB BLOOD AND FLUID OR D Final Result [facility] ([address] [address] * HIV 1 & 2 Antibody/Antigen Screen (02/25/2023 5:04 PM EST) Pathologist [facility] HIV 1 & 2 Antibody/Antigen Screen Non [...] Final Res ult [facility] [address] [place] [address] * Hepatitis C Antibody w/Reflex to HCV Quant PCR (02/25/2023 5:04 PM EST) Pathologist [facility] Hepatitis C Antibody Negative Negative 02/26/2023 4:19 PM EST [facility] Blood Venous blood specimen / Unknown Venipuncture / Unknown 02/25/2023 5:04 PM EST 02/26/2023 1:42 PM EST us Ruthie Foote RN LAB BLOOD ORDERABLES Final Res ult [facility] [address] [place] [address] from Last 3 Months or Most Recently Relevant to Health Maintenance Insurance [facility] MEDICAID [place] Care Teams Technical Support Manager Relationship Specialty Start Date End Date Anita Faye APRN [address] [place] [address] PCP - General Family Medicine 07/09/23
--- OUTSIDE RECORDS SUMMARY | 2025-01-16 09:35 | XMS_ITS | Clinical Summary ---
Author Organization [facility] Address [address] [place] [address] Care Team Providers Care Polymer Tester Name Role Phone Krystina Bear APRN Primary Care Provider [phone] Allergies Active Allergy Reactions Criticality Noted Date [...] Description 05/10/2025 9:15 AM EST Office Visit [facility] [address] [place] [address] Jeannette Correia, INSURANCE PRODUCER [address] [place] [address] Health Maintenance Due Date Last [...] , 02/25/2023, 10/15/2022 [place] [address] Care Teams Polymer Tester Relationship Specialty Start Date End Date Krystina Bear [facility]N [facility] [place] [address] PCP - General Family Medicine 04/17/18
--- OUTSIDE RECORDS SUMMARY | 2025-01-16 09:35 | XMS_ITS | Encounter Summary ---
Author Organization Healthcare Address [address] [place] [address] Care Team Providers Care Prop Maker Name Role Phone Anita Faye APRN [...] often do you attend chur ch or adventist services? More than 4 times per year 01/02/2025 Do you belong to any clubs o r organizations such as pentecostal groups, unions, fraternal or athletic groups, or [...] more drinks on one occasion? Never 01/02/2025 [facility] - Occupational Stress Questionnaire Answer Date [...] Recorded In the past 12 months has [employer], gas, oil, or water [employer] threatened to shut off services in your [...] documented as of this encounter Care Teams Prop Maker Relationship Specialty Start Date End Date Anita Faye APRN [address] [place] [address] PCP - General Family Medicine 07/09/23 documented as of this encounter
--- OUTSIDE RECORDS SUMMARY | 2025-01-16 09:35 | XMS_ITS | Encounter Summary ---
Author Organization Healthcare Address [address] [place] [address] Care Team Providers Care Ferryboat Helper Name Role Phone YunierJayll Hollis EUSEBIO Primary Care Provider [phone] Encounter Details Date Type Department Care Team ([facility] Contact Info) Description 01/09/2025 Telephone [facility] [address] [place] [address] Adi Caceres MD [address] [facility] [address] [place] [address] Social History Tobacco Use Types [...] How often do you attend chur or jew services? More than 4 times per year 01/02/2025 Do you belong to any clubs o r organizations such as hindu groups, unions, fraternal or athletic groups, or [...] more drinks on one occasion? Never 01/02/2025 [facility] of Occupat ional Health - Occupational Stress [...] in the past 12 m [facility], were you homeless or living in [...] documented as of this encounter Care Teams Ferryboat Helper Relationship Specialty Start Date End Date Anita [place] [address] PCP - General Family Medicine 07/09/23 documented as of this encounter
--- OUTSIDE RECORDS SUMMARY | 2025-01-16 09:35 | XMS_ITS | Encounter Summary ---
Author Organization Healthcare Address [address] [place] [address] Care Team Providers Care Estate Manager Name Role Phone Anita Faye APRN [...] often do you attend chur ch or yarsani services? More than 4 times per year [...] more drinks on one occasion? Never 01/02/2025 [facility] - Occupational Stress Questionnaire Answer [...] No 01/02/2025 Housing Stability Vital Sign Answer Juaquni e Recorded In the last 12 months, [...] Recorded In the past 12 months has [employer], gas, oil, or water [employer] threatened to shut off services in your [...] documented as of this encounter Care Teams Estate Manager Relationship Specialty Start Date End Date Anita Faye APRN [address] [place] [address] PCP - General Family Medicine 07/09/23 documented as of this encounter
--- OUTSIDE RECORDS SUMMARY | 2025-01-16 09:35 | XMS_ITS | Encounter Summary ---
Author Organization Healthcare Address [address] [place] [address] Care Team Providers Care Production Shift Supervisor Name Role Phone FayeAnita gr APRN Primary Care Provider [phone] Reason for Visit * Reason Comments Med Refill Encounter Details Date Type Department Care Team (Late st Contact Info) Description 07/12/2023 Refill Obstetrics & Gynecology [address] [place] [address] Ruthie Foote RN [address] [place] [address] Family planning education, guidance, and [...] place to sleep or slept in a senior care (including now)? Patient refused 07/09/2023 Utilities Answer [...] documented as of this encounter Care Teams Production Shift Supervisor Relationship Specialty Start Date End Date Anita Faye APRN [address] [place] [address] PCP - General Family Medicine 07/09/23 documented as of this encounter
--- OUTSIDE RECORDS SUMMARY | 2025-01-16 09:35 | XMS_ITS | Encounter Summary ---
Author Organization Healthcare Address [address] [place] [address] Care Team Providers Care Beer Still Runner Compounder Name Role Phone Anita Faye APRN Primary Care Provider [phone] Encounter Details Date Type Department Care Team ([facility] Contact Info) Description 01/03/2025 Results Follow-Up [facility] [address] [place] [address] Iris Bustamante APRN [address] [place] [address] Social History Tobacco Use Types [...] How often do you attend chur or bahai services? More than 4 times per year 01/02/2025 Do you belong to any clubs o r organizations such as restorationist groups, unions, fraternal or athletic groups, or [...] Never 01/02/2025 [facility] - Occupational Stress Questionnaire Answer [...] any time in the past 12 m [facility], were you homeless or living [...] documented as of this encounter Care Teams Beer Still Runner Compounder Relationship Specialty Start Date End Date Anita Faye APRN [address] [place] [address] PCP - General Family Medicine 07/09/23 documented as of this encounter
--- OUTSIDE RECORDS SUMMARY | 2025-01-16 09:36 | XMS_ITS | Encounter Summary ---
Author Organization Healthcare Address [address] [place] [address] Care Team Providers Care Control Systems Technician Name Role Phone Krystina Bear APRN Primary Care Provider [phone] Anita Faye APRN Primary Care Provider [phone] Encounter Details Date Type Department Care Team (Late st Contact Info) Description 04/01/2022 Outside Procedure External Location [address] [place] [address] Provider, Ora [place] Social History Tobacco Use Types Packs/Day Years [...] AM EST Narrative 04/01/2022 5:42 [place] [address] Name: ARLEN FINNEGAN Exam Date: 04/01/2022 : 1995 Age 27 Gender: F Physician: KWADWO MOORE Facility: [facility] Facility HSV: Outpatient Exam: CT BRAIN [...] Thank you for referring ARLEN FINNEGAN to [facility]. Legally authenticated by GERRY CRUZ 2022-04-01 05:32:03 Procedure Note Provider, Generic [place] - 04/01/2022 [place] [id number] Name: ARLEN FINNEGAN Exam Date: 04/01/2022 : 1995 Age 27 Gender: F Physician: KWADWO MOORE Facility: [facility] Facility HSV: Outpatient Exam: CT BRAIN [...] Thank you for referring ARLEN FINNEGAN to [facility]. Legally authenticated by GERRY CRUZ 2022-04-01 05:32:03 us Generic [place] Provider IMG CT PROCEDURES Fi nal Result documented in this encounter Visit Diagnoses Not on filedocumented in this encounter Additional Health Concerns Assessment Noted Time A fall risk assessment has been complete d for the patient 01/13/2022 7:51 AM EDT documented as of this encounter Care Teams Control Systems Technician Relationship Specialty Start Date End Date Krystina Bear APRN [facility] [place] [address] PCP - General Family Medicine 01/14/22 07/08/23 Anita [place] [address] PCP - General Family Medicine 07/09/23 documented as of this encounter
--- OUTSIDE RECORDS SUMMARY | 2025-01-16 09:36 | XMS_ITS | Encounter Summary ---
Author Organization Healthcare Address [address] [place] [address] Care Team Providers Care Blow Up Operator Name Role Phone Anita Faye APRN Primary Care Provider [phone] Abby Bruce RN Unavailable [phone] Krystina Bear APRN Primary Care Provider [phone] Anita Faye APRN Primary Care Provider [phone] Reason for Visit * Reason Comments Med Refill Encounter Details Date Type Department Care Team (Late st Contact Info) Description 11/15/2020 Refill Family and Community Medicine [address] [place] [address] Anita Faye APRN [address] [place] [address] Social History Tobacco Use Types [...] on filedocumented in this encounter Care Teams Blow Up Operator Relationship Specialty Start Date End Date Anita Faye APRN [address] [place] [address] PCP - General 08/31/20 01/13/22 Krystina Bear APRN [address] [place] [address] PCP - General Family Medicine 01/14/22 07/08/23 Anita Faye APRN [address] [place] [address] PCP - General Family Medicine 07/09/23 Abby Bruce RN [address] [address] Assurance Specialist Internal Medicine 01/14/21 12/21/21 documented as of this encounter
--- OUTSIDE RECORDS SUMMARY | 2025-01-16 09:36 | XMS_ITS | Encounter Summary ---
Author Organization [employer] ([place], [place], [place], [place]) Address [address] [place] [address] Care Team Providers Care Human Resources Manager Manufacturing Name Role Phone Unavailable Primary Care Provider Unavailabl e Encounter Details Date Type Department Care Team (Late st Contact Info) Description 06/23/2018 Transcribed Document [facility] Radiology [address] [place] [address] Espinoza Grajeda MD [address] [place] [address] Dept. [place] [address] Social History Tobacco Use Types [...] by Provider, No further action required x1 Electronically signed by Kendall Saha Conversion Instructional Paraprofessional Cerner at 08/03/2022 7:35 PM CDT documented in this encounter Plan of Treatment Not on file documented as of this encounter Visit Diagnoses Not on filedocumented in this encounter
--- OUTSIDE RECORDS SUMMARY | 2025-01-16 09:36 | XMS_ITS | Encounter Summary ---
Author Organization [employer] ([place], [place], [place], [place]) Address [address] [place] [address] Care Team Providers Care Ranch Hand Name Role Phone Unavailable Primary Care Provider Unavailabl e Encounter Details Date Type Department Care Team (Late st Contact Info) Description 06/23/2018 Transcribed Document [facility] [place] [address] ProviderEsdras MD [address] [place] [address] Social History Tobacco Use Types [...] - Esdras ProviderMD - 06/23/2018 3:39 PM SHEET FOLDER [address] [place] [address] PERSON INFORMATION Name ARLEN FINNEGAN Age 23 Years 1995 Sex Female Language Beninese PCP AKILAH UPTON NP-JOVANA Marital Status Med Service Emergency Medicine Acct# Arrival 06/23/2018 11:33:00 Visit Reason Closed head injury with LOC; PASSED OUT Acuity 2 - Emergent LOS 000 04:06 Depart Date: 06/23/18 03:38 PM Address: [address] [facility] [address] Comment: PROVIDER INFORMATION Provider Role Assigned Unassigned Debo Nash, WHIPPER Nurse 06/23/2018 11:51:05 DEWEY GRAJEDA MD-EMR ED [...] Info: Percocet 5/325 Medications: Prescription Display acetaminophen-hydrocodone ([place] 5 mg-325 mg oral tablet) 1 Tab, Oral, TID, PRN for pain, X 3 Day(s), # 10 Tab, 0 Refill(s) cyclobenzaprine (cyclobenzaprine 10 mg oral tablet) 1 Tab, Oral, TID, PRN for spasm, # 30 Tab, 0 Refill(s) Comment: DISCHARGE INFORMATION Discharge Disposition: Home Discharge Location: PATIENT EDUCATION INFORMATION Instructions: Syncope, [id number]; Cervical Sprain Follow up: With: Address: When: NOEMI WILHELM [address] [place], [place] [id number] Business (1) Within 2 to 3 days Comments: cardiology referral for follow up on syncope isssue, which liekly realtes to orthostatic and dehydration symptoms With: Address: When: AKILAH UPTON [address] [place] [address] Business (1) Within 2 to 3 days Comment: documented in this encounter Plan of Treatment Not on file documented as of this encounter Visit Diagnoses Not on filedocumented in this encounter
--- OUTSIDE RECORDS SUMMARY | 2025-01-16 09:36 | XMS_ITS | Encounter Summary ---
Author Organization Healthcare Address [address] [place] [address] Care Team Providers Care Almond Paste Mixer Name Role Phone Anita Faye APRN Primary Care Provider [phone] Abby Bruce RN Unavailable [phone] Krystina Bear APRN Primary Care Provider [phone] Anita Faye APRN Primary Care Provider [phone] Reason for Visit * Reason Comments Med Refill Encounter Details Date Type Department Care Team (Late st Contact Info) Description 11/12/2020 Refill [facility] [address] [place] [address] Anita Faye APRN [address] [place] [address] Social History Tobacco Use Types [...] on filedocumented in this encounter Care Teams Almond Paste Mixer Relationship Specialty Start Date End Date Anita Faye APRN [address] [place] [address] PCP - General 08/31/20 01/13/22 Krystina Bear APRN [address] [place] [address] PCP - General Family Medicine 01/14/22 07/08/23 Anita Faye APRN [address] [place] [address] PCP - General Family Medicine 07/09/23 Abby Bruce RN [address] [address] Health Administrator Internal Medicine 01/14/21 12/21/21 documented as of this encounter
--- OUTSIDE RECORDS SUMMARY | 2025-01-16 09:36 | XMS_ITS | Encounter Summary ---
Author Organization [employer] ([place], [place], [place], [place]) Address [address] [place] [address] Care Team Providers Care Turret Press Operator Name Role Phone Unavailable Primary Care Provider Unavailabl e Encounter Details Date Type Department Care Team (Late st Contact Info) Description 06/23/2018 Transcribed Document [facility] Radiology [address] [place] [address] Espinoza Sullivan MD [address] [place] [address] Dept. [place] [address] Social History Tobacco Use Types [...] PM EST Electronically signed by Maria A [facility] Conversion Executive Steward Cerner at 08/03/2022 7:44 PM CDT documented in this encounter Plan of Treatment Not on file documented as of this encounter Visit Diagnoses Not on filedocumented in this encounter
--- OUTSIDE RECORDS SUMMARY | 2025-01-16 09:36 | XMS_ITS | Encounter Summary ---
Author Organization Healthcare Address [address] [place] [address] Care Team Providers Care Or Assistant Name Role Phone Anita Faye APRN Primary Care Provider [phone] Abby Bruce RN Unavailable [phone] Krystina Bear APRN Primary Care Provider [phone] Anita Faye APRN Primary Care Provider [phone] Encounter Details Date Type Department Care Team (Late st Contact Info) Description 12/27/2020 Outside Procedure External Location [address] [place] [address] Provider, Ora [place] Social History Tobacco Use [...] PM EDT Narrative 12/28/2020 7:41 [place] [address] Name: ARLEN FINNEGAN Exam Date: 12/27/2020 : 1995 Age 25 Gender: F Physician: TIGRE MONTANEZ Facility: [facility] Facility HSV: Outpatient Exam: CHEST PORTABLE CHEST, [...] Thank you for referring ARLEN FINNEGAN to [facility]. Legally authenticated by POPE DANNY Dewitt 2020-12-28 07:29:49 Procedure Note Provider, Generic [place] - 12/28/2020 [place] [address] Name: ARLEN FINNEGAN Exam Date: 12/27/2020 : 1995 Age 25 Gender: F Physician: TIGRE MONTANEZ Facility: [facility] Facility HSV: Outpatient Exam: CHEST PORTABLE CHEST, [...] Thank you for referring ARLEN FINNEGAN to [facility]. Legally authenticated by POPE DANNY Dewitt 2020-12-28 07:29:49 Generic [place] Provider IMG XR PROCEDURES Fi nal Result documented in this encounter Visit Diagnoses Not on filedocumented in this encounter Care Teams Or Assistant Relationship Specialty Start Date End Date Anita Faye APRN [address] [place] [address] PCP - General 08/31/20 01/13/22 Krystina Bear APRN [address] [place] [address] PCP - General Family Medicine 01/14/22 07/08/23 Anita Faye APRN [address] [place] [address] PCP - General Family Medicine 07/09/23 Abby Bruce, NOLAN [address] [phone] Count Room Clerk Internal Medicine 01/14/21 12/21/21 documented as of this encounter
--- OUTSIDE RECORDS SUMMARY | 2025-01-16 09:36 | XMS_ITS | Encounter Summary ---
Author Organization Healthcare Address [address] [place] [address] Care Team Providers Care Fixed Income Analyst Name Role Phone Anita Faye APRN Primary Care Provider [phone] Encounter Details Date Type Department Care Team ([facility] Contact Info) Description 12/12/2024 Refill [facility] [address] [place] [address] Anita Faye APRN [address] [place] [address] Anxiety and depression Social History [...] place to sleep or slept in a intermediate (including now)? No 12/16/2023 PHQ-9 Answer Date [...] any time in the past 12 m [facility], were you homeless or living in a intermediate (including now)? No 06/22/2024 Utilities Answer Date Recorded In the past 12 months has th e [employer], gas, oil, or water [employer] threatened to shut off services in your [...] documented as of this encounter Care Teams Fixed Income Analyst Relationship Specialty Start Date End Date Anita Faye APRN [address] [place] [address] PCP - General Family Medicine 07/09/23 documented as of this encounter
--- OUTSIDE RECORDS SUMMARY | 2025-01-16 09:36 | XMS_ITS | Encounter Summary ---
Author Organization Healthcare Address [address] [place] [address] Care Team Providers Care Field Professional Name Role Phone Anita Faye APRN Primary Care Provider [phone] Encounter Details Date Type Department Care Team [...] often do you attend chur ch or rastafari services? More than 4 times per year [...] more drinks on one occasion? Never 01/02/2025 [facility] - Occupational Stress Questionnaire Answer [...] were you homeless or living in a residential (including now)? No 01/02/2025 Utilities Answer Date Recorded In the past 12 months has [facility] codebender, gas, oil, or water company threatened to [...] documented as of this encounter Care Teams Field Professional Relationship Specialty Start Date End Date Anita Faye APRN [address] [place] [address] PCP - General Family Medicine 07/09/23 documented as of this encounter
--- OUTSIDE RECORDS SUMMARY | 2025-01-16 09:36 | XMS_ITS | Encounter Summary ---
Author Organization Healthcare Address [address] [place] [address] Care Team Providers Care Nailing Machine Feeder Name Role Phone Anita Faye APRN Primary Care Provider [phone] Reason for Visit * Reason Comments Med Refill Encounter Details Date Type Department Care Team (Late st Contact Info) Description 12/03/2024 Refill [facility] [address] [place] [address] Anita Faye APRN [address] [place] [address] Generalized anxiety disorder Social History [...] any time in the past [address] [facility], were you homeless or living [...] documented as of this encounter Care Teams Nailing Machine Feeder Relationship Specialty Start Date End Date Anita Faye APRN [address] [place] [address] PCP - General Family Medicine 07/09/23 documented as of this encounter
--- OUTSIDE RECORDS SUMMARY | 2025-01-16 09:36 | XMS_ITS | Encounter Summary ---
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
--- OUTSIDE RECORDS SUMMARY | 2025-01-16 09:36 | XMS_ITS | Encounter Summary ---
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
--- OUTSIDE RECORDS SUMMARY | 2025-01-16 09:36 | XMS_ITS | Encounter Summary ---
Author Organization [email or web address] ([place], [place], [place], [place]) Address [address] [place] [address] Care Team Providers Care Nutrition Professor Name Role Phone Unavailable Primary Care Provider Unavailabl e Encounter Details Date Type Department Care Team (Late st Contact Info) Description 06/23/2018 Transcribed Document [facility] [place] [facility] [place] [address] ProviderEsdras MD [address] [place] [address] Social History Tobacco Use Types [...] - Esdras ProviderMD - 06/23/2018 11:33 AM MECHANICAL PRODUCT ENGINEER ED Assessment Entered On: 06/23/2018 11:50 EST Performed On: 06/23/2018 11:50 EST by Debo Nash RN ED Quick Look Assessment Level of Consciousness : Alert, Awake Affect/Behavior : Appropriate, Calm, Cooperative Orientation : Oriented x 4 Skin Temperature : Warm Debo Nash RN - 06/23/2018 11:50 EST ED General-Functional Assess Information Obtained From : Patient Communication Barrier : None Primary Language : Irish Any Spiritual/Cultural Needs or Requests : No [...]
--- OUTSIDE RECORDS SUMMARY | 2025-01-16 09:36 | XMS_ITS | Encounter Summary ---
Author Organization Healthcare Address [address] [place] [address] Care Team Providers Care Jig Grinder Set Up Operator Name Role Phone Krystina Bear APRN Primary Care Provider [phone] Anita Faye APRN Primary Care Provider [phone] Encounter Details Date Type Department Care Team (Late st Contact Info) Description 07/18/2022 Outside Procedure External Location [address] [place] [address] Provider, [facility] Social History Tobacco Use Types Packs/Day Years [...] PM EDT Narrative 07/19/2022 8:58 AM EDT [address] [address] Name: ARLEN FINNEGAN Exam Date: 07/18/2022 : 1995 Age 27 Gender: F Physician: SEAN OSEI Facility: [facility] Facility HSV: Outpatient Exam: HAND RT 3V [...] Thank you for referring ARLEN FINNEGAN to [facility]. Legally authenticated by POPE DANNY Dewitt 2022-07-19 08:46:50 Procedure Note Provider, Ora [place] - 07/19/2022 [place] [address] Name: ARLEN FINNEGAN Exam Date: 07/18/2022 : 1995 Age 27 Gender: F Physician: SEAN OSEI Facility: [facility] Facility HSV: Outpatient Exam: HAND RT 3V [...] Thank you for referring ARLEN FINNEGAN to [facility]. Legally authenticated by POPE DANNY Dewitt 2022-07-19 08:46:50 Generic [place] Provider IMG XR PROCEDURES Fi nal Result documented in this encounter Visit Diagnoses Not on filedocumented in this encounter Additional Health Concerns Assessment Noted Time A fall risk assessment has been complete d for the patient 01/13/2022 7:51 AM EDT documented as of this encounter Care Teams Jig Grinder Set Up Operator Relationship Specialty Start Date End Date Krystina Bear APRN [address] [place] [address] PCP - General Family Medicine 01/14/22 07/08/23 Anita Faye APRN [address] [place] [address] PCP - General Family Medicine 07/09/23 documented as of this encounter
--- OUTSIDE RECORDS SUMMARY | 2025-01-16 09:36 | XMS_ITS | Encounter Summary ---
Author Organization [employer] ([place], [place], [place], [place]) Address [address] [place] [address] Care Team Providers Care Asphalt Paver Operator Name Role Phone Unavailable Primary Care Provider Unavailabl e Encounter Details Date Type Department Care Team (Late st Contact Info) Description 06/23/2018 Transcribed Document [facility] [place] [facility] [place] [address] ProviderEsdras MD [address] [place] [address] Social History Tobacco Use Types [...] ProviderMD - 06/23/2018 3:37 PM DIRECTOR OF HOTEL ED Discharge Entered On: 06/23/2018 15:38 EST [...] 15:37 EST Electronically signed by Maria A [facility] Conversion Lens Blocker Cerner at 08/03/2022 7:47 PM CDT documented in this encounter Plan of Treatment Not on file documented as of this encounter Visit Diagnoses Not on filedocumented in this encounter
--- OUTSIDE RECORDS SUMMARY | 2025-01-16 09:36 | XMS_ITS | Encounter Summary ---
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
--- OUTSIDE RECORDS SUMMARY | 2025-01-16 09:36 | XMS_ITS | Encounter Summary ---
Author Organization Healthcare Address [address] [place] [address] Care Team Providers Care Oracle Agile Plm Consultant Name Role Phone Krystina Bear APRN Primary Care Provider [phone] Anita Faye APRN Primary Care Provider [phone] Reason for Visit * Reason Comments Med Refill Encounter Details Date Type Department Care Team (Late st Contact Info) Description 07/07/2023 Refill [facility] Community Medicine [address] [place] [address] Krystina Bear APRN [address] [place] [address] Anxiety and depression Social History [...] place to sleep or slept in a fdc (including now)? Patient refused 07/09/2023 Utilities Answer [...] documented as of this encounter Care Teams Oracle Agile Plm Consultant Relationship Specialty Start Date End Date Krystina Bear APRN [address] [place] [address] PCP - General Family Medicine 01/14/22 07/08/23 Anita Faye APRN [address] [place] [address] PCP - General Family Medicine 07/09/23 documented as of this encounter
--- OUTSIDE RECORDS SUMMARY | 2025-01-16 09:36 | XMS_ITS | Encounter Summary ---
Author Organization [employer] ([place], [place], [place], [place]) Address [address] [place] [address] Care Team Providers Care Mail Distribution Scheme Examiner Name Role Phone Unavailable Primary Care Provider Unavailabl e Encounter Details Date Type Department Care Team (Late st Contact Info) Description 06/23/2018 Transcribed Document [facility] [place] [facility] [place] [address] ProviderEsdras MD [address] [place] [address] Social History Tobacco Use [...] - Esdras ProviderMD - 06/23/2018 11:33 AM INWARD TOLL OPERATOR ED Triage Entered On: 06/23/2018 11:49 EST [...] : 2 - Emergent Tracking Group : [facility] ED [facility] Debo Nash RN - 06/23/2018 11:46 EST Mode of Arrival : Stretcher Transported to ED by : Ambulance/ALS EMS Service : [facility] To Room Via : Stretcher Accompanied By [...] PNED ; Probability: 0 ; Diagnosis Code: [id number] ED Height and Weight Height Source : Stated Height Entry Format : [place] Height, Feet : 5 ft(Converted to: 152 cm, 60 Inch) Height, Inches : 4 Inch(Converted to: 0 ft 4 Inch, 10.16 cm) Clinical Height : 162.56 cm Weight Source, ED : Critical estimated dosing weight Weight Entry Format : [place] Weight, Pounds : 190 lb Clinical Dosing Weight : 86.36 kg Body Surface Area (BSA) : 1.92 m2 Body Mass Index : 32.7 kg/m2 (HI) [place] Body Weight (IBW) : 54.3 kg Debo [...]
--- OUTSIDE RECORDS SUMMARY | 2025-01-16 09:36 | XMS_ITS | Clinical Summary ---
Author Organization [facility] Address [address] [place] [address] Phone [email or web address] Care Team Providers Care Employee Relations Assistant Name Role Phone Krystina Bear APRN Primary Care Provider [phone] Allergies Active Allergy Reactions Criticality Noted Date [...] needed. Active ergocalciferol (VITAMIN D2) 1.25 MG (14474 UT) capsule Take 50,000 Units by mouth [...] on file Legal Sex Female 11:45 AM COREMAKER APPRENTICE Gender Identity Not on file Sexual Orientation [...] OPT OUT NO COPAY NB Care Teams Employee Relations Assistant Relationship Specialty Start Date End Date Krystina Bear APRN [address] [place] [address] PCP - General Manager Control 04/05/20
--- OUTSIDE RECORDS SUMMARY | 2025-01-16 09:36 | XMS_ITS | Clinical Summary ---
Author Organization [employer] ([place], [place], [place], [place]) Address [address] [place] [address] Care Team Providers Care Rotary Soil Stabilizer Operator Name Role Phone Unavailable Primary Care [...]
--- OUTSIDE RECORDS SUMMARY | 2025-01-16 09:36 | XMS_ITS | Encounter Summary ---
Author Organization [employer] ([place], [place], [place], [place]) Address [address] [place] [address] Care Team Providers Care Bag Machine Tender Name Role Phone Unavailable Primary Care Provider Unavailabl e Encounter Details Date Type Department Care Team (Late st Contact Info) Description 06/23/2018 Transcribed Document [facility] Family Medicine [facility] [address] ProviderEsdras MD [address] [place] [address] Social History Tobacco Use Types [...] - Historical ProviderMD - 06/23/2018 3:39 PM POWER HOUSE ENGINEER [facility] [address] [place] [address] Patient Information Name: ARLEN FINNEGAN Age: 23 Years Date of : 1995 Arrival Time: 06/23/2018 11:33:00 Diagnosis Cervical strain Primary Care Physician: AKILAH UPTON NP-JOVANA Provider Information Primary Provider: DEWEY GRAJEDA Secondary Provider: ARLEN FINNEGAN has been given the following list of patient education materials, prescriptions and follow-up instructions: Follow-up Instructions: With: Address: When: NOEMI WILHELM [facility] [address] [place] [address] Livemap (1) Within 2 to 3 days Comments: cardiology referral for follow up on syncope isssue, which liekly realtes to orthostatic and dehydration symptoms With: Address: When: [place] [address] Livemap (1) Within 2 to 3 days Patient [...] This can help with dizziness. ??? Take dltz-slh-jjxwpqq and prescription medicines only as told by [...] or physical therapist. General instructions ??? Take gknb-hrc-jrcnibh and prescription medicines only as told by [...] 02/01/2008 Document Revised: 12/03/2016 Document Reviewed: 12/03/2016 [employer] Patient Education ? 2017 [employer] Allergies: Percocet 5/325 Medication Information: Prescription Display acetaminophen-hydrocodone (Shanks 5 mg-325 mg oral tablet) 1 Tab, [...] range between ( 1.0 and 7.0 ) Runnels #: 0.78 K/uL -- Normal range between ( 0.24 and 0.82 ) Eos #: 0.27 K/uL -- Normal range between ( 0.04 and 0.54 ) Runnels %: 8.3 % -- Normal range between [...] verify that ARLEN FINNEGAN was seen at [facility] Emergency Department on ,06/23/2018 15:39:05. This [...] Assistance with quitting is available by contacting 6-567-UYVK-NOW. This is a free resource providing counseling, [...] Electronic Communications Privacy Act 18 U.S.C. ???Sections 1952-5230,?? and contain information intended for the specified [...] Be sure to sign up for the [facility] patient portal, which gives you 10/11 access to your medical information ??? including these discharge instructions ??? using your computer, smartphone, or tablet. Just go to [employer] to get started. Questions? Call . Acknowledgment [...]
--- OUTSIDE RECORDS SUMMARY | 2025-01-16 09:36 | XMS_ITS | Encounter Summary ---
Author Organization Healthcare Address [address] [place] [address] Care Team Providers Care Garment Examiner Name Role Phone Anita Faye APRN Primary Care Provider [phone] Abby Bruce RN Unavailable [phone] Krystina Bear APRN Primary Care Provider [phone] Anita Faye APRN Primary Care Provider [phone] Reason for Visit * Reason Comments Med Refill Encounter Details Date Type Department Care Team (Late st Contact Info) Description 12/18/2020 Refill [facility] MANUFACTUR[employer] INTERN [address] [place] [address] Esha Garcia APRN, [facility] [address] [place] [address] Social History Tobacco Use Types Packs/Day Years [...] on filedocumented in this encounter Care Teams Garment Examiner Relationship Specialty Start Date End Date Anita Faye APRN [address] [place] [address] PCP - General 08/31/20 01/13/22 Krystina Bear APRN [address] [place] [address] PCP - General Family Medicine 01/14/22 07/08/23 Anita Faye APRN [address] [place] [address] PCP - General Family Medicine 07/09/23 Abby Bruce, RN [address] [address] Phone Specialist Internal Medicine 01/14/21 12/21/21 documented as of this encounter
--- OUTSIDE RECORDS SUMMARY | 2025-01-16 09:36 | XMS_ITS | Referral Summary ---
Author Organization [employer] ([place], [place], [place], [place]) Address [address] [place] [address] Care Team Providers Care Kitchen Lead Name Role Phone Unavailable Primary Care Provider [...]
--- OUTSIDE RECORDS SUMMARY | 2025-01-16 09:36 | XMS_ITS | Encounter Summary ---
Author Organization [employer] ([place], [place], [place], [place]) Address [address] [place] [address] Care Team Providers Care Aviation Medicine Specialist Name Role Phone Unavailable Primary Care Provider Unavailabl e Encounter Details Date Type Department Care Team (Late st Contact Info) Description 07/01/2018 Transcribed Document [facility] Radiology [address] [place] [address] Espinoza Grajeda MD [address] [place] [address] Dept. [place] [address] Social History Tobacco Use Types [...]
== END 2025-01-12 23:59 ==
LOC: LAB.DROPOF 01-16 09:29
PROVIDERS: PCP Student in an Organized Health Care Education/Training Program; Visit Provider Student in an Organized Health Care Education/Training Program
DX: J06.9 Acute upper respiratory infection, unspecified (principal)
CPT/HCPCS: 87636

== ENCOUNTER 2025-01-15 02:55 | Emergency (ER) | payer MEDICAID, SELFPAY ==
--- OUTSIDE RECORDS SUMMARY | 2025-01-02 13:20 | XMS_ITS | Encounter Summary ---
Author Organization [facility] Address [address] [place] [address] Care Team Providers Care Mgmt Analyst Name Role Phone Anita Faye APRN Primary Care Provider [phone] Reason for Referral * Imaging (Urgent) - Authorized Specialty Diagnoses / Procedures Referred By Hayder scott Referred To Contact Diagnoses Pain of right scapula Shortness of breath Acute cough Procedures CT Chest w IV Contrast [place] [address] Phone: tel: fax: Referral ID Status Reason Start Date Expiration Date V isits Requested Visits Authorized [id number] Authorized 01/02/2025 07/04/2026 1 1 Reason for Visit * Reason Comments Shoulder Pain Encounter Details Date Type Department Care Team ([facility] Contact Info) Description 01/02/2025 1:20 PM EDT Office Visit [facility] [address] [place] [address] Iris Bustamante APRN [address] [place] [address] Pain of right scapula (Primary Dx); Shortness of breath; Acute cough Social History Tobacco Use Types Packs/Day Years Used Date Smoking Tobacco: Some Days Cigarettes 1 14.7 Started: 2010 Passive Smoke Exposure: Current Smokeless Tobacco: Current Comments:vape Alcohol Use Standard Drinks/Week Comments Never 0 (1 standard drink = 0.6 oz pur e alcohol) PHQ-2 Answer Date Recorded Patient Health Questionnaire-2 Score 2 01/02/2025 PHQ-9 Answer Date Recorded Patient Health Questionnaire-9 Score 22 06/22/2024 Humiliation, Afraid, Rape, and Kick questionnair e Answer Date Recorded Within the last year, have y ou been afraid of your partner or ex-partner? No 01/02/2025 Within the last year, have y ou been humiliated or emotionally abused in other ways by your partner or ex-partner? No Within the last year, have y ou been kicked, hit, slapped, or otherwise physically hurt by your partner or ex-partner? No 01/02/2025 Within the last year, have y ou been raped or forced to have any kind of sexual activity by your partner or ex-partner? No 01/02/2025 Social Connection and Isolation Panel Answer Date Recorded In a typical week, how many times do you talk on the phone with family, friends, or neighbors? More than three times a week 01/02/2025 How often do you get togethe r with friends or relatives? More than three times a week 01/02/2025 How often do you attend [facility] or shinto services? More than 4 times per year 01/02/2025 Do you belong to any clubs o r organizations such as congregational groups, unions, fraternal or athletic groups, or school groups? Yes 01/02/2025 How often do you attend meet ings of the clubs or organizations you belong to? More than 4 times per year 01/02/2025 Are you , , di vorced, , never , or living with a partner? Never 01/02/2025 AUDIT-C Answer Date Recorded Q1: How often do you have a drink containing alcohol? Never 01/02/2025 Q2: How many drinks containi ng alcohol do you have on a typical day when you are drinking? Patient does not drink Q3: How often do you have si x or more drinks on one occasion? Never 01/02/2025 [facility] - Occupational Stress Questionnaire Answer Date Recorded Do you feel stress - tense, restless, nervous, or anxious, or unable to sleep at night because your mind is troubled all the time - these days? To some extent 01/02/2025 Exercise Vital Sign Answer Date Recorde d On average, how many days pe r week do you engage in moderate to strenuous exercise (like a brisk walk)? 4 days 01/02/2025 On average, how many minutes do you engage in exercise at this level? 40 min 01/02/2025 Hunger Vital Sign Answer Date Recorded Within the past 12 months, y ou worried that your food would run out before you got the money to buy more. Never true 01/03/20 Within the past 12 months, t he food you bought just didn't last and you didn't have money to get more. Never true 01/02/2025 PRAPARE - Transportation Answer Date Re corded In the past 12 months, has l ack of transportation kept you from medical appointments or from getting medications? No 12/19 In the past 12 months, has l ack of transportation kept you from meetings, work, or from getting things needed for daily living? No 01/02/2025 Housing Stability Vital Sign Answer Juaquin e Recorded In the last 12 months, was t here a time when you were not able to pay the mortgage or rent on time? No 01/02/2025 In the past 12 months, how m any times have you moved where you were living? 0 01/02/2025 At any time in the past 12 m [facility], were you homeless or living in a intermediate (including now)? No 01/02/2025 Utilities Answer Date Recorded In the past 12 months has th e [employer], gas, oil, or water company threatened to [...] on file documented as of this encounter Last Filed Vital Signs Vital Sign Reading Time Taken Comments Blood Pressure 118/70 01/02/2025 1:26 PM EDT Pulse 94 01/02/2025 1:26 PM EDT Temperature 37.1 C (98.8 F) 01/02/2025 1:26 PM EDT Respiratory Rate 18 01/02/2025 1:26 PM EDT Oxygen Saturation 99% 01/02/2025 1:26 PM EDT Inhaled Oxygen Concentration - - Weight 70.3 kg (155 lb) 01/02/2025 1:26 PM EDT Height 162.6 cm (5' 4 ) 01/02/2025 1:26 PM EDT Body Mass Index 26.61 01/02/2025 1:26 PM EDT documented in this encounter Functional Status * AUDIT-C Score Answer Date of Assessment Author 0 01/02/2025 1:28 PM EDT Cassi Jackson * Question Answer Date of Assessment Author Q1: How often do you have a drink containing alcohol? Never 01/02/2025 1:28 PM EDT Missy Jackson Q2: How many drinks containing alcohol do you have on a typical day when you are drinking? Patient does not drink 01/02/2025 1:28 PM EDT Missy Jackson Q3: How often do you have six or more drinks on one occasion? Never 01/02/2025 1:28 PM EDT Missy Jackson * Over the past 2 weeks, how often have you been bothered by any of the following problems? Question Answer Date of Assessment Author Little interest or pleasure in doing things Several days 01/02/2025 1:27 PM EDT Missy Jackson Feeling down, depressed, or hopeless Several days 01/02/2025 1:27 PM EDT Missy Jackson Patient Health Questionnaire -2 Score 2 01/02/2025 1:27 PM EDT Missy Jackson * Question Answer Date of Assessment Author Trouble falling or staying asleep, or sleeping too much Several days 01/02/2025 1:27 PM EDT Missy Jackson Feeling tired or having little energy More than half the days 01/02/2025 1:27 PM EDT Missy Jackson Poor appetite or overeating Several days 01/02/2025 1:27 PM EDT Missy Jackson Feeling bad about yourself - or that you are a failure or have let yourself or your family down More than half the days 01/02/2025 1:27 PM EDT Missy Jackson Moving or speaking so slowly that other people could have noticed? Or the opposite - being so fidgety or restless that you have been moving around a lot more than usual. More than half the days 01/02/2025 1:27 PM EDT Missy Jackson Thoughts that you would be better off or hurting yourself in some way Not at all 01/02/2025 1:27 PM EDT Missy Jackson * Calculated C-SSRS Risk Score (Lifetime/Recent) Answer Date of Assessment Author No Risk Indicated 01/02/2025 1:27 PM EDT Missy Jackson * How difficult have these problems made it for you to do your work, take care of things at home, or get along with other people? Answer Date of Assessment Author Somewhat difficult 01/02/2025 1:27 PM EDT Missy Jackson * How difficult have these problems made it for you to do your work, take care of things at home, or get along with other people? Answer Date of Assessment Author Somewhat difficult 01/02/2025 1:27 PM EDT Missy Jackson * Question Answer Date of Assessment Author 1. Wish to be (Past 1 Month) No 025 1:27 PM EDT Missy Jackson 2. Non-Specific Active Suici ravin Thoughts (Past 1 Month) No 01/02/2025 1:27 PM EDT Missy Jackson 6. Suicidal Behavior (Lifetime) No 1:27 PM EDT Missy Jackson documented as of this encounter Miscellaneous Notes * Progress Notes - Iris Bustamante, SUBSTATION WIREMAN - 01/02/2025 1:20 PM EDT Subjective Patient ID: Arlen Friedman is a 29 y.o. female. Chief Complaint Patient presents with Shoulder Pain HPI Arlen is a 29 y.o. who presents to the clinic today with acute c/o right shoulder pain. Reports pain has been present for 2 days and is quite bothersome. Reports that pain is worsening instead of getting better, so wanted to have assessed. When asked about precedding events, patient denies any known injury or event that would have caused this. When asked about personal history, patient does report a hx of cough x 1 month that she has been to urgent care for twice. Also endorses shortness of breath. But reports she is a smoker, so did not find this unusual. Denies any other chest pain or hemoptysis. Does report feeling a tightness in her chest. 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 The following portions of the chart were reviewed this encounter and updated as appropriate: Tobacco Allergies Meds Problems Med Hx Surg Hx Fam Hx Current Medications[1] Review of Systems A 14 point ROS reviewed and is otherwise negative except as per HPI. Objective Blood pressure 118/70, pulse 94, temperature 37.1 ??C (98.8 ??F), temperature source Oral, resp. rate 18, height 1.626 m (5' 4 ), weight 70.3 kg (155 lb), SpO2 99%. Body mass index is 26.61 kg/m??. Physical Exam Vitals reviewed. Constitutional: General: She is not in acute distress. Appearance: Normal appearance. Cardiovascular: Rate and Rhythm: Normal rate and regular rhythm. Pulmonary: Effort: Pulmonary effort is normal. Breath sounds: Normal breath sounds. No wheezing, rhonchi or rales. Musculoskeletal: Comments: Reproducible pain noted around upper borders of right scapula Lymphadenopathy: Cervical: No cervical adenopathy. Neurological: Mental Status: She is alert and oriented to person, place, and time. Psychiatric: Mood and Affect: Mood normal. Behavior: Behavior normal. Thought Content: Thought content normal. Judgment: Judgment normal. Assessment/Plan Diagnoses and all orders for this visit: Pain of right scapula - CT Chest w IV Contrast; Future - Basic metabolic panel; Future Shortness of breath - CT Chest w IV Contrast; Future - Basic metabolic panel; Future Acute cough - CT Chest w IV Contrast; Future - Basic metabolic panel; Future Acute condition with undetermined etiology. Pain reproducible on exam, so felt to be more musculoskeletal. However, due to severity of pain plus patient's other reported symptoms, need to rule out pulmonary embolism. Will order CT for further evaluation. Advised patient on ER precautions until scancan be completed. Patient voiced understanding. Iris Bustamante, EUSEBIO [1] Current Outpatient Medications: amLODIPine (Norvasc) 5 MG tablet, Take 1 tablet (5 mg) by mouth daily., Disp: 90 tablet, Rfl: 3 atenolol (Tenormin) 100 MG tablet, Take 1 tablet (100 mg) by mouth 2 (two) times a day., Disp: 180 tablet, Rfl: 3 Blood Glucose Monitoring Suppl (Accu-Chek Alicia Plus) w/Device kit, 1 Bag 2 (two) times a day., Disp: 1 kit, Rfl: 0 cyclobenzaprine (Flexeril) 10 MG tablet, Take 1 tablet by mouth 2 times a day as needed for muscle spasms., Disp: 60 tablet, Rfl: 0 DULoxetine (Cymbalta) [address] capsule, Take 1 capsule (60 mg) by mouth daily. DO NOT CRUSH OR CHEW, Disp: 90 capsule, Rfl: 2 escitalopram (Lexapro) 20 MG tablet, Take 1 tablet (20 mg) by mouth daily., Disp: 90 tablet, Rfl: 3 hydrOXYzine HCl (Atarax) 10 MG tablet, Take 1 tablet by mouth 3 times a day as needed for anxiety.,Disp: 90 tablet, Rfl: 3 levothyroxine (Synthroid, Levoxyl) 150 MCG tablet, Take 1 tablet by mouth once daily, Disp: 90 tablet, Rfl: 2 lidocaine (Lidoderm) 5 % patch, Apply 1 patch topically daily. Remove & discard patch within 12hours or as directed by MD., Disp: , Rfl: metFORMIN (Glucophage) 1000 MG tablet, Take 1 tablet (1,000 mg) by mouth 2 (two) times a day., Disp: 180 tablet, Rfl: 3 nicotine (Nicoderm CQ) 21 MG/24HR patch, Place 1 patch on the skin 1 (one) time each day at the same time., Disp: 30 patch, Rfl: 1 ondansetron ODT (Zofran-ODT) 8 MG disintegrating tablet, DISSOLVE 1 TABLET IN MOUTH EVERY 8 HOURS NEEDED FOR NAUSEA FOR VOMITING, Disp: 18 tablet, Rfl: 0 Ozempic, 1 MG/DOSE, 4 MG/3ML solution pen-injector, INJECT 1 MG SUBCUTANEOUSLY ONCE A WEEK, Disp: 3mL, Rfl: 2 traMADol (Ultram) 50 MG tablet, Take 1 tablet (50 mg) by mouth every 6 hours as needed for severe pain for up to 42 doses., Disp: 21 tablet, Rfl: 1 documented in this encounter Plan of Treatment Scheduled Orders Name Type Priority Associated Diagnoses Orde r Schedule CT Chest w IV Contrast Imaging STAT Pain of right scapula Shortness of breath Acute cough Expected: 01/02/2025 (Approximate), Expires: 07/06/2026 Basic metabolic panel Lab Routine Pain of right scapula Shortness of breath Acute cough Expected: 01/02/2025 (Approximate), Expires: 07/06/2026 documented as of this encounter Visit Diagnoses Diagnosis Pain of right scapula- Primary Shortness of breath Acute cough documented in this encounter Additional Health Concerns Assessment Noted Time PHQ-9 Depression Total Score: 22 025 8:53 AM EST A fall risk assessment has been complete d for the patient 12/17/2023 3:21 PM EDT A Body Mass Index follow-up plan has been documented for the patient 01/02/2025 2:05 PM EDT documented as of this encounter Care Teams Mgmt Analyst Relationship Specialty Start Date End Date Anita Faye APRN [address] [place] [address] PCP - General Family Medicine 07/09/23 documented as of this encounter
--- OUTSIDE RECORDS SUMMARY | 2025-01-03 15:20 | XMS_ITS | Encounter Summary ---
Author Organization [facility] Address [address] [place] [address] Care Team Providers Care Payroll Lead Name Role Phone Yunier Anita Hollis EUSEBIO Primary Care Provider [phone] Reason for Referral * Consultation (Routine) - Authorized Specialty Diagnoses / Procedures Referred By Hayder scott Referred To Contact Physical Therapy Diagnoses Pain of right scapula Adi Caceres MD [address] [place] [address] Phone: tel: fax: Referral ID Status Reason Start Date Expiration Date Visits Requested Visits Authorized [id number] Authorized Consult and Treat 01/05/2025 07/07/2026 1 1 Reason for Visit * Reason Comments right shoulder pain X 3 days Encounter Details Date Type Department Care Team ([facility] Contact Info) Description 01/03/2025 3:20 PM EDT Office Visit [facility] [address] [place] [address] Adi Caceres MD [address] [place] [address] Pain of right scapula (Primary Dx) Social History Tobacco Use Types Packs/Day Years [...] week 01/02/2025 How often do you attend [facility] or yazidi services? More than 4 times per year 01/02/2025 Do you belong to any clubs o r organizations such as roman catholic groups, unions, fraternal or athletic groups, or [...] more drinks on one occasion? Never 01/02/2025 [facility] - Occupational Stress Questionnaire Answer Date Recorded [...] any time in the past 12 m [facility], were you homeless or living in a group home (including now)? No 01/02/2025 Utilities Answer Date Recorded In the past 12 months has th e [employer], gas, oil, or water [employer] threatened to shut off services in your [...] Sign Reading Time Taken Comments Blood Pressure 114/80 01/03/2025 3:40 PM EDT Pulse 91 01/03/2025 3:40 PM EDT Temperature 36.8 C (98.2 F) 01/03/2025 3:40 PM EDT Respiratory Rate 18 01/03/2025 3:40 PM EDT Oxygen Saturation 98% 01/03/2025 3:40 PM EDT Inhaled Oxygen Concentration - - Weight 70 kg (154 lb 5.2 oz) 01/03/2025 3:40 PM EDT Height 162.6 cm (5' 4 ) 01/03/2025 3:40 PM EDT Body Mass Index 26.49 01/03/2025 3:40 PM EDT documented in this encounter Functional Status * Calculated C-SSRS Risk Score (Lifetime/Recent) Answer Date of Assessment Author No Risk Indicated 01/03/2025 3:40 PM EDT Madelin Marin LPN * Question Answer Date of Assessment Author 1. Wish to be (Past 1 Month) No 025 3:40 PM EDT Madelin Omalley LPN 2. Non-Specific Active Suici ravin Thoughts (Past 1 Month) No 01/03/2025 3:40 PM EDT Rosa Omalley LPN 6. Suicidal Behavior (Lifetime) No 3:40 PM EDT Madelin Omalley LPN documented as of this encounter Miscellaneous Notes * Progress Notes - Adi Caceres MD - 01/03/2025 3:20 PM EDT Subjective Patient ID: Arlen Friedman is a 29 y.o. female. Chief Complaint Patient presents with right shoulder pain X 3 days HPI Presents to clinic for evaluation of right shoulder pain for the last 3 days. Denies any injury before the pain started. Reports that she has started having intense shoulder pain, localizes over the periscapular region. She has tried ibuprofen, tramadol, Flexeril without any improvement of her pain. Reports that she is trying mechanical massage as well that did not help with the pain. Last 3 dayshas been getting worse. Went to the emergency room. Was told it was due to his shoulder and to follow up with PCP. She also had a CT scan because she has history of DVT in the past. She had a CT chest. Reports occasional slight tingling or numbness sensation radiating to extremities. Denies any neck pain The following portions of the chart were reviewed this encounter and updated as appropriate: Tobacco Allergies Meds Problems Med Hx Surg Hx Fam Hx Review of Systems Cardiovascular: Negative Respiratory: No MSK: HPI Objective Physical Exam Constitutional: Well developed and well nourished Psychological: Appropriate Mood and affect HENT: Normocephalic, No obvious deformities, External ears normal, no lesions or masses Eyes: EOMI, inspection of the conjunctiva normal Pulmonary: Non labored breathing, equal bilateral chest rise Cardiac: Well perfused, extremities pink, BP and HR reviewed, wtnl Abdomen: Non distended Neurological: AAOx3 Examination right shoulder: Right shoulder: Inspection: No effusion, warmth, erythema, or ecchymosis No muscle atrophy noted ROM: Active range of motion: Forward Flexion 160, Abduction 160, Internal Rotation to 70, External Rotation 45. Passive range of motion: Forward Flexion 160, Abduction 160, Internal Rotation to 70, External Rotation 45. Palpation: No tenderness to palpation over the acromial clavicular joint No tenderness to palpation over the sternoclavicular joint No tenderness to palpation over the greater tuberosity No tenderness to palpation over the subacromial space No tenderness to palpation over the periscapular musculature No tenderness to palpation over the biceps tendon Special tests: Negative Lares Negative Neer's. Negative empty can, strength 5/5. Negative full can, strength 5/5 Negative crossarm adduction test. Negative speed's, strength 5/5. Resisted external rotation-5/5, no pain Resisted internal rotation-5/5, no pain Sensation intact over the radial, ulnar, median nerve distribution Telephone Appointment Clerk strength equal, 5/5. Motor testing of the radial, ulnar, median nerve distribution-5/5 Radial pulses 2+. Examination: Neck On inspection, no swelling, erythema noted Range of motion: Active ROM: Flexion 45 degrees, Extension 55 degrees, Left lateral bending 40 degrees, Right lateral bending 40 degrees, Left rotation 70 degrees, Right rotation 70 degrees Palpation: Non-tender to Palpation over the C-spine Special Tests: Negative Spurlings Neurovascular status: Sensation intact over the C5, C6, C7, C8 and T1 distribution Radial pulses 2+ Motor testing of the median, ulnar and radial nerve 5/5 strength Patient ID: Arlen Friedman is a 29 y.o. female. Encounter Diagnosis Name Primary? Pain of right scapula Yes Procedures Trigger Point Injection Procedure Consent Obtained Location of Trigger Point: Periscapular distribution over the trapezius. Number of Trigger Points: 7 The area was prepped with Povidone-Iodine. Pre-procedure ultrasound was performed to ensure no neurovascular structures were present and to assess the depth of the muscle. Therapeutic wet needling was performed on the trigger point, accompanied by the injection of 1% lidocaine under ultrasound guidance No immediate complications were noted. Patient's response was positive. Assessment/Plan Myofascial pain over the trapezius corresponding with the periscapular distribution. We discussed the limited evidence behind treatment options including dry needling, therapeutic wet needling, anti-inflammatory, muscle relaxer,. After discussing the treatment options, patient opted to do trigger po int injection. She also wanted her to consider stronger pain medication-IM Toradol injection was given today. Patient was advised to consider cervical isometrics. Follow up PRN. documented in this encounter Plan of Treatment Scheduled Referrals Name Type Priority Associated Diagnoses Order Schedule Ambulatory referral to Physical Therapy Outpatient Referral Routine Pain of right scapula Ordered: 01/05/2025 documented as of this encounter Visit Diagnoses Diagnosis Pain of right scapula- Primary documented in this encounter Administered Medications Inactive Administered Medications - up to 3 most recent administrations Medication Order MAR Action Action Date Dose Rate Site ketorolac (Toradol) injection 30 mg 30 mg, Intramuscular, Once, 1 dose, On Thu01/03/25 at 1645, RoutineIndications:Pain of right scapula Given 01/03/2025 3:59 PM EDT 30 mg Left Ventrogluteal documented in this encounter Additional Health Concerns Assessment Noted Time PHQ-9 Depression Total Score: 22 06/22/ 025 8:53 AM EST A fall risk assessment has been complete d for the patient 12/17/2023 3:21 PM EDT A Body Mass Index follow-up plan has been documented for the patient 01/05/2025 3:21 PM EDT documented as of this encounter Care Teams Payroll Lead Relationship Specialty Start Date End Date Anita Faye APRN [facility] [place] [phone] PCP - General Family Medicine 07/09/23 documented as of this encounter
--- OUTSIDE RECORDS SUMMARY | 2025-01-10 15:00 | XMS_ITS | Encounter Summary ---
Author Organization [facility] Address [address] [place] [address] Care Team Providers Care Tar Pot Man Name Role Phone Anita Faye APRN Primary Care Provider [phone] Reason for Visit * Reason Comments Shoulder [...] Description 01/10/2025 3:00 PM EDT Office Visit [facility] [address] [place] [address] Martina Lester, EUSEBIO, DNP [address] [place] [address] Pain of right scapula (Primary [...] How often do you attend chur or advent services? More than 4 times per year 01/02/2025 Do you belong to any clubs o r organizations such as uatsdin groups, unions, fraternal or athletic groups, or [...] more drinks on one occasion? Never 01/02/2025 [facility] of Occupat ional Health - Occupational Stress [...] any time in the past 12 m [facility], were you homeless or living in a longterm (including now)? No 01/02/2025 Utilities Answer Date [...] Notes * Progress Notes - Martina Lester, AIRWORTHINESS INSPECTOR, DNP - 01/10/2025 3:00 PM EDT Subjective [...] (1 - 3-dose SCDM series) Never done [id number] Vaccine (3 - Pfizer risk series) 02/06/2021 [...] Procedure Laterality Date ADENOIDECTOMY N/A Adenoidectomy from [employer] FACIAL SURGERY N/A Facial surgery from [employer] KNEE SURGERY N/A Knee surgery from [employer] MANDIBLE SURGERY N/A Jaw surgery from [employer] OTHER SURGICAL HISTORY N/A History of oral surgery from [employer] OTHER SURGICAL HISTORY N/A History of tonsillectomy from [employer] [3] Social History Tobacco Use Smoking status: [...] documented as of this encounter Care Teams Tar Pot Man Relationship Specialty Start Date End Date Anita Faye APRN [address] [place] [address] PCP - General Family Medicine 07/09/23 documented as of this encounter
--- OUTSIDE RECORDS SUMMARY | 2025-01-15 03:00 | XMS_ITS | Encounter Summary ---
Author Organization [facility] Address [address] [place] [address] Care Team Providers Care Ecommerce Merchandising Manager Name Role Phone FayeAnita gr APRN Primary Care Provider [phone] Reason for Visit * Reason Comments Med Refill Encounter Details Date Type Department Care Team (Late st Contact Info) Description 07/12/2023 Refill Obstetrics & Gynecology [address] [place] [address] Ruthie Foote RN [address] [place] [address] Family planning education, guidance, and [...] documented as of this encounter Care Teams Ecommerce Merchandising Manager Relationship Specialty Start Date End Date Anita Faye APRN [address] [place] [address] PCP - General Family Medicine 07/09/23 documented as of this encounter
--- OUTSIDE RECORDS SUMMARY | 2025-01-15 03:00 | XMS_ITS | Data Portability ---
Author Organization [facility] - Jarrett arzate MD, Main Office Address [address] [place] [address], [facility] [id number] [place] [address] Care Team Providers Care Protection Agent Name Role Phone EDER LI Cartography Professor [phone] Assessment No assessment recorded. Plan of Treatment [...] By Organization Details Last Modified Time 05/23/2020 [id number] carpal tunnel syndrome: care instructions Not available [...] Diagnosis SNOMED-CT Code Diagnosis ICD10 Code Diagnosis IMO Codes Diagnosis Note [id number] Jarrett Ashby MD Main Office [address] [facility] [address] [place] [address] 05/23/2020 09:24:36 05/23/2020 10:22:22 Carpal tunnel syndrome of right wrist [id number] G56.01 Mild right CTS. Health Concerns Section Related Observation LastModified by Organization Detai ls LastModified Time None Recorded Concern Status LastModified by Organization Details LastModified Time None Recorded Advance Directives Directive None Recorded Payers Insurance Date Sequence Insurance Name Policy Number Policy Alves Covered Member ID Alves Member ID Guarantor Name 04/22/2022 CHUYITA Friedman 04/22/2022 [facility] Arlen Friedman OBGyn Episode No OBEpisode recorded.
--- OUTSIDE RECORDS SUMMARY | 2025-01-15 03:00 | XMS_ITS | Encounter Summary ---
Author Organization Healthcare Address [address] [place] [address] Care Team Providers Care Store Grocery Merchandiser Name Role Phone Anita Faye APRN Primary Care Provider [phone] Encounter Details Date Type Department Care Team (Latest Contact Info) Description 01/02/2025 Travel Social History Tobacco Use Types Packs/Day Years [...] 01/02/2025 How often do you attend chur ch or orthodoxy services? More than 4 times per year 01/02/2025 Do you belong to any clubs o r organizations such as worship groups, unions, fraternal or athletic groups, or [...] more drinks on one occasion? Never 01/02/2025 [facility] - Occupational Stress Questionnaire Answer Date Recorded [...] money to buy more. Never true 01/03/20 25 Within the past 12 months, t [...] any time in the past 12 m [facility], were you homeless or living in a fci (including now)? No 01/02/2025 Utilities Answer Date Recorded In the past 12 months has [employer], gas, oil, or water [employer] threatened to shut off services in your home? No 06/22/2024 PHQ-2A Answer Date Recorded Patient Health Questionnaire-2 Score 0 03/18/2023 Comments No Sex and Gender Information Value Date Recorded Sex Assigned at Female 12/13/2023 12:44 PM EDT Legal Sex Female 8:53 PM EDT Gender Identity Female 12/13/2023 12:44 PM EDT Sexual Orientation Not on file documented as of this encounter Functional Status * AUDIT-C Score [...] much Several days 01/02/2025 1:27 PM EDT Renetta, Missy A Feeling tired or having little energy More than half the days 01/02/2025 1:27 PM EDT Missy Jackson Poor appetite or overeating Several days 01/02/2025 1:27 PM EDT Missy Jackson Feeling bad about yourself - or that you are a failure or have let yourself or your family down More than half the days 01/02/2025 1:27 PM EDT Missy Jackson A Moving or speaking so slowly that other [...] Missy Jackson documented as of this encounter Plan of [...] documented as of this encounter Care Teams Store Grocery Merchandiser Relationship Specialty Start Date End Date Anita Faye APRN [address] [place] [address] PCP - General Family Medicine 07/09/23 documented as of this encounter
--- OUTSIDE RECORDS SUMMARY | 2025-01-15 03:00 | XMS_ITS | Clinical Summary ---
Author Organization [facility] Address [address] [place] [address] Care Team Providers Care Commercial Property Manager Name Role Phone Krystina Bear APRN Primary Care Provider [phone] Allergies Active Allergy Reactions Criticality Noted Date [...] Description 05/10/2025 9:15 AM EST Office Visit [facility] [address] [place] [address] Jeannette Correia, ACTIMIZE ARCHITECT [address] [place] [address] Health Maintenance Due Date Last Done Comments Annual Gynecologic Pelvic an d Breast Exam 1993 DIABETIC EYE EXAM 2003 DIABETIC FOOT EXAM 2003 URINE MICROALBUMIN-CREATININ E RATIO (uACR) 2003 Hepatitis B (1 of 3 - 19+ 3- dose series) 02/21/2012 Pneumococcal Vaccine 0-49 (1 of 2 - PCV) 02/21/2012 PAP SMEAR 2014 ANNUAL PHYSICAL 05/04/2023 HEMOGLOBIN A1C 06/17/2024 12/17/2023, 11/19, 05/06/2023, Additional history exists INFLUENZA VACCINE 11/18/2024 03/18/2023, , 12/23/2017, Additional history exists TDAP/TD VACCINES (3 - Td or Tdap) 07/18/2032 023, 12/08/2012 HEPATITIS C SCREENING Completed 02/25/2023 , 02/25/2023, 10/15/2022 Insurance [employer] BY [employer] Care Teams Commercial Property Manager Relationship Specialty Start Date End Date Krystina Bear [facility]N [facility] [place] [place] [address] PCP - General Family Medicine 04/17/18
--- OUTSIDE RECORDS SUMMARY | 2025-01-15 03:00 | XMS_ITS | Encounter Summary ---
Author Organization Healthcare Address [address] [place] [address] Care Team Providers Care Motorcycle Deliverer Name Role Phone Anita Faye APRN Primary Care Provider Encounter Details Date Type Department Care Team (Latest Contact Info) Description 01/03/2025 Travel Social History Tobacco Use Types Packs/Day [...] often do you attend chur ch or episcopal services? More than 4 times per year 01/02/2025 Do you belong to any clubs o r organizations such as moravian groups, unions, fraternal or athletic groups, or [...] more drinks on one occasion? Never 01/02/2025 [facility] - Occupational Stress Questionnaire Answer Date [...] any time in the past 12 m onths, were you homeless or living in a penitentiary (including now)? No 01/02/2025 Utilities Answer Date Recorded In the past 12 months has [employer], gas, oil, or water [employer] threatened to shut off services in your [...] Omalley LPN documented as of this encounter Plan of [...] documented as of this encounter Care Teams Motorcycle Deliverer Relationship Specialty Start Date End Date Anita Faye APRN [address] [place] [address] PCP - General Family Medicine 07/09/23 documented as of this encounter
--- OUTSIDE RECORDS SUMMARY | 2025-01-15 03:00 | XMS_ITS | Encounter Summary ---
Author Organization Healthcare Address [address] [place] [address] Care Team Providers Care Pediatric Np Name Role Phone Anita Faye APRN Primary Care Provider [phone] Encounter Details Date Type Department Care Team (Late st Contact Info) Description 01/02/2025 Orders Only External Location [address] [place] [address] Iris Bustamante APRN [address] [place] [address] Social History Tobacco Use Types [...] often do you attend chur ch or episcopalian services? More than 4 times per year 01/02/2025 Do you belong to any clubs o r organizations such as nondenominational groups, unions, fraternal or athletic groups, or [...] more drinks on one occasion? Never 01/02/2025 [facility] [place] of Occupat ional Health - Occupational Stress [...] any time in the past 12 m [facility], were you homeless or living in a group home (including now)? No 01/02/2025 Utilities Answer Date Recorded In the past 12 months has th e [employer], gas, oil, or water company threatened to [...] Author No Risk Indicated 01/02/2025 1:27 PM EDMissy Patterson * How difficult have these problems made [...] (Past 1 Month) No 025 1:27 PM EDMissy Patterson 2. Non-Specific Active Suici ravin Thoughts (Past 1 Month) No 01/02/2025 1:27 PM EDT Missy Jackson 6. Suicidal Behavior (Lifetime) No 09/15/202 5 1:27 PM EDT Missy Jackson documented as of this encounter Plan of Treatment Not on file documented as of this encounter Procedures Procedure Name Priority Date/Time Associated Diagnosis Comments BASIC METABOLIC PANEL, PLASMA Routine 01/02/2025 3:30 PM EDT documented in this encounter Results * (ABNORMAL) Basic Metabolic Panel, Plasma (01/02/2025 3:30 PM EDT) External Sodium 141 136 - 145 mmol/L [facility] External Potassium 3.8 3.6 - 5.0 mmol/L [facility] External Chloride 102 98 - 107 mmol/L [facility] External Carbon Dioxide 28.2 21.0 - 32.0 mmol/L [facility] External Anion Gap (AG) 14.6 [facility] External Glucose 113 70 - 120 mg/dl [facility] External BUN 7 7 - 18 mg/dL [facility] External Creatinine Blood 0.5(L) 0.6 - 1.3 mg/dL [facility] External Estimated GFR 129 60- mlpermin [facility] Comment: GFR LIMITATION: The eGFR equation CKD-EPI 2020 is not applicable for pediatric patients or greater than 90 years of age. The following conditions may alter the GFR result: extremes in body size, malnutrition or obesity, skeletal muscle disease, paraplegia or quadriplegia, vegetarian diet or rapidly changing kiney function. External Osmolality (Calculated) 292 275 - 301 mosm/kg [facility] Comment: OSMOLALITY IS A CALCULATION UTILIZING THE SERUM/PLASMA SODIUM, GLUCOSE AND UREA NITROGEN (BUN) LEVELS. FOR THE MOST ACCURATE RESULT A MEASURED SERUM OSMOLALITY IS SUGGESTED. External Calcium 9.1 8.5 - 10.5 mg/dl [facility] 01/02/2025 3:30 PM EDT 01/02/2025 3:30 PM EDT us Iris Bustamante APRN LAB BLOOD ORDERABLES Final Result [facility] documented in this encounter Visit Diagnoses Not [...] documented as of this encounter Care Teams Pediatric Np Relationship Specialty Start Date End Date Anita Faye APRN [address] [place] [address] PCP - General Family Medicine 07/09/23 documented as of this encounter
--- OUTSIDE RECORDS SUMMARY | 2025-01-15 03:00 | XMS_ITS | Data Portability ---
Author Organization [place] - [facility] [place] [facility] [place] BENNY ADMIN Address [address] [place] [address] Assessment Encounter Date Assessment Date Assessment LastModified by Organization Details LastModified Time 03/27/2023 03/27/2023 Presumed viral illness. Rest, plenty of fluids, OTC symptomatic treatment. Return for failure several days or sooner if worsening. Advised could potentially be too early for positive, if symptoms worsen get rechecked. [email or web address] Not available 03/27/2023 13:55:16 06/05/2023 06/05/2023 Diagnosis [...] to 2 weeks if symptoms not improving. [email or web address] Not available 06/05/2023 15:04:45 Plan of Treatment Reminders Order Date Submit Date Provider Last Modified By Organization Details Last Modified Time Details Appointments None recorded. Lab rapid flu (A+B) 2023 024 [email or web address] Not available 4 15:03:17 rapid SARS CoV 2 Ag, QL IA, respiratory specimen 2023 024 [email or web address] Not available 4 15:03:42 influenza virus A + B + SARS-CoV-2 (COVID19) Ag panel, rapid IA, upper respiratory specimen 2022 023 [email or web address] Not available 3 11:17:18 influenza virus A + B + SARS-CoV-2 (COVID19) Ag panel, rapid IA, upper respiratory specimen 2022 023 Not available 13:43:07 Referral None recorded. Procedures None recorded. Surgeries None recorded. Imaging None recorded. Medication Orders Paxlovid 300 mg (150 mg x 2)-100 mg tablets in a dose pack 2022 023 [email or web address] [facility], [address], [address], 3 11:17:16 amitriptyli ne 10 mg tablet 2022 023 [facility], [address], [address], 3 03:36:05 Patient TargetsNo targets recorded. Patient [...] ve Not Available [facility] [address] [facility] [address] [place] [address], [address], 03/27/2023 13:40:10 03/27/20 23 03/27/2023 influ karla virus A + B + SARS- CoV-2 (COVI D19) Ag panel , rapid IA, upper respi rator y speci men FLU B negati ve Not Available [facility] [address] [facility] [address] [place] [address], [address], 03/27/2023 13:40:10 03/27/20 23 03/27/2023 influ karla virus A + B + SARS- CoV-2 (COVI D19) Ag panel , rapid IA, upper respi rator y speci men SARS COV + SARS OV 2 negati ve Not Available [facility] [address], [place], [address], 03/27/2023 13:40:10 03/29/20 23 03/29/2023 influ karla virus A + B + SARS- CoV-2 (COVI D19) Ag panel , rapid IA, upper respi rator y speci men FLU A negati ve Not Available [facility] [address] [facility] [address], [place], [address], 03/29/2023 10:22:54 03/29/20 23 03/29/2023 influ karla virus A + B + SARS- CoV-2 (COVI D19) Ag panel , rapid IA, upper respi rator y speci men FLU B negati ve Not Available [facility] [address], [place], [address], 03/29/2023 10:22:54 03/29/20 23 03/29/2023 influ karla virus A + B + SARS- CoV-2 (COVI D19) Ag panel , rapid IA, upper respi rator y speci men SARS COV + SARS OV 2 positi ve Not Available [facility] [address] [facility] [address], [place], [address], 03/29/2023 10:22:54 06/05/19 24 06/05/2023 rapid SARS CoV 2 Ag, QL IA, respi rator y speci men rapid SARS CoV 2 Ag, QL IA, respiratory specimen negati ve Not Available [facility] [address], [place], [address], 06/05/2023 14:46:37 06/05/19 24 06/05/2023 rapid flu (A+B) Flu A negati ve Not Available [facility] [address], [place], [address], 06/05/2023 14:46:28 06/05/19 24 06/05/2023 rapid flu (A+B) Flu B negati ve Not Available [facility] [address] [facility] [address], [place], [address], 06/05/2023 14:46:28 Result Notes None recorded. 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 DENIES LOC. Khalida Hicks null, [place] - [facility] [place] [facility] [place] 3 07:56:35 Headache 70941357 Active 2021 Khalida Kurt null, [place] - [facility] [place] 3 07:53:32 Dizziness 656835329 Active 2021 Khalida Shahzada null, [place] - [facility] [place] 3 07:53:49 Feeling irritable 31899281 Active 2021 Khalida Shahzada null, [place] - [facility] & [place] 3 07:53:40 Nausea 903157140 Active 2021 Khalida Shahzada null, [place] - [facility] & [place] 3 07:56:49 Concussion injury of brain 100743997 Active 2022 Esha Oconnell, [address] , [place], [address] , [place] - [facility] & [place] 3 11:13:54 Problem Notes None recorded. Procedures Surgical History Date Name Laterality Status Provider Name and Address Organization Details Recorded Time Carpal tunnel surgery completed Khalida Hicks [place] - [facility] & [place] 05/13/2022 10:52:28 operative procedure on knee completed Khalidaanay Hicks [place] - [facility] [place] 05/13/2022 10:53:50 reconstruction of mandible completed Khalida DORAN [facility] & [place] 05/13/2022 10:54:05 tonsillectomy and adenoidectomy completed Khalida DORAN Jackson [facility] & [place] 05/13/2022 10:54:17 Imaging Results None recorded. Procedure Notes None recorded. Medical Equipment None Reported. Allergies Allergen ID Allergen Name Allergen Category Reaction Reaction Severity Criticality Documentation Date Start Date Code Code System Note Provider Name and Address Organization Details Recorded Time 471484 acetamino phen / oxycodone medicatio n hives Not available low 03/27/2023 75921 3 RxNorm [facility] [place] 3 13:18:28 Medications Name Sig Start Date [...] Updated DateTime 05/28/2022 162.56 cm 30.8 kg/m2 58591.19 g 90 /min 128/94 mm[Hg] Khalida Pikeanay DORAN [facility] & [place] 05/28/2022 09:21:33 Date Recorded Body height Body mass index (BMI) Body weight Heart rate Systolic And Diastolic Provider Name and Address Organization Details Last Updated DateTime 06/05/2022 162.56 cm 30.9 kg/m2 15131.63 g 88 /min 133/90 mm[Hg] Khalida [facility] [place] 06/05/2022 10:38:23 Date Recorded Body height Body mass index (BMI) Body weight Oxygen saturation Oxygen saturation in Arterial blood by Pulse oximetry Heart rate Heart rate Body temperature Systolic And Diastolic Provider Name and Address Organization Details Last Updated DateTime 4 162.56 cm 31.6 kg/m2 18225 g 97 % 97 % 92 /min 92 /min 98.4 [degF] 140/92 mm[Hg] Frances Tovar [facility] & [place] 4 14:44:43 Date Recorded Body height Body mass index (BMI) Body weight Body temperature Oxygen saturation Oxygen saturation in Arterial blood by Pulse oximetry Heart rate Systolic And Diastolic Provider Name and Address Organization Details Last Updated DateTime 3 162.56 cm 31.2 kg/m2 65954.0 9 g 97.2 [degF] 99 % 99 % 85 /min 120/80 mm[Hg] Herb Sammy Tovar [facility] & [place] 3 13:19:55 Date Recorded Body height Body mass index (BMI) Body weight Body temperature Oxygen saturation Oxygen saturation in Arterial blood by Pulse oximetry Heart rate Systolic And Diastolic Provider Name and Address Organization Details Last Updated DateTime 3 162.56 cm 30.7 kg/m2 58807.3 2 g 98.4 [degF] 96 % 96 % 104 /min 120/91 mm[Hg] Herb Christianson [facility] & [place] 10:16:36 Social History Question Answer Notes LastModified by Organizat ion Details LastModified Time Tobacco Smoking Status Current Every Day Smoker Khalida garrett, [facility] & [place] 05/13/2022 10:50:21 What Is Your Level Of [...] Information not available 05/13/2022 Do you have access to reliable transportation? No drives Information not available 05/13/2022 Are you able to care for yourself independently? Yes Information not available 05/13/2022 What is [...] Problems Y Anxiety/Depression Y Thyroid Disease Y Reflux/GERD Y Migraines Y Hypertension Y Neurological Problems Y Gynecological History Statement/Question Response Date of LMP 04/24/2023 Obstetrics History GPAL:G 0 P 0 0 0 0 Immunizations Vaccine Type Date Status Note Provider Nam e and Address Organization Details Recorded Time Influenza, split virus, quadrivalent, preservative 8 completed Herb Miles null, [place] [facility] [place] [facility] [place] 03/27/2023 13:18:07 Influenza, split virus, quadrivalent, preservative 7 completed Herb Miles null, [place] [facility] & [place] 03/27/2023 13:18:07 Influenza, live, trivalent, intranasal, PF 3 completed Herb Miles null, [place] [facility] [place] [facility] [place] 03/27/2023 13:18:07 COVID-19, mRNA, LNP-S, PF, 30 mcg/0.3 mL dose 1 completed Herb Miles null, [place] [facility] & [place] 03/27/2023 13:18:07 COVID-19, mRNA, LNP-S, PF, 30 mcg/0.3 mL dose 1 completed Herb Miles null, [place] [facility] & [place] 03/27/2023 13:18:07 Tdap 3 completed Herb Miles null[place] [facility] & [place] 03/27/2023 13:18:07 Tdap 3 completed Herb Miles null, [place] [facility] & [place] 03/27/2023 13:18:07 TST-PPD intradermal 7 completed Herb Miles null, [place] [facility] [place] 03/27/2023 13:18:07 TST-PPD intradermal 8 completed Herb Miles null, [place] [facility] & [place] 03/27/2023 13:18:07 Hep A, adult 3 completed Herb Miles null, [place] [facility] & [place] 03/27/2023 13:18:07 Meningococcal MCV4O 3 completed Herb Miles null, [place] [facility] [place] & [place] 03/27/2023 13:18:07 Influenza, split virus, quadrivalent, PF 9 completed KENYA Delcid - [place] [facility] [place] 03/27/2023 13:18:07 Influenza, split virus, quadrivalent, PF 3 completed KENYA Delcid - LPBENNY - [place] & [place] 03/27/2023 13:18:07 Past Encounters Encounter ID Performer Location Encounter Start Date Encounter Closed Date Diagnosis/Indication Diagnosis SNOMED-CT Code Diagnosis ICD10 Code Diagnosis IMO Codes Diagnosis Note [id number] Esha OconnellDO REDDING [facility] [address] [facility],[address] [place] [address] 05/13/2022 10:36:44 05/13/2022 11:18:14 Concussion injury of brain 380849998 S06.0X0S She has had a good recovery [...] come back if any return of symptoms. [id number] Esha [facility]connellDO [facility] [address] [facility],[address] [place] [address] 05/28/2022 09:15:51 05/28/2022 09:58:01 Concussion injury of brain 795857939 S06.0X0S She attempted to go back to [...] to ensure she has a successful recovery. [id number] Esha DO VAHID Oconnell [facility] [address] [facility],[address] [place] [address] 06/05/2022 10:30:36 06/05/2022 10:58:59 Concussion injury of brain 614861883 S06.0X0S She attempted to go back to work after the initial visit but unfortunatyler vazquez did not tolerate this as well [...] a refill on her prescripti on today. [id number] Stephan Oconnell MD [facility] [address] [place] [address] 03/27/2023 13:08:40 03/27/2023 13:51:34 Cough 66233380 R05.9 Viral syndrome 912931861 B34.9 [id number] Josh Leon MD [facility] [address] [place] [address] 03/29/2023 09:17:25 03/29/2023 11:07:56 COVID-19 118272227 U07.1 Has now tested here as well. Treat with Paxlovid as she has reviewed drug contraindi cation list and denies being on any of these meds. WOrk excuse given. She should self-isola te through then, if sys are improving and no fever x 24 hrs, may go in public but wear mask for the next 5 days [id number] Danii Oconnell APRN [facility] [address] [place] [address] 06/05/2023 14:29:36 06/05/2023 15:04:31 Fever 150104723 R50.9 Viral syndrome 540202251 B34.9 Health Concerns Section Related Observation LastModified by Organization Detai ls LastModified Time None Recorded Concern Status LastModified by Organization Details LastModified Time None Recorded Advance Directives Directive None Recorded Payers Insurance Date Sequence Insurance Name Policy Number Policy Alves Covered Member ID Alves Member ID Guarantor Name 05/12/2023 [facility] [id number] [facility] Arlen Friedman 06/05/2023 1 [employer] BY [employer] (MEDICAID REPLACEMENT - HMO) [id number] Arlen Friedman [id number] Arlen Frideman Notes Date Note Type Note Provider Name and Address Organization Details Recorded Time 05/28/19 23 text/htm l Arlen comes in today for follow up. She [...] been in contact with her worker's comp outsole caser who recommended she come in for a [...] by her today. Arlen was working at [facility] [employer] on 03/31/22 when she inadvertently hit her head on a piece of equipment. 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 When she stood up she unexpectedly hit her head on a nut runner. She immediately saw stars but there was no LOC. She developed an acute headache associated with dizziness, blurry vision and nausea.She was evaluated by the medical staff at [facility] and sent via EMS to [facility] ER for further evaluation.In the ER she had CT head which was negative for any intracranial abnormalities. There was left frontal scalp swelling and right maxillary sinusitis reported on the CT head.She was discharged with concussion care instructions and prescription for diclofenac and meclizine. She reports that she went to [facility] ER the following day as her symptoms were still unchanged. She was placed off work initially until 04/07/22.She was re-evaluated by the medical staff at [facility] on 04/07/22 and not released to return [...] work without restrictions at this point. Esha Oconnell, DO [address], [place], [address], [facility] [place] [facility] [place] 05/28/2022 12:23:46 06/05/19 23 text/htm narinder Mckinley comes in for a short term follow up on her [...] been in contact with her worker's comp outsole caser who recommended she come in for a [...] by her today. Arlen was working at [facility] [employer] on 03/31/22 when she inadvertently hit her head on a piece of equipment. 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 When she stood up she unexpectedly hit her head on a nut runner. She immediately saw stars but there was no LOC. She developed an acute headache associated with dizziness, blurry vision and nausea.She was evaluated by the medical staff at [facility] and sent via EMS to [facility] ER for further evaluation.In the ER she had CT head which was negative for any intracranial abnormalities. There was left frontal scalp swelling and right maxillary sinusitis reported on the CT head.She was discharged with concussion care instructions and prescription for diclofenac and meclizine. She reports that she went to [facility] ER the following day as her symptoms were still unchanged. She was placed off work initially until 04/07/22.She was re-evaluated by the medical staff at [facility] on 04/07/22 and not released to return [...] point. Esha Oconnell DO [address], [place], [address], [facility] & [place] 06/05/2022 15:03:55 03/27/20 23 text/htm l Upper Respiratory SymptomsReported by PatientUpper Respiratory SymptomsFor quality, patient reportscongestedanddry cough. For context, patient reportssick contact. For associated symptoms, patient reportsfatigueandmalaisebut reportsno fever. For location, patient reportshead,chest, andnasal. For severity, patient reportsmild. For onset/timing, patient reportsgradualanddate of onset: (yesterday).Exposed to both Covid and flu.ROS as noted in the HPI Stephan Oconnell MD [address], [place], [address], [facility] & [place] 03/27/2023 13:55:46 03/29/20 23 text/htm l COVID-19 Symptoms August 2019Reported by Patient 28-year-old white female who was seen here on Thursday [...] diabetes. Unfortunately she is also a smoker. MD Joel Cotto[address], [place], [address], [facility] & [place] 03/29/2023 11:17:49 06/05/19 24 text/htm l Upper Respiratory SymptomsReported by PatientUpper Respiratory SymptomsFor quality, patient reportscongested,dry cough, andnasal discharge. For associated symptoms, patient reportsfatigue,fever,headache,c [place], andmalaisebut reportsno chest pain,no sputum production,no shortness of breath,no wheezing,no cyanosis,no change in number of pillows needed to sleep at night,no sweats,no morning cough,no sore throat,no vomiting,no diarrhea,no rash,no nausea, andno conjunctivitis(fever 101 at home). For location, patient reportshead,chest,nasal, andface. For severity, patient reportsno pain. For onset/timing, patient reportssudden. For context, patient reportsno foreign travelandnon-smoker(exposed to covid and flu). For duration, (symptoms began today). For alleviating factors, (tylenol for fever).ROS as noted in the HPI Danii Oconnell APRN [address], [place], [address], [facility] & [place] 06/05/2023 15:05:21 OBGyn Episode No OBEpisode recorded.
--- OUTSIDE RECORDS SUMMARY | 2025-01-15 03:00 | XMS_ITS | Encounter Summary ---
Author Organization Healthcare Address [address] [place] [address] Care Team Providers Care Fiber Optic Assembly Worker Name Role Phone Anita Faye APRN Primary Care Provider [phone] Encounter Details Date Type Department Care Team ([facility] Contact Info) Description 01/03/2025 Results Follow-Up [facility] [address] [place] [address] Iris Bustamante APRN [address] [place] [address] Social History Tobacco Use Types [...] How often do you attend chur or buddhist services? More than 4 times per year 01/02/2025 Do you belong to any clubs o r organizations such as bahai groups, unions, fraternal or athletic groups, or [...] more drinks on one occasion? Never 01/02/2025 [facility] - Occupational Stress Questionnaire Answer [...] time in the past 12 m [facility], were you homeless or living in a [...] Wish to be (Past 1 Month) No 3:40 PM EDT Madelin Omalley LPN 2. [...] Noted Time PHQ-9 Depression Total Score: 22 8:53 AM EST A fall risk assessment has been complete d for the patient 12/17/2023 3:21 PM EDT A Body Mass Index follow-up plan has been documented for the patient 01/05/2025 3:21 PM EDT documented as of this encounter Care Teams Fiber Optic Assembly Worker Relationship Specialty Start Date End Date Anita Faye APRN [address] [place] [address] PCP - General Family Medicine 07/09/23 documented as of this encounter
--- OUTSIDE RECORDS SUMMARY | 2025-01-15 03:00 | XMS_ITS | Clinical Summary ---
Author Organization Healthcare Address [address] [place] [address] Care Team Providers Care Log Sorting Supervisor Name Role Phone YunierAnita APRN Primary Care Provider Allergies Active Allergy Reactions Criticality Noted Date Comments Oxycodone-Acetaminophen Hives Medium 09/29/2014 Medications Blood Glucose Monitoring Suppl (Accu-Chek Alicia Plus) w/Device kitIndications:Typ e 2 diabetes mellitus with hyperglycemia, without long-term current use of insulin 1 Bag 2 (two) times a day. 1 kit 12/26/19 21 Active nicotine (Nicoderm CQ) 21 MG/24HR patchIndications:E ncounter for smoking cessation counseling Place 1 patch on the skin 1 (one) time each day at the same time. 30 patch 1 05/06/19 24 Active lidocaine (Lidoderm) 5 % patch Apply 1 patch topically daily. Remove & discard patch within 12 hours or as directed by MD. Active levothyroxine (Synthroid, Levoxyl) 150 MCG tabletIndications: Adult hypothyroidism Take 1 tablet by mouth once daily 90 tablet 2 02/29/20 24 Active metFORMIN (Glucophage) 1000 MG tabletIndications: Type 2 diabetes mellitus without complication, without long-term current use of insulin Take 1 tablet (1,000 mg) by mouth 2 (two) times a day. 180 tablet 3 06/23/19 25 Active atenolol (Tenormin) 100 MG tabletIndications: Essential hypertension Take 1 tablet (100 mg) by mouth 2 (two) times a day. 180 tablet 3 06/23/19 25 026 Active escitalopram (Lexapro) 20 MG tabletIndications: Anxiety and depression Take 1 tablet (20 mg) by mouth daily. 90 tablet 3 06/23/19 25 026 Active amLODIPine (Norvasc) 5 MG tabletIndications: Primary hypertension Take 1 tablet (5 mg) by mouth daily. 90 tablet 3 06/23/19 25 026 Active DULoxetine (Cymbalta) [address] capsuleIndications :Anxiety and depression Take 1 capsule (60 mg) by mouth daily. DO NOT CRUSH OR CHEW 90 capsule 2 06/23/19 25 Active traMADol (Ultram) 50 MG tabletIndications: Lumbar back pain Take 1 tablet (50 mg) by mouth every 6 hours as needed for severe pain for up to 42 doses. 21 tablet 1 06/23/19 25 Active cyclobenzaprine (Flexeril) 10 MG tabletIndications: Muscle spasm Take 1 tablet by mouth 2 times a day as needed for muscle spasms. 60 tablet 09/20/19 25 Active Ozempic, 1 MG/DOSE, 4 MG/3ML solution pen-injectorIndica tions:Type 2 diabetes mellitus without complication, without long-term current use of insulin INJECT 1 MG SUBCUTANEOUSLY ONCE A WEEK 3 mL 2 11/10/19 25 Active ondansetron ODT (Zofran-ODT) 8 MG disintegrating tablet DISSOLVE 1 TABLET IN MOUTH EVERY 8 HOURS NEEDED FOR NAUSEA FOR VOMITING 18 tablet 11/09/19 25 Active hydrOXYzine HCl (Atarax) 10 MG tabletIndications: Generalized anxiety disorder Take 1 tablet by mouth 3 times a day as needed for anxiety. 90 tablet 3 12/07/19 25 Active predniSONE (Deltasone) 20 MG tabletIndications: Pain of right scapula Take 3 tabs (60mg) daily for 3 days, then take 2 tabs (40mg) daily for 3 days, then take 1 tab (20mg) daily for 3 days. 18 tablet 01/11/20 25 025 Active Hospital, Clinic, or Other Facility Administered Medication Ordered Dose Route Frequency Start Date End Date Status ketorolac (Toradol) injection 30 mgIndications:Pain of right scapula 30 mg IM Once 01/03/2025 01/03/2025 Ended ketorolac (Toradol) injection 30 mgIndications:Pain of right scapula 30 mg IM Once 01/10/2025 01/10/2025 Ended ketorolac (Toradol) injection 30 mgIndications:Pain of right scapula 30 mg IM Once 01/10/2025 01/10/2025 Ended Active Problems Problem Noted Date Diagnosed Date Viral infection, unspecified 03/27/2023 Hyperlipidemia, unspecified 03/18/2023 Pure hyperglyceridemia 03/18/2023 Atypical squamous cells shelley ot exclude high grade squamous intraepithelial lesion on cytologic smear of cervix (ASC-H) 03/06/2023 Inflammatory disease of cervix uteri 03/06/2023 Concussion without loss of consciousness 023 02/25/2023 Diabetes mellitus 02/25/2023 02/25/2023 Foot fracture, left 02/25/2023 02/25/2023 Heart murmur 02/25/2023 02/25/2023 Lumbar back sprain 02/25/2023 02/25/2023 Nausea 02/25/2023 Shortness of breath 02/09/2023 Tachycardia, unspecified 02/09/2023 Dyspnea, unspecified 10/13/2022 Pain in left wrist 09/16/2022 Other muscle spasm 08/15/2022 Generalized anxiety disorder 01/13/2022 Major depressive disorder, recurrent, moderate 0 01/13/2022 Type 2 diabetes mellitus wit hout complication, without long-term current use of insulin 11/03/2019 Hypothyroidism 11/03/2019 IBS (irritable bowel syndrome) 11/03/2019 Persistent headaches 10/18/2019 Restless legs syndrome (RLS) 06/04/2018 Anxiety and depression 05/22/2015 Hypertension 09/29/2014 Resolved Problems Problem Noted Date Diagnosed Date Resolved Date Fall 02/25/2023 02/25/2023 01/08/2025 Chest pain, unspecified 02/09/202312/20 Precordial pain 02/09/2023 01/08/2025 Abnormal electrocardiogram (ECG) (EKG) 10/13/2022 01/08/2025 Pain in left shoulder 09/16/20222024 Encounters Date Type Department Care Team Description 01/10/2025 3:00 PM EDT Office Visit [facility] [address] [place] [address] Martina Lester APRN, DNP Pain of right scapula (Primary Dx) 01/10/2025 Travel 01/09/2025 Telephone [facility] [address] [place] [address] Adi Caceres MD 01/03/2025 3:20 PM EDT Office Visit [facility] [address] [place] [address] Adi Caceres MD Pain of right scapula (Primary Dx) 01/03/2025 Travel 01/03/2025 Results Follow-Up [facility] [address] [place] [address] Jorge Garcia APRN 01/02/2025 1:20 PM EDT Office Visit [facility] [address] [place] [address] Jorge Garcia APRN Pain of right scapula (Primary Dx); Shortness of breath; Acute cough 01/02/2025 Outside Procedure External Location [address] [place] [address] Jorge Garcai, EUSEBIO 01/02/2025 Orders Only External Location [address] [place] [address] Jorge Garcia APRN 01/02/2025 Travel 12/12/2024 Refill [facility] [address] [place] [address] Anita Faye APRN Anxiety and depression 12/03/2024 Refill [facility] [address] [place] [address] Anita Faye APRN Generalized anxiety disorder 11/04/2024 Refill [facility] [address] [place] [address] Roxie Lr MD 11/04/2024 Refill [facility] [address] [place] [address] Anita Faye APRN Type 2 diabetes mellitus without complication, without long-term current use of insulin from Last 3 Months Immunizations Immunization Administration Dates Next Due Hep A, Adult 12/08/2012 Influenza, injectable, quadrivalent 12/23/2017,0 12/31/2016 Influenza, injectable, quadr ivalent, preservative free 03/18/2023,02/01/2019 Influenza, live, intranasal 12/08/2012 Meningococcal MCV4O 12/08/2012 PPD Skin Test (TB Skin Test) 01/13/2024,11/18/19,10/27/2016 [employer]) COVID-19 Vac cine (Purple Cap) 12+ 01/09/2021,12/18/2020 Tdap 07/18/2022,12/08/2012 Family History 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 [...] often do you attend chur ch or judaism services? More than 4 times per year 01/02/2025 Do you belong to any clubs o r organizations such as buddhism groups, unions, fraternal or athletic groups, or [...] more drinks on one occasion? Never 01/02/2025 [facility] of Occupat ional Health - Occupational Stress [...] any time in the past 12 m [facility], were you homeless or living in a half-way (including now)? No 01/02/2025 Utilities Answer Date [...] Mass Index 26.19 01/10/2025 3:18 PM EDT Plan of Treatment Health Maintenance Due Date Last Done Comments [facility]-/Child/Adol SDOH Screenings 1995 Diabetes: Dental Exam 2003 [facility]-Hepatitis B Vaccines (1 of 3 - 19+ 3-dose series) 02/21/2012 [facility]-Pneumococcal Vaccine: Pediatrics (0 to 5 Years) and At-Risk Patients (6 to 49 Years) (1 of 2 - PCV) 02/21/2012 [facility]-Zoster Vaccines (1 of 2) 02/21/2012 [facility]-Varicella Vaccines (1 of 2 - 13+ 2-dose series) 01/05/2013 HPV Vaccines (1 - 3-dose SCDM series) 02/21/2020 [facility]TL-HFLPE-47 Vaccine (3 - Pfizer risk series) 02/06/2021 01/09/2021, 12/18/2020 [facility]-Diabetes: Hemoglobin A1C 09/21/2024 06/22/2024, 12/17/2023, 05/06/2023, Additional history exists [facility]-Influenza Vaccine (#1) 12/19/202403/18, 02/01/2019, 12/23/2017, Additional history exists [facility]- SDOH Screenings 07/02/2025 [facility]-Adult SDOH Screenings 07/02/2025 01/02/2025 [facility]-Depression Screening 01/02/2026 01/02/2025, 03/0 08/2024 [facility]-Pap Smear 12/16/2026 12/17/2023, 10/15/2022 [facility]-Cervical Cancer Screening 12/16/2028 [facility]-HPV/Cotest 12/16/2028 12/17/2023, 0704/2022, 10/15/2022 [facility]-DTaP,Tdap,and Td Vaccines (3 - Td or Tdap) 07/18/2032 07/18/2022, 12/08/2012 [facility]-Hepatitis A Vaccines Aged Out 12/08/2012 No longer eligible based on patient's age to complete this topic [facility]-HIV Screening Completed 02/25/2023, 10/15/2022 [facility]-Hepatitis C Screening Completed 2022, 10/15/2022, 01/05/2018, Additional history exists [facility]-Obesity Intervention Completed 025, 01/03/2025, 01/02/2025, Additional history exists [facility]-HIB Vaccines Aged Out [...] PANEL, PLASMA Routine 01/02/2025 3:[address] CHEST W IV CONTRAST 3:23 PM EDT HEMOGLOBIN A1C Routine 06/22/2024 9:28 AM EST [...] Relevant to Health Maintenance Results * (ABNORMAL) Basic Metabolic Panel, Plasma (01/02/2025 3:30 PM EDT) External Sodium 141 136 - 145 mmol/L [facility] External Potassium 3.8 3.6 - 5.0 mmol/L [facility] External Chloride 102 98 - 107 mmol/L [facility] External Carbon Dioxide 28.2 21.0 - 32.0 mmol/L [facility] External Anion Gap (AG) 14.6 [facility] External Glucose 113 70 - 120 mg/dl [facility] External BUN 7 7 - 18 mg/dL [facility] External Creatinine Blood 0.5(L) 0.6 - 1.3 mg/dL [facility] External Estimated GFR 129 60- mlpermin [facility] Comment: GFR LIMITATION: The eGFR equation CKD-EPI 2020 is not applicable for pediatric patients or greater than 90 years of age. The following conditions may alter the GFR result: extremes in body size, malnutrition or obesity, skeletal muscle disease, paraplegia or quadriplegia, vegetarian diet or rapidly changing kiney function. External Osmolality (Calculated) 292 275 - 301 mosm/kg [facility] Comment: OSMOLALITY IS A CALCULATION UTILIZING THE SERUM/PLASMA SODIUM, GLUCOSE AND UREA NITROGEN (BUN) LEVELS. FOR THE MOST ACCURATE RESULT A MEASURED SERUM OSMOLALITY IS SUGGESTED. External Calcium 9.1 8.5 - 10.5 mg/dl [facility] 01/02/2025 3:30 PM EDT 01/02/2025 3:30 PM EDT us Jorge Garcia [facility] LAB BLOOD ORDERABLES Final Result [facility] * CT Chest w IV Contrast (01/02/2025 3:23 PM EDT) Anatomical Region Laterality Modality Chest Computed Tomogra phy 01/02/2025 3:23 PM EDT Narrative 01/02/2025 7:02 [place] [address] Name: SIMBA FINNEGAN Exam Date: 01/02/2025 : 1995 Age 29 years Gender: F Physician: JORGE GARCIA Facility: [facility] Facility HSV: Outpatient Exam: CT CHEST W CT CHEST WITH IV CONTRAST performed on 01/02/2025 3:34 PM CDT. INDICATION: shortness of breath Additional History: TECHNIQUE: Enhanced CT chest with axial, coronal, and sagittal multiplanar reformations. Dose modulation, automated exposure control, and/or iterative reconstruction were used for dose reduction. CONTRAST: 100 mL of Isovue-300 IV COMPARISON: None available. FINDINGS: LUNGS AND AIRWAYS: No pneumothorax, pleural effusion, or pericardial effusion is seen. No alveolar infiltrate or focal consolidation is seen. No suspicious pulmonary parenchymal nodules or masses are seen. HEART AND GREAT VESSELS: Heart size normal. No pericardial effusion. Thoracic aorta normal size. No significant coronary artery calcifications. MEDIASTINUM: There is some mild strandy density in the anterior mediastinum likely some residual thymic tissue given the patient's age. IMPRESSION: Unremarkable contrast-enhanced chest CT. Electronically signed by: Hector Cummings MD 01/02/2025 06:57 PM EDT RP Dictated By: Hector Cummings Transcribed By: Transcribed On: 01/02/2025 6:57 PM Electronically signed by: Hector Cummings 01/02/2025 Thank you for referring SIMBA FINNEGAN to [facility]. Legally authenticated by PORFIRIO TRUJILLO 2025-01-02 18:57:17 Procedure Note Provider, Generic [place] - 01/02/2025 [place] [address] Name: SIMBA FINNEGAN Exam Date: 01/02/2025 : 1995 Age 29 years Gender: F Physician: JORGE GARCIA Facility: [facility] Facility HSV: Outpatient Exam: CT CHEST W CT CHEST WITH IV CONTRAST performed on 01/02/2025 3:34 PM CDT. INDICATION: shortness of breath Additional History: TECHNIQUE: Enhanced CT chest with axial, coronal, and sagittalmultiplanar reformations. Dose modulation, automated exposure control, and/oriterative reconstruction were used for dose reduction. CONTRAST: 100 mL of Isovue-300 IV COMPARISON: None available. FINDINGS: LUNGS AND AIRWAYS: No pneumothorax, pleural effusion, or pericardial effusion is seen. No alveolar infiltrate or focal consolidation is seen. No suspicious pulmonary parenchymal nodules or masses are seen. HEART AND GREAT VESSELS: Heart size normal. No pericardial effusion.Thoracic aorta normal size. No significant coronary artery calcifications. MEDIASTINUM: There is some mild strandy density in the anteriormediastinum likely some residual thymic tissue given the patient's age. IMPRESSION: Unremarkable contrast-enhanced chest CT. Electronically signed by: Hector Cummings MD 01/02/2025 06:57 PM EDTRP Dictated By: Hector Cummings Transcribed By: Transcribed On: 01/02/2025 6:57 PM Electronically signed by: Hector Cummings 01/02/2025 Thank you for referring SIMBA FINNEGAN to [facility]. Legally authenticated by PORFIRIO TRUJILLO 2025-01-02 18:57:17 us Jorge Garcia GRINDER LAP IMG CT PROCEDURES Final Res ult * (ABNORMAL) Hemoglobin A1c (06/22/2024 9:28 AM EST) Hemoglobin A1c 7.3(H) <5.7 % 06/22/2024 4:57 PM EST [facility] Blood Venous blood specimen / Unknown Venipuncture / Unknown 06/22/2024 9:28 AM EST 06/22/2024 9:28 AM EST Narrative [facility] - 06/22/2024 4:57 PM EST HA1C Interpretive Data: Diagnosis of Diabetes: Diabetic > or = 6.5% Pre-diabetic 5.7 to 6.4% Non-diabetic < or = 5.6% Glycemic Targets for Type I and Type II Diabetics: Non- Adults <7.0% Adults <6.0% Children and Adolescents <7.5% Source: [place] [employer]. Standards of medical care in diabetes,2017. Diabetes Care.2017:40 (suppl 1):S1-S135. HbA1c assay performed by an ion-exchange chromatography method that is certified traceable to the DCCT. Anita Shafer Faye [facility] LAB BLOOD ORDERABLES Final Result [facility] [address] [place] [address] * Referred ThinPrep Pap and HPV (SO) (12/17/2023 1:41 PM EDT) Pap, Source Cx/Vagina 12/25/2023 3:39 PM EDT [facility] EER Referred ThinPrep Pap and HPV See Note 12/25/2023 3:39 PM EDT [facility] PAP, THINPREP Normal 12/25/2023 3:39 PM EDT [facility] High Risk HPV Normal 12/25/2023 3:39 PM EDT [facility] Swab Vaginal and cervical cytologic material / Unknown Non-blood Collection / Unknown 12/17/2023 1:41 PM EDT 12/17/2023 6:07 PM EDT Narrative [facility] - 12/25/2023 3:39 PM EDT Authorized individuals can access the [facility] Enhanced Report using the following link: [email or web address] Performed By: [facility] [address] [place] [id number] Mfts: Ramin Cervantes MD, PhD CLIA Number: [id number] SPECIMEN PART A. Cervical, Endocervical, Vaginal, ThinPrep Pap (Engineering Librarian) CYTOLOGY HX Date of Last Menstrual Period: n FINAL DIAGNOSIS INTERPRETATION: Negative for Intraepithelial Lesion or Malignancy. SPECIMEN ADEQUACY:Satisfactory for evaluation. Endocervical/transformation zone component present. Electronically Signed Out : ctbcn Performed by: [facility] [address] [place] [address] [place] [address] Krystina Garcia MD, HR-HPV: Negative Test performed by the FDA-approved [employer] (Gen-Probe) APTIMA HPV test, which detects HPV genotypes: 16, 18, 31, 33, 35, 39, 45, 51, 52, 56, 58, 59, 66, and 68. Performed by: [facility] [address] [place] [address] [place] [address] Krystina Garcia MD, us Ruthie Foote RN LAB REF LAB BLOOD AND FLUID OR D Final Result [facility] ([address] [address] * HIV 1 & 2 Antibody/Antigen Screen (02/25/2023 5:04 PM EST) Pathologist [facility] HIV 1 & 2 Antibody/Antigen Screen Non Reactive Non Reactive 02/26/2023 2:12 PM EST [facility] Comment:Screening for HIV 1 & 2 antibodies, and P24 antigen is NONREACTIVE. No confirmatory testing is required. Blood Venous blood specimen / Unknown Venipuncture / Unknown 02/25/2023 5:04 PM EST 02/26/2023 1:42 PM EST us Ruthie Foote RN LAB BLOOD ORDERABLES Final Res ult [facility] [address] [place] [address] * Hepatitis C Antibody w/Reflex to HCV Quant PCR (02/25/2023 5:04 PM EST) Pathologist [facility] Hepatitis C Antibody Negative Negative 02/26/2023 4:19 PM EST [facility] Blood Venous blood specimen / Unknown Venipuncture / Unknown 02/25/2023 5:04 PM EST 02/26/2023 1:42 PM EST us Ruthie Foote RN LAB BLOOD ORDERABLES Final Res [facility] [address] [place] [address] from Last 3 Months or Most Recently Relevant to Health Maintenance Insurance [facility] MEDICAID [place] Care Teams Log Sorting Supervisor Relationship Specialty Start Date End Date Anita Faye APRN [address] [place] [address] PCP - General Family Medicine 07/09/23
--- OUTSIDE RECORDS SUMMARY | 2025-01-15 03:00 | XMS_ITS | Encounter Summary ---
Author Organization Healthcare Address [address] [place] [address] Care Team Providers Care Microarray Specialist Name Role Phone YunierJayll Hollis EUSEBIO Primary Care Provider [phone] Encounter Details Date Type Department Care Team ([facility] Contact Info) Description 01/09/2025 Telephone [facility] [address] [place] [address] Adi Caceres MD [address] [facility] [address] [place] [address] Social History Tobacco Use Types Packs/Day Years [...] How often do you attend chur or zoroastrian services? More than 4 times per year 01/02/2025 Do you belong to any clubs o r organizations such as latter day groups, unions, fraternal or athletic groups, or [...] any time in the past 12 m [facility], were you homeless or living in a long term (including now)? No 01/02/2025 Utilities Answer Date [...] encounter Miscellaneous Notes * Telephone Encounter - Genny Moreland - 01/09/2025 1:04 PM EDT Called to see where patient wanted the order sent for physical therapy. She returned my call and stated she didn't know anything about PT being ordered, is not able to do physical therapy at this time due to work. I told her I would leave the message for clarification of when and why this was ordered. documented in this encounter Plan of Treatment [...] documented as of this encounter Care Teams Microarray Specialist Relationship Specialty Start Date End Date Anita Faye APR[place] [phone] PCP - General Family Medicine 07/09/23 documented as of this encounter
--- OUTSIDE RECORDS SUMMARY | 2025-01-15 03:00 | XMS_ITS | Encounter Summary ---
Author Organization Healthcare Address [address] [place] [address] Care Team Providers Care Supervisor Cooler Service Name Role Phone Anita Faye APRN Primary Care Provider [phone] Encounter Details Date Type Department Care Team (Late st Contact Info) Description 01/02/2025 Outside Procedure External Location [address] [place] [address] Iris Garcia APRN [address] [place] [address] Social History Tobacco Use Types [...] often do you attend chur ch or adventism services? More than 4 times per year 01/02/2025 Do you belong to any clubs o r organizations such as advent groups, unions, fraternal or athletic groups, or [...] more drinks on one occasion? Never 01/02/2025 [facility] of Occupat ional Health - Occupational Stress [...] any time in the past 12 m [facility], were you homeless or living in a custodial (including now)? No 01/02/2025 Utilities Answer Date Recorded In the past 12 months has th e [employer], gas, oil, or water company threatened to [...] hopeless Several days 01/02/2025 1:27 PM EDT Renetta, Missy A Patient Health Questionnaire -2 Score 2 01/02/2025 1:27 PM EDT Missy Jackson * Question Answer Date of Assessment Author Trouble falling or staying asleep, or sleeping too much Several days 01/02/2025 1:27 PM EDT Missy Jackson A Feeling tired or having little energy More than half the days 01/02/2025 1:27 PM EDT Missy Jackson A Poor appetite or overeating Several days 01/02/2025 1:27 PM EDT Missy Jackson A Feeling bad about yourself - or that [...] 3:40 PM EDT Madelin Marin LPN * How difficult have these problems made [...] Name Priority Date/Time Associated Diagnosis Comments CT CHEST W IV CONTRAST 01/02/2025 3:23 PM EDT documented in this encounter Results * CT Chest w IV Contrast (01/02/2025 3:23 PM EDT) Anatomical Region Laterality Modality Chest Computed Tomogra phy 01/02/2025 3:23 PM EDT Narrative 01/02/2025 7:02 [place] [address] Name: ARLEN FINNEGAN Exam Date: 01/02/2025 : 1995 Age 29 years Gender: F Physician: IRIS GARCIA Facility: [facility] Facility HSV: Outpatient Exam: CT CHEST W [...] Hector Cummings MD 01/02/2025 06:57 PM EDT Dictated By: Hector Cummings Transcribed By: Transcribed On: 01/02/2025 6:57 PM Electronically signed by: Hector Cummings 01/02/2025 Thank you for referring ARLEN FINNEGAN to [facility]. Legally authenticated by PORFIRIO TRUJILLO 2025-01-02 18:57:17 Procedure Note Provider, Generic [place] - 01/02/2025 [place] [address] Name: ARLEN FINNEGAN Exam Date: 01/02/2025 : 1995 Age 29 years Gender: F Physician: IRIS GARCIA Facility: [facility] Facility HSV: Outpatient Exam: CT CHEST W [...] Hector Cummings 01/02/2025 Thank you for referring ARLEN FINNEGAN to [facility]. Legally authenticated by PORFIRIO TRUJILLO 2025-01-02 18:57:17 us Iris Garcia APRN IMG CT PROCEDURES Final Res ult documented in this encounter Visit Diagnoses Not [...] documented as of this encounter Care Teams Supervisor Cooler Service Relationship Specialty Start Date End Date Anita Faye APRN [address] [place] [address] PCP - General Family Medicine 07/09/23 documented as of this encounter
--- OUTSIDE RECORDS SUMMARY | 2025-01-15 03:01 | XMS_ITS | Encounter Summary ---
Author Organization [employer] ([place], [place], [place], [place]) Address [address] [place] [address] Care Team Providers Care Plastics Repairer Name Role Phone Unavailable Primary Care Provider Unavailabl e Encounter Details Date Type Department Care Team (Late st Contact Info) Description 06/23/2018 Transcribed Document [facility] Radiology [address] [place] [address] Espinoza Grajeda MD [address] [place] [address] Dept. [place] [address] Social History Tobacco Use Types [...]
--- OUTSIDE RECORDS SUMMARY | 2025-01-15 03:01 | XMS_ITS | Referral Summary ---
Author Organization [employer] ([place], [place], [place], [place]) Address [address] [place] [address] Care Team Providers Care Employment Security Officer Name Role Phone Unavailable Primary Care Provider [...]
--- OUTSIDE RECORDS SUMMARY | 2025-01-15 03:01 | XMS_ITS | Encounter Summary ---
Author Organization [employer] ([place], [place], [place], [place]) Address [address] [place] [address] Care Team Providers Care Tailing Machine Operator Name Role Phone Unavailable Primary Care Provider Unavailabl e Encounter Details Date Type Department Care Team (Late st Contact Info) Description 06/23/2018 Transcribed Document [facility] [facility] [place] [address] ProviderEsdras MD [address] [place] [address] Social History Tobacco Use Types [...] - Esdras ProviderMD - 06/23/2018 11:33 AM INFORMATICS NURSE ED Triage Entered On: 06/23/2018 11:49 EST [...] : 2 - Emergent Tracking Group : [facility] ED [facility] Debo Nash RN - 06/23/2018 11:46 EST Mode of Arrival : Stretcher Transported to ED by : Ambulance/ALS EMS Service : [facility] To Room Via : Stretcher Accompanied By [...] PNED ; Probability: 0 ; Diagnosis Code: [id number] ED Height and Weight Height Source : Stated Height Entry Format : [place] Height, Feet : 5 ft(Converted to: 152 cm, 60 Inch) Height, Inches : 4 Inch(Converted to: 0 ft 4 Inch, 10.16 cm) Clinical Height : 162.56 cm Weight Source, ED : Critical estimated dosing weight Weight Entry Format : [place] Weight, Pounds : 190 lb Clinical Dosing Weight : 86.36 kg Body Surface Area (BSA) : 1.92 m2 Body Mass Index : 32.7 kg/m2 (HI) [place] Body Weight (IBW) : 54.3 kg Debo [...]
--- OUTSIDE RECORDS SUMMARY | 2025-01-15 03:01 | XMS_ITS | Encounter Summary ---
Author Organization Healthcare Address [address] [place] [address] Care Team Providers Care Analytical Data Scientist Name Role Phone Krystina Bear APRN Primary Care Provider [phone] Anita Faye APRN Primary Care Provider [phone] Encounter Details Date Type Department Care Team (Late st Contact Info) Description 07/18/2022 Outside Procedure External Location [address] [place] [address] Provider, [facility] Social History Tobacco Use Types Packs/Day Years Used Date Smoking Tobacco: Some Days Cigarettes 1 14.7 Started: 2010 Smokeless Tobacco: Current Comments:vape PHQ-2 [...] PM EDT Narrative 07/19/2022 8:58 AM EDT [address] [address] Name: ARLEN FINNEGAN Exam Date: 07/18/2022 : 1995 Age 27 Gender: F Physician: SEAN OSEI Facility: [facility] Facility HSV: Outpatient Exam: HAND RT [...] Thank you for referring ARLEN FINNEGAN to [facility]. Legally authenticated by POPE DANNY Dewitt 2022-07-19 08:46:50 Procedure Note Provider, O[facility] [place] - 07/19/2022 [place] [address] Name: ARLEN FINNEGAN Exam Date: 07/18/2022 : 1995 Age 27 Gender: F Physician: SEAN OSEI Facility: [facility] Facility HSV: Outpatient Exam: HAND RT [...] Thank you for referring ARLEN FINNEGAN to [facility]. Legally authenticated by POPE DANNY Dewitt 2022-07-19 08:46:50 Generic [place] Provider IMG XR PROCEDURES Fi nal Result documented in this encounter Visit Diagnoses Not on filedocumented in this encounter Additional Health Concerns Assessment Noted Time A fall risk assessment has been complete d for the patient 01/13/2022 7:51 AM EDT documented as of this encounter Care Teams Analytical Data Scientist Relationship Specialty Start Date End Date Krystina Bear APRN [address] [place] [address] PCP - General Family Medicine 01/14/22 07/08/23 Anita Faye APRN [address] [place] [address] PCP - General Family Medicine 07/09/23 documented as of this encounter
--- OUTSIDE RECORDS SUMMARY | 2025-01-15 03:01 | XMS_ITS | Encounter Summary ---
Author Organization [employer] ([place], [place], [place], [place]) Address [address] [place] [address] Care Team Providers Care Morphologist Name Role Phone Unavailable Primary Care Provider Unavailabl e Encounter Details Date Type Department Care Team (Late st Contact Info) Description 07/01/[address] [facility] Radiology [address] [place] [address] Espinoza Grajeda MD [address] [place] [address] Dept[place] [address] Social History Tobacco Use Types [...]
--- OUTSIDE RECORDS SUMMARY | 2025-01-15 03:01 | XMS_ITS | Encounter Summary ---
Author Organization [employer] ([place], [place], [place], [place]) Address [address] [place] [address] Care Team Providers Care Boilermaker Pipe Fitter Name Role Phone Unavailable Primary Care Provider Unavailabl e Encounter Details Date Type Department Care Team (Late st Contact Info) Description 06/23/2018 Transcribed Document [facility] [place] [facility] [place] [address] ProviderEsdras MD [address] [place] [address] Social History Tobacco Use Types [...] - Historical ProviderMD - 06/23/2018 3:39 PM WALL COVERING INSTALLER [facility] [address] [place] [address] Patient Information Name: ARLEN FINNEGAN Age: 23 Years Date of : 1995 Arrival Time: 06/23/2018 11:33:00 Diagnosis Cervical strain Primary Care Physician: AKILAH UPTON NP-JOVANA Provider Information Primary Provider: DEWEY GRAJEDA Secondary Provider: ARLEN FINNEGAN has been given the following list of patient education materials, prescriptions and follow-up instructions: Follow-up Instructions: With: Address: When: NOEMI WILHELM [facility] [address] [place] [address] Flashnotes (1) Within 2 to 3 days Comments: cardiology referral for follow up on syncope isssue, which liekly realtes to orthostatic and dehydration symptoms With: Address: When: [place] [address] Flashnotes (1) Within 2 to 3 days Patient [...] This can help with dizziness. ??? Take tcow-nzo-lkjwlia and prescription medicines only as told by [...] or physical therapist. General instructions ??? Take qevc-ixf-fhhufbt and prescription medicines only as told by [...] 02/01/2008 Document Revised: 12/03/2016 Document Reviewed: 12/03/2016 [employer] Interactive Patient Education ? 2017 [employer] Allergies: Percocet 5/325 Medication Information: Prescription Display acetaminophen-hydrocodone ([place] 5 mg-325 mg oral tablet) 1 Tab, [...] range between ( 1.0 and 7.0 ) Dent #: 0.78 K/uL -- Normal range between ( 0.24 and 0.82 ) Eos #: 0.27 K/uL -- Normal range between ( 0.04 and 0.54 ) Dent %: 8.3 % -- Normal range between [...] verify that ARLEN FINNEGAN was seen at [facility] Emergency Department on ,06/23/2018 15:39:05. This [...] Assistance with quitting is available by contacting 1-302-AQZC-NOW. This is a free resource providing counseling, [...] Electronic Communications Privacy Act 18 U.S.C. ???Sections 7327-7042,?? and contain information intended for the specified [...] Be sure to sign up for the [facility] patient portal, which gives you 10/11 access to your medical information ??? including these discharge instructions ??? using your computer, smartphone, or tablet. Just go to [email or web address] to get started. Questions? Call . Acknowledgment [...]
--- OUTSIDE RECORDS SUMMARY | 2025-01-15 03:01 | XMS_ITS | Encounter Summary ---
Author Organization Healthcare Address [address] [place] [address] Care Team Providers Care Clinical Ob Name Role Phone Anita Faye APRN Primary Care Provider Encounter Details Date Type Department Care Team (Latest Contact Info) Description 01/10/2025 Travel Social History Tobacco Use Types Packs/Day [...] often do you attend chur ch or gnosticism services? More than 4 times per year 01/02/2025 Do you belong to any clubs o r organizations such as quaker groups, unions, fraternal or athletic groups, or [...] more drinks on one occasion? Never 01/02/2025 [facility] - Occupational Stress Questionnaire Answer Date [...] No 01/02/2025 Housing Stability Vital Sign Answer Jauquin e Recorded In the last 12 months, [...] Recorded In the past 12 months has [facility] [employer], gas, oil, or water company threatened to [...] Genny Randall documented as of this encounter Plan of [...] documented as of this encounter Care Teams Clinical Ob Relationship Specialty Start Date End Date Anita Faye APRN [address] [address] PCP - General Family Medicine 07/09/23 documented as of this encounter
--- OUTSIDE RECORDS SUMMARY | 2025-01-15 03:01 | XMS_ITS | Encounter Summary ---
Author Organization Healthcare Address [address] [place] [address] Care Team Providers Care Sand Technician Name Role Phone Anita Faye APRN Primary Care Provider [phone] Abby Bruce RN Unavailable [phone] Krystina Bear APRN Primary Care Provider [phone] Anita Faye APRN Primary Care Provider [phone] Reason for Visit * Reason Comments Med Refill Encounter Details Date Type Department Care Team (Late st Contact Info) Description 11/12/2020 Refill Family and Community Medicine [address] [place] [address] Anita Faye APRN [address] [place] [address] Social History Tobacco Use Types [...] on filedocumented in this encounter Care Teams Sand Technician Relationship Specialty Start Date End Date Anita Faye APRN [address] [place] [address] PCP - General 08/31/20 01/13/22 Krystina Bear APRN [address] [place] [address] PCP - General Family Medicine 01/14/22 07/08/23 Anita Faye APRN [address] [place] [address] PCP - General Family Medicine 07/09/23 Abby Bruce RN [address] [address] Clothing Worker Internal Medicine 01/14/21 12/21/21 documented as of this encounter
--- OUTSIDE RECORDS SUMMARY | 2025-01-15 03:01 | XMS_ITS | Encounter Summary ---
Author Organization [employer] ([place], [place], [place], [place]) Address [address] [place] [address] Care Team Providers Care Special Delivery Carrier Name Role Phone Unavailable Primary Care Provider Unavailabl e Encounter Details Date Type Department Care Team (Late st Contact Info) Description 06/23/2018 Transcribed Document [facility] [place] [facility] [place] [address] ProviderEsdras MD [address] [place] [address] Social History Tobacco Use Types [...] - Esdras ProviderMD - 06/23/2018 3:39 PM FIELD DIRECTOR [address] [place] [address] PERSON INFORMATION Name ARLEN FINNEGAN Age 23 Years 1995 Sex Female Language Portuguese PCP AKILAH UPTON NP-JOVANA Marital Status Med Service Emergency Medicine Acct# Arrival 06/23/2018 11:33:00 Visit Reason Closed head injury with LOC; PASSED OUT Acuity 2 - Emergent LOS 000 04:06 Depart Date: 06/23/18 03:38 PM Address: [address] [facility] [address] Comment: PROVIDER INFORMATION Provider Role Assigned Unassigned Debo Nash, FIRST ASSISTANT Nurse 06/23/2018 11:51:05 DEWEY GRAJEDA MD-EMR ED [...] Info: Percocet 5/325 Medications: Prescription Display acetaminophen-hydrocodone ([place] 5 mg-325 mg oral tablet) 1 Tab, Oral, TID, PRN for pain, X 3 Day(s), # 10 Tab, 0 Refill(s) cyclobenzaprine (cyclobenzaprine 10 mg oral tablet) 1 Tab, Oral, TID, PRN for spasm, # 30 Tab, 0 Refill(s) Comment: DISCHARGE INFORMATION Discharge Disposition: Home Discharge Location: PATIENT EDUCATION INFORMATION Instructions: Syncope, Tqpe-cf-Tnda; Cervical Sprain Follow up: With: Address: When: NOEMI WILHELM [address] [place], [place] [id number] Business (1) Within 2 to 3 days Comments: cardiology referral for follow up on syncope isssue, which liekly realtes to orthostatic and dehydration symptoms With: Address: When: AKILAH UPTON [address] [place] [address] Business (1) Within 2 to 3 days Comment: Electronically signed by Kendall Saha Conversion Remote Encoding Center Manager Cerner at 08/03/2022 7:41 PM CDT documented in this encounter Plan of Treatment Not on file documented as of this encounter Visit Diagnoses Not on filedocumented in this encounter
--- OUTSIDE RECORDS SUMMARY | 2025-01-15 03:01 | XMS_ITS | Encounter Summary ---
Author Organization Healthcare Address [address] [place] [address] Care Team Providers Care Magneto Specialist Name Role Phone Anita Faye APRN Primary Care Provider [phone] Encounter Details Date Type Department Care Team ([facility] Contact Info) Description 12/12/2024 Refill [facility] [address] [place] [address] Anita Faye APRN [address] [place] [address] Anxiety and depression Social History [...] place to sleep or slept in a snf (including now)? No 12/16/2023 PHQ-9 Answer Date [...] any time in the past 12 m [facility], were you homeless or living in a snf (including now)? No 06/22/2024 Utilities Answer Date Recorded In the past 12 months has th e [employer], gas, oil, or water [employer] threatened to shut off services in your [...] encounter Miscellaneous Notes * Progress Notes - Rohini Christianson, PharmD - 12/12/2024 1:21 PM EDT 1 medication(s) has been denied per protocol due to: Refill requested too soon Spoke with pt and she is going to call [facility] and ask for refill. Also she does not believe her dog ingested any medication, but I did advise to reach out to vet as well. documented in this encounter Plan of Treatment [...] documented as of this encounter Care Teams Magneto Specialist Relationship Specialty Start Date End Date Anita Faye APRN [address] [place] [address] PCP - General Family Medicine 07/09/23 documented as of this encounter
--- OUTSIDE RECORDS SUMMARY | 2025-01-15 03:01 | XMS_ITS | Encounter Summary ---
Author Organization Healthcare Address [address] [place] [address] Care Team Providers Care Kiln Car Repairer Name Role Phone Krystina Bear APRN Primary Care Provider [phone] Anita Faye APRN Primary Care Provider [phone] Encounter Details Date Type Department Care Team (Late st Contact Info) Description 04/01/2022 Outside Procedure External Location [address] [place] [address] Provider, O[facility] [place] Social History Tobacco Use Types Packs/Day Years [...] AM EST Narrative 04/01/2022 5:42 [place] [address] Name: ARLEN FINNEGAN Exam Date: 04/01/2022 : 1995 Age 27 Gender: F Physician: KWADWO MOORE Facility: [facility] Facility HSV: Outpatient Exam: CT BRAIN [...] you for referring ARLEN FINNEGAN to [facility]. Legally authenticated by GERRY CRUZ 2022-04-01 05:32:03 Procedure Note Provider, Generic [place] - 04/01/2022 [place] [id number] Name: ARLEN FINNEGAN Exam Date: 04/01/2022 : 1995 Age 27 Gender: F Physician: KWADWO MOORE Facility: [facility] Facility HSV: Outpatient Exam: CT BRAIN [...] you for referring ARLEN FINNEGAN to [facility]. Legally authenticated by GERRY CRUZ 2022-04-01 05:32:03 us Generic [place] Provider IMG CT PROCEDURES Fi nal Result documented in this encounter Visit Diagnoses Not on filedocumented in this encounter Additional Health Concerns Assessment Noted Time A fall risk assessment has been complete d for the patient 01/13/2022 7:51 AM EDT documented as of this encounter Care Teams Kiln Car Repairer Relationship Specialty Start Date End Date Krystina Bear APRN [facility] [place] [id number] PCP - General Family Medicine 01/14/22 07/08/23 Anita [place] [address] PCP - General Family Medicine 07/09/23 documented as of this encounter
--- OUTSIDE RECORDS SUMMARY | 2025-01-15 03:01 | XMS_ITS | Encounter Summary ---
Author Organization Healthcare Address [address] [place] [address] Care Team Providers Care Employment Law Specialist Name Role Phone Anita Faye APRN Primary Care Provider [phone] Abby Bruce RN Unavailable [phone] Krystina Bear APRN Primary Care Provider [phone] Anita Faye APRN Primary Care Provider [phone] Reason for Visit * Reason Comments Med Refill Encounter Details Date Type Department Care Team (Late st Contact Info) Description 11/26/2021 Refill Family and Community Medicine [address] [place] [address] Anita Faye APRN [address] [place] [address] 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 Social History Tobacco Use Types Packs/Day Years Used Date Smoking Tobacco: Every Day Cigarettes 1 14.7 Started: 2010 Smokeless Tobacco: Never PHQ-2 Answer [...] thyroiditis documented in this encounter Care Teams Employment Law Specialist Relationship Specialty Start Date End Date Anita Faye APRN [address] [place] [address] PCP - General 08/31/20 01/13/22 Krystina Baer APRN [address] [place] [address] PCP - General Family Medicine 01/14/22 07/08/23 Anita Faye APRN [address] [place] [address] PCP - General Family Medicine 07/09/23 Abby Bruce RN [address] [address] Sole Sewer Hand Internal Medicine 01/14/21 12/21/21 documented as of this encounter
--- OUTSIDE RECORDS SUMMARY | 2025-01-15 03:01 | XMS_ITS | Encounter Summary ---
Author Organization Healthcare Address [address] [place] [address] Care Team Providers Care Head Knitting Machine Fixer Name Role Phone Anita Faye APRN Primary Care Provider [phone] Reason for Visit * Reason Comments Med Refill Encounter Details Date Type Department Care Team (Late st Contact Info) Description 12/03/2024 Refill [facility] [address] [place] [address] Anita Faye APRN [address] [place] [address] Generalized anxiety disorder Social History [...] or slept in a alf (including now)? No 12/16/2023 PHQ-9 Answer Date [...] any time in the past 12 m [facility], were you homeless or living in a alf (including now)? No 06/22/2024 Utilities Answer Date [...] encounter Miscellaneous Notes * Telephone Encounter - Tarah Fernandez PharmD - 12/06/2024 10:16 AM EDT 1 medication(s) has been approved [...] documented as of this encounter Care Teams Head Knitting Machine Fixer Relationship Specialty Start Date End Date Anita Faye APRN [address] [place] [address] PCP - General Family Medicine 07/09/23 documented as of this encounter
--- OUTSIDE RECORDS SUMMARY | 2025-01-15 03:01 | XMS_ITS | Encounter Summary ---
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
--- OUTSIDE RECORDS SUMMARY | 2025-01-15 03:01 | XMS_ITS | Encounter Summary ---
Author Organization [email or web address] ([place], [place], [place], [place]) Address [address] [place] [address] Care Team Providers Care Dermatology Teacher Name Role Phone Unavailable Primary Care Provider Unavailabl e Encounter Details Date Type Department Care Team (Late st Contact Info) Description 06/23/2018 Transcribed Document [facility] [place] [address] ProviderEsdras MD [address] [place] [address] Social History Tobacco Use Types [...] - Esdras ProviderMD - 06/23/2018 11:33 AM EKG MANAGER ED Assessment Entered On: 06/23/2018 11:50 EST Performed On: 06/23/2018 11:50 EST by Debo Nash RN ED Quick Look Assessment Level of Consciousness : Alert, Awake Affect/Behavior : Appropriate, Calm, Cooperative Orientation : Oriented x 4 Skin Temperature : Warm Debo Nash RN - 06/23/2018 11:50 EST ED General-Functional Assess Information Obtained From : Patient Communication Barrier : None Primary Language : Mongolian Any Spiritual/Cultural Needs or Requests : No [...]
--- OUTSIDE RECORDS SUMMARY | 2025-01-15 03:01 | XMS_ITS | Clinical Summary ---
Author Organization [facility] Address [address] [place] [address] Phone [email or web address] Care Team Providers Care Stem Sizer Name Role Phone Krystina Bear APRN Primary Care Provider [phone] Allergies Active Allergy Reactions Criticality Noted Date [...] needed. Active ergocalciferol (VITAMIN D2) 1.25 MG (35558 UT) capsule Take 50,000 Units by mouth [...] on file Legal Sex Female 11:45 AM SERVICE DELIVERY ANALYST Gender Identity Not on file Sexual Orientation [...] series) 02/21/2012 Covid-19 Immunization ( - season) 2024 01/09/2021, 12/18/2020 Influenza Immunization (#1) 2024 12/08/2012 Tetanus Diphtheria and Pertussis Immunization (3 - Td or Tdap) 07/18/2032 07/18/2022, 12/08/2012 Hepatitis A Immunization Aged Out 12/08/2012 No longer eligible based on patient's age to complete this topic HIB Immunization Aged Out No longer e ligible based on patient's age to complete this topic Pneumococcal Immunization Aged Out No longer eligible based on patient's age to complete this topic Polio Immunization Aged Out No longer eligible based on patient's age to complete this topic Varicella Immunization Aged Out No lo nger eligible based on patient's age to complete this topic Insurance OPT OUT NO COPAY NB Care Teams Stem Sizer Relationship Specialty Start Date End Date Krystina Bear APRN [address] [place] [address] PCP - General Unarmed Security Guard 04/05/20
--- OUTSIDE RECORDS SUMMARY | 2025-01-15 03:01 | XMS_ITS | Encounter Summary ---
Author Organization Healthcare Address [address] [place] [address] Care Team Providers Care Customer Service Sales Consultant Name Role Phone Anita Faye APRN Primary Care Provider [phone] Abby Bruce RN Unavailable [phone] Krystina Bear APRN Primary Care Provider [phone] Anita Faye APRN Primary Care Provider [phone] Reason for Visit * Reason Comments Med Refill Encounter Details Date Type Department Care Team (Late st Contact Info) Description 01/31/2021 Refill Family [facility] Community Medicine [address] [place] [address] Anita Faye APRN [address] [place] [address] 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
--- OUTSIDE RECORDS SUMMARY | 2025-01-15 03:01 | XMS_ITS | Encounter Summary ---
Author Organization Healthcare Address [address] [place] [address] Care Team Providers Care Filter Plant Operator Name Role Phone Anita Faye APRN Primary Care Provider [phone] Abby Bruce RN Unavailable [phone] Krystina Bear APRN Primary Care Provider [phone] Anita Faye APRN Primary Care Provider [phone] Encounter Details Date Type Department Care Team (Late st Contact Info) Description 12/27/2020 Outside Procedure External Location [address] [place] [id number] Provider, Ora Harrisonwn Social History Tobacco Use Types Packs/Day Years [...] PM EDT Narrative 12/28/2020 7:41 [place] [address] Name: ARLEN FINNEGAN Exam Date: 12/27/2020 : 1995 Age 25 Gender: F Physician: TIGRE MONTANEZ Facility: [facility] Facility HSV: Outpatient Exam: CHEST PORTABLE CHEST, [...] Thank you for referring ARLEN FINNEGAN to [facility]. Legally authenticated by POPE DANNY Dewitt 2020-12-28 07:29:49 Procedure Note Provider, Generic [place] - 12/28/2020 [place] [address] Name: ARLEN FINNEGAN Exam Date: 12/27/2020 : 1995 Age 25 Gender: F Physician: TIGRE MONTANEZ Facility: [facility] Facility HSV: Outpatient Exam: CHEST PORTABLE CHEST, [...] Thank you for referring ARLEN FINNEGAN to [facility]. Legally authenticated by POPE DANNY Dewitt 2020-12-28 07:29:49 Generic [place] Provider IMG XR PROCEDURES Fi nal Result documented in this encounter Visit Diagnoses Not on filedocumented in this encounter Care Teams Filter Plant Operator Relationship Specialty Start Date End Date Anita Faye APRN [address] [place] [address] PCP - General 08/31/20 01/13/22 Krystina Bear APRN [address] [place] [address] PCP - General Family Medicine 01/14/22 07/08/23 Anita Faye APRN [address] [place] [address] PCP - General Family Medicine 07/09/23 Abby Bruce, NOLAN [address] [id number] Second Worker Internal Medicine 01/14/21 12/21/21 documented as of this encounter
--- OUTSIDE RECORDS SUMMARY | 2025-01-15 03:01 | XMS_ITS | Encounter Summary ---
Author Organization Healthcare Address [address] [place] [address] Care Team Providers Care Plastering Supervisor Name Role Phone Anita Faye APRN Primary Care Provider [phone] Abby Bruce RN Unavailable [phone] Krystina Bear APRN Primary Care Provider [phone] Anita Faye APRN Primary Care Provider [phone] Reason for Visit * Reason Comments Med Refill Encounter Details Date Type Department Care Team (Late st Contact Info) Description 11/15/2020 Refill Family and Community Medicine [address] [place] [address] Anita Faye APRN [address] [place] [address] Social History Tobacco Use Types [...] on filedocumented in this encounter Care Teams Plastering Supervisor Relationship Specialty Start Date End Date Anita Faye APRN [address] [place] [address] PCP - General 08/31/20 01/13/22 Krystina Bear APRN [address] [place] [address] PCP - General Family Medicine 01/14/22 07/08/23 Anita Faye APRN [address] [place] [address] PCP - General Family Medicine 07/09/23 Abby Bruce RN [address] [address] Extrusion Bender Internal Medicine 01/14/21 12/21/21 documented as of this encounter
--- OUTSIDE RECORDS SUMMARY | 2025-01-15 03:01 | XMS_ITS | Clinical Summary ---
Author Organization [facility] ([place], [place], [place], [place]) Address [address] [place] [address] Care Team Providers Care Calibrator Barometers Name Role Phone Unavailable Primary Care Provider [...]
--- OUTSIDE RECORDS SUMMARY | 2025-01-15 03:01 | XMS_ITS | Encounter Summary ---
Author Organization [employer] ([place], [place], [place], [place]) Address [address] [place] [address] Care Team Providers Care Php Mysql Developer Name Role Phone Unavailable Primary Care Provider Unavailabl e Encounter Details Date Type Department Care Team (Late st Contact Info) Description 06/23/2018 Transcribed Document [facility] Family Medicine [facility] [place] [address] ProviderEsdras MD [address] [place] [address] Social History Tobacco Use Types [...] - Historical ProviderMD - 06/23/2018 3:37 PM AUTOMATIC BEADING LATHE OPERATOR ED Discharge Entered On: 06/23/2018 15:38 EST [...] 15:37 EST Electronically signed by Maria A [facility] Conversion Rolled Materials Worker Cerner at 08/03/2022 7:47 PM CDT documented in this encounter Plan of Treatment Not on file documented as of this encounter Visit Diagnoses Not on filedocumented in this encounter
--- OUTSIDE RECORDS SUMMARY | 2025-01-15 03:01 | XMS_ITS | Encounter Summary ---
Author Organization Healthcare Address [address] [place] [address] Care Team Providers Care Machine Plate Stacker Name Role Phone Anita Faye APRN Primary Care Provider [phone] Abby Bruce RN Unavailable [phone] Krystina Bear APRN Primary Care Provider [phone] Anita Faye APRN Primary Care Provider [phone] Reason for Visit * Reason Comments Med Refill Encounter Details Date Type Department Care Team (Late st Contact Info) Description 12/18/2020 Refill [place] SUPERVISOR CLOTH [employer]ING [address] [place] [address] Esha Garcia APRN, [facility] [address] [place] [address] Social History Tobacco Use Types Packs/Day Years [...] on filedocumented in this encounter Care Teams Machine Plate Stacker Relationship Specialty Start Date End Date Anita Faye APRN [address] [place] [address] PCP - General 08/31/20 01/13/22 Krystina Bear APRN [address] [place] [address] PCP - General Family Medicine 01/14/22 07/08/23 Anita Faye APRN [address] [place] [address] PCP - General Family Medicine 07/09/23 Abby Bruce, RN [address] [address] Solo Truck Driver Internal Medicine 01/14/21 12/21/21 documented as of this encounter
--- OUTSIDE RECORDS SUMMARY | 2025-01-15 03:01 | XMS_ITS | Encounter Summary ---
Author Organization Healthcare Address [address] [place] [address] Care Team Providers Care Lining Repairer Name Role Phone Krystina Bear APRN Primary Care Provider [phone] Anita Faye APRN Primary Care Provider [phone] Reason for Visit * Reason Comments Med Refill Encounter Details Date Type Department Care Team (Late st Contact Info) Description 07/07/2023 Refill Family and Community Medicine [address] [place] [address] Krystina Bear APRN [address] [place] [address] Anxiety and depression Social History [...] place to sleep or slept in a [facility] (including now)? Patient refused 07/09/2023 Utilities Answer [...] documented as of this encounter Care Teams Lining Repairer Relationship Specialty Start Date End Date Krystina Bear APRN [address] [place] [address] PCP - General Family Medicine 01/14/22 07/08/23 Anita Faye APRN [address] [place] [address] PCP - General Family Medicine 07/09/23 documented as of this encounter
--- OUTSIDE RECORDS SUMMARY | 2025-01-15 03:01 | XMS_ITS | Encounter Summary ---
Author Organization [employer] ([place], [place], [place], [place]) Address [address] [place] [address] Care Team Providers Care Rating Clerk Name Role Phone Unavailable Primary Care Provider Unavailabl e Encounter Details Date Type Department Care Team (Late st Contact Info) Description 06/23/2018 Transcribed Document [facility] Radiology [address] [place] [address] Esipnoza Sullivan MD [address] [place] [address] Dept[place] [address] Social History Tobacco Use Types [...] PM EST Electronically signed by Maria A [facility] Conversion Marketing Support Specialist Cerner at 08/03/2022 7:44 PM CDT documented in this encounter Plan of Treatment Not on file documented as of this encounter Visit Diagnoses Not on filedocumented in this encounter
[2025-01-15 03:03] VITALS: BP 131/89; PULSE 90; RESP 24; TEMP 36.7; O2SAT 95; BMI 26.6
--- NOTE | 2025-01-15 03:13 | HMH.EDGENADL ---
Discharge Plan Disposition Patient Disposition: Home, Self-Care Prescriptions Prescriptions: New azithromycin 250 mg tablet See Rx Instructions .ROUTE .COMPLEX Qty: 6 0RF Rx Instructions: For 250 mg dose pack: take 500 mg today (day 1), then 250 mg for 4 days (days 2-5) amoxicillin-pot clavulanate 875-125 mg tablet 1 tab PO BID 7 Days Qty: 14 0RF No Action hydroxyzine HCl 10 mg tablet 10 mg PO HS fluticasone propionate [Flonase Allergy Relief] 50 mcg/actuation spray,suspension 1 spray intranasal DAILY Qty: 16 2RF Rx Instructions: administer into each nostril cyclobenzaprine 10 mg tablet PO Patient Comments: TAKE 1 TABLET BY MOUTH TWICE DAILY NEEDED FOR MUSCLE SPASM escitalopram oxalate 20 mg tablet PO Patient Comments: TAKE 1 TABLET BY MOUTH ONCE DAILY Allergy Relief (loratadine) 10 mg capsule 10 mg PO DAILY Qty: 30 0RF albuterol sulfate [Ventolin HFA] 90 mcg/actuation HFA aerosol inhaler 1 inh inhalation QID Qty: 6.7 0RF guaifenesin 1,200 mg tablet extended release 12hr 1,200 mg PO BID Qty: 30 0RF methylprednisolone 4 mg tablets,dose pack See Rx Instructions PO PER PKG DIR Qty: 21 0RF Rx Instructions: PO PER PKG DIR fluconazole 150 mg tablet 150 mg PO ONCE Qty: 1 3RF methocarbamol 750 mg tablet 750 mg PO TID PRN (Reason: muscle pain) 30 Days Qty: 90 0RF atenolol 100 mg tablet 100 mg PO BID Patient Comments: TAKE 1 TABLET BY MOUTH TWICE DAILY amlodipine 5 mg tablet 5 mg PO DAILY metformin 1,000 mg tablet 1,000 mg PO BID Patient Comments: TAKE 1 TABLET BY MOUTH TWICE DAILY FOR 90 DAYS levothyroxine 150 mcg tablet 150 mcg PO DAILY Patient Comments: TAKE 1 TABLET BY MOUTH ONCE DAILY duloxetine 60 mg capsule,delayed release(DR/EC) 60 mg PO DAILY Patient Comments: TAKE 1 CAPSULE BY MOUTH ONCE DAILY DO NOT CRUSH OR CHEW Ozempic 1 mg/dose (4 mg/3 mL) pen injector 1 mg SQ WEEKLY Patient Comments: INJECT 1 MG SUBCUTANEOUSLY ONCE A WEEK Referrals Follow up/Referrals: Anita Faye [Primary Care Provider, Medical] - See instructions Activity Restrictions/Add. Instructions Additional Instructions/Restrictions: Please take antibiotics as prescribed for treatment of likely pneumonia. Please follow-up with your primary care provider. Please return to the emergency department if you develop any new or worsening symptoms or become concerned for your health. Clinical Impressions Clinical Impression: Community acquired pneumonia Qualifiers: Laterality: left Instructions Patient Instructions: Cough Print Language Print Language: [place] Island[place] Discharge ED Provider: Antonio Whipple Adult HPI General Chief complaint: Cough Stated complaint: Possible Pnemonuia Time Seen by Provider: 01/15/25 03:00 Mode of Arrival: Ambulatory Source of Information: Patient Description of Symptoms (Recalled from ER Triage Doc. by RN): pt presents for eval of cough, SOA x3 days. Reports recent UC visit x2 days ago and being told going into early pneumonia Pt reports fever at home this AM. History of Present Illness HPI narrative: 29-year-old female with history of type 2 diabetes presents for worsening cough and shortness of breath. She reports that started a few days ago and she was seen urgent care and was given a steroid. Her symptoms have continued to worsen. She reports fever at home this morning. Cough is largely nonproductive, she has some pain associated with coughing. Denies history of asthma Related Data Home Medications ?Medication ?Instructions ?Recorded ?Confirmed amlodipine 5 mg tablet 5 mg PO DAILY 05/02/24 01/12/25 atenolol 100 mg tablet 100 mg PO BID 05/02/24 01/12/25 duloxetine 60 mg capsule,delayed 60 mg PO DAILY 05/02/24 01/12/25 release levothyroxine 150 mcg tablet 150 mcg PO DAILY 05/02/24 01/12/25 metformin 1,000 mg tablet 1,000 mg PO BID 05/02/24 01/12/25 semaglutide 1 mg/dose (4 mg/3 mL) 1 mg SQ WEEKLY 05/02/24 01/12/25 subcutaneous pen injector (Ozempic) hydroxyzine HCl 10 mg tablet 10 mg PO HS 11/29/24 01/12/25 cyclobenzaprine 10 mg tablet mg PO 12/01/24 01/12/25 escitalopram oxalate 20 mg tablet mg PO 12/01/24 01/12/25 Previous Rx's ?Medication ?Instructions ?Recorded fluconazole 150 mg tablet 150 mg PO ONCE 1 dose #1 tab 05/23/24 methocarbamol 750 mg tablet 750 mg PO TID PRN muscle pain 30 09/19/24 days #90 tabs fluticasone propionate 50 1 spray intranasal DAILY #16 grams 11/29/24 mcg/actuation nasal spray,suspension (Flonase Allergy Relief) loratadine 10 mg capsule (Allergy 10 mg PO DAILY #30 caps 12/27/24 Relief (loratadine)) albuterol sulfate 90 mcg/actuation 1 inh inhalation QID #6.7 grams 01/12/25 aerosol inhaler (Ventolin HFA) guaifenesin 1,200 mg tablet, 1,200 mg PO BID #30 tabs 01/12/25 extended release 12 hr methylprednisolone 4 mg tablets in See Rx Instructions PO PER PKG DIR 01/12/25 a dose pack #21 tabs amoxicillin 875 mg-potassium 1 tab PO BID 7 days #14 tabs 01/15/25 clavulanate 125 mg tablet azithromycin 250 mg tablet See Rx Instructions PO .COMPLEX #6 01/15/25 tabs Allergies Allergy/AdvReac Type Severity Reaction Status Date / Time No Known Allergies Allergy Verified 01/12/25 11:06 [facility] Disclaimer: The information contained in this section may have been updated after the patient was seen, as this information can be updated by other users. 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 Otitis media Dyspnea Abnormal electrocardiogram [ECG] [EKG] HLD (hyperlipidemia) HTN (hypertension) Heart murmur Foot fracture, left Surgical History History of facial fracture repair History of left knee surgery History of surgical removal of ganglion cyst History of tonsillectomy and adenoidectomy History of carpal tunnel release Social History Smoking Status: Current every day smoker alcohol intake: never current occupational status: employed Travel in the last 8 weeks?: None Have you lived/traveled outside US in past 30 days?: No Contact w/someone who lives/traveled outside US past 30 days?: No Exposure to someone with infectious disease in past 14 days?: No Do you have a fever (greater than 100.4 F or 38 C)?: No Have you tested positive for COVID-19?: No Exposed to someone with COVID-19 in past 14 days?: No Do you have a sore throat?: No Do you have a cough?: Yes Do you have any weakness?: No Do you have any diarrhea?: No Are you experiencing any unusual bleeding?: No Do you have any muscle aches/pain?: Yes Do you have any abdominal pain?: No Are you experiencing loss of taste or smell?: No Other 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 Have you received the Flu Vaccine for this season: No Have you received the Pneumonia Vaccine: Yes ROS Obtained: Yes All systems reviewed & no additional complaints except as documented Physical Exam General General appearance: alert and in no apparent distress Head Head exam: atraumatic and normocephalic Eye Eye exam: Present normal appearance, PERRL and EOMI ENT ENT exam: Present normal oropharynx and normal external ear exam Neck Neck exam: Present normal inspection and full ROM Chest Chest inspection: Present normal inspection and symmetric chest wall rise; Absent tenderness Respiratory Respiratory exam: Present other (Wheezes and rhonchi in the left mid lung posterior hook); Absent respiratory distress Cardiovascular Cardiovascular exam: Present regular rate and normal rhythm Abdominal Exam Abdominal exam: Present soft; Absent distention, tenderness or guarding Extremities Exam Extremities exam: Present normal inspection; Absent edema or joint swelling Back Exam Back exam: Present normal inspection; Absent tenderness Neurological Exam Neurological exam: Present alert and oriented X3; Absent motor sensory deficit Psychiatric Psychiatric exam: Present normal affect and normal mood Skin Skin exam: Present warm, dry and normal color Lymphatic Lymphatic Findings: no adenopathy Medical Decision Making Medical Records Medical records reviewed: Yes I reviewed the patient's medical records. Screening: Per USPSTF and CDC recommendations, given the prevalence of disease in our region, it is our hospital?s policy to screen for HIV and viral Hepatitis for all patients aged 18 and over and those with ongoing risk factors. John Inquiry Pt receiving controlled substance: No John was queried for this patient: No Vital Signs: 01/15/25 03:03 01/15/25 03:33 01/15/25 03:33 Temperature 98.1 F Temperature Source Oral Pulse Rate 85 Pulse Rate [Radial] 90 Respiratory Rate 24 Blood Pressure 129/91 H Blood Pressure [Right Arm] 131/89 Blood Pressure Mean 101 Blood Pressure Mean [Right Arm] 103 Blood Pressure Source Blood Pressure Position Blood Pressure Position [Right Arm] Supine 02 Sat by Pulse Oximetry 95 100 Oxygen Delivery Method Room Air 01/15/25 03:45 01/15/25 03:57 01/15/25 04:02 Temperature Temperature Source Pulse Rate 89 87 Pulse Rate [Radial] Respiratory Rate Blood Pressure 114/95 H Blood Pressure [Right Arm] Blood Pressure Mean 98 Blood Pressure Mean [Right Arm] Blood Pressure Source Blood Pressure Position Blood Pressure Position [Right Arm] 02 Sat by Pulse Oximetry 100 100 Oxygen Delivery Method 01/15/25 04:13 Temperature 98.1 F Temperature Source Pulse Rate 87 Pulse Rate [Radial] Respiratory Rate 14 Blood Pressure 114/95 H Blood Pressure [Right Arm] Blood Pressure Mean Blood Pressure Mean [Right Arm] Blood Pressure Source Automatic Cuff Blood Pressure Position Sitting Blood Pressure Position [Right Arm] 02 Sat by Pulse Oximetry Oxygen Delivery Method Room Air Lab Data Lab results reviewed: Yes I reviewed the patient's lab results. Orders (Tests/Meds): ED MEDICATIONS Discontinued Medications Generic Name Dose Route Start Last Admin Trade Name Freq PRN Reason Stop Dose Admin Albuterol/Ipratropium 3 ml 01/15/25 03:17 01/15/25 03:39 Ipratropium/Albuterol 3 Ml Neb IH 01/15/25 03:18 3 ml ONCE ONE Administration Amoxicillin/Clavulanate Potassium 1 each 01/15/25 03:43 01/15/25 04:11 Amoxicillin/Clavulanate Potassium 875/125mg Tablet PO 01/15/25 03:44 1 each ONCE ONE Administration Azithromycin 500 mg 01/15/25 03:43 01/15/25 04:11 Azithromycin 250mg Tablet PO 01/15/25 03:44 500 mg ONCE ONE Administration ORDERS Category Date Time Status CXR 2 view (NOT portable) [XR chest 2V] Stat Exams 01/15/25 03:17 Completed Medical Decision Narrative: 29-year-old female with history of diabetes presents for 3 days of worsening cough, shortness of breath, now with fever. History was obtained via interactive discussion with patient, chart review. On arrival, patient is [afebrile, hemodynamically stable, satting appropriately, alert, oriented x4, GCS 15], moving all extremities spontaneously. Full physical exam performed and significant for wheezing and rhonchi in the left midlung posterior hook Differential includes but is not limited to viral/bacterial pneumonia Patient was given DuoNeb without significant improvement. She continues to sat appropriately on room air. Chest x-ray was obtained and independently interpreted by me, findings appear consistent with a left lower lobe pneumonia, especially on the lateral view. Given this, patient was initiated on Augmentin and azithromycin for treatment of commune acquired pneumonia. She was discharged in stable condition. Return precautions given. Procedures Risk/Benefits of Procedure(s) Were Explained: Yes Critical Care Critical Care Time Critical Care Time: No
--- NOTE | 2025-01-15 03:17 | XR_ITS ---
PROCEDURE INFORMATION: Exam: XR Chest Exam date and time: 01/15/2025 3:13 AM Age: 29 years old Clinical indication: Cough and fever; Additional info: Cough, fever, abnormal breath sounds TECHNIQUE: Imaging protocol: Radiologic exam of the chest. Views: 2 views. COMPARISON: CR XR CHEST 2V 02/09/2023 10:04 PM FINDINGS: Lungs: Unremarkable. No consolidation. Pleural spaces: Unremarkable. No pleural effusion. No pneumothorax. Heart/Mediastinum: Unremarkable. No cardiomegaly. Bones/joints: Unremarkable. IMPRESSION: No acute findings.
--- NOTE | 2025-01-15 03:24 | PC.NURSE ---
Pt taken to radiology at this time
[2025-01-15 03:33] VITALS: BP 129/91; PULSE 85; O2SAT 100
[2025-01-15] MEDS: IPRATROPIUM/ALBUTEROL 3 ML NEB IH (03:39)
[2025-01-15 03:45] VITALS: PULSE 89; O2SAT 100
[2025-01-15 03:57] VITALS: PULSE 87; O2SAT 100
[2025-01-15 04:02] VITALS: BP 114/95
[2025-01-15] MEDS: AZITHROMYCIN 250MG TABLET 500 MG PO (04:11)
[2025-01-15] MEDS: AMOXICILLIN/CLAVULANATE POTASSIUM 875/125MG TABLET 1 EACH PO (04:11)
[2025-01-15 04:13] VITALS: BP 114/95; PULSE 87; RESP 14; TEMP 36.7; O2SAT 100
== END 2025-01-15 04:15 | disposition home or self-care (01) ==
PROVIDERS: Emergency Provider Emergency Medicine; PCP Nurse Practitioner Family
DX: J18.9 Pneumonia, unspecified organism (principal); R06.02 Shortness of breath; F17.210 Nicotine dependence, cigarettes, uncomplicated
CPT/HCPCS: 71046; 99283